=== PATIENT | male | born 1950 | race Caucasian/White ===

== ENCOUNTER → 2017-09-03 10:49 | Outpatient (CLI) | payer MEDICARE, SELFPAY ==
--- NOTE | 2017-09-03 10:59 | XR_ITS ---
XR chest 2V COMPARISON: PA chest and left RIBS 12/07/2016 HISTORY: Shortness of breath, former smoker TECHNIQUE: PA and lateral chest FINDINGS: The lung bryan are well expanded and appear clear of infiltrate. There is aortic tortuosity unchanged from the previous exam but no cardiomegaly. There Is no pleural fluid and the pulmonary vascularity is normal. IMPRESSION: Nonacute chest findings
== END ==
PROVIDERS: PCP Family Medicine; Visit Provider Family Medicine
DX: Z87.891 Personal history of nicotine dependence (principal); R06.02 Shortness of breath
CPT/HCPCS: 71046

== ENCOUNTER → 2018-03-12 11:24 | Outpatient (CLI) | payer MEDICARE, SELFPAY ==
--- NOTE | 2018-03-12 11:27 | NM_ITS ---
History and Indications: Hypertension, shortness of breath, abnormal EKG Procedure: Patient received a 0.4 mg of intravenous Lexiscan, resting heart rate was 60 bpm resting blood pressure 183/80, with Lexiscan maximum heart rate achieved was 110 bpm which is less than 85% maximum predicted heart rate and a blood pressure was 143/54. With Lexiscan patient complained of lightheadedness. Electrocardiogram: Resting electrocardiogram showed electronically paced rhythm with left bundle branch block, with Lexiscan there is less than 1.[address] segment depression noted. The EKG portion of the Lexiscan is nondiagnostic. Cardiac stress and resting SPECT images: Cardiac stress and rest SPECT images were obtained using technetium 99 Myoview 31.8 mCi at stress 11.0 mCi at rest. Gated SPECT further analysis of segmental wall motion and calculation of ejection fraction. Cardiac stress and the suspect images show a fixed defect distal anteroapical and apical wall with reduced contractility is likely secondary to myocardial scarring, without significant brianna-infarct ischemia seen, there are ejection fraction is 53% moderate hypokinesis involving the distal anteroapical and apical wall. Right ventricle is normal size and contractility. Conclusion: 1. The EKG portion of the Lexiscan Myoview is nondiagnostic. 2. Scintigraphic evidence of myocardial scarring involving the distal anteroapical and apical wall without significant brianna-infarct ischemia, computer derived ejection fraction is 53 percent segmental wall motion abnormality described above, right ventricle is normal size and contractility. 3. Abnormal Lexiscan Myoview study.
--- NOTE | 2018-03-12 11:27 | CA_ITS ---
PROCEDURE: 2-D M-mode and color Doppler study INDICATIONS FOR THE TEST: Chest pain COPD Heart Murmur Tobacco Smoking Palpitations Fatigue Syncope Edema Hypertension+Diabetes Mellitus Rheumatic Fever SOB CHESTER Obesity Hyperlipidemia Family History HD+ Additional History PACER ABN EKG PATIENT INFORMATION HEIGHT: 60 WEIGHT:130 GENDER: Male B/P:143/87 2-D/M-MODE INTERPRETATION: 2-D MEASUREMENTS OBSERVED VALUES IN CMS Right Ventricular Dimension (RVDd) 2.2 Interventricular Septum (Thickness)(IVsd) 1.3 Left Ventricular Internal Dimensions(LVIDd) 4.8 Left Ventricular Posterior Wall (Thickness)(LVPWd) 1.2 Aortic Root 3.7 Aortic Cusp Separation 2.2 Left Atrial Dimensions (LAD) 2.9 2D 1. Technically very difficult study because of the patient's factor and poor acoustic windows. 2. The left atrium is mildly enlarged, left ventricle is normal size, visually estimated ejection fraction is probably 40-45%, there is abnormal septal motion. 3. The right atrium and right ventricle are normal size and contractility., There is pacemaker lead seen in the right atrium and right ventricle 4. The aortic valve is minimally thickened and fibrosed. 5. The mitral and tricuspid valvular grossly normal. 6. The pulmonic valve is poorly present. 7. No significant pericardial effusion noted. DOPPLER INTERROGATION: Doppler interrogation of the aortic, mitral and tricuspid valve reveals presence of mild mitral and tricuspid regurgitation, tricuspid regurgitation jet velocity is insufficient for calculation of the right ventricular systolic pressure, grade 1 diastolic dysfunction seen with tissue Doppler evidence of raised left atrial pressure. CONCLUSION: 1. Technically difficult study because of the patient's factor and poor acoustic windows 2. The left atrium is mildly enlarged, left ventricle is normal size, visually estimated ejection fraction of 40-45%, there is abnormal septal motion. Grade 1 diastolic dysfunction seen with tissue Doppler evidence of raised left atrial pressure. 3. Mild mitral and tricuspid regurgitation 4. No significant pericardial effusion noted.
== END ==
PROVIDERS: Family Provider Nurse Practitioner Family; PCP Family Medicine; Visit Provider Internal Medicine Cardiovascular Disease
DX: R06.83 Snoring (principal); R40.0 Somnolence; R94.31 Abnormal electrocardiogram [ECG] [EKG]; I10 Essential (primary) hypertension; Z78.9 Other specified health status; Z82.49 Family history of ischemic heart disease and other diseases of the circulatory system
CPT/HCPCS: 78452; 93017; 93306; A9502; J2785

== ENCOUNTER 2018-04-01 09:15 | Outpatient (RCR) | payer MEDICARE, SELFPAY | END 2018-07-11 13:59 | disposition home or self-care (01) | LOC: PT 09:15 | PROVIDERS: Visit Provider Internal Medicine | DX: Z95.5 Presence of coronary angioplasty implant and graft (principal) | CPT/HCPCS: 93798 ==

== ENCOUNTER → 2018-04-08 08:57 | Outpatient (CLI) | payer MEDICARE, SELFPAY ==
[2018-04-08 11:10] LABS: Alanine Aminotransferase 30 U/L (12-78); Albumin Level 3.9 gm/dL (3.4-5.0); Alkaline Phosphatase 112 U/L (46-116); Aspartate Amino Transferase 18 U/L (15-37); Bilirubin,Direct 0.1 mg/dL (0.0-0.2); Bilirubin,Indirect 0.3 mg/dL (0.0-0.9); Bilirubin,Total 0.4 mg/dL (0.2-1.0); Chol/HDL Ratio 3.9 (1-3.5); Cholesterol 143 mg/dL (140-200); HDL Cholesterol 37 mg/dL (27-67); LDL Cholesterol 87 mg/dL (0-130); Total Protein,Serum 7.2 gm/dL (6.4-8.2); Triglycerides 94 mg/dL (30-200); VLDL Cholesterol 19 mg/dL (0-40)
== END ==
PROVIDERS: Visit Provider Internal Medicine Cardiovascular Disease
DX: R06.83 Snoring (principal); R40.0 Somnolence; R94.31 Abnormal electrocardiogram [ECG] [EKG]; Z78.9 Other specified health status; Z82.49 Family history of ischemic heart disease and other diseases of the circulatory system; I10 Essential (primary) hypertension
CPT/HCPCS: 36415; 80061; 80076

== ENCOUNTER → 2018-04-15 10:05 | Outpatient (CLI) | payer MEDICARE, SELFPAY ==
[2018-04-15 11:20] LABS: Anion Gap 11.4 mEq/L (5-15); Blood Urea Nitrogen 13 mg/dL (7-18); Calcium 9.3 mg/dL (8.5-10.1); Carbon Dioxide 34 mmol/L (21.0-32.0); Chloride 101 mmol/L (98-107); Creatinine,Serum 0.95 mg/dL (0.70-1.30); Estimated Glomerular Filt Rate 79 ml/min (>60); GFR (African American) 95 ML/MIN (>60); Glucose 89 mg/dL (74-106); Potassium 4.4 mmoL/L (3.5-5.1); Sodium 142 mmol/L (136-145)
== END ==
PROVIDERS: PCP Family Medicine; Visit Provider Internal Medicine Cardiovascular Disease
DX: E78.2 Mixed hyperlipidemia (principal); I10 Essential (primary) hypertension; I25.10 Atherosclerotic heart disease of native coronary artery without angina pectoris; I51.9 Heart disease, unspecified; R06.09 Other forms of dyspnea; Z95.0 Presence of cardiac pacemaker
CPT/HCPCS: 36415; 80048

== ENCOUNTER 2018-09-12 02:48 | Inpatient (IN) ==
[2018-09-12 03:09] LABS: Basophils # 0.1 K/mm3 (0-0.2); Basophils % 0.9 % (0.1-2.0); Eosinophils # 0.4 K/mm3 (0.0-0.4); Eosinophils % 4.4 % (0.1-12.0); Hematocrit 44.6 % (42.0-52.0); Hemoglobin 14.8 g/dL (14.1-18.0); Lymphocytes # 2.3 K/mm3 (0.7-4.5); Lymphocytes % 26.1 % (10-50); Mean Corpuscular HGB Conc 33.2 g/dL (31.8-35.4); Mean Corpuscular Hemoglobin 29.1 pg (27.0-31.2); Mean Corpuscular Volume 87.7 fl (80-94); Mean Platelet Volume 7.7 fl (7.4-10.4); Monocytes # 0.7 K/mm3 (0.1-1.0); Monocytes % 8.2 % (1.7-9.3); Neutrophils # 5.4 K/mm3 (1.8-7.8); Neutrophils % 60.4 % (37.0-80.0); Platelet Count 282 K/mm3 (142-424); Red Blood Count 5.09 M/mm3 (4.60-6.20); Red Cell Distribution Width 13.1 % (11.5-17.5)
--- NOTE | 2018-09-12 03:13 | Emergency Department Note ---
ED Disposition Clinical Impression: Non-STEMI (non-ST elevated myocardial infarction), Cardiac pacemaker in situ Disposition: Admitted As Inpatient Condition on Discharge: Good Referrals: Provider,Referral, [Primary Care Provider] - - Critical Care Critical Care Time: No Attestation: On 09/12/18, the high probability of a clinically significant, sudden or life threatening deterioration of the following system(s) required my full and direct attention, intervention and personal management. The time I documented below is in addition to time spent performing reported procedures but includes the f ollowing listed in this critical care notation. Medical Decision Making - Medical Records Medical records reviewed: Yes: I reviewed the patient's medical records. - Salty Inquiry Pt receiving controlled substance: No Vital Signs: 09/12/18 02:49 09/12/18 03:19 09/12/18 04:00 Temperature 98.0 F 97.8 F Temperature Source Oral Oral Pulse Rate [Right Brachial] 98 H 64 65 Respiratory Rate 15 20 18 Blood Pressure [Right Arm] 128/80 132/67 128/72 Blood Pressure Mean [Right Arm] 96 88 90 02 Sat by Pulse Oximetry 95 94 L 94 L Oxygen Delivery Method Room Air Room Air Room Air - Lab Data Lab results reviewed: Yes: I reviewed the patient's lab results. Lab Results 09/12/18 03:02: WBC 9.0, RBC 5.09, Hgb 14.8, Hct 44.6, MCV 87.7, MCH 29.1, MCHC 33.2, RDW 13.1, Plt Count 282, MPV 7.7, Neut % (Auto) 60.4, Lymph % (Auto) 26.1, [place] % (Auto) 8.2, Eos % (Auto) 4.4, Baso % (Auto) 0.9, Neut # (Auto) 5.4, Lymph # (Auto) 2.3, [place] # (Auto) 0.7, Eos # (Auto) 0.4, Baso # (Auto) 0.1 09/12/18 03:02: Sodium 144, Potassium 3.7, Chloride 104, Carbon Dioxide 31, Anion Gap 12.7, BUN 18, Creatinine 1.12, Estimated Creat Clear 54, Estimated GFR 65, Est GFR ( Amer) 79, Glucose 87, Calcium 8.7, Troponin I 1.07 H Result diagrams: 09/12/18 03:02 04/12/19 03:02 Orders (Tests/Meds): ED MEDICATIONS Generic Name Dose Route Start Last Admin Trade Name Freq PRN Reason Stop Dose Admin Sodium Chloride 10 ml 09/12/18 02:50 Saline Flush 10ml Syringe IV 10/12/18 02:49 NEEDED PRN Maintain IV Site Discontinued Medications Generic Name Dose Route Start Last Admin Trade Name Freq PRN Reason Stop Dose Admin Aspirin 324 mg 09/12/18 02:58 09/12/18 03:00 Aspirin 81mg Chewable Tablet PO 09/12/18 02:59 324 mg ONCE ONE Administration Nitroglycerin 1 gm 09/12/18 03:35 09/12/18 03:57 Nitroglycerin 1 Inch Oint Udp TD 09/12/18 03:36 1 gm ONCE ONE Administration - Radiology Data #1 Image(s): Chest Image Reviewed: Yes I reviewed the patient's radiology image Preliminary Findings: Abnormal (cm) - ECG Data Tracing #1 I reviewed this ECG and interpreted as documented below: Normal Sinus Rhythm: Yes Conduction abnormalities present: other (paced) - Physician Consults Physician Consulted: mundo Reason -: Admission Chest Pain HPI - General Chief Complaint: Chest Pain Stated Complaint: chest pain Time Seen by Provider: 09/12/18 02:55 Mode of Arrival: Ambulatory Source of Information: Patient, Medical Record Limitations: No Limitations Description of Symptoms (Recalled from ER Triage Doc. by RN): Pt complaining of chest pain that started approx 3 hours ago when he was pulling out a couch. Pt reports hx of stents, sees Dr Joshua. Supposed to see Alexa in [facility]'s office tomorrow. - History of Present Illness HPI narrative: pt with lt sided chest pain with known heart disease and had stents last yr - he reports pain this am and reports pain with any exertion over the last few weeks MD complaint: chest pain indicative of cardiac Onset (ago): hour(s) Duration: now resolved Activity at onset: light activity Pain location: left chest Severity: similar to previous episodes Quality: tightness Associated symptoms: nausea Treatments prior to or on arrival for Cardiac Chest Pain: none - SIMEON Score for Non-Stemi Age of Patient: 60-69 years old Heart Rate: 90-109 bpm Systolic Blood Pressure: 120-139 mmhg Serum Creatinine: 0.80-1.19 mg/dl CHF [place] Class: I-No CHF Other Risk Factors: Elevated Cardiac Enzymes or Biomarkers Non-Stemi Risk Score: 128 - Related Data Prior Cardiac Testing/Procedures: Stenting Home Medications Medication Instructions Recorded Confirmed Bisoprolol Fumarate [Bisoprolol 5 mg PO DAILY 09/12/18 09/12/18 5mg Tablet] Clopidogrel Bisulfate [Plavix 75mg 75 mg PO DAILY 09/12/18 09/12/18 Tab] Lisinopril/Hydrochlorothiazide 1 tab PO DAILY 09/12/18 09/12/18 [Lisinopril-Hctz 10-12.5 mg Tab] hydroCHLOROthiazide 12.5 mg PO DAILY 09/12/18 09/12/18 [Hydrochlorothiazide 12.5mg Tab] Previous Rx's Medication Instructions Recorded aspirin 81 mg tablet,delayed 81 mg PO DAILY #30 tab 06/25/18 release atorvastatin 40 mg tablet 40 mg PO DAILY #30 tab 06/26/18 Allergies Allergy/AdvReac Type Severity Reaction Status Date / Time No Known Allergies Allergy Verified 06/13/18 10:20 [facility] History - Hepatitis A Screen Drug use history?: No High risk sexual behaviors?: No History of sexually transmitted infection?: No Currently employed?: No Childcare worker?: No Do you have indoor plumbing?: Yes Do you have electricity?: Yes Attestation statement:: This patient has been screened for Hepatitis A risk factors. I have reviewed the patient's past medical history: Yes Medical History: Reports:: Gastroesophageal Reflux Disease(GERD), Hiatal Hernia, Internal Pacemaker Denies:: Cancer, Diabetes Mellitus Type 1, Diabetes Mellitus Type 2, MRSA, Seizures Other Medical History: Denies: Blood Transfusion Reaction Other Surgeries: Yes: Pacemaker Amputation: No Fractures: Yes (hip and ankles) - Social History Smoking Status: Former smoker Tobacco Type: cigarettes Alcohol Intake: never Alcohol Intake Frequency:: holidays/special occasions only Substance Use Type: denies use Occupational Status: retired Housing: house Household Members: spouse - Psychiatric History Expresses thoughts of harming self/others: None Suicide Plan Description: No Plan Family Hx:: Heart Attack, Diabetes, Cancer ROS Obtained: Yes All systems reviewed & no additional complaints - Constitutional Constitutional: Denies fever(s) - Eyes Eyes: Denies change in vision - ENT Ears, Nose, Mouth, and Throat: Denies sore throat - Cardiovascular Cardiovascular: Reports chest pain, Reports chest pain with activity, Reports dyspnea, Reports radiating jaw, neck or arm pain - Respiratory Respiratory: No cough - Gastrointestinal Gastrointestingal: Denies: abdominal pain - Genitourinary Male Genitourinary: Denies hematuria - Musculoskeletal Musculoskeletal: Denies joint pain - Integumentary/Breasts Skin/Breast: Denies rash - Neurologic Neurologic: Denies seizure-like activity Physical Exam - General General appearance: alert, in no apparent distress - Head Head exam: normocephalic - Eye Eye exam: Present: PERRL, EOMI - ENT ENT exam: Present: mucous membranes dry - Neck Neck exam: Present: trachea midline - Respiratory Respiratory exam: Present: normal lung sounds bilaterally. Absent: respiratory distress - Cardiovascular Cardiovascular exam: Present: regular rate, systolic murmur, +S4 - Abdominal Exam Abdominal exam: Present: soft - Extremities Exam Extremities exam: Present: full ROM - Neurological Exam Neurological exam: Present: alert, oriented X3, CN II-XII intact - Psychiatric Psychiatric exam: Present: normal affect - Skin Skin exam: Absent: rash
[2018-09-12 03:35] LABS: Anion Gap 12.7 mEq/L (5-15); Calcium 8.7 mg/dL (8.5-10.1); Potassium 3.7 mmoL/L (3.5-5.1)
[2018-09-12 07:19] LABS: Chol/HDL Ratio 3.9 (1-3.5)
--- NOTE | 2018-09-12 07:32 | History & Physical Report ---
*Admission Date: 09/12/18 *Chief complaint: Chest pain *History of present illness: 67-year-old male with known coronary artery disease who is status post multivessel stenting in March 2018 as well as cardiac pacemaker implantation in February 2018 presented to the emergency department after onset of chest pain. Patient is a new father and his is here in the hospital after undergoing on September 11. Patient states he was trying to adjust the reclining bed and pulled on it and felt onset of pain in his chest. Pain did not go away and began radiating into the left arm. It was at this point he decided to seek treatment done in the emergency department. In the ER workup revealed an elevated troponin. Decision was made to admit the patient for cardiology evaluation. Patient admits however that over the preceding 3 weeks he has noticed chest pain whenever he exerts himself. He describes trying to push mow his lawn and after walking 50 feet developed chest pain that required him to stop. If he walks quickly through the house he will develop chest pain that requires him to stop and sit down. [facility] History I have reviewed the patient's past medical history: Yes Medical History: Reports:: Gastroesophageal Reflux Disease(GERD), Hiatal Hernia, Internal Pacemaker Denies:: Cancer, Diabetes Mellitus Type 1, Diabetes Mellitus Type 2, MRSA, Seizures *Have you ever received a pneumonia vaccine?: No *Have you received a flu vaccine this season?: No Other Medical History: Denies: Blood Transfusion Reaction Other Surgeries: Yes: Pacemaker Amputation: No Fractures: Yes (hip and ankles) - *Social History Educational Level: Completed High School Smoking Status: Former smoker Tobacco Type: cigarettes Alcohol Intake: never Alcohol Intake Frequency:: holidays/special occasions only Substance Use Type: denies use *Occupational Status:: retired Housing: house Household Members: spouse *Travel in the last 8 weeks: None - Psychiatric History Expresses thoughts of harming self/others: None Suicide Plan Description: No Plan Family Hx:: Cancer, Diabetes, Heart Attack, Tuberculosis Review of Systems - Review of Systems Review of systems:: pertinent systems reviewed and negative unless documented below - *Neurologic Denies seizure-like activity Meds Home Medications Medication Instructions Recorded Confirmed Type aspirin 81 mg tablet,delayed 81 mg PO DAILY #30 tab 06/25/18 09/12/18 Rx release atorvastatin 40 mg tablet 40 mg PO DAILY #30 tab 06/26/18 09/12/18 Rx Bisoprolol Fumarate [Bisoprolol 5 mg PO DAILY 09/12/18 09/12/18 History 5mg Tablet] Clopidogrel Bisulfate [Plavix 75mg 75 mg PO DAILY 09/12/18 09/12/18 History Tab] Lisinopril/Hydrochlorothiazide 1 tab PO DAILY 09/12/18 09/12/18 History [Lisinopril-Hctz 10-12.5 mg Tab] hydroCHLOROthiazide 12.5 mg PO DAILY 09/12/18 09/12/18 History [Hydrochlorothiazide 12.5mg Tab] Allergies Allergy/AdvReac Type Severity Reaction Status Date / Time No Known Allergies Allergy Verified 09/12/18 05:53 Exam Vital signs and Labs for Last 24 Hours: Temp Pulse Resp BP Pulse Ox 97.5 F L 60 16 117/64 94 L 09/12/18 05:42 09/12/18 05:42 09/12/18 05:42 09/12/18 05:42 09/12/18 06:17 Laboratory Results - last 24 hr 09/12/18 03:02: WBC 9.0, RBC 5.09, Hgb 14.8, Hct 44.6, MCV 87.7, MCH 29.1, MCHC 33.2, RDW 13.1, Plt Count 282, MPV 7.7, Neut % (Auto) 60.4, Lymph % (Auto) 26.1, [place] % (Auto) 8.2, Eos % (Auto) 4.4, Baso % (Auto) 0.9, Neut # (Auto) 5.4, Lymph # (Auto) 2.3, [place] # (Auto) 0.7, Eos # (Auto) 0.4, Baso # (Auto) 0.1 09/12/18 03:02: Sodium 144, Potassium 3.7, Chloride 104, Carbon Dioxide 31, Anion Gap 12.7, BUN 18, Creatinine 1.12, Estimated Creat Clear 54, Estimated GFR 65, Est GFR ( Amer) 79, Glucose 87, Calcium 8.7, Troponin I 1.07 H 09/12/18 03:02: Triglycerides 94, Cholesterol 126 L, LDL Cholesterol 75, VLDL Cholesterol 19, HDL Cholesterol 32, Cholesterol/HDL Ratio 3.9 H I & O for Last 24 hours: Intake & Output 09/09/18 09/10/18 09/11/18 09/12/18 11:59 11:59 11:59 11:59 Weight 138 lb 9.6 oz - *Routine HEENT Exam Head: Present: normocephalic Eye: Present: EOMI, PERRL ENT: Present: mucous membranes moist - *Routine Respiratory Exam Present: CTA bilaterally - *Routine Cardiovascular Exam Present: RRR Assessment and Plan (1) Unstable angina Current visit: Yes Status: Acute Category: Medical Code(s): I20.0 - Unstable angina (2) Coronary artery disease Current visit: Yes Status: Acute Category: Medical Code(s): I25.10 - Atherosclerotic heart disease of [place] coronary artery without angina pectoris (3) Non-STEMI (non-ST elevated myocardial infarction) Current visit: Yes Status: Acute Category: Medical Code(s): I21.4 - Non-ST elevation (NSTEMI) myocardial infarction (4) Cardiac pacemaker in situ Current visit: Yes Status: Chronic Category: Medical Code(s): Z95.0 - Presence of cardiac pacemaker (5) Diastolic dysfunction Current visit: No Status: Chronic Category: Medical Code(s): I51.9 - Heart disease, unspecified (6) Hyperlipidemia Current visit: No Status: Chronic Qualifiers: Category: Medical Code(s): E78.5 - Hyperlipidemia, unspecified (7) Hypertension Current visit: No Status: Chronic Qualifiers: Category: Medical Code(s): I10 - Essential (primary) hypertension - Assessment and plan all Dx Assessment and Plan for all problems:: Patient has been admitted for cardiology consultation. Continue home meds at this time
--- NOTE | 2018-09-12 07:51 | Pharmacy Consult Notes ---
[facility] Pharmacy VTE Monitoring - Patient Demographics Admission date: 09/12/18 Report Date: 09/12/18 Time: 07:50 Allergies/Adverse Reactions: Patient Allergies No Known Allergies Allergy (Verified 09/12/18 05:53) Height: 1.52 m Weight: 62.868 kg Patient Problems: Current Active Problems Non-STEMI (non-ST elevated myocardial infarction) (Acute) Unstable angina (Acute) Coronary artery disease (Acute) Cardiac pacemaker in situ (Chronic) - VTE Risk Labs: VTE Related Lab Results Hgb 14.8 g/dL (14.1-18.0) 09/12/18 03:02 Hct 44.6 % (42.0-52.0) 09/12/18 03:02 Plt Count 282 K/mm3 (142-424) 09/12/18 03:02 BUN 18 mg/dL (7-18) 09/12/18 03:02 Creatinine 1.12 mg/dL (0.70-1.30) 09/12/18 03:02 Estimated Creat Clear 54 mL/min (50-200) 09/12/18 03:02 Was VTE Risk Assessment Performed: Yes VTE Score: 2 VTE Risk Level: Very Low Risk - Prophylaxis VTE Prophylaxis Ordered?: Yes Types of VTE Prophylaxis: TEDS Knee High Location of Applied Device: Bilateral Lower Extremeties - VTE Diagnosis Confirmed Treatment or plan recommended: Continue Current Treatment
--- NOTE | 2018-09-12 09:31 | Consult Report ---
Addendum entered and electronically signed by Ann-Marie Giron APRN 09/12/18 14:50: Pt returned from left heart catheterization. Pt is doing well. Pressure dressing remains intact of the right wrist cath site. Results of left heart catheterization revealed JULIO to Right Coronary Artery. Medication regimen consist of Beta vaibhav, Jamarcus inhibitor, Statin therapy and DAPT: Plavix and Aspirin. Discussed with pt the importance of no heavy lifting or strenuous activity until follow-up with cardiology clinic. Follow-up in cardiology clinic in 1 week or sooner if symptoms persist/develop. Discussed and encouraged cardiac rehab when patient follows up in cardiac clinic. Original Note: History of Present Illness Consult date: 09/12/18 Requesting physician: Marquise Hayden Consult reason: chest pain Chief complaint: Chest pain Additional Medical History:: 1. Non-STEMI (09/12/18) a. Troponin 1.07 (09/12/18) 2. Unstable angina (09/12/18) a. Chest pain for 3 weeks. 3. Coronary artery disease. a. Drug-eluting stent deployment to the proximal mid distal RCA (03/20) b. Drug-eluting stent deployment to proximal dominant circumflex artery (03/20) c. Drug-eluting stent deployment to proximal mid distal LAD (03/20) 4. Permanent pacemaker placement (02/18) a. Symptomatic bradycardia 5. Diastolic dysfunction a. Echocardiogram revealed 40-45% EF (03/20) 6. Essential Hypertension 7. Hyperlipidemia a. LDL (75) (09/12/17) b. Patient is on statin therapy. History of present illness: 65-year-old male presented to the emergency room early this a.m. complaining of chest pressure that had been consistent for the last few hours. Patient stated for the past 3 weeks he has been experiencing increased left- sided chest pressure especially with exertion. This chest pressure usually will resolve with rest. Shortness of breath is accompanied with chest pressure. Patient states he is unable to walk 10 feet without becoming short of breath. Patient states that shortness of breath has become worse in the past few weeks. He denies any swelling of his legs or ankles. Patient denies dizziness or palpitations. Patient also complained of left arm numbness with the chest pressure. Patient does have history of coronary artery disease. In 03/20 patient underwent left heart catheterization, received drug-eluting stents to the proximal LAD, Circumflex artery and RCA. Patient stated he had been doing well after his last stents were placed. He also had PPM placed (02/18) for symptomatic bradycardia. Last echocardiogram (03/20) revealed EF of 40-45%. Patient does have history of hypertension and hyperlipidemia. Patient was last evaluated by cardiology in June 2018, in which no changes were made to his medication regimen. Last interrogation of pacemaker was stable (06/21). 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 AT/AF burden<1% in battery life is good. Initial cardiac workup was performed in the ER. Troponin noted at 1.07 which was elevated. Creatinine 1.12 and BUN 18. Initial EKG was performed revealed paced rhythm with a heart rate of [address]pm. Discuss[address] case [address] Dr[address] Joshua. Recommend echocardiogram to assess LV function and valve status. Recommended patient to have left heart catheterization today due to elevated troponin and unstable angina. Discussed with patient the risk and benefits of undergoing left heart catheterization with access to right wrist or right groin area. Patient verbalized understanding. Patient is agreeable to plan of care. Further recommendations will be made following the results of the left heart catheterization. Thank you for letting cardiology participate in the care of your patient. [facility] History Medical History: Reports:: Gastroesophageal Reflux Disease(GERD), Hiatal Hernia, Internal Pacemaker Denies:: Cancer, Diabetes Mellitus Type 1, Diabetes Mellitus Type 2, MRSA, Seizures *Have you ever received a pneumonia vaccine?: No *Have you received a flu vaccine this season?: No Other Medical History: Denies: Blood Transfusion Reaction Other Surgeries: Yes: Pacemaker Amputation: No Fractures: Yes (hip and ankles) - *Social History Educational Level: Completed High School Smoking Status: Former smoker Tobacco Type: cigarettes Alcohol Intake: never Alcohol Intake Frequency:: holidays/special occasions only Substance Use Type: denies use *Occupational Status:: retired Housing: house Household Members: spouse *Travel in the last 8 weeks: None - Psychiatric History Expresses thoughts of harming self/others: None Suicide Plan Description: No Plan Family Hx:: Cancer, Diabetes, Heart Attack, Tuberculosis Meds Home Medications Medication Instructions Recorded Confirmed Type aspirin 81 mg tablet,delayed 81 mg PO DAILY #30 tab 06/25/18 09/12/18 Rx release atorvastatin 40 mg tablet 40 mg PO DAILY #30 tab 06/26/18 09/12/18 Rx Bisoprolol Fumarate [Bisoprolol 5 mg PO DAILY 09/12/18 09/12/18 History 5mg Tablet] Clopidogrel Bisulfate [Plavix 75mg 75 mg PO DAILY 09/12/18 09/12/18 History Tab] Lisinopril/Hydrochlorothiazide 1 tab PO DAILY 09/12/18 09/12/18 History [Lisinopril-Hctz 10-12.5 mg Tab] hydroCHLOROthiazide 12.5 mg PO DAILY 09/12/18 09/12/18 History [Hydrochlorothiazide 12.5mg Tab] Allergies Allergy/AdvReac Type Severity Reaction Status Date / Time No Known Allergies Allergy Verified 09/12/18 05:53 Review of Systems - Review of Systems Review of systems:: pertinent systems reviewed and negative unless documented below - *Cardiovascular Reports chest pain, Reports chest pain at rest, Reports shortness of breath, Reports shortness of breath with activity - *Respiratory Reports shortness of breath - *Neurologic Reports weakness, Denies seizure-like activity Exam Vital signs and Labs for Last 24 Hours: Temp Pulse Resp BP Pulse Ox 98.0 F 68 18 117/70 92 L 09/12/18 08:00 09/12/18 08:00 09/12/18 08:00 09/12/18 08:00 09/12/18 08:00 Laboratory Results - last 24 hr 09/12/18 03:02: WBC 9.0, RBC 5.09, Hgb 14.8, Hct 44.6, MCV 87.7, MCH 29.1, MCHC 33.2, RDW 13.1, Plt Count 282, MPV 7.7, Neut % (Auto) 60.4, Lymph % (Auto) 26.1, [place] % (Auto) 8.2, Eos % (Auto) 4.4, Baso % (Auto) 0.9, Neut # (Auto) 5.4, Lymph # (Auto) 2.3, [place] # (Auto) 0.7, Eos # (Auto) 0.4, Baso # (Auto) 0.1 09/12/18 03:02: Sodium 144, Potassium 3.7, Chloride 104, Carbon Dioxide 31, Anion Gap 12.7, BUN 18, Creatinine 1.12, Estimated Creat Clear 54, Estimated GFR 65, Est GFR ( Amer) 79, Glucose 87, Calcium 8.7, Troponin I 1.07 H 09/12/18 03:02: Triglycerides 94, Cholesterol 126 L, LDL Cholesterol 75, VLDL Cholesterol 19, HDL Cholesterol 32, Cholesterol/HDL Ratio 3.9 H I & O for Last 24 hours: Intake & Output 09/09/18 09/10/18 09/11/18 09/12/18 23:59 23:59 23:59 23:59 Intake Total 0 / 0 Balance 0 / 0 Weight 138 lb 9.6 oz - Constitutional mild distress, average body habitus, cooperative - *Routine HEENT Exam Head: Present: normocephalic ENT: Present: mucous membranes moist - *Routine Neck Exam Present: supple, full ROM, normal carotid upstroke. Absent: JVD, carotid bruit - Routine Chest/Breast/Axilla Exam Chest wall: Present: pacemaker - *Routine Respiratory Exam Present: accessory muscle use, CTA bilaterally. Absent: wheezes, crackles - *Routine Cardiovascular Exam Present: RRR, Normal S1, Normal S2. Absent: murmur, click, JVD - *Routine Abdominal Exam Present: soft, normoactive bowel sounds - *Routine Extremities Exam Present: full ROM, pulses intact, normal capillary refill. Absent: cyanosis, clubbing, edema - Routine Back/Spine/Pelvis Exam Back/Spine: Present: full ROM. Absent: CVA tenderness - *Routine Skin Exam Present: intact, dry, warm. Absent: cyanosis, erythema - *Routine Neurological Exam Present: alert, oriented X3, CN II-XII intact, normal reflexes, normal speech - Routine Psychiatric Exam Present: normal affect, cooperative Assessment and Plan (1) Unstable angina Current visit: Yes Status: Acute Category: Medical Code(s): I20.0 - Unstable angina (2) Coronary artery disease Current visit: Yes Status: Acute Category: Medical Code(s): I25.10 - Atherosclerotic heart disease of [place] coronary artery without angina pectoris (3) Non-STEMI (non-ST elevated myocardial infarction) Current visit: Yes Status: Acute Category: Medical Code(s): I21.4 - Non-ST elevation (NSTEMI) myocardial infarction (4) Cardiac pacemaker in situ Current visit: Yes Status: Chronic Category: Medical Code(s): Z95.0 - Presence of cardiac pacemaker (5) Diastolic dysfunction Current visit: No Status: Chronic Category: Medical Code(s): I51.9 - Heart disease, unspecified (6) Hyperlipidemia Current visit: No Status: Chronic Qualifiers: Category: Medical Code(s): E78.5 - Hyperlipidemia, unspecified (7) Hypertension Current visit: No Status: Chronic Qualifiers: Category: Medical Code(s): I10 - Essential (primary) hypertension - Assessment and plan all Dx Assessment and Plan for all problems:: Plan: 1. Schedule patient for left heart catheterization today due to elevated troponin and an unstable angina. 2. Obtain echocardiogram to assess LV function and valve status. 3. Further recommendations may be possible pending on left heart catheterization.
--- NOTE | 2018-09-12 15:40 | Cardiology Report ---
PROCEDURE: 2-D M-mode and color Doppler study INDICATIONS FOR THE TEST: Chest pain + COPD Heart Murmur Tobacco Smokingex Palpitations Fatigue Syncope Edema Hypertension+Diabetes Mellitus Rheumatic Fever SOB CHESTER Obesity Hyperlipidemia+ Family History HD Additional History pacer DEFINITY GIVEN TDS PATIENT INFORMATION HEIGHT: 60 WEIGHT:135 GENDER: Male B/P:128/72 2-D/M-MODE INTERPRETATION: 2-D MEASUREMENTS OBSERVED VALUES IN CMS Right Ventricular Dimension (RVDd) 2.0 Interventricular Septum (Thickness)(IVsd) 0.5 Left Ventricular Internal Dimensions(LVIDd) 6.1 Left Ventricular Posterior Wall (Thickness)(LVPWd) 0.5 Aortic Root 2.1 Aortic Cusp Separation 1.7 Left Atrial Dimensions (LAD) 3.0 2D 1. Technically difficult study because of the patient's factor and poor acoustic windows. Definity contrast was placed to delineate endocardial subsequent 2. The left atrium is mildly enlarged, left ventricle is mildly dilated, there is mild concentric left ventricular hypertrophy, visually estimated ejection fraction approximately 40-45%, there is marked hypokinesis involving the basal septum, inferobasal and posterobasal wall. 3. The right atrium and right ventricle are mildly enlarged with normal contractility, there is a pacemaker lead seen right atrium and right ventricle. 4. The aortic valve is minimally thickened and fibrosed. 5. The mitral and tricuspid valve leaflets are minimally thickened. 6. The pulmonic valve is poorly present. 7. No significant pericardial effusion noted. DOPPLER INTERROGATION: Doppler interrogation of the aortic, mitral and tricuspid valvular presence of mild mitral and tricuspid regurgitation, mild aortic insufficiency is also seen, tricuspid regurgitation jet velocity is inadequate for calculation of the right ventricular systolic pressure, grade 1 diastolic dysfunction seen with tissue Doppler evidence of raised left atrial pressure. CONCLUSION: 1. Technically difficult study because of the patient's factor and poor acoustic windows, Definity contrast was placed to delineate endocardial subsequent 2. Mildly enlarged left atrium, mildly dilated left ventricle, mild concentric left ventricular hypertrophy, visually estimated ejection fraction approximately 40-45% with segmental wall motion abnormality as described above. Grade 1 diastolic dysfunction seen with tissue Doppler evidence of raised left atrial pressure. 3. Mildly enlarged right ventricle with normal contractility., There is pacemaker lead seen right ventricle. 4. Mild aortic, mild mitral and tricuspid regurgitation 5. No significant pericardial effusion noted.
--- NOTE | 2018-09-12 16:28 | Discharge Summary ---
General - General Admission date:: 09/12/18 Discharge date: 09/12/18 HPI HPI: 67-year-old male with known coronary artery disease who is status post multivessel stenting in March 2018 as well as cardiac pacemaker implantation in February 2018 presented to the emergency department after onset of chest pain. Patient is a new father and his is here in the hospital after undergoing on September 11. Patient states he was trying to adjust the reclining bed and pulled on it and felt onset of pain in his chest. Pain did not go away and began radiating into the left arm. It was at this point he decided to seek treatment done in the emergency department. In the ER workup revealed an elevated troponin. Decision was made to admit the patient for cardiology evaluation. Patient admits however that over the preceding 3 weeks he has noticed chest pain whenever he exerts himself. He describes trying to push mow his lawn and after walking 50 feet developed chest pain that required him to stop. If he walks quickly through the house he will develop chest pain that requires him to stop and sit down. Hospital Course Hospital Course: Patient was admitted and cardiac catheterization was performed with the following note: Pt returned from left heart catheterization. Pt is doing well. Pressure dressing remains intact of the right wrist cath site. Results of left heart catheterization revealed JULIO to Right Coronary Artery. Medication regimen consist of Beta vaibhav, Jamarcus inhibitor, Statin therapy and DAPT: Plavix and Aspirin. Discussed with pt the importance of no heavy lifting or strenuous activity until follow-up with cardiology clinic. Follow-up in cardiology clinic in 1 week or sooner if symptoms persist/develop. Discussed and encouraged cardiac rehab when patient follows up in cardiac clinic. He will be discharged home today with addition of medications, follow up with PCP in one week. Objective Vital signs: Temp Pulse Resp BP Pulse Ox 98.0 F 60 19 98/58 L 93 L 09/12/18 08:00 09/12/18 14:15 09/12/18 14:15 09/12/18 14:15 09/12/18 14:15 no acute distress - *Routine HEENT Exam Head: Present: normocephalic ENT: Present: mucous membranes moist - *Routine Respiratory Exam Present: CTA bilaterally. Absent: accessory muscle use - *Routine Cardiovascular Exam Present: RRR, Normal S1, Normal S2 - *Routine Abdominal Exam Present: soft, normoactive bowel sounds - *Routine Extremities Exam Present: full ROM. Absent: cyanosis, edema - *Routine Skin Exam Present: intact. Absent: pallor - *Routine Neurological Exam Present: alert, oriented X3 - Routine Psychiatric Exam Present: normal affect Results Labs on day of discharge: Labs from last 24 hours 09/12/18 09/12/18 09/12/18 12:01 03:02 03:02 WBC RBC Hgb Hct MCV MCH MCHC RDW Plt Count MPV Neut % (Auto) Lymph % (Auto) [place] % (Auto) Eos % (Auto) Baso % (Auto) Neut # (Auto) Lymph # (Auto) [place] # (Auto) Eos # (Auto) Baso # (Auto) Activated Clotting Time 354 H* Sodium 144 Potassium 3.7 Chloride 104 Carbon Dioxide 31 Anion Gap 12.7 BUN 18 Creatinine 1.12 Estimated Creat Clear 54 Estimated GFR 65 Est GFR ( Amer) 79 Glucose 87 Calcium 8.7 Troponin I 1.07 H Triglycerides 94 Cholesterol 126 L LDL Cholesterol 75 VLDL Cholesterol 19 HDL Cholesterol 32 Cholesterol/HDL Ratio 3.9 H 09/12/18 03:02 WBC 9.0 RBC 5.09 Hgb 14.8 Hct 44.6 MCV 87.7 MCH 29.1 MCHC 33.2 RDW 13.1 Plt Count 282 MPV 7.7 Neut % (Auto) 60.4 Lymph % (Auto) 26.1 [place] % (Auto) 8.2 Eos % (Auto) 4.4 Baso % (Auto) 0.9 Neut # (Auto) 5.4 Lymph # (Auto) 2.3 [place] # (Auto) 0.7 Eos # (Auto) 0.4 Baso # (Auto) 0.1 Activated Clotting Time Sodium Potassium Chloride Carbon Dioxide Anion Gap BUN Creatinine Estimated Creat Clear Estimated GFR Est GFR ( Amer) Glucose Calcium Troponin I Triglycerides Cholesterol LDL Cholesterol VLDL Cholesterol HDL Cholesterol Cholesterol/HDL Ratio DS: Diagnosis - Discharge Diagnosis (1) Unstable angina Status: Acute (2) Coronary artery disease Status: Acute (3) Non-STEMI (non-ST elevated myocardial infarction) Status: Acute (4) Cardiac pacemaker in situ Status: Chronic (5) Diastolic dysfunction Status: Chronic (6) Hyperlipidemia Status: Chronic (7) Hypertension Status: Chronic Discharge Plan - Patient Discharge Instructions ACTIVITY: No heavy lifting DIET: cardiac Additional Instructions: FOLLOW UP APPOINTMENT WITH CARDIOLOGY ON 09/18/18 AT 1300 Patient Instructions: DI for Heart Attack - Follow up Plan Follow up with: Laurie Dowell APRN [Nurse Practitioner] - 09/19/18 11:30 am Disposition: Home, Self-[facility] Medications: Home Medications Medication Instructions Recorded Confirmed Type aspirin 81 mg tablet,delayed 81 mg PO DAILY #30 tab 06/25/18 09/12/18 Rx release atorvastatin 40 mg tablet 40 mg PO DAILY #30 tab 06/26/18 09/12/18 Rx Bisoprolol Fumarate [Bisoprolol 5 mg PO DAILY 09/12/18 09/12/18 History 5mg Tablet] Clopidogrel Bisulfate [Plavix 75mg 75 mg PO DAILY 09/12/18 09/12/18 History Tab] Lisinopril/Hydrochlorothiazide 1 tab PO DAILY 09/12/18 09/12/18 History [Lisinopril-Hctz 10-12.5 mg Tab] hydroCHLOROthiazide 12.5 mg PO DAILY 09/12/18 09/12/18 History [Hydrochlorothiazide 12.5mg Tab] Prescriptions/Medication Reconciliation: Continue aspirin 81 mg tablet,delayed release 81 mg PO DAILY #30 tab atorvastatin 40 mg tablet 40 mg PO DAILY #30 tab Lisinopril/Hydrochlorothiazide [Lisinopril-Hctz 10-12.5 mg Tab] 1 tab PO DAILY hydroCHLOROthiazide [Hydrochlorothiazide 12.5mg Tab] 12.5 mg PO DAILY Clopidogrel Bisulfate [Plavix 75mg Tab] 75 mg PO DAILY Bisoprolol Fumarate [Bisoprolol 5mg Tablet] 5 mg PO DAILY
[2018-09-12 18:52] VITALS: BP 99/66
== END 2018-09-12 19:45 | disposition home or self-care (01) | DRG 247 ==
LOC: ER 02:48 → 2ND 04:55 → ICU 05:03
PROVIDERS: ADMIT Family Medicine; ATTEND Family Medicine
CPT/HCPCS: 71020; 71046; 80048; 80061; 84484; 85025; 85347; 92928; 93005; 93306; 93458; 99152; 99153; 99284; C1725; C1760; C1769; C1874; C1876; C9600; J1644; Q9967

== ENCOUNTER → 2018-09-18 12:07 | Outpatient (CLI) | payer MEDICARE, SELFPAY ==
[2018-09-18 12:26] LABS: Hematocrit 40.6 % (42.0-52.0)
[2018-09-18 13:30] LABS: Blood Urea Nitrogen 19 mg/dL (7-18); Creatinine,Serum 1.15 mg/dL (0.70-1.30); Estimated Glomerular Filt Rate 63 ml/min (>60); GFR (African American) 76 ML/MIN (>60)
== END ==
PROVIDERS: Visit Provider Internal Medicine
DX: Z95.5 Presence of coronary angioplasty implant and graft (principal); Z79.899 Other long term (current) drug therapy
CPT/HCPCS: 36415; 82565; 84520; 85014; 85018

== ENCOUNTER → 2018-10-20 09:41 | Outpatient (CLI) | payer MEDICARE, SELFPAY ==
--- NOTE | 2018-10-20 09:51 | XR_ITS ---
XR shoulder RT min 2V COMPARISON: PA and lateral chest 09/12/2018 HISTORY: Chronic right shoulder pain TECHNIQUE: 3 views right shoulder FINDINGS: The clavicle is intact. The AC joint appears normal. There is a slightly lateral downsloping acromion process. Humeral head and glenoid appear normal and there are no soft tissue calcifications. IMPRESSION: Slight lateral downsloping acromion process which could possibly predispose to mild degree of impingement syndrome and suggest clinical correlation.
== END ==
PROVIDERS: PCP Family Medicine; Visit Provider Family Medicine
DX: M25.511 Pain in right shoulder (principal)
CPT/HCPCS: 73030

== ENCOUNTER → 2019-02-16 08:47 | Outpatient (CLI) | payer MEDICARE, SELFPAY ==
--- NOTE | 2019-02-16 08:51 | XR_ITS ---
PROCEDURE: XR SHOULDER RT MIN 2V CLINICAL INDICATION: Rt shoulder pain COMPARISON: No exams were available for comparison FINDINGS: Minor osteoarthritic changes are present at the glenohumeral joint. No fracture or dislocation. No significant subacromial stenosis. IMPRESSION: Mild osteoarthritis Dictated by: Vern Hollis MD 02/16/2019 09:32 Electronically signed by Vern Hollis MD in [place] 02/16/2019 09:32
== END ==
PROVIDERS: PCP Family Medicine; Visit Provider Orthopaedic Surgery
DX: M25.511 Pain in right shoulder (principal)
CPT/HCPCS: 73030

== ENCOUNTER → 2019-11-24 09:07 | Outpatient (CLI) | payer MEDICARE, SELFPAY ==
--- NOTE | 2019-11-24 09:08 | CA_ITS ---
APPROVED REPORT EXAM: Comprehensive 2D, Doppler, and color-flow Echocardiogram Dice Manager: Laurie Sánchez RVT Ht: 5 ft 0 in Wt: 142lbs BSA: 1.61 BP: 116/59 mmHg Indications: SOA,CAD,PACER,CM,HTN,CHESTER,HLD TDS 2D Dimensions LVOT 1.86 cm (M/F) 1.5-2.5 M-Mode Dimensions RVDd 2.82 cm (0.9-2.6) LVDd 4.42 cm (3.5-5.7) LVDs 3.12 cm (3.5-5.7) IVSd 0.88 cm (0.6-1.1) PWd 0.80 cm (0.6-1.1) EF (Teich) 56.50% FS 29.40% EDV (Teich) 88.60 mL ESV (Teich) 38.50 mL LV Diastology E/A Ratio 0.70 Mitral Valve MV A Velocity 85.00 (40-130 cm/s) Left Ventricle Left atrium is mildly enlarged, left ventricle is normal size, mild concentric left ventricular hypertrophy, visually estimated ejection fraction 55% with no regional wall motion abnormality, grade 1 diastolic dysfunction seen without tissue Doppler evidence of raise left atrial pressure. Right Ventricle Right atrium and right ventricle are mildly enlarged with normal contractility, there is a pacemaker lead seen right atrium and right ventricle. Aortic Valve Aortic valve is thickened and calcified, leaflet continue to display mobility, there is no aortic stenosis, there is mild aortic insufficiency. Mitral Valve Mitral valve has mitral annular calcification, leaflets are minimally thickened, there is no mitral stenosis, there is mild mitral regurgitation. Tricuspid Valve Tricuspid valve is grossly normal, there is mild tricuspid regurgitation, tricuspid regurgitation jet velocity is inadequate for calculation of the right ventricular systolic pressure. Pulmonic Valve Pulmonic valve is poorly visualized. Great Vessels Aortic root is normal size. Pericardium No significant pericardial effusion noted. Conclusion 1. Normal left ventricular size, mild concentric left ventricular hypertrophy, visually estimated ejection fraction 55% with no regional wall motion abnormality, grade 1 diastolic dysfunction seen without tissue Doppler evidence of raise left atrial pressure. 2. Thickened and calcified aortic valve without aortic stenosis, there is mild aortic insufficiency. 3. Mild mitral and tricuspid regurgitation. 4. No significant pericardial effusion noted. Electronically signed by : Teja Aguilar, 11/24/2019 22:23:27
== END ==
PROVIDERS: PCP Family Medicine; Visit Provider Nurse Practitioner Family
DX: R06.00 Dyspnea, unspecified (principal)
CPT/HCPCS: 93306

== ENCOUNTER → 2020-03-14 08:36 | Outpatient (CLI) | payer MEDICARE, SELFPAY ==
--- NOTE | 2020-03-14 08:36 | CT_ITS ---
PROCEDURE: CT LUNG SCREENING CLINICAL INDICATION: screening for lung cancer Former smoker Quit smoking 2 years ago 50 pack year smoking history COMPARISON: No exams were available for comparison TECHNIQUE: The exam was performed on a GE Light Speed [address] scanner using 2.90 mGy CTDI. A low dose helical CT CHEST was performed on a multi-detector scanner. All CT scans at the facility use one or more dose reduction, viz: automated exposure control, ma/kV adjustment per patient size (including targeted exams where dose is matched to indication, i.e. head), or iterative reconstruction technique. The LDCT was performed in a facility that meets the criteria for the screening program. Data regarding this exam was submitted to ACR which is an approved registry. The order for this exam indicates that it came as a result of a lung cancer screening counseling shard decision-making visit that included all the elements required of such a visit including smoking cessation. The radiologist interpreting this exam meets the [facility] criteria for the LDCT lung cancer screening program. The exam is reported using the Lung-RADS classification scale and reported to the ACR registry. NOTE: This study was performed for the specific purposes of lung cancer screening and is not an alternative to diagnostic chest CT. RADIATION DOSE: CTDI vol(CT dose Index-volume) = 2.90mG DLP (Dose Length Product) = 108.64 mGcm FINDINGS: Changes of COPD with mild diffuse bronchial thickening. There is a area of tree in bud opacities in the right upper lobe inferiorly nonspecific and may be due to inflammatory/infectious etiology. There is a calcified granuloma in the left upper lobe. There is increased AP dimension of the trachea and with narrowing of the trachea suggesting a saber sheath trachea which may be seen with COPD. No suspicious pulmonary nodules are evident. OTHER FINDINGS: There is a bipolar pacemaker present from left subclavian approach. Pacemaker however traverses the left side of the mediastinum. The superior vena cava on the right is extremely small. Is consistent with duplicated superior vena cava. There are coronary artery calcifications and coronary artery stent noted. 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 Dictated by: Vern Hollis MD 03/20/2020 11:39 Vern Hollis MD in [place] 03/20/2020 11:39
[2020-03-14 09:45] VITALS: PULSE 65; PULSE 67
== END ==
PROVIDERS: PCP Family Medicine; Visit Provider Internal Medicine Pulmonary Disease
DX: Z12.2 Encounter for screening for malignant neoplasm of respiratory organs (principal); Z87.891 Personal history of nicotine dependence; R06.02 Shortness of breath
CPT/HCPCS: 94060; 94640; 94727; 94729

== ENCOUNTER → 2020-04-06 13:32 | Outpatient (CLI) | payer MEDICARE, SELFPAY ==
[2020-04-06 14:13] LABS: Basophils # 0.1 K/mm3 (0-0.2); Basophils % 1.2 % (0.1-2.0); Eosinophils # 0.4 K/mm3 (0.0-0.4); Eosinophils % 4.5 % (0.1-12.0); Hematocrit 47.8 % (42.0-52.0); Hemoglobin 14.7 g/dL (14.1-18.0); Lymphocytes # 1.7 K/mm3 (0.7-4.5); Lymphocytes % 19.2 % (10-50); Mean Corpuscular HGB Conc 30.9 g/dL (31.8-35.4); Mean Corpuscular Hemoglobin 28.5 pg (27.0-31.2); Mean Corpuscular Volume 92.4 fl (80-94); Mean Platelet Volume 7.7 fl (7.4-10.4); Monocytes # 0.8 K/mm3 (0.1-1.0); Monocytes % 8.8 % (1.7-9.3); Neutrophils % 66.3 % (37.0-80.0); Platelet Count 247 K/mm3 (142-424); Red Blood Count 5.17 M/mm3 (4.60-6.20); Red Cell Distribution Width 13.2 % (11.5-17.5)
[2020-04-09 23:14] LABS: D001-IgE D pteronyssinus <0.10 kU/L (Class 0); D002-IgE D farinae <0.10 kU/L (Class 0); E001-IgE Cat Dander <0.10 kU/L (Class 0); E005-IgE Dog Dander <0.10 kU/L (Class 0); G002-IgE Bermuda Grass <0.10 kU/L (Class 0); G006-IgE Timothy Grass <0.10 kU/L (Class 0); I006-IgE Cockroach, German <0.10 kU/L (Class 0); Immunoglobulin E, Total 29 IU/mL (6-495); M001-IgE Penicillium chrysogen <0.10 kU/L (Class 0); M002-IgE Cladosporium herbarum <0.10 kU/L (Class 0); M003-IgE Aspergillus fumigatus <0.10 kU/L (Class 0); M006-IgE Alternaria alternata <0.10 kU/L (Class 0); T001-IgE Maple/Box Elder <0.10 kU/L (Class 0); T006-IgE Cedar, Mountain <0.10 kU/L (Class 0); T007-IgE Oak, White <0.10 kU/L (Class 0); T008-IgE Elm, American <0.10 kU/L (Class 0); T010-IgE Walnut <0.10 kU/L (Class 0); T011-IgE Maple Leaf Sycamore <0.10 kU/L (Class 0); T014-IgE Cottonwood <0.10 kU/L (Class 0); T015-IgE Ash, White <0.10 kU/L (Class 0); T022-IgE Pecan, Hickory <0.10 kU/L (Class 0); T070-IgE White Mulberry <0.10 kU/L (Class 0); W011-IgE Thistle, Russian <0.10 kU/L (Class 0); W014-IgE Pigweed, Common <0.10 kU/L (Class 0); W016-IgE Rough Marshelder 0.16 kU/L (Class 0/I)
[2020-04-10 09:52] LABS: E072-IgE Mouse Urine <0.10 kU/L (Class 0); Immunoglobulin E, Total 33 IU/mL (6-495)
== END ==
PROVIDERS: Visit Provider Internal Medicine Pulmonary Disease
DX: J98.4 Other disorders of lung (principal); J44.9 Chronic obstructive pulmonary disease, unspecified; R06.00 Dyspnea, unspecified; R06.02 Shortness of breath; R06.2 Wheezing
CPT/HCPCS: 36415; 82785; 85025; 86003

== ENCOUNTER → 2020-12-21 12:39 | Outpatient (POV) | payer MEDICARE, SELFPAY | DX: Z00.00 Encounter for general adult medical examination without abnormal findings (principal) ==

== ENCOUNTER → 2021-03-15 12:38 | Outpatient (CLI) | payer MEDICARE, SELFPAY ==
--- NOTE | 2021-03-15 12:38 | CT_ITS ---
PROCEDURE: CT LUNG SCREENING CLINICAL INDICATION: lung cancer screening COPD changes with evidence of old granulomatous disease. Mild bronchial thickening.. No change in the small faint opacities in the right upper lobe inferiorly. No suspicious pulmonary nodule identified. COMPARISON: CR CXR2V XR chest 2V from 09/03/[address] LUNG SCREENING from 03/14/2020 XA CL PACEMAKER DEFIBRILATOR from 03/30/2021 TECHNIQUE: The exam was performed on a [employer] Speed [address] scanner using 2.90 mGy CTDI. A low dose helical CT CHEST was performed on a multi-detector scanner. All CT scans at the facility use one or more dose reduction, viz: automated exposure control, ma/kV adjustment per patient size (including targeted exams where dose is matched to indication, i.e. head), or iterative reconstruction technique. The LDCT was performed in a facility that meets the criteria for the screening program. Data regarding this exam was submitted to ACR which is an approved registry. The order for this exam indicates that it came as a result of a lung cancer screening counseling shard decision-making visit that included all the elements required of such a visit including smoking cessation. The radiologist interpreting this exam meets the CMS criteria for the LDCT lung cancer screening program. The exam is reported using the Lung-RADS classification scale and reported to the ACR registry. NOTE: This study was performed for the specific purposes of lung cancer screening and is not an alternative to diagnostic chest CT. RADIATION DOSE: CTDI vol(CT dose Index-volume) = 2.90mG DLP (Dose Length Product) = 107.33 mGcm FINDINGS: COPD changes with evidence of old granulomatous disease. Mild bronchial thickening. No change in the small faint opacities in the right upper lobe inferiorly. No suspicious pulmonary nodule identified. OTHER FINDINGS: Bipolar pacemaker present from left subclavian approach traversing the left-sided mediastinum. Lead tips are present in the region of the right atrium and the right ventricle. Coronary artery stents and or calcification noted. Pacemaker lead similar to the previous exam. IMPRESSION: Lung-RADS Category 2 Benign Appearance or Behavior Follow-up: Continue annual screening with LDCT in 12 months Dictated by: Vern Hollis MD 04/03/2021 10:10 Vern Hollis MD in [place] 04/03/2021 10:10
== END ==
PROVIDERS: PCP Family Medicine; Visit Provider Internal Medicine Pulmonary Disease
DX: Z87.891 Personal history of nicotine dependence (principal); Z12.2 Encounter for screening for malignant neoplasm of respiratory organs
CPT/HCPCS: 71271

== ENCOUNTER → 2021-03-20 10:28 | Outpatient (CLI) | payer MEDICARE, SELFPAY ==
[2021-03-20 10:48] LABS: Basophils # 0.1 K/mm3 (0-0.2); Basophils % 1.2 % (0.1-2.0); Eosinophils # 0.3 K/mm3 (0.0-0.4); Eosinophils % 3.1 % (0.1-12.0); Hematocrit 50.6 % (42.0-52.0); Hemoglobin 16.2 g/dL (14.1-18.0); Lymphocytes # 1.5 K/mm3 (0.7-4.5); Lymphocytes % 17.2 % (10-50); Mean Corpuscular Hemoglobin 29.8 pg (27.0-31.2); Mean Corpuscular Volume 93.2 fl (80-94); Monocytes # 0.7 K/mm3 (0.1-1.0); Monocytes % 7.8 % (1.7-9.3); Neutrophils # 6.2 K/mm3 (1.8-7.8); Neutrophils % 70.7 % (37.0-80.0); Platelet Count 284 K/mm3 (142-424); Red Blood Count 5.43 M/mm3 (4.60-6.20); Red Cell Distribution Width 12.9 % (11.5-17.5); White Blood Count 8.8 K/mm3 (4.8-10.8)
[2021-03-20 11:06] LABS: D-Dimer 0.89 ug/mL (0.0-0.5)
== END ==
PROVIDERS: Visit Provider Internal Medicine Pulmonary Disease
DX: J45.909 Unspecified asthma, uncomplicated (principal); I26.99 Other pulmonary embolism without acute cor pulmonale
CPT/HCPCS: 36415; 85025; 85378

== ENCOUNTER → 2021-03-29 09:32 | Outpatient (CLI) | payer MEDICARE, SELFPAY ==
[2021-03-29 09:52] LABS: Basophils # 0.1 K/mm3 (0-0.2); Eosinophils # 0.3 K/mm3 (0.0-0.4); Eosinophils % 3.4 % (0.1-12.0); Hematocrit 47.7 % (42.0-52.0); Hemoglobin 15.3 g/dL (14.1-18.0); Lymphocytes # 1.5 K/mm3 (0.7-4.5); Mean Corpuscular HGB Conc 32.2 g/dL (31.8-35.4); Mean Corpuscular Hemoglobin 29.5 pg (27.0-31.2); Mean Corpuscular Volume 91.7 fl (80-94); Mean Platelet Volume 8.4 fl (7.4-10.4); Monocytes # 0.6 K/mm3 (0.1-1.0); Monocytes % 7.4 % (1.7-9.3); Neutrophils % 70.1 % (37.0-80.0); Platelet Count 275 K/mm3 (142-424); Red Blood Count 5.21 M/mm3 (4.60-6.20); Red Cell Distribution Width 13.3 % (11.5-17.5); White Blood Count 8.6 K/mm3 (4.8-10.8)
[2021-03-29 10:19] LABS: Chloride 101 mmol/L (98-107); Potassium 4.1 mmoL/L (3.5-5.1); Sodium 141 mmol/L (136-145)
[2021-03-29 10:22] LABS: Anion Gap 11.1 mEq/L (5-15); Blood Urea Nitrogen 13 mg/dl (9-20); Calcium 9.2 mg/dl (8.4-10.2); Carbon Dioxide 33 mmol/L (22.0-30.0); Estimated Glomerular Filt Rate 83 ml/min (>60); GFR (African American) 100 ML/MIN (>60); Glucose 110 mg/dl (74-100)
== END ==
PROVIDERS: Visit Provider Internal Medicine
DX: E78.5 Hyperlipidemia, unspecified (principal); I10 Essential (primary) hypertension; I25.10 Atherosclerotic heart disease of native coronary artery without angina pectoris; I35.1 Nonrheumatic aortic (valve) insufficiency; I42.9 Cardiomyopathy, unspecified; R06.00 Dyspnea, unspecified; Z95.0 Presence of cardiac pacemaker; Z01.812 Encounter for preprocedural laboratory examination; Z11.52 Encounter for screening for COVID-19
CPT/HCPCS: 36415; 80048; 85025; C9803; U0003; U0005

== ENCOUNTER 2021-03-30 08:20 | Day surgery (SDC) | payer MEDICARE, SELFPAY ==
--- NOTE | 2021-03-30 | IR_ITS ---
APPROVED REPORT Patient Location: Outpatient Housekeeping Supervisor: EZEIKEL Brown RT (R) PROCEDURES 1. Pocket Revision 2. Removal of old Pacemaker 3. Implant of Permanent Pacemaker INDICATION Recall of generator. Informed consent was obtained prior to the procedure. COMPLICATIONS None Estimated Blood Loss: less than 10ml TECHNIQUE 1% lidocaine with epinephrine used to anesthetize the left anterior aspect of the chest. Scalpel was used to make the initial cutaneous incision and then used to dissect down to the existing pacemaker generator. The generator was removed from the existing pocket. Digital manipulation was required along with intermittent usage of scalpel in order to revise the pocket. The leads were removed from the old generator. The new generator was screwed to the existing leads and secured into place. Electronic interrogation proved acceptable thresholds and voltage within the lead. Antibiotics were used to flush the pocket and the pacemaker was secured using 3-0 silk into the newly revised pocket. Monocryl was used to close the subcutaneous tissue and then [place] were placed on the cutaneous area in order to approximate the incision. Patient was transferred to the postop holding area in stable condition. INTERROGATION Generator Model number explanted : [employer] Pacemaker [id number] Implanted Generator Model number: [employer] MRI IS-1 L311 Implanted Generator Serial Number: [id number] Chronic Atrial lead model number: [id number] Atrial lead serial number: [id number] P-wave: 3.5 mV Impedence: 667 Ohms Threshold: 0.5V @ 0.4 ms Right Ventricular lead model number: [id number] Right Ventricular lead serial number: [id number] R-wave: Impedence: 620 Ohms Threshold: 0.6V @ 0.4mS Pacing Parameters: Mode:DDD Base/Max Track: 60/130 PPM No diaphragmatic stimulation at 10 volts. IMPRESSION 1. Successful pocket revision. 2. Successful removal of old Pacemaker 3. Successful implant of Permanent Pacemaker PLAN 1. Post Op Wound Care Electronically signed by : Gustavo Joshua MD 04/10/2021 13:15:53
[2021-03-30 08:24] VITALS: BMI 29.5
[2021-03-30 08:57] VITALS: PULSE 69
[2021-03-30 08:58] VITALS: BP 130/69; PULSE 70; RESP 19; O2SAT 98
[2021-03-30 10:15] VITALS: BP 104/61; PULSE 92; RESP 19; O2SAT 95
[2021-03-30 10:24] VITALS: PULSE 100
[2021-03-30 10:30] VITALS: BP 123/70; PULSE 74; RESP 19; O2SAT 95
[2021-03-30 10:45] VITALS: BP 145/70; PULSE 66; RESP 19; O2SAT 98
--- NOTE | 2021-03-30 12:10 | HMH.ANESCL ---
[facility] Anesthesia Checklist - Patient Identification Patient Identification: Arm Band - Structural Data Admitted From: Home Planned Operative Procedure/s: Pacemaker Generator Change Consent for Planned Operative Procedure(s) Verified: Yes Verified Documents: Surgical Consent, History and Physical - NPO Status Verified Time NPO: 00:00 - Additional verifications Anesthesia Reactions: No Hx Blood Transfusions: No Blood Transfusion Reaction: No - Airway Assessment C-Spine Mobility Assessed: Yes (mp2) TMJ Mobility Assessed: Yes Dentition: Good Dentition - Neurological Assessment Level of Consciousness: Awake, Alert - Anesthesia Plan Anesthesia Risk discussed: Yes Anesthesia Plan: Verified ASA Class: III Anesthesia Type: MAC [facility] History I have reviewed the patient's past medical history: Yes Medical History: Reports:: Cardiomyopathy, Coronary Artery Disease, Gastroesophageal Reflux Disease(GERD), Hiatal Hernia, Hyperlipidemia, Hypertension, Internal Pacemaker Denies:: Cancer, Diabetes Mellitus Type 1, Diabetes Mellitus Type 2, MRSA, Seizures *Have you ever received a pneumonia vaccine?: Yes *Have you received a flu vaccine this season?: Yes Other Medical History: Denies: Blood Transfusion Reaction Anesthesia experience/problems:: nac Other Surgeries: Yes: Cardiac Catheterization, Coronary Stent, Pacemaker, Other Amputation: No Fractures: Yes (hip and ankles) - *Social History Last grade of school completed: High school graduate Smoking Status: Former smoker Tobacco Type: cigarettes Alcohol Intake: never Alcohol Intake Frequency:: holidays/special occasions only Substance Use Type: denies use *Occupational Status:: retired Housing: house Household Members: spouse *Travel in the last 8 weeks: None Family Hx:: Cancer, Diabetes, Heart Attack, Tuberculosis
== END 2021-03-30 11:06 | disposition home or self-care (01) ==
LOC: CATHLAB 08:22
PROVIDERS: PCP Family Medicine; Visit Provider Internal Medicine
PROC: 0JPT0PZ Removal of Cardiac Rhythm Related Device from Trunk Subcutaneous Tissue and Fascia, Open Approach (ICD-10-PCS; principal; 2021-03-30 09:00)
DX: T82.111A Breakdown (mechanical) of cardiac pulse generator (battery), initial encounter (principal); Y83.1 Surgical operation with implant of artificial internal device as the cause of abnormal reaction of the patient, or of later complication, without mention of misadventure at the time of the procedure; I44.2 Atrioventricular block, complete; R00.1 Bradycardia, unspecified; I25.10 Atherosclerotic heart disease of native coronary artery without angina pectoris; I42.9 Cardiomyopathy, unspecified; K21.9 Gastro-esophageal reflux disease without esophagitis; E78.5 Hyperlipidemia, unspecified; I10 Essential (primary) hypertension; Z87.891 Personal history of nicotine dependence
CPT/HCPCS: 33228; C1785

== ENCOUNTER → 2021-12-18 07:37 | Outpatient (CLI) | payer MEDICARE, SELFPAY ==
--- NOTE | 2021-12-18 07:38 | CA_ITS ---
APPROVED REPORT EXAM: Comprehensive 2D, Doppler, and color-flow Echocardiogram Advertising Sales Consultant: Adamaris Rajput CRT Ht: 5 ft 0 in Wt: 152lbs BSA: 1.66 BP: 132/68 mmHg Indications: Shortness of Breath, Peripheral Edema, CAD, Hyperlipidemia, Hypertension/HDD, pacer, cm 2D Dimensions LVOT 1.67 cm (M/F) 1.5-2.5 M-Mode Dimensions RVDd 2.71 cm (0.9-2.6) LA Diam 3.95 cm (1.9-4.0) LVDd 5.18 cm (3.5-5.7) Ao Diam 3.78 cm (2.0-3.7) LVDs 3.86 cm (3.5-5.7) IVSd 0.96 cm (0.6-1.1) PWd 0.71 cm (0.6-1.1) EF (Teich) 49.90% FS 25.50% EDV (Teich) 128.40 mL TAPSE 1.90 (<1.7) ESV (Teich) 64.30 mL LV Diastology E Decel Time 213.00 (160-240 msec) E/A Ratio 0.88 MED E' 7.50 (< 7 cm/sec) MED A' 9.50 cm/s E'/MED E' Ratio 10.41 (>14) LAT E' 7.20 (<10 cm/sec) LAT A' 8.30 cm/s E/LAT E' Ratio 10.85 (>14) Aortic Valve AO Peak GR. 9.00 mmHg Mitral Valve MV A Velocity 89.00 (40-130 cm/s) E/A Ratio 0.88 MV Decel. Time 213.00 (160-240 ms) Pulmonary Valve PV Peak Velocity 130.00 (50-150 cm/s) Tricuspid Valve TR P. Velocity 236.00 cm/s RAP Estimate 10.00 mmHg RVSP 32.40 mmHg Left Ventricle Technically difficult study because of the patient factors and poor acoustic windows. Left atrium is mildly enlarged, left ventricle is normal size mild concentric left ventricular hypertrophy, there is abnormal septal motion, estimated ejection fraction 40 to 45%, there is no obvious regional wall motion abnormality. Grade 1 diastolic dysfunction seen without tissue Doppler evidence of raise left atrial pressure. Right Ventricle Right atrium and right ventricle are mildly enlarged with normal contractility, pacemaker leads in right atrium and right ventricle. Aortic Valve Aortic valve is thickened and calcified without aortic stenosis or aortic insufficiency. Mitral Valve Mitral valve leaflets are minimally thickened, there is mild mitral regurgitation. Tricuspid Valve Tricuspid valve is grossly normal, there is mild tricuspid regurgitation, tricuspid regurgitation jet velocity is inadequate for calculation of the right ventricular systolic pressure. Pulmonic Valve Pulmonic valve is poorly visualized. Great Vessels Aortic root is normal size. Inferior vena cava is poorly visualized. Pericardium No significant pericardial effusion noted. Conclusion 1. Biatrial enlargement, normal left ventricular size, mild concentric left ventricular hypertrophy, estimated ejection fraction 40 to 45% with no regional wall motion abnormality, there is abnormal septal motion, grade 1 diastolic dysfunction seen without tissue Doppler evidence of raise left atrial pressure. 2. Mildly enlarged right ventricle with normal contractility, there is pacemaker lead seen in right atrium and right ventricle. 3. Thickened and calcified aortic valve without aortic stenosis or aortic insufficiency. 4. Mild mitral and tricuspid regurgitation. 5. No significant pericardial effusion noted. 6. Inferior vena cava is poorly visualized. Electronically signed by : Teja Aguilar MD 12/18/2021 15:31:38
== END ==
PROVIDERS: PCP Family Medicine; Visit Provider Nurse Practitioner Family
DX: E78.5 Hyperlipidemia, unspecified (principal); I10 Essential (primary) hypertension; I25.10 Atherosclerotic heart disease of native coronary artery without angina pectoris; I35.1 Nonrheumatic aortic (valve) insufficiency; R06.00 Dyspnea, unspecified; Z95.0 Presence of cardiac pacemaker
CPT/HCPCS: 93306

== ENCOUNTER → 2021-12-21 06:26 | Outpatient (CLI) | payer MEDICARE, SELFPAY ==
--- NOTE | 2021-12-21 06:46 | NM_ITS ---
APPROVED REPORT Exam: Nuclear Stress Test Indication: short of breath..fatigue Patient Location: Outpatient Stress Tech: Anju Gifford [place] Tech:Elidia Mcdonald OSVALDOFercho RT(R)(N) Ht: 5 ft 0 in Wt: 150 lbs HR: 72 bpm BP: 121/69 mmHg BSA: 1.65 m2 TID: 1.10 History: short of breath..fatigue Procedure: Patient received a 0.4 mg of intravenous Lexiscan, resting heart rate 72 bpm, resting blood pressure 121/69 mmHg, with Lexiscan maximum heart rate achived was 95 bpm which is Less than 85 % of the maximum predicted heart rate and blood pressure was 124/69 mmHg. With Lexiscan, patient denied any complaint of chest pain. Electrocardiogram Resting electrocardiogram shows electronically paced ventricular rhythm, with Lexiscan there is less than 1.[address] segment depression noted from the baseline EKG. The EKG portion of the Lexiscan is nondiagnostic. Cardiac Stress and Resting SPECT Images: Cardiac Stress and Resting SPECT images were obtained using technetium 99m Myoview 31.5 mCi stress and 10.15 mCi at rest. Gated SPECT for analysis of segmental wall motion and calculation of the ejection fraction also done. Cardiac stress and resting SPECT images show a partial reversible defect involving the anterior apical and anteroseptal wall likely secondary to mixed ischemia and scar, computer derived ejection fraction is 58% with mild anteroseptal wall hypokinesis. Right ventricle is normal size and contractility. Conclusion: 1. The EKG portion of the Lexiscan is nondiagnostic. 2. Scintigraphic evidence of mixed ischemia and scar involving the anterior apical and anteroseptal wall, computer derived ejection fraction is 58% with segmental wall motion abnormality described above, right ventricle is normal size and contractility. 3. Abnormal Lexiscan Myoview study. Electronically signed by : Teja Aguilar MD 12/22/2021 13:05:43
--- NOTE | 2021-12-21 10:03 | CA_ITS ---
APPROVED REPORT Exam: Pharmacologic Technologist: Anju Smith, Ht: 5 ft 0 in Wt: 150 lbs BSA: 1.65 m2 HR: 68 bpm BP: 121/69 mmHg Medical History Medications: Atorvastatin,,,,, HCTZ,,,,, Montelukast,,,,, CloPIdogrel,,,,, BisOPROLOL,,,,, Nitroglycerin,,,,, Budesonide,,,,, Sacubitril-Valsartan,,,,, Duoned,,,,, Benralizumab,,,,, Stress Test Details Test: LEXISCAN Reason for pharmacologic stress test: physical limitation. Reversal agent Aminophyline 100.0 mg, given intravenously for nausea. HR Resting HR: 72 bpm Max Heart Rate (APMHR): 147.104788 bpm Max HR Achieved: 95 bpm Target HR (85% APMHR): 124.468308 bpm % of APMHR: 64.63 Recovery HR: 69 bpm BP Resting BP: 121/69 mmHg Max BP: 124/69 mmHg Recovery BP: 124.0/69.0 mmHg ECG Resting ECG: NSR, paced ventricular rhythm Clinical Exercise duration: 04:00 min Highest Stage Achieved: Stress ECG Conclusion 1 minute: SOA 2 minute: Nausea, hot, sweaty 3 minute: Light-headed Recovery 1 minute: Aminophylline 100mg slow IV given Recovery 3 minute: Feels better Recovery 7 minute: sxs gone Symptoms: SOA, nausea, hot, lightheaded. No CP. Arrhythmias/Ectopy: None ST-T Changes: No significant changes. Conclusions: Non-diagnostic Lexiscan stress. Myoview images reported separately. Test Summary RECOVERY 05:00 . . 69 . 104/ 65 . . Stage 1 . . . . . . . Myoview Injected Stage 1 01:00 . . 92 . . . . Stage 2 01:00 . . 84 . . . . Stage 3 01:00 . . 72 . 75/ 45 . . Stage 4 01:00 . . 65 . 84/ 46 . Stop exercise at 04:00 RECOVERY 01:00 . . 75 . . . . RECOVERY 02:00 . . 74 . 87/ 56 . . RECOVERY 03:00 . . 68 . 87/ 51 . . RECOVERY 04:00 . . 69 . 96/ 54 . . RECOVERY 05:00 . . 69 . 104/ 65 . . RECOVERY 06:00 . . 65 . 108/ 61 . . RECOVERY 07:00 . . 71 . 108/ 61 . . RECOVERY 08:00 . . 72 . 108/ 61 . . RECOVERY 08:34 . . 71 . 124/ 69 . . Electronically signed by : Teja Aguilar MD 12/22/2021 13:03:39
== END ==
PROVIDERS: PCP Family Medicine; Visit Provider Physician Assistant
DX: R06.00 Dyspnea, unspecified (principal)
CPT/HCPCS: 78452; 93017; A9502; J0280; J2785

== ENCOUNTER → 2021-12-28 13:28 | Outpatient (CLI) | payer MEDICARE, SELFPAY ==
[2021-12-28 14:29] LABS: Basophils # 0.1 K/mm3 (0-0.2); Basophils % 1.1 % (0.1-2.0); Eosinophils % 0.4 % (0.1-12.0); Hematocrit 52.7 % (42.0-52.0); Lymphocytes # 1.6 K/mm3 (0.7-4.5); Lymphocytes % 16.6 % (10-50); Mean Corpuscular HGB Conc 30.3 g/dL (31.8-35.4); Mean Corpuscular Volume 95.6 fl (80-94); Mean Platelet Volume 8.3 fl (7.4-10.4); Monocytes # 0.7 K/mm3 (0.1-1.0); Monocytes % 7.7 % (1.7-9.3); Neutrophils # 7.1 K/mm3 (1.8-7.8); Neutrophils % 74.4 % (37.0-80.0); Platelet Count 302 K/mm3 (142-424); Red Blood Count 5.52 M/mm3 (4.60-6.20); Red Cell Distribution Width 13.7 % (11.5-17.5); White Blood Count 9.5 K/mm3 (4.8-10.8)
[2021-12-28 15:02] LABS: Anion Gap 10.3 mEq/L (5-15); Blood Urea Nitrogen 13 mg/dl (9-20); Calcium 9.1 mg/dl (8.4-10.2); Carbon Dioxide 31 mmol/L (22.0-30.0); Chloride 105 mmol/L (98-107); Estimated Glomerular Filt Rate 54 ml/min (>60); GFR (African American) 65 ML/MIN (>60); Glucose 99 mg/dl (74-100); Potassium 4.3 mmoL/L (3.5-5.1); Sodium 142 mmol/L (136-145)
== END ==
PROVIDERS: PCP Family Medicine; Visit Provider Nurse Practitioner
DX: Z01.812 Encounter for preprocedural laboratory examination; Z20.822 Contact with and (suspected) exposure to COVID-19; R06.00 Dyspnea, unspecified; I20.8 Other forms of angina pectoris; I35.1 Nonrheumatic aortic (valve) insufficiency; I10 Essential (primary) hypertension; E78.5 Hyperlipidemia, unspecified; R94.30 Abnormal result of cardiovascular function study, unspecified; Z95.0 Presence of cardiac pacemaker
CPT/HCPCS: 36415; 80048; 85025; C9803; U0003; U0005

== ENCOUNTER 2021-12-29 09:51 | Day surgery (SDC) | payer MEDICARE, SELFPAY ==
[2021-12-29] VITALS (13 sets, daily range): BP systolic 83–136; BP diastolic 50–73; PULSE 59–67; RESP 18–19; O2SAT 92–97; BMI 29.9
--- NOTE | 2021-12-29 | IR_ITS ---
APPROVED REPORT Patient Location: Outpatient PROCEDURES Selective coronary angiogram Lithotripsy to the mid LAD Drug-eluting stent deployment to the mid LAD Lithotripsy to the mid dominant right coronary Drug-eluting stent deployment to the mid dominant right coronary INDICATION Coronary artery disease, Accelerated angina pectoris, In-stent restenosis Informed consent was obtained prior to the procedure. COMPLICATIONS NONE Estimated Blood Loss: LESS THAN 10 ML TECHNIQUE One percent lidocaine used to anesthetize the right anterior aspect of the wrist. The right radial artery was accessed via the Seldinger technique. A 6 Swedish sheath was placed in the right radial artery. 2.5 mg of verapamil, 800 mcg of nitroglycerin, 1mg Lidocaine and 5000 U Heparin were given through the arterial sheath. The papa catheter was also used to perform left heart catheterization, left ventriculogram and selective coronary angiogram. At the end the diagnostic angiogram therapeutic heparin was administered giving a therapeutic ACT and the guide catheter was placed in the left anterior descending artery followed by a Choice PT extra-support wire. A 3.5 x 12 mm shockwave balloon was deployed at 4 and then 6 alex delivering 3 therapeutic lithotripsy shocks. This significantly improved the vessel therefore a 3.5 x 18 mm resolute Darryl stent was deployed at 20 alex reducing this severe to critical in-stent restenotic lesion to 0%. ZOILA-3 flow was present before and after the procedure. After the LAD the procedure was basically repeated in the right coronary artery using the same wire and the same shockwave balloon this time delivering 3 therapeutic lithotripsy shocks. Following this a 3.5 x 38 mm resolute Prescott stent was then placed in the proximal to mid right coronary artery and deployed at 22 alex reducing the severe stenosis to 0%. ZOILA-3 flow was present before and after the procedure. At the end of procedure the apparatus was removed the sheath was removed and hemostasis was achieved using TR banding patient was transferred to the postop putting in stable condition ANGIOGRAPHIC RESULTS The left anterior descending artery Originates from the left coronary cusp and has a stent in the proximal and mid segment. The proximal portion is widely patent however the midportion has a concentric 70 to 80% in-stent restenotic lesion. The stent then extends into the distal LAD and is widely patent with excellent distal transitioning. Following the stent procedure the LAD was widely patent throughout its entire course The circumflex artery Is nondominant yet still large giving rise to a medium sized high first obtuse marginal artery/ramus intermedius which has diffuse 20% stenoses. The circumflex artery has diffuse 20% stenosis with a distal 30% stenosis The right coronary artery Is a codominant vessel and has a proximal 30% stenosis with mid vessel concentric 90% stenosis representing in-stent restenosis. Distally the vessel has 20% stenosis The MURPHY ventriculogram reveals Not performed The left ventricular end-diastolic pressure Not measured IMPRESSION Severe to critical two-vessel coronary disease as described above representing in-stent restenosis Successful lithotripsy of both the LAD and the right coronary artery followed by drug-eluting stenting reducing the critical disease to 0% PLAN 1. Dual antiplatelet therapy 2. Risk factor modification 3. Cardiac rehabilitation 4. Avoidance of tobacco products 5. LDL less than 55 to be achieved with high intensity statin Electronically signed by : Gustavo Joshua MD 12/29/2021 15:05:02
[2021-12-29 13:46] LABS: CATHL Activated Clotting Time 333 SEC (74-125)
--- NOTE | 2021-12-29 15:57 | HMH.PHACLD ---
Ralph Munoz has received discharge medication counseling on the following medications: PATIENT IS CURRENTLY TAKING ASPIRIN 81 MG DAILY, ATORVASTATIN 40 MG HS, BISOPROLOL 5 MG DAILY, CLOPIDOGREL 75 MG DAILY, AND ENTRESTO BID.
== END 2021-12-29 16:57 | disposition home or self-care (01) ==
LOC: CATHLAB 09:53
PROVIDERS: PCP Family Medicine; Visit Provider Internal Medicine
DX: I25.118 Atherosclerotic heart disease of native coronary artery with other forms of angina pectoris (principal); I42.9 Cardiomyopathy, unspecified; T82.855A Stenosis of coronary artery stent, initial encounter; I77.1 Stricture of artery; Z79.899 Other long term (current) drug therapy; I35.1 Nonrheumatic aortic (valve) insufficiency; Z95.0 Presence of cardiac pacemaker; I10 Essential (primary) hypertension; E78.5 Hyperlipidemia, unspecified; Z79.01 Long term (current) use of anticoagulants; Y83.1 Surgical operation with implant of artificial internal device as the cause of abnormal reaction of the patient, or of later complication, without mention of misadventure at the time of the procedure
CPT/HCPCS: 85347; 92928; 93458; 99152; 99153; C1725; C1761; C1769; C1876; C9600; J1644; Q9967

== ENCOUNTER → 2022-01-03 15:13 | Outpatient (CLI) | payer MEDICARE, SELFPAY ==
--- NOTE | 2022-01-03 15:14 | CA_ITS ---
FINAL REPORT CLINICAL HISTORY: heart cath with right wrist access done 12/29 with 2 stents placed. Right arm is discolored today. FINDINGS: Spectral and Doppler waveform evaluations of the right wrist was performed. Spectral analysis was performed. The right radial artery is patent. There is no evidence of pseudoaneurysm or hematoma. IMPRESSION: No evidence of pseudoaneurysm or hematoma. Reviewed, Interpreted and Dictated by Osmel Resendez III, MD Transcribed by Nita Pedro Authenticated and [facility]
== END ==
PROVIDERS: PCP Family Medicine; Visit Provider Nurse Practitioner Family
DX: R09.89 Other specified symptoms and signs involving the circulatory and respiratory systems (principal); M25.531 Pain in right wrist
CPT/HCPCS: 93931

== ENCOUNTER → 2022-01-08 10:09 | Outpatient (CLI) | payer MEDICARE, SELFPAY ==
[2022-01-08 10:41] LABS: Basophils # 0.2 K/mm3 (0-0.2); Eosinophils # 0.3 K/mm3 (0.0-0.4); Eosinophils % 3.8 % (0.1-12.0); Hematocrit 50.4 % (42.0-52.0); Hemoglobin 16.2 g/dL (14.1-18.0); Lymphocytes # 1.8 K/mm3 (0.7-4.5); Lymphocytes % 20.2 % (10-50); Mean Corpuscular HGB Conc 32.1 g/dL (31.8-35.4); Mean Corpuscular Hemoglobin 29.7 pg (27.0-31.2); Mean Corpuscular Volume 92.6 fl (80-94); Mean Platelet Volume 8.4 fl (7.4-10.4); Monocytes # 0.6 K/mm3 (0.1-1.0); Neutrophils % 67.1 % (37.0-80.0); Platelet Count 316 K/mm3 (142-424); Red Blood Count 5.45 M/mm3 (4.60-6.20); Red Cell Distribution Width 13.8 % (11.5-17.5)
[2022-01-08 11:40] LABS: Chloride 102 mmol/L (98-107); Sodium 140 mmol/L (136-145)
[2022-01-08 11:41] LABS: Potassium 4.2 mmoL/L (3.5-5.1)
[2022-01-08 11:44] LABS: Anion Gap 10.2 mEq/L (5-15); Calcium 9.3 mg/dl (8.4-10.2); Carbon Dioxide 32 mmol/L (22.0-30.0); Glucose 112 mg/dl (74-100)
[2022-01-08 12:08] LABS: Blood Urea Nitrogen 15 mg/dl (9-20); Estimated Glomerular Filt Rate 73 ml/min (>60); GFR (African American) 89 ML/MIN (>60)
== END ==
PROVIDERS: Nurse Practitioner; PCP Family Medicine; Visit Provider Internal Medicine
DX: E78.5 Hyperlipidemia, unspecified (principal); I10 Essential (primary) hypertension; I25.10 Atherosclerotic heart disease of native coronary artery without angina pectoris; I35.1 Nonrheumatic aortic (valve) insufficiency; I42.9 Cardiomyopathy, unspecified; R06.00 Dyspnea, unspecified; Z95.0 Presence of cardiac pacemaker
CPT/HCPCS: 36415; 80048; 85025

== ENCOUNTER → 2022-04-16 10:10 | Outpatient (CLI) | payer MEDICARE, SELFPAY | PROVIDERS: PCP Family Medicine; Visit Provider Nurse Practitioner Family | DX: I35.1 Nonrheumatic aortic (valve) insufficiency (principal) | CPT/HCPCS: 93308 ==

== ENCOUNTER → 2022-05-17 09:12 | Outpatient (CLI) | payer MEDICARE, SELFPAY ==
[2022-05-17 10:12] LABS: Basophils # 0.1 K/mm3 (0-0.2); Basophils % 1.1 % (0.1-2.0); Eosinophils # 0.3 K/mm3 (0.0-0.4); Eosinophils % 3.3 % (0.1-12.0); Hematocrit 48.6 % (42.0-52.0); Hemoglobin 15.8 g/dL (14.1-18.0); Lymphocytes # 1.8 K/mm3 (0.7-4.5); Lymphocytes % 18.3 % (10-50); Mean Corpuscular HGB Conc 32.4 g/dL (31.8-35.4); Mean Corpuscular Volume 89.5 fl (80-94); Mean Platelet Volume 8.3 fl (7.4-10.4); Monocytes # 0.6 K/mm3 (0.1-1.0); Monocytes % 6.2 % (1.7-9.3); Neutrophils % 71.1 % (37.0-80.0); Platelet Count 309 K/mm3 (142-424); Red Blood Count 5.43 M/mm3 (4.60-6.20); Red Cell Distribution Width 13.4 % (11.5-17.5); White Blood Count 9.9 K/mm3 (4.8-10.8)
[2022-05-17 10:42] LABS: Anion Gap 11.4 mEq/L (5-15); Blood Urea Nitrogen 21 mg/dl (9-20); Calcium 9.1 mg/dl (8.4-10.2); Carbon Dioxide 30 mmol/L (22.0-30.0); Chloride 102 mmol/L (98-107); Estimated Glomerular Filt Rate 66 ml/min (>60); GFR (African American) 79 ML/MIN (>60); Glucose 154 mg/dl (74-100); Potassium 3.4 mmoL/L (3.5-5.1); Sodium 140 mmol/L (136-145)
== END ==
PROVIDERS: PCP Family Medicine; Visit Provider Nurse Practitioner
DX: I10 Essential (primary) hypertension (principal); I35.1 Nonrheumatic aortic (valve) insufficiency
CPT/HCPCS: 36415; 80048; 85025

== ENCOUNTER → 2022-08-21 11:30 | Outpatient (CLI) | payer MEDICARE, SELFPAY ==
[2022-08-21 12:40] LABS: Chloride 103 mmol/L (98-107); Sodium 138 mmol/L (136-145)
[2022-08-21 12:41] LABS: Potassium 5.6 mmoL/L (3.5-5.1)
[2022-08-21 12:43] LABS: Blood Urea Nitrogen 18 mg/dl (9-20); Estimated Glomerular Filt Rate 46 ml/min (>60); GFR (African American) 56 ML/MIN (>60)
[2022-08-21 12:44] LABS: Anion Gap 11.6 mEq/L (5-15); Calcium 8.2 mg/dl (8.4-10.2); Carbon Dioxide 29 mmol/L (22.0-30.0); Glucose 102 mg/dl (74-100)
== END ==
PROVIDERS: PCP Family Medicine; Visit Provider Physician Assistant
DX: R06.00 Dyspnea, unspecified; I25.10 Atherosclerotic heart disease of native coronary artery without angina pectoris; I10 Essential (primary) hypertension; I42.9 Cardiomyopathy, unspecified; E78.2 Mixed hyperlipidemia; Z95.0 Presence of cardiac pacemaker
CPT/HCPCS: 36415; 80048

== ENCOUNTER → 2022-09-05 11:37 | Outpatient (CLI) | payer MEDICARE, SELFPAY ==
[2022-09-05 13:25] LABS: Chloride 102 mmol/L (98-107); Potassium 3.9 mmoL/L (3.5-5.1); Sodium 140 mmol/L (136-145)
[2022-09-05 13:28] LABS: Blood Urea Nitrogen 20 mg/dl (9-20); Estimated Glomerular Filt Rate 54 ml/min (>60); GFR (African American) 65 ML/MIN (>60)
[2022-09-05 13:29] LABS: Anion Gap 12.9 mEq/L (5-15); Calcium 8.7 mg/dl (8.4-10.2); Carbon Dioxide 29 mmol/L (22.0-30.0); Glucose 113 mg/dl (74-100)
== END ==
PROVIDERS: PCP Family Medicine; Visit Provider Nurse Practitioner
DX: E78.2 Mixed hyperlipidemia (principal); I10 Essential (primary) hypertension; I25.10 Atherosclerotic heart disease of native coronary artery without angina pectoris; I35.1 Nonrheumatic aortic (valve) insufficiency; I42.9 Cardiomyopathy, unspecified; R06.00 Dyspnea, unspecified; Z95.0 Presence of cardiac pacemaker
CPT/HCPCS: 36415; 80048

== ENCOUNTER 2022-10-15 06:46 | Observation (INO) | payer MEDICARE, SELFPAY ==
[2022-10-15] VITALS (13 sets, daily range): BP systolic 124–159; BP diastolic 67–85; PULSE 69–118; RESP 18–24; TEMP 36.5–37.1; O2SAT 2–94; BMI 30.2; BMI 28.3; BMI 25.3
--- NOTE | 2022-10-15 06:52 | ECG_ITS ---
APPROVED REPORT Exam: Resting ECG HR:111 bpm ECG Measurements Heart Rate 111 AXES ID 133 P 123 QRSd 148 QRS 202 QT 356 T 61 QTc 421 Conclusion ELECTRONIC VENTRICULAR PACEMAKER ABNORMAL RHYTHM ECG UNCONFIRMED REPORT Electronically signed by : Marquise Campbell MD 10/15/2022 21:15:18
--- NOTE | 2022-10-15 06:58 | XR_ITS ---
FINAL REPORT TECHNIQUE: Single view chest CLINICAL HISTORY: soa, hypoxia FINDINGS: A single view of the chest was obtained. There is a left subclavian pacemaker in place. The heart and mediastinum are within normal limits. Mild bronchial wall thickening is seen consistent with bronchitis. There is mild scarring. Lungs are otherwise clear. There is no pneumothorax. Osseous structures are unremarkable. IMPRESSION: Mild bronchial wall thickening consistent with bronchitis. Reviewed, Interpreted and Dictated by Osmel Resendez III, MD Transcribed by Batool Stephenson Authenticated and . [facility]
[2022-10-15 07:10] LABS: ABG Base Excess 0.1 mmol/L (-2.4-2.3); ABG HCO3 23.6 mmhg (22.0-26.0); ABG Oxygen Saturation 98 % (90-100); ABG PCO2 32.4 mmhg (35.0-45.0); ABG PH 7.48 mmol/L (7.35-7.45); ABG PO2 100.3 mmhg (80-100); ABG TCO2 24.6 mmhg (23-27); Allen's Test Acceptable; Oxygen 2L %; Source Left Radial
[2022-10-15 07:27] LABS: Basophils # 0.1 K/mm3 (0-0.2); Basophils % 0.3 % (0.1-2.0); Eosinophils # 0.1 K/mm3 (0.0-0.4); Eosinophils % 0.6 % (0.1-12.0); Hematocrit 43.3 % (42.0-52.0); Hemoglobin 14.1 g/dL (14.1-18.0); Lymphocytes # 1.1 K/mm3 (0.7-4.5); Lymphocytes % 6.7 % (10-50); Mean Corpuscular HGB Conc 32.6 g/dL (31.8-35.4); Mean Corpuscular Hemoglobin 29.7 pg (27.0-31.2); Mean Corpuscular Volume 91.1 fl (80-94); Mean Platelet Volume 8.3 fl (7.4-10.4); Monocytes # 1.4 K/mm3 (0.1-1.0); Monocytes % 8.6 % (1.7-9.3); Neutrophils % 83.8 % (37.0-80.0); Platelet Count 297 K/mm3 (142-424); Red Blood Count 4.75 M/mm3 (4.60-6.20); Red Cell Distribution Width 12.9 % (11.5-17.5); White Blood Count 16.6 K/mm3 (4.8-10.8)
[2022-10-15 07:28] LABS: MANUAL DIFFERENTIAL MANUAL DIFFERENTIAL (MANUAL DIFF)
--- NOTE | 2022-10-15 07:28 | HMH.EDSOB ---
Discharge Plan Disposition Patient Disposition: Admitted As Inpatient Chief Complaint: Shortness of Breath/Dyspnea Prescriptions Prescriptions: No Action chlorpheniramine maleate [Allergy Relief(chlorpheniramn)] 4 mg tablet 4 mg PO Q8H PRN (Reason: .) Rx Instructions: do not exceed 2 doses per 24 hrs albuterol sulfate 90 mcg/actuation HFA aerosol inhaler 1 inh IH QID PRN (Reason: shortness of breath or wheezing) Qty: 8.5 12RF Breo Ellipta 100-25 mcg/dose blister with device 1 inh IH DAILY valsartan 40 mg tablet 40 mg PO DAILY Qty: 90 3RF bisoprolol fumarate 10 mg tablet 10 mg PO DAILY Qty: 90 3RF nitroglycerin 0.4 mg tablet, sublingual 0.4 mg SL Q5-15M PRN (Reason: chest pain) Qty: 25 0RF Rx Instructions: until response; do not exceed 3 doses per episode clopidogrel 75 mg tablet See Rx Instructions .ROUTE .COMPLEX Qty: 90 1RF Dose Instruction: Take 1 tablet by mouth once daily Rx Instructions: Take 1 tablet by mouth once daily spironolactone 50 mg tablet 50 mg PO DAILY Qty: 90 3RF furosemide 40 mg tablet See Rx Instructions .ROUTE .COMPLEX Qty: 90 1RF Dose Instruction: Take 1 tablet by mouth once daily Rx Instructions: Take 1 tablet by mouth once daily aspirin 81 mg tablet,delayed release (DR/EC) 81 mg PO DAILY Qty: 100 3RF atorvastatin 40 mg tablet See Rx Instructions .ROUTE .COMPLEX Qty: 90 0RF Dose Instruction: TAKE 1 TABLET BY MOUTH ONCE DAILY FOR CHOLESTEROL Rx Instructions: TAKE 1 TABLET BY MOUTH ONCE DAILY FOR CHOLESTEROL ipratropium-albuterol 3 ML solution for nebulization 3 ml IH Q8H budesonide 0.25 MG/2 ML suspension for nebulization 0.25 mg IH BID montelukast 10 MG tablet 10 mg PO DAILY benralizumab 30 MG/ML auto-injector 30 mg SQ Q4W hydrochlorothiazide 12.5 MG tablet See Rx Instructions .Route .COMPLEX Rx Instructions: TAKE 1 TABLET BY MOUTH ONCE DAILY FOR FLUID Discharge ED Provider: Karla (ED)Jorge A Resp/SOB HPI General Chief Complaint: Shortness of Breath/Dyspnea Stated Complaint: SOA; trouble sleeping Time Seen by Provider: 10/15/22 07:10 Mode of Arrival: Wheelchair Source of Information: Patient, Spouse and Medical Record Limitations: No Limitations Description of Symptoms (Recalled from ER Triage Doc. by RN): pt states that he has had shortness of Air with cough for 5 days. pt states that he has buckets of stuff comin up. when he coughs. the pt has copd, does not wear o2 at home History of Present Illness hx of copd and has over the last 5 days increased sob and has prod cough - has low o2 sat at home - no o2 use at home - has hx of pacemaker - has seen pul in past MD Complaint: shortness of breath and cough Onset (ago): day(s) Severity: moderate Known history of: COPD Associated symptoms: denies other symptoms Treatment prior to arrival: none Related Data Home oxygen amount: none Home Medications Medication Instructions Recorded Confirmed chlorpheniramine maleate 4 mg 4 mg PO Q8H PRN . 01/06/20 08/21/22 tablet (Allergy Relief (chlorpheniramine)) fluticasone furoate 100 1 inh inhalation DAILY allergies 12/08/20 08/21/22 mcg-vilanterol 25 mcg/dose inhalation powder (Breo Ellipta) benralizumab 30 mg/mL subcutaneous 30 mg SQ Q4W . 03/30/21 08/21/22 auto-injector budesonide 0.25 mg/2 mL suspension 0.25 mg inhalation BID COPD 03/30/21 08/21/22 for nebulization ipratropium 0.5 mg-albuterol 3 mg 3 ml inhalation Q8H COPD 03/30/21 08/21/22 (2.5 mg base)/3 mL nebulization soln montelukast 10 mg tablet 10 mg PO DAILY allergies 03/30/21 08/21/22 hydrochlorothiazide 12.5 mg tablet See Rx Instructions .Route 12/29/21 08/21/22 .COMPLEX . Previous Rx's Medication Instructions Recorded albuterol sulfate 90 mcg/actuation 1 inh inhalation QID PRN shortness 08/18/20 aerosol inhaler of breath or wheezing #8.5 grams
[2022-10-15 07:31] LABS: Alanine Aminotransferase 39 U/L (12-78); Albumin/Globulin Ratio 1.3 (1.1-1.8); Alkaline Phosphatase 108 U/L (38-126); Anion Gap 18.8 mEq/L (5-15); Aspartate Amino Transferase 37 U/L (17-59); Bilirubin,Total 1.1 mg/dl (0.2-1.3); Blood Urea Nitrogen 17 mg/dl (9-20); Calcium 8.5 mg/dl (8.4-10.2); Carbon Dioxide 29 mmol/L (22.0-30.0); Chloride 93 mmol/L (98-107); Creatinine Clearance Estimated 63 mL/min (50-200); Estimated Glomerular Filt Rate 66 ml/min (>60); GFR (African American) 79 ML/MIN (>60); Globulin 3.2 g/dL (1.3-3.2); Glucose 135 mg/dl (74-100); Potassium 3.8 mmoL/L (3.5-5.1); Sodium 137 mmol/L (136-145); Total Protein,Serum 7.2 g/dl (6.3-8.2)
[2022-10-15 07:37] LABS: C-Reactive Protein 193.3 mg/L (0-4)
[2022-10-15 07:40] LABS: NT Pro Brain Natriuretic Pep. 448 pg/mL (0-125)
[2022-10-15 07:46] LABS: Coronavirus 19, PCR Not Detected (NotDetected); Influenza A, PCR Not Detected (NotDetected); Influenza B, PCR Not Detected (NotDetected)
[2022-10-15 07:46] LABS: Troponin I < 0.01 ng/ml (0.00-0.034)
[2022-10-15 07:49] LABS: Procalcitonin 0.177 ng/mL (0.0-2.0)
[2022-10-15 07:53] LABS: Lactic Acid 1.9 mmol/L (0.7-2.1)
--- NOTE | 2022-10-15 07:53 | PC.NURSE ---
DR COELLO SPEAKING WITH HOSPITALIST ABOUT POSSIBLE ADMISSION
[2022-10-15 07:56] LABS: Lymphocytes % 8 % (10-50); Monocytes % 9 % (2-9); Neutrophils % 83 % (42-76); Total Cells Counted 100
[2022-10-15 07:57] LABS: Platelet Estimate Normal; RBC Morphology Normal
[2022-10-15 07:58] LABS: Erythrocyte Sedimentation Rate 44 mm/hr (0-20)
--- NOTE | 2022-10-15 07:58 | PC.NURSE ---
notified care management of admission
--- NOTE | 2022-10-15 08:03 | PC.NURSE ---
PT REQUESTING A BREAKFAST TRAY , DIETARY CALLED
[2022-10-15 08:19] LABS: Adenovirus,PCR Not Detected (NotDetected); Bordetella Pertussis Not Detected (NotDetected); Chlamydophila Pneumoniae, PCR Not Detected (NotDetected); Coronavirus 19, PCR Not Detected (NotDetected); Coronavirus 229E Not Detected (NotDetected); Coronavirus NL63 Not Detected (NotDetected); Coronavirus OC43 Not Detected (NotDetected); Coronovirus HKU1,PCR Not Detected (NotDetected); Human Metapneumovirus Not Detected (NotDetected); Influenza A, PCR Not Detected (NotDetected); Influenza AH1, 2009 Not Detected (NotDetected); Influenza AH1, PCR Not Detected (NotDetected); Influenza AH3,PCR Not Detected (NotDetected); Influenza B, PCR Not Detected (NotDetected); Mycoplasma Pneumoniae, PCR Not Detected (NotDetected); Parainfluenza 1, PCR Not Detected (NotDetected); Parainfluenza 2, PCR Not Detected (NotDetected); Parainfluenza 3, PCR Not Detected (NotDetected); Parainfluenza 4, PCR Not Detected (NotDetected); Respiratory Syncytial Virus Not Detected (NotDetected); Rhinovirus/Enterovirus Not Detected (NotDetected)
--- NOTE | 2022-10-15 09:10 | PC.NURSE ---
report called shyanne stovall
--- NOTE | 2022-10-15 09:29 | PC.NURSE ---
arrived to floor by w/c from ED
--- NOTE | 2022-10-15 09:50 | EXP.HP ---
History of Present Illness *Admission Date: 10/15/22 *Reason for visit:: shortness of breath *History of present illness: 71-year-old gentleman who presented to the ER with increased shortness of breath for 5 days. States that he has been feeling more winded with exertion, having a cough that is intermittently productive for the past 1 to 2 days. Denies any fever, nausea, vomiting, chest pain. On arrival to the ER was found to be hypoxic with oxygen saturation of 84% on room air. Blood gas on 2 L nasal cannula with PaO2 of 100 and pH of 7.48. Electrolytes within a normal range. White cell count elevated to 16,000. Patient is tachycardic. Inflammatory markers also elevated with ESR and CRP at 44 and 193 respectively. Chest imaging obtained showing new infiltrate right perihilar region with bronchial wall thickening. Initiated on IV antibiotics and medicine consulted for admission. After arriving to the floor, patient is stating he is feeling somewhat better. Currently on 2 L nasal cannula oxygen [facility] Disclaimer: The information contained in this section may have been updated after the patient was seen, as this information can be updated by other users. Medical History Cardiac pacemaker in situ Diastolic dysfunction Dyspnea Hyperlipidemia Hypertension Surgical History H/O hernia repair Social History Smoking Status: Former smoker second hand exposure: No alcohol intake: never substance use type: denies use current occupational status: retired Travel in the last 8 weeks: Inside the [place] household members: spouse housing: house current occupational exposures/hazards: No caffeine: No Review of Systems Review of Systems Review of systems (narrative): 14 point review of systems performed, pertinent positives and negatives as per HPI Meds Home Medications and Allergies Home Medications Medication Instructions Recorded Confirmed Type albuterol sulfate 90 mcg/actuation 1 inh inhalation QID PRN shortness 08/18/20 10/15/22 Rx aerosol inhaler of breath or wheezing #8.5 grams fluticasone furoate 100 1 inh inhalation DAILY allergies 12/08/20 08/21/22 History mcg-vilanterol 25 mcg/dose inhalation powder (Breo Ellipta) nitroglycerin 0.4 mg sublingual 0.4 mg sublingual Q5-15M PRN chest 01/19/21 10/15/22 Rx tablet pain #25 tabs budesonide 0.25 mg/2 mL suspension 0.25 mg inhalation BID COPD 03/30/21 08/21/22 History for nebulization aspirin 81 mg tablet,delayed 81 mg PO DAILY Heart health 10/15/22 10/15/22 History release atorvastatin 40 mg tablet 40 mg PO DAILY Cholesterol 10/15/22 10/15/22 History bisoprolol fumarate 10 mg tablet 10 mg PO DAILY High blood pressure 10/15/22 10/15/22 History clopidogrel 75 mg tablet 75 mg PO DAILY platelet inhibitor 10/15/22 10/15/22 History furosemide 40 mg tablet 40 mg PO DAILY Edema 10/15/22 10/15/22 History valsartan 40 mg tablet 40 mg PO DAILY High blood pressure 10/15/22 10/15/22 History New Prescriptions to Start Prescriptions: Allergies Allergy/AdvReac Type Severity Reaction Status Date / Time No Known Allergies Allergy Verified 08/21/22 11:13 Exam Data for Last 24 hours Vital signs and Labs for Last 24 Hours: Temp Pulse Resp BP Pulse Ox 98.0 F 118 H 22 136/79 93 L 10/15/22 09:29 10/15/22 09:29 10/15/22 09:29 10/15/22 09:29 10/15/22 09:29 Laboratory Results - last 24 hr 10/15/22 06:58: Specimen Source Left radial, O2 % 2l, ABG pH 7.48 H, ABG pCO2 32.4 L, ABG pO2 100.3 H, ABG HCO3 23.6, ABG Total CO2 24.6, ABG O2 Saturation 98, ABG Base Excess 0.1, Vern Test Acceptable 10/15/22 07:10: ESR 44 H 10/15/22 07:10: Troponin I < 0.01, C-Reactive Protein 193.3 H, Procalcitonin 0.177 10/15/22 07:10: WBC 16.6 H, RBC 4.75, Hgb 14.1, Hct 43.3, MCV 91.1, MCH 29
[2022-10-15 10:32] LABS: Troponin I < 0.01 ng/ml (0.00-0.034)
[2022-10-15 14:05] LABS: Troponin I < 0.01 ng/ml (0.00-0.034)
--- NOTE | 2022-10-15 16:15 | PC.NURSE ---
pt new admit this shift. pt alert and oriented. pt admitted from ED. pt on nasal canula. LS diminished t/o. pt has been given an incentive spirometer with teaching provided on how to use. pt receptive to using. pt up with standby assistance. pt has been voiding per urinal. pt's abdomen soft, nontender, bs active. has been at bedside.
[2022-10-16] VITALS (8 sets, daily range): BP systolic 108–155; BP diastolic 66–77; PULSE 77–114; RESP 17–19; TEMP 36.4–36.6; O2SAT 91–97; BMI 25.2
[2022-10-16 06:54] LABS: Basophils % 0.1 % (0.1-2.0); Eosinophils # 0.1 K/mm3 (0.0-0.4); Eosinophils % 0.3 % (0.1-12.0); Hematocrit 40.3 % (42.0-52.0); Lymphocytes # 1.4 K/mm3 (0.7-4.5); Lymphocytes % 5.8 % (10-50); Mean Corpuscular HGB Conc 32.3 g/dL (31.8-35.4); Mean Corpuscular Hemoglobin 29.1 pg (27.0-31.2); Mean Corpuscular Volume 90.1 fl (80-94); Mean Platelet Volume 8.6 fl (7.4-10.4); Monocytes # 1.1 K/mm3 (0.1-1.0); Monocytes % 4.6 % (1.7-9.3); Neutrophils % 89.2 % (37.0-80.0); Platelet Count 333 K/mm3 (142-424); Red Blood Count 4.48 M/mm3 (4.60-6.20); Red Cell Distribution Width 12.9 % (11.5-17.5); White Blood Count 23.6 K/mm3 (4.8-10.8)
[2022-10-16 06:56] LABS: MANUAL DIFFERENTIAL MANUAL DIFFERENTIAL (MANUAL DIFF)
[2022-10-16 07:06] LABS: Alanine Aminotransferase 37 U/L (12-78); Albumin Level 3.7 g/dl (3.5-5.0); Albumin/Globulin Ratio 1.2 (1.1-1.8); Alkaline Phosphatase 99 U/L (38-126); Anion Gap 17.3 mEq/L (5-15); Aspartate Amino Transferase 36 U/L (17-59); Bilirubin,Total 0.3 mg/dl (0.2-1.3); Blood Urea Nitrogen 23 mg/dl (9-20); Calcium 8.7 mg/dl (8.4-10.2); Carbon Dioxide 28 mmol/L (22.0-30.0); Chloride 96 mmol/L (98-107); Creatinine Clearance Estimated 62 mL/min (50-200); Estimated Glomerular Filt Rate 73 ml/min (>60); GFR (African American) 89 ML/MIN (>60); Glucose 149 mg/dl (74-100); Magnesium 2.3 mg/dl (1.6-2.3); Potassium 3.3 mmoL/L (3.5-5.1); Sodium 138 mmol/L (136-145); Total Protein,Serum 6.7 g/dl (6.3-8.2)
[2022-10-16 07:38] LABS: Lymphocytes % 6 % (10-50); Monocytes % 2 % (2-9); Neutrophils % 92 % (42-76); Total Cells Counted 100
[2022-10-16 07:39] LABS: Platelet Estimate Normal; RBC Morphology Normal
--- NOTE | 2022-10-16 10:01 | HMH.PHAINT1 ---
Pharmacy Intervention Comments: HOME MEDS VERIFIED BY LIST FROM OUTSIDE PHARMACY AND SPEAKING WITH THE PATIENT -PT CLAIMS HE USES BUDESONIDE IN THE NEBULIZER TWICE DAILY. -PT STATES HE DOES TAKE THE BREO, BUT NOT OFTEN HE SHOULD DUE TO HIGH COST.
--- NOTE | 2022-10-16 10:58 | EXP.DC.SUM ---
General Admission date:: 10/15/22 Discharge date: 10/16/22 HPI HPI HPI: 71-year-old gentleman who presented to the ER with increased shortness of breath for 5 days. States that he has been feeling more winded with exertion, having a cough that is intermittently productive for the past 1 to 2 days. Denies any fever, nausea, vomiting, chest pain. On arrival to the ER was found to be hypoxic with oxygen saturation of 84% on room air. Blood gas on 2 L nasal cannula with PaO2 of 100 and pH of 7.48. Electrolytes within a normal range. White cell count elevated to 16,000. Patient is tachycardic. Inflammatory markers also elevated with ESR and CRP at 44 and 193 respectively. Chest imaging obtained showing new infiltrate right perihilar region with bronchial wall thickening. Initiated on IV antibiotics and medicine consulted for admission. After arriving to the floor, patient is stating he is feeling somewhat better. Currently on 2 L nasal cannula oxygen Hospital Course Hospital Course Hospital Course: 71-year-old gentleman with history of COPD and CAD who presents with new oxygen requirement entheses hypoxia), and finding of pneumonia on chest imaging.? White cell count elevated to 16,000, tachycardic on exam.? Given presence of source of infection, meeting sepsis criteria.? Problems addressed as follows: Sepsis, resolved Community-acquired pneumonia Bronchitis Hypoxemic respiratory failure -Initiated on ceftriaxone 1 g daily and azithromycin 500mg daily. Initially requiring supplemental oxygen for goal saturation greater 90%. Weaned off by morning of discharge. Stable O2 sats on room air at 94%. Tolerating DuoNebs every 6 hours well with improvement in aeration and dyspnea. Sputum sample obtained, still pending at discharge. Given findings on chest imaging concerning for pneumonia and bronchitis, will complete antibiotics orally for total of 5 days. Patient has nebulizer at home. Continue breathing treatments 3-4 times daily for the next week. Continue Breo. Would recommend follow-up with his inspector chief in the next 2 to 4 weeks for routine evaluation. CAD Hypertension Hyperlipidemia -Continue home dual antiplatelet therapy -Continue bisoprolol and Lasix -Held valsartan during admission, okay to resume after discharge. Stable for discharge home to complete antibiotic therapy for pneumonia. No oxygen requirement at this time. Spent 40 minutes in discharge counseling and direct care with patient. Exam Data for Last 24 hours Vital signs and Labs for Last 24 Hours: Temp Pulse Resp BP Pulse Ox 97.7 F 77 18 155/77 H 94 L 10/16/22 07:37 10/16/22 09:10 10/16/22 09:10 10/16/22 07:37 10/16/22 10:36 Laboratory Results - last 24 hr 10/15/22 13:14: Troponin I < 0.01 10/16/22 06:20: WBC 23.6 H* D, RBC 4.48 L, Hgb 13.0 L, Hct 40.3 L, MCV 90.1, MCH 29.1, MCHC 32.3, RDW 12.9, Plt Count 333, MPV 8.6, Neut % (Auto) 89.2 H, Lymph % (Auto) 5.8 L, [place] % (Auto) 4.6, Eos % (Auto) 0.3, Baso % (Auto) 0.1, Neut # (Auto) 21.0 H, Lymph # (Auto) 1.4, [place] # (Auto) 1.1 H, Eos # (Auto) 0.1, Baso # (Auto) 0.0, Total Counted 100, Neutrophils % (Manual) 92 H, Lymphocytes % (Manual) 6 L, Monocytes % (Manual) 2, Platelet Estimate Normal, RBC Morphology Normal 10/16/22 06:20: Sodium 138, Potassium 3.3 L, Chloride 96 L, Carbon Dioxide 28, Anion Gap 17.3 H, BUN 23 H D, Creatinine 1.00, Estimated Creat Clear 62, Estimated GFR 73, Est GFR ( Amer) 89, Glucose 149 H, Calcium 8.7, Magnesium 2.3 D, Total Bilirubin 0.3, AST 36, ALT 37, Alkaline Phosphatase 99, Total Protein 6.7, Albumin 3.7, Globulin 3.0, Albumin/Globulin Ratio 1.2 I & O for Last 24 hours: Intake & Output 10/13/22 10/14/22 10/15/22 10/16/22 23:59 23:59 23:59 23:59 Intake Total 410 / 410 420 / 420 Output Total 0 / 0 0 / 0 Balance 410 / 410 420 / 420 Weight 67.387 kg 67.041 kg Constitutional Constitutional: no acute distress and average body habitus *Routine H
--- NOTE | 2022-10-16 12:01 | HMH.PHAINT1 ---
Pharmacy Intervention Comments: DISCHARGE MEDICATIONS COUNSELING COMPLETED. PATIENT IS STARTING THESE NEW MEDICATIONS: -AZITHROMYCIN (1 DOSE OF 500MG) AND CEFDINIR (BID X 3 DAYS, TOLD PATIENT OF POSSIBLE SIDE EFFECTS LIKE NAUSEA OR DIARRHEA AND TO TAKE MEDICATION WITH FOOD IF THIS OCCURRED) -DUONEB: 1 VIAL QID. WARNED OF DIZZINESS, HEADACHE, OR INCREASED HEART RATE WHICH MAY OCCUR AFTER USE AND TO LET HIS DOCTOR KNOW IF THESE SYMPTOMS PERSIST. PATIENT TAKES BUDESONIDE AND IS VERY FAMILIAR WITH USING THE NEBULIZER. -MONTELUKAST: ONCE DAILY. SAID SIDE EFFECTS WERE RARE BUT TO INFORM HIS PHYSICIAN IF EXPERIENCING FREQUENT HEADACHES OR COUGH. CLOPIDOGREL WAS LISTED UNDER THE NEW MEDICATIONS ON THE LIST, BUT THE PATIENT HAS ALREADY BEEN TAKING IT. PATIENT DID NOT HAVE ANY QUESTIONS ABOUT NEW OR CONTINUED MEDICATIONS.
== END 2022-10-16 12:04 | disposition home or self-care (01) ==
LOC: ER 06:55 → 2ND 08:10
PROVIDERS: Admitting Provider Internal Medicine Adolescent Medicine; Emergency Provider Emergency Medicine; PCP Family Medicine; Visit Provider Internal Medicine Adolescent Medicine
DX: J18.9 Pneumonia, unspecified organism (principal); I25.10 Atherosclerotic heart disease of native coronary artery without angina pectoris; I10 Essential (primary) hypertension; E78.2 Mixed hyperlipidemia; Z79.02 Long term (current) use of antithrombotics/antiplatelets; Z95.5 Presence of coronary angioplasty implant and graft; J44.9 Chronic obstructive pulmonary disease, unspecified; J96.01 Acute respiratory failure with hypoxia; R06.9 Unspecified abnormalities of breathing; Z20.822 Contact with and (suspected) exposure to COVID-19
CPT/HCPCS: G0378; 36415; 71045; 80053; 82803; 83605; 83735; 83880; 84145; 84484; 85007; 85025; 85651; 86140; 87040; 87070; 87205; 87581; 87632; 87635; 87636; 87798; 93005; 94640; 94760; 94761; 99285; C9803; J0456; J0696; U0003; U0005

== ENCOUNTER → 2023-03-13 06:35 | Outpatient (CLI) | payer MEDICARE, SELFPAY ==
--- NOTE | 2023-03-13 06:40 | NM_ITS ---
APPROVED REPORT Exam: Nuclear Stress Test Indication: CAD,10 STENTS, H/O [place], FM HX, C.P., SOB, PALPITATIONS, FATIGUE Stress Tech: Samia Cordova ANIA Tech:Elidia Mcdonald OSVALDOFercho RT(R)(N) Ht: 5 ft 1 in Wt: 150 lbs HR: 60 bpm BP: 129/60 mmHg BSA: 1.67 m2 Rhythm: NSR TID: 0.96 BMI: 28.3 History: CAD,10 STENTS, H/O [place], FM HX, C.P., SOB, PALPITATIONS, FATIGUE Procedure: Patient received 0.4 mg of intravenous Lexiscan, resting heart rate 60 bpm, resting blood pressure 129/60 mmHg, with Lexiscan maximum heart rate achieved was 90 bpm which is % of the maximum predicted heart rate and blood pressure was 139/66 mmHg. With Lexiscan, patient denied any complaint of chest pain. Cardiac Stress and Resting SPECT Images: Cardiac Stress and Resting SPECT images were obtained using technetium 99m Myoview 31.2 mCi stress and 10.09 mCi at rest. This was a technically difficult study due to globally reduced radiotracer uptake. Raw images demonstrate significant soft tissue overlap with the LV wall borders. This may affect the diagnostic interpretation of the study findings. Resting and stress imaging in supine and prone positions demonstrate a large sized, moderate, fixed perfusion defect in the inferior, septal, and inferoseptal LV archuleta from the base and extending distally towards the apical region. Gated imaging demonstrates normal global and regional LV systolic function. LVEF is calculated at 60%. Conclusion: Technically difficult study due to reduced radiotracer uptake and soft tissue attenuation. Large sized, moderate, fixed perfusion defect in the inferior, septal, and inferoseptal LV archuleta from the base and extending distally towards the apical region. No evidence of reversible ischemia. Gated imaging demonstrates normal and global regional LV systolic function. LVEF is calculated at 60%. Electronically signed by : Gisella Yoon MD 03/17/2023 00:46:55
--- NOTE | 2023-03-13 07:53 | CA_ITS ---
APPROVED REPORT EXAM: Comprehensive 2D, Doppler, and color-flow Echocardiogram [employer]: Adamaris Rajput CRT Ht: 5 ft 0 in Wt: 153lbs BSA: 1.67 BP: 128/72 mmHg Indications: Hyperlipidemia, Hypertension/HDD, 10 stents, pacer, cp, sob TDE due to pectus excavatum. 2D Dimensions LVOT 2.04 cm (M/F) 1.5-2.5 M-Mode Dimensions RVDd 2.34 cm (0.9-2.6) LA Diam 3.42 cm (1.9-4.0) LVDd 4.64 cm (3.5-5.7) Ao Diam 3.35 cm (2.0-3.7) LVDs 3.54 cm (3.5-5.7) IVSd 1.43 cm (0.6-1.1) PWd 0.97 cm (0.6-1.1) EF (Teich) 47.30% FS 23.70% EDV (Teich) 99.30 mL TAPSE 1.95 (<1.7) ESV (Teich) 52.30 mL LV Diastology E Decel Time 173.00 (160-240 msec) E/A Ratio 0.69 MED E' 4.70 (< 7 cm/sec) MED A' 7.80 cm/s E'/MED E' Ratio 9.17 (>14) LAT E' 5.50 (<10 cm/sec) LAT A' 7.30 cm/s E/LAT E' Ratio 7.84 (>14) Aortic Valve AO Peak GR. 7.50 mmHg Mitral Valve MV A Velocity 63.00 (40-130 cm/s) E/A Ratio 0.69 MV Decel. Time 173.00 (160-240 ms) Pulmonary Valve PV Peak Velocity 82.00 (50-150 cm/s) Tricuspid Valve TR P. Velocity 196.00 cm/s RAP Estimate 10.00 mmHg RVSP 25.40 mmHg Left Ventricle The left ventricle is normal size. The left ventricular systolic function is normal. The left ventricular ejection fraction is within the normal range. There is normal left ventricular wall thickness. Regional LV wall motion is difficult to estimate due to technically difficult study. Grossly, there are no obvious regional wall motion abnormalities. The left ventricular diastolic function is normal. LVEF is 55%. Right Ventricle The right ventricle is normal size. The right ventricular systolic function is normal. Atria The left atrium size is normal. The right atrium size is normal. There is no Doppler evidence of interatrial shunt. Aortic Valve The aortic valve is mildly thickened. There is no aortic valvular stenosis. No aortic regurgitation is present. Mitral Valve The mitral valve is mildly thickened. No evidence of mitral valve stenosis. Mild mitral regurgitation. Tricuspid Valve The tricuspid valve leaflets are thin and pliable. Trace tricuspid regurgitation. There is insufficient TR jet to estimate RVSP. Pulmonic Valve The pulmonic valve leaflets are not well visualized. Grossly, Other Information Study Quality: Technically Difficult Conclusion This is a technically difficult study due to pectus excavatum. Normal biventricular systolic function. No significant valvular stenosis or regurgitation. Electronically signed by : Gisella Yoon MD 03/15/2023 19:59:45
--- NOTE | 2023-03-13 11:01 | CA_ITS ---
APPROVED REPORT Exam: Pharmacologic Technologist: Samia Cordova, Ht: 5 ft 0 in Wt: 153 lbs BSA: 1.67 m2 HR: 60 bpm BP: 129/60 mmHg Rhythm: NSR Indications: Angina, Shortness of Air Medical History Medications: Aspirin,,,,, Atorvastatin,,,,, Duoneb,,,,, Albuterol,,,,, Montelukast,,,,, CloPIdogrel,,,,, Valsartan,,,,, BisOPROLOL,,,,, Nitroglycerin,,,,, BREo Eliipta,,,,, Budesonide,,,,, Furosemide,,,,, Stress Test Details Test: LEXISCAN Reason for pharmacologic stress test: physical limitation. HR Resting HR: 60 bpm Max Heart Rate (APMHR): 146 bpm Max HR Achieved: 90 bpm Target HR (85% APMHR): 124 bpm % of APMHR: 62 Recovery HR: 68 bpm BP Resting BP: 129.0/60.0 mmHg Max BP: 139.0/66.0 mmHg Recovery BP: 133.0/65.0 mmHg ECG Resting ECG: ventricular paced rhythm Stress ECG: No significant ST changes Arrhythmia: None Clinical Exercise duration: 04:00 min Highest Stage Achieved: Stress ECG Conclusion Symptoms: SOA, mild head & stomach discomfort. No CP. Arrhythmias/Ectopy: None ST-T Changes: None Conclusion: Non-diagnostic Lexiscan stress due to V paced rhythm. Myoview images reported separately. Test Summary REST . . . . . . . Resting REST 06:51 . . 60 . 129/ 60 . . Stage 1 . . . . . . . Myoview Injected Stage 1 01:00 . . 76 . . . . Stage 2 01:00 . . 88 . 139/ 66 . . Stage 3 01:00 . . 84 . 120/ 63 . . Stage 4 01:00 . . 74 . 117/ 63 . Stop exercise at 04:00 RECOVERY 01:00 . . 73 . 119/ 57 . . RECOVERY 02:00 . . 70 . 119/ 57 . . RECOVERY 03:00 . . 69 . 128/ 67 . . RECOVERY 03:39 . . 71 . 133/ 65 . . Electronically signed by : Gisella Yoon MD 03/17/2023 00:41:53
== END ==
PROVIDERS: PCP Internal Medicine; Visit Provider Nurse Practitioner Family
DX: E78.5 Hyperlipidemia, unspecified (principal); I10 Essential (primary) hypertension; I51.9 Heart disease, unspecified; Z95.0 Presence of cardiac pacemaker; E78.2 Mixed hyperlipidemia; I35.1 Nonrheumatic aortic (valve) insufficiency; R06.00 Dyspnea, unspecified; I20.89 Other forms of angina pectoris; I42.8 Other cardiomyopathies
CPT/HCPCS: 78452; 93017; 93306; A9502; J2785

== ENCOUNTER → 2023-03-29 10:39 | Outpatient (CLI) | payer MEDICARE, SELFPAY ==
--- NOTE | 2023-03-29 10:42 | XR_ITS ---
FINAL REPORT CLINICAL HISTORY: dyspnea COMPARISON: 10/15/2022 FINDINGS: Two views of the chest were obtained. The heart size and pulmonary vascularity are within normal limits. A left subclavian pacer remains present, and the wires have an unusual configuration, which is stable. There is mild hyperinflation compatible with chronic obstructive pulmonary disease. The mediastinum is normal. No acute pulmonary abnormality is identified. There is no pneumothorax. The bony thorax is intact. IMPRESSION: No active cardiopulmonary disease. Reviewed, Interpreted and Dictated by Osmel Resendez III, MD Transcribed by Sofia Bhatia Authenticated and [facility]
== END ==
PROVIDERS: PCP Family Medicine; Visit Provider Physician Assistant
DX: E78.5 Hyperlipidemia, unspecified (principal); I10 Essential (primary) hypertension; I20.89 Other forms of angina pectoris; K21.9 Gastro-esophageal reflux disease without esophagitis; R06.00 Dyspnea, unspecified; Z95.0 Presence of cardiac pacemaker; I42.8 Other cardiomyopathies
CPT/HCPCS: 71046

== ENCOUNTER 2023-08-29 08:24 | Inpatient (IN) | payer MEDICARE, SELFPAY ==
[2023-08-29] VITALS (14 sets, daily range): BP systolic 101–151; BP diastolic 41–85; PULSE 80–107; RESP 18–24; TEMP 36.4–36.7; O2SAT 85–95; BMI 29.2; BMI 28.8
--- NOTE | 2023-08-29 08:32 | ECG_ITS ---
APPROVED REPORT Exam: Resting ECG HR:86 bpm ECG Measurements Heart Rate 86 AXES NV 158 P -19 QRSd 150 QRS 197 QT 378 T 53 QTc 422 Conclusion ELECTRONIC VENTRICULAR PACEMAKER No STEMI Electronically signed by : KERRIE BARRIOS, 08/29/2023 15:13:43
--- NOTE | 2023-08-29 08:36 | PC.NURSE ---
in room talking with patient at this time.
--- NOTE | 2023-08-29 08:39 | XR_ITS ---
FINAL REPORT CLINICAL HISTORY: cough, SOA, R breath sounds diminished, wheezing COMPARISON: 03/29/2024 FINDINGS: SINGLE-VIEW CHEST The heart size is normal. The mediastinum is normal pacer is identified. There is mild airspace opacity at the right base which was not seen on the prior, may be related to a small focus of pneumonia. There is no pneumothorax. There is mild thoracic scoliosis convex to the right. IMPRESSION: Airspace opacity at right base, may be due to a small focus of pneumonia. Reviewed, Interpreted and Dictated by Krish Sheridan MD Transcribed by Nita Pedro Authenticated and [facility]
--- NOTE | 2023-08-29 08:41 | ED_ITS ---
Discharge Plan Disposition Patient Disposition: Admitted Clinical Impressions Clinical Impression: Shortness of breath, Acute exacerbation of chronic obstructive pulmonary disease, Acute hypoxemic respiratory failure, Sepsis due to pneumonia Discharge ED Provider: Jennifer Lund HPI General Chief Complaint: Shortness of Breath/Dyspnea Stated Complaint: soa, weakness, back pain Time Seen by Provider: 08/29/23 08:28 Mode of Arrival: Wheelchair Source of Information: Patient Limitations: No Limitations Description of Symptoms (Recalled from ER Triage Doc. by RN): Patient reports being short of breath for approx 2 weeks and that it is just continuing to get worse. Complaint of his heart racing as well. History of Present Illness HPI narrative: This patient is a 72-year-old male with a history of asthma, COPD, CAD, cardiomyopathy, hypertension, hyperlipidemia, aortic insufficiency, diastolic dysfunction, and pacemaker presenting to the emergency department for evaluation with concern for shortness of breath. Patient reports that for the last 2 weeks, he feels like he cannot get any air in. He states that it has been getting progressively worse over this time, and he noted his oxygen saturation was in the low 80s at 82 to 84% at home last night. He notes that he has had cough with a lot of thick sputum. He denies any fevers, chills, chest pain, nausea, vomiting, change in bowel movements, swelling, or other concerns. He does not usually wear oxygen at home. He denies any thoughts that he was going to be put on oxygen last summer, at which point I was like on medical record review that he was admitted for COPD exacerbation. Related Data Home Medications Medication Instructions Recorded Confirmed fluticasone furoate 100 1 inh inhalation DAILY COPD 12/08/20 05/20/23 mcg-vilanterol 25 mcg/dose inhalation powder (Breo Ellipta) budesonide 0.25 mg/2 mL suspension 0.25 mg inhalation BID COPD 03/30/21 05/20/23 for nebulization aspirin 81 mg tablet,delayed 81 mg PO DAILY Heart [facility] 10/15/22 05/20/23 release montelukast 10 mg tablet 10 mg PO DAILY 03/27/23 05/20/23 Previous Rx's Medication Instructions Recorded albuterol sulfate 90 mcg/actuation 1 inh inhalation QID PRN shortness 08/18/20 aerosol inhaler of breath or wheezing #8.5 grams ipratropium 0.5 mg-albuterol 3 mg 3 ml inhalation Q6RT 30 days #120 10/16/22 (2.5 mg base)/3 mL nebulization ea soln clopidogrel 75 mg tablet 75 mg PO DAILY platelet inhibitor 11/26/22 #90 tabs furosemide 40 mg tablet 40 mg PO DAILY Edema 90 days #90 02/08/23 tabs valsartan 40 mg tablet See Rx Instructions .Route 04/29/23 .COMPLEX #90 tabs pantoprazole 40 mg tablet,delayed 40 mg PO DAILY #30 tabs 05/20/23 release (Protonix) bisoprolol fumarate 10 mg tablet See Rx Instructions .Route 05/22/23 .COMPLEX #90 tabs atorvastatin 40 mg tablet See Rx Instructions .Route 07/01/23 .COMPLEX #90 tabs nitroglycerin 0.4 mg sublingual 0.4 mg sublingual Q5-15M PRN chest 08/19/23 tablet pain #25 tabs Allergies Allergy/AdvReac Type Severity Reaction Status Date / Time No Known Allergies Allergy Verified 08/19/23 10:43 [facility] Disclaimer: The information contained in this section may have been updated after the patient was seen, as this information can be updated by other users. Medical History Aortic insufficiency Dyspnea Cardiac pacemaker in situ Hyperlipidemia Hypertension Diastolic dysfunction Surgical History H/O hernia repair Social History Smoking Status: Unknown if ever smoked second hand exposure: No alcohol intake: never substance use type: denies use current occupational status: retired Travel in the last 8 weeks: [place] household members: spouse housing: house current occupational exposures/hazards: No caffeine: No ROS Obtained: Yes All systems reviewed & no additional complaints except as documented Physical Exam General General appearance: alert and in no apparent distress Comment: Ill-appearing Head Head exam: atraumatic and normocephalic Eye Eye exam: Present normal appearance, PERRL and EOMI ENT ENT exam: Present normal exam, normal oropharynx, mucous membranes moist and normal external ear exam Neck Neck exam: Present normal inspection, full ROM and trachea midline; Absent tenderness Chest Chest inspection: Present normal inspection and symmetric chest wall rise; Absent tenderness Respiratory Respiratory exam: Present wheezes, accessory muscle use, prolonged expiratory phase and other (Hypoxic on room air requiring 2 L nasal cannula for support); Absent respiratory distress or stridor Expanded Respiratory Exam Location: Left: wheezes and rhonchi, Right: wheezes, rhonchi and decreased breath sounds, Upper: wheezes and rhonchi and Lower: wheezes, rhonchi and decreased breath sounds Cardiovascular Cardiovascular exam: Present regular rate and normal rhythm Abdominal Exam Abdominal exam: Present soft; Absent distention, tenderness or guarding Extremities Exam Extremities exam: Present normal inspection, full ROM and normal capillary refill; Absent tenderness or edema Back Exam Back exam: Present normal inspection and full ROM; Absent tenderness Neurological Exam Neurological exam: Present alert, oriented X3, CN II-XII intact and normal gait; Absent motor sensory deficit Psychiatric Psychiatric exam: Present normal affect and normal mood Skin Skin exam: Present warm and dry HEART Score HEART Score HEART Score assessment performed?: Yes History (anamnesis): Slightly suspicious ECG: Non-specific disturbance Age: >65 years Risk factors: Atherosclerosis history Troponin: </= normal limit HEART Score: 5 Critical Care Critical Care Time Critical Care Time: No Medical Decision Making Medical Records Medical records reviewed: Yes I reviewed the patient's medical records. Salty Inquiry Pt receiving controlled substance: No Vital Signs Vital Signs: 08/29/23 08:24 08/29/23 08:30 08/29/23 09:00 Temperature 97.8 F Temperature Source Oral Pulse Rate 87 89 Pulse Rate [Radial] 93 H Respiratory Rate 22 Blood Pressure 120/65 Blood Pressure [Right Arm] 120/70 Blood Pressure Mean Blood Pressure Mean [Right Arm] 86 Blood Pressure Source [Right Arm] Automatic Cuff Blood Pressure Position [Right Arm] Sitting 02 Sat by Pulse Oximetry 85 L 90 L 93 L Oxygen Delivery Method Room Air Oxygen Flow Rate (LPM) 08/29/23 09:15 08/29/23 09:16 08/29/23 09:16 Temperature Temperature Source Pulse Rate 85 87 Pulse Rate [Radial] Respiratory Rate Blood Pressure 151/85 H Blood Pressure [Right Arm] Blood Pressure Mean Blood Pressure Mean [Right Arm] Blood Pressure Source [Right Arm] Blood Pressure Position [Right Arm] 02 Sat by Pulse Oximetry 95 95 Oxygen Delivery Method Nasal Cannula Oxygen Flow Rate (LPM) 2 08/29/23 09:16 08/29/23 09:30 08/29/23 10:00 Temperature Temperature Source Pulse Rate 86 95 H 107 H Pulse Rate [Radial] Respiratory Rate 24 Blood Pressure 144/82 H 123/66 Blood Pressure [Right Arm] Blood Pressure Mean 85 Blood Pressure Mean [Right Arm] Blood Pressure Source [Right Arm] Blood Pressure Position [Right Arm] 02 Sat by Pulse Oximetry 95 94 L Oxygen Delivery Method Nasal Cannula Oxygen Flow Rate (LPM) 3 Lab Data Labs: Lab Results 08/29/23 08:39: VBG pH 7.41, VBG pCO2 44.6, VBG pO2 35.7, VBG HCO3 27.3, VBG Total CO2 28.7 H, VBG O2 Saturation 68.0, VBG Base Excess 2.6 H, VBG Lactic Acid 2.1 H 08/29/23 08:40: WBC 20.6 H*, RBC 5.40, Hgb 15.7, Hct 50.1, MCV 92.7, MCH 29.1, M CHC 31.4 L, RDW 13.7, Plt Count 239, MPV 8.8, Neut % (Auto) 86.4 H, Lymph % (Auto) 6.1 L, [place] % (Auto) 5.9, Eos % (Auto) 0.9, Baso % (Auto) 0.7, Neut # (Auto) 17.8 H, Lymph # (Auto) 1.3, [place] # (Auto) 1.2 H, Eos # (Auto) 0.2, Baso # (Auto) 0.2, Total Counted 100, Neutrophils % (Manual) 84 H, Lymphocytes % (Manual) 6 L, Monocytes % (Manual) 9, Eosinophils % (Manual) 1, Platelet Estimate Normal, RBC Morphology Normal, Sodium 136, Potassium 4.5, Chloride 96 L , Carbon Dioxide 31 H, Anion Gap 13.5, BUN 23 H, Creatinine 1.50 H, Estimated Creat Clear 42, Estimated GFR 46 L, Est GFR ( Amer) 55 L, Glucose 131 H, Calcium 9.3, Total Bilirubin 1.4 H, AST 29, ALT 30, Alkaline Phosphatase 93, Troponin I < 0.01, NT-Pro-B Natriuret Pep 206 H, Total Protein 7.6, Albumin 4.3, Globulin 3.3 H, Albumin/Globulin Ratio 1.3 08/29/23 08:40 08/29/23 08:40 Response Orders (Tests/Meds): ED MEDICATIONS Generic Name Dose Route Start Last Admin Trade Name Constance PRN Reason Stop Dose Admin Albuterol/Ipratropium 3 ml 08/29/23 12:00 Ipratropium/Albuterol 3 Ml [facility] 09/28/23 11:59 Q6RT GENTRY Lactated Ringer's 1,000 mls @ 999 mls/hr 08/29/23 09:21 08/29/23 09:50 Lactated Ringer's 1000 Ml Bag IV 08/29/23 10:21 999 mls/hr .Q1H1M ONE Administration Azithromycin 500 mg/ Sodium 250 mls @ 250 mls/hr 08/30/23 09:00 Chloride IV 09/09/23 08:59 Q24H GENTRY Ceftriaxone Sodium 2 gm/ 100 mls @ 200 mls/hr 08/30/23 08:30 Sodium Chloride IV 09/09/23 08:29 Q24H GENTRY Sodium Chloride 3 ml 08/29/23 09:42 Sodium Chloride 3% 15ml [facility] 09/28/23 09:41 ONCE PRN INDUCE SPUTUM COLLECTION Sodium Chloride 10 ml 08/29/23 10:15 Sodium Chloride 0.9% 10ml Flush Syringe IV 09/28/23 10:14 NEEDED PRN Maintain IV Site Discontinued Medications Generic Name Dose Route Start Last Admin Trade Name Constance PRN Reason Stop Dose Admin Albuterol/Ipratropium 9 ml 08/29/23 08:40 08/29/23 09:11 Ipratropium/Albuterol 3 Ml [facility] 08/29/23 08:41 9 ml ONCE ONE Administration Ceftriaxone Sodium 2 gm/ 100 mls @ 200 mls/hr 08/29/23 09:43 08/29/23 09:53 Sodium Chloride IV 08/29/23 10:12 200 mls/hr ONCE ONE Administration Azithromycin 500 mg/ Sodium 250 mls @ 250 mls/hr 08/29/23 09:43 Chloride IV 08/29/23 09:44 ONCE ONE Methylprednisolone Sodium Succinate 125 mg 08/29/23 08:40 08/29/23 09:04 Methylprednisolone Sod Succ 125mg Vial IV 08/29/23 08:41 125 mg ONCE ONE Administration ORDERS Category Date Time Status CT chest wo con Stat Cat Scan 08/29/23 10:11 Ordered XR chest portable Stat Exams 08/29/23 08:39 Taken Complete Blood Count Auto Diff AMLAB Lab 08/30/23 06:00 Ordered Complete Blood Count Auto Diff Stat Lab 08/29/23 08:40 Completed Comprehensive Metabolic Panel AMLAB Lab 08/30/23 06:00 Ordered Comprehensive Metabolic Panel Stat Lab 08/29/23 08:40 Completed Magnesium AMLAB Lab 08/30/23 06:00 Ordered NT Pro Brain Natriuretic Pep. Stat Lab 08/29/23 08:40 Completed Troponin I Q3H Lab 08/29/23 11:45 Ordered Troponin I Q3H Lab 08/29/23 14:45 Ordered Troponin I Stat Lab 08/29/23 08:40 Completed Blood Culture Stat Micro 08/29/23 09:02 Received Sputum Culture & Gram Stain Stat Micro 08/29/23 09:55 Received Venous Blood Gas Stat RT 08/29/23 08:39 Completed ECG Data Tracing #1: Attestation: I reviewed this ECG and interpreted as documented below: ECG Narrative: Paced rhythm with a ventricular rate of 86 bpm. No acute STEMI. ECG initial impression date: 08/29/23 ECG initial impression time: 08:39 MDM Narrative Medical Decision Narrative: In summary, this patient is a 72-year-old male presenting to the Emergency Department for evaluation of cough, shortness of breath, and low oxygen readings at home. Differential diagnoses considered include but are not limited to COPD exacerbation, pneumonia, asthma exacerbation, respiratory failure, CHF exacerbation. Ruling out the most morbid conditions drove assessment. On exam, the patient is mildly ill-appearing with slight increased work of breathing, wheezing, and rhonchi. He is hypoxic on room air. Otherwise, vitals are reassuring on cardiac telemetry with no significant tachycardia. Workup included CBC, CMP, VBG, lactic acid, troponin, BNP, chest x-ray, and EKG. Patient was given DuoNebs x 3 as well as IV methylprednisolone. I independently interpreted x-ray prior to the radiologist read and noted possible bibasilar consolidation concerning for pneumonia. Please see their read for final interpretation. Labs concerning for leukocytosis of 20. Patient also has a mildly elevated lactic acid. He has persistent productive cough in the room as well as tachypnea with findings concerning for pneumonia on clinical exam. Given this, high concern for sepsis. Blood cultures as well as sputum culture were sent. I reviewed prior sputum culture and noted the patient had normal respiratory emir with his last admission for pneumonia last October. Patient started on IV Rocephin and azithromycin for presumed community-acquired pneumonia. He was given 1 L bolus of IV fluids, he was not given full sepsis bolus given history of cardiac dysfunction and concerns volume overload will be detrimental to his respiratory status. On reassessment, patient had some improvement after administration of nebulizer treatments. He has improved aeration, however he still sounds very rhonchorous and has persistent productive cough. Oxygen saturation is 92 to 93% on 2 L nasal cannula. At this time, given concerns for sepsis, I feel the patient would benefit from admission for IV antibiotics pending blood culture results. I called and had an direct discussion with Dr. Roth, the hospitalist, who advised he would admit the patient. Patient was admitted in stable condition.
[2023-08-29 08:52] LABS: VBG Base Excess 2.6 mmol/L (-2.4-2.3); VBG HCO3 27.3 mmol/L (23-30); VBG PCO2 44.6 mmol/L (35-51); VBG PH 7.41 mmol/L (7.31-7.41); VBG PO2 35.7 mmol/L (28-40); VBG Total CO2 28.7 mmol/L (23-27)
[2023-08-29 08:55] LABS: Lactate Venous 2.1 mmol/L (0.4-2.0)
[2023-08-29 08:58] LABS: Basophils # 0.2 K/mm3 (0-0.2); Basophils % 0.7 % (0.1-2.0); Eosinophils # 0.2 K/mm3 (0.0-0.4); Eosinophils % 0.9 % (0.1-12.0); Hematocrit 50.1 % (42.0-52.0); Hemoglobin 15.7 g/dL (14.1-18.0); Lymphocytes # 1.3 K/mm3 (0.7-4.5); Lymphocytes % 6.1 % (10-50); MANUAL DIFFERENTIAL MANUAL DIFFERENTIAL (MANUAL DIFF); Mean Corpuscular HGB Conc 31.4 g/dL (31.8-35.4); Mean Corpuscular Hemoglobin 29.1 pg (27.0-31.2); Mean Corpuscular Volume 92.7 fl (80-94); Mean Platelet Volume 8.8 fl (7.4-10.4); Monocytes # 1.2 K/mm3 (0.1-1.0); Monocytes % 5.9 % (1.7-9.3); Neutrophils # 17.8 K/mm3 (1.8-7.8); Neutrophils % 86.4 % (37.0-80.0); Platelet Count 239 K/mm3 (142-424); Red Cell Distribution Width 13.7 % (11.5-17.5); White Blood Count 20.6 K/mm3 (4.8-10.8)
--- NOTE | 2023-08-29 09:03 | PC.NURSE ---
RESPIRATORY AWARE OF DUONEB ORDER, SPOKE WITH JOANNA
[2023-08-29 09:04] LABS: Alanine Aminotransferase 30 U/L (12-78); Albumin Level 4.3 g/dl (3.5-5.0); Albumin/Globulin Ratio 1.3 (1.1-1.8); Alkaline Phosphatase 93 U/L (38-126); Anion Gap 13.5 mEq/L (5-15); Aspartate Amino Transferase 29 U/L (17-59); Bilirubin,Total 1.4 mg/dl (0.2-1.3); Blood Urea Nitrogen 23 mg/dl (9-20); Calcium 9.3 mg/dl (8.4-10.2); Carbon Dioxide 31 mmol/L (22.0-30.0); Chloride 96 mmol/L (98-107); Creatinine Clearance Estimated 42 mL/min (50-200); Estimated Glomerular Filt Rate 46 ml/min (>60); GFR (African American) 55 ML/MIN (>60); Globulin 3.3 g/dL (1.3-3.2); Glucose 131 mg/dl (74-100); Potassium 4.5 mmoL/L (3.5-5.1); Sodium 136 mmol/L (136-145); Total Protein,Serum 7.6 g/dl (6.3-8.2)
[2023-08-29] MEDS: METHYLPREDNISOLONE SOD SUCC 125MG VIAL 125 MG IV (09:04)
[2023-08-29] MEDS: IPRATROPIUM/ALBUTEROL 3 ML NEB 9 ML IH (09:11)
[2023-08-29 09:20] LABS: Eosinophils % 1 % (0-3); Lymphocytes % 6 % (10-50); Monocytes % 9 % (2-9); Neutrophils % 84 % (42-76); Platelet Estimate Normal; RBC Morphology Normal; Total Cells Counted 100
[2023-08-29 09:40] LABS: Troponin I < 0.01 ng/ml (0.00-0.034)
--- NOTE | 2023-08-29 09:47 | PC.NURSE ---
will call back.
[2023-08-29] MEDS: LACTATED RINGERS 1000ML 1,000 ML 999 ML IV (09:50)
[2023-08-29] MEDS: CEFTRIAXONE SODIUM 2 GM in 0.9 % SODIUM CHLORIDE 100 ML IV (09:53)
[2023-08-29 10:03] LABS: NT Pro Brain Natriuretic Pep. 206 pg/mL (0-125)
--- NOTE | 2023-08-29 10:07 | PC.NURSE ---
Dr Lund speaking with Dr Roth
--- NOTE | 2023-08-29 10:10 | PC.NURSE ---
HOUSE AWARE OF ADMISSION FOR SEPSIS, PNA AND RESPIRATORY FAILURE
--- NOTE | 2023-08-29 10:11 | CT_ITS ---
FINAL REPORT TECHNIQUE: Axial images were obtained from the lung apex to the mid abdomen by computed tomography. Coronal reformatted images were obtained. This study was performed with techniques to keep radiation doses as low as reasonably achievable, (ALARA). Individualized dose reduction techniques using automated exposure control or adjustment of mA and/or kV according to the patient's size were employed. CLINICAL HISTORY: pneumonia? COMPARISON: 03/15/2021 FINDINGS: There is streak artifact from left upper anterior chest wall pacemaker. The heart size is normal. There are dense coronary artery calcifications. There is no pericardial or pleural effusion. There is abnormal peribronchial thickening in the upper and lower lobes consistent with acute bronchitis. There is atelectasis at the right lung base. Limited images of the upper abdomen demonstrates benign-appearing cyst adjacent to the gallbladder fossa measuring 3.8 cm in diameter. IMPRESSION: Extensive chronic bronchitis. Reviewed, Interpreted and Dictated by Krish Sheridan MD Transcribed by Kimmy Pradhan Authenticated and [facility]
--- NOTE | 2023-08-29 10:14 | P.HP_ITS ---
History of Present Illness *Admission Date: 08/29/23 *Reason for visit:: Cough, tachypnea *History of present illness: Mr. Junior is a 72-year-old male with history of asthma, COPD, CAD, cardiomyopathy and hypertension. Presented for complaint of 2 weeks of cough, shortness of breath, not getting better. Feels like his heart is racing. Noticed his oxygen last night was in the low 80s, unable to sleep. Coughing with increase in sputum production. No marily fever but has had chills. Denies chest pain, nausea, vomiting. Patient does not wear oxygen at home. On initial presentation to the ER, found to be hypoxic necessitating 2 L. Workup concerning for leukocytosis and pneumonia in right lower lobe. Medicine consulted for admission and further management On evaluation, family at bedside with him to help supplement history. Patient does not have coverage for medications and so does not take his inhalers consistently but is currently using a nebulizer 2-3 times a week and Breo inhaler most days. No longer taking Singulair, stopped taking as he had no more refills and stopped seeing pulmonology as the medications were too expensive that were prescribed. Is a former smoker but has not smoked in many years. Has a bad time with allergies and his cough and sputum production gets worse when seasonal allergies are worse. [facility] Disclaimer: The information contained in this section may have been updated after the patient was seen, as this information can be updated by other users. Medical History Aortic insufficiency Dyspnea Cardiac pacemaker in situ Hyperlipidemia Hypertension Diastolic dysfunction Surgical History H/O hernia repair Social History Smoking Status: Unknown if ever smoked second hand exposure: No alcohol intake: never substance use type: denies use current occupational status: retired Travel in the last 8 weeks: Inside the [place] household members: spouse housing: house current occupational exposures/hazards: No caffeine: No Review of Systems Review of Systems Review of systems (narrative): 14 point review of systems performed, pertinent positives and negatives as per HPI Meds Home Medications and Allergies Home Medications Medication Instructions Recorded Confirmed Type albuterol sulfate 90 mcg/actuation 1 inh inhalation QID PRN shortness 08/18/20 08/29/23 Rx aerosol inhaler of breath or wheezing #8.5 grams fluticasone furoate 100 1 inh inhalation DAILY COPD 12/08/20 08/29/23 History mcg-vilanterol 25 mcg/dose inhalation powder (Breo Ellipta) budesonide 0.25 mg/2 mL suspension 0.25 mg inhalation BID COPD 03/30/21 08/29/23 History for nebulization aspirin 81 mg tablet,delayed 81 mg PO DAILY Heart health 10/15/22 08/29/23 History release ipratropium 0.5 mg-albuterol 3 mg 3 ml inhalation Q6RT 30 days #120 10/16/22 08/29/23 Rx (2.5 mg base)/3 mL nebulization ea soln clopidogrel 75 mg tablet 75 mg PO DAILY platelet inhibitor 11/26/22 08/29/23 Rx #90 tabs furosemide 40 mg tablet 40 mg PO DAILY Edema 90 days #90 02/08/23 08/29/23 Rx tabs montelukast 10 mg tablet 10 mg PO DAILY 03/27/23 08/29/23 History pantoprazole 40 mg tablet,delayed 40 mg PO DAILY #30 tabs 05/20/23 08/29/23 Rx release (Protonix) nitroglycerin 0.4 mg sublingual 0.4 mg sublingual Q5-15M PRN chest 08/19/23 08/29/23 Rx tablet pain #25 tabs atorvastatin 40 mg tablet 40 mg PO DAILY 08/29/23 08/29/23 History bisoprolol fumarate 10 mg tablet 10 mg PO DAILY 08/29/23 08/29/23 History valsartan 40 mg tablet 40 mg PO DAILY 08/29/23 08/29/23 History New Prescriptions to Start Prescriptions: Allergies Allergy/AdvReac Type Severity Reaction Status Date / Time No Known Allergies Allergy Verified 08/19/23 10:43 Exam Data for Last 24 hours Vital signs and Labs for Last 24 Hours: Temp Pulse Resp BP Pulse Ox O2 Del Method O2 Flow Rate 97.8 F 107 H 24 123/66 94 L Nasal Cannula 3 08/29/23 08:24 08/29/23 10:00 08/29/23 10:00 08/29/23 10:00 08/29/23 10:00 08/29/23 10:00 08/29/23 10:00 Laboratory Results - last 24 hr 08/29/23 08:39: VBG pH 7.41, VBG pCO2 44.6, VBG pO2 35.7, VBG HCO3 27.3, VBG Total CO2 28.7 H, VBG O2 Saturation 68.0, VBG Base Excess 2.6 H, VBG Lactic Acid 2.1 H 08/29/23 08:40: WBC 20.6 H*, RBC 5.40, Hgb 15.7, Hct 50.1, MCV 92.7, MCH 29.1, MCHC 31.4 L, RDW 13.7, Plt Count 239, MPV 8.8, Neut % (Auto) 86.4 H, Lymph % (A uto) 6.1 L, [place] % (Auto) 5.9, Eos % (Auto) 0.9, Baso % (Auto) 0.7, Neut # (Auto) 17.8 H, Lymph # (Auto) 1.3, [place] # (Auto) 1.2 H, Eos # (Auto) 0.2, Baso # (Auto) 0.2, Total Counted 100, Neutrophils % (Manual) 84 H, Lymphocytes % (Manual) 6 L, Monocytes % (Manual) 9, Eosinophils % (Manual) 1, Platelet Estimate Normal, RBC Morphology Normal, Sodium 136, Potassium 4.5, Chloride 96 L , Carbon Dioxide 31 H, Anion Gap 13.5, BUN 23 H, Creatinine 1.50 H, Estimated Creat Clear 42, Estimated GFR 46 L, Est GFR ( Amer) 55 L, Glucose 131 H, Calcium 9.3, Total Bilirubin 1.4 H, AST 29, ALT 30, Alkaline Phosphatase 93, Troponin I < 0.01, Total Protein 7.6, Albumin 4.3, Globulin 3.3 H, Album in/Globulin Ratio 1.3 I & O for Last 24 hours: Intake & Output 08/26/23 08/27/23 08/28/23 08/29/23 23:59 23:59 23:59 23:59 Weight 68.039 kg Constitutional Constitutional: no acute distress and average body habitus *Routine HEENT Exam Head: Present normocephalic and atraumatic Eye: Present EOMI and PERRL ENT: Present mucous membranes moist *Routine Neck Exam Neck: Present supple; Absent JVD Routine Chest/Breast/Axilla Exam Chest wall: Absent tenderness *Routine Respiratory Exam Respiratory: Present prolonged expiratory phase and crackles (Right lower lobe); Absent accessory muscle use, respiratory distress, rhonchi or wheezes *Routine Cardiovascular Exam Cardiovascular: Present RRR, Normal S1 and Normal S2; Absent murmur *Routine Abdominal Exam Abdominal: Present soft and normoactive bowel sounds; Absent tenderness or distended *Routine Rectal Exam Rectal:: deferred *Routine Genitalia Exam Genitalia:: deferred *Routine Extremities Exam Extremities: Absent cyanosis, clubbing or edema *Routine Skin Exam Skin: Present intact; Absent cyanosis or erythema *Routine Neurological Exam Neurological: Present alert, oriented X3, CN II-XII intact and moving all extremities; Absent sensory deficit or altered mental status Comments: Hard of hearing Routine Psychiatric Exam Psychiatric: Present normal affect and normal thought process; Absent suicidal ideation or homicidal ideation Assessment and Plan *Assessment and plan (1) Pneumonia: Status: Acute Category: Medical Code(s): J18.9 - Pneumonia, unspecified organism (2) Acute exacerbation of chronic obstructive pulmonary disease: Status: Acute Category: Medical Code(s): J44.1 - Chronic obstructive pulmonary disease with (acute) exacerbation (3) Acute hypoxemic respiratory failure: Status: Acute Category: Medical Code(s): J96.01 - Acute respiratory failure with hypoxia (4) Chronic GERD: Status: Acute Category: Medical Code(s): K21.9 - Gastro-esophageal reflux disease without esophagitis (5) Coronary artery disease: Status: Chronic Qualifiers: Associated angina: without angina Coronary Disease-Associated Artery/Lesion type: [place] artery [place] vs. transplanted heart: [place] heart Qualified Code(s): I25.10 - Atherosclerotic heart disease of [place] coronary artery without angina pectoris Category: Medical Code(s): I25.10 - Atherosclerotic heart disease of [place] coronary artery without angina pectoris (6) Cardiac pacemaker in situ: Status: Chronic Category: Medical Code(s): Z95.0 - Presence of cardiac pacemaker (7) Hypertension: Status: Chronic Qualifiers: Hypertension type: essential hypertension Qualified Code(s): I10 - Essential (primary) hypertension Category: Medical Code(s): I10 - Essential (primary) hypertension (8) Hyperlipidemia: Status: Chronic Qualifiers: Hyperlipidemia type: mixed hyperlipidemia Qualified Code(s): E78.2 - Mixed hyperlipidemia Category: Medical Code(s): E78.5 - Hyperlipidemia, unspecified Plan 72-year-old male with chronic bronchitis, bronchiectasis, GERD, the, COPD. Resented to the ER with concern for pneumonia and elevated white count.Meeting sepsis criteria with tachycardia, leukocytosis, image findings concerning for pneumonia. Discussed case with the ER physician, request admission for further management with IV antibiotics in the setting of new oxygen requirement and sepsis criteria. Medicine agreed to admit. Continue ceftriaxone and azithromycin. Currently on 2 L. Will consult pulmonology to assist with care and for close follow-up. Problems addressed as follows: Pneumonia Hypoxia -PSI/port score 74. Class III risk. -Pulmonology consulted, discussed case, recommends DuoNebs every 6 hours along with Pulmicort every 12 hours scheduled. Continue ceftriaxone and azithromycin daily IV pending sputum culture. -Holding on steroids at this time. Continue supplemental oxygen for goal saturation greater 90%. Currently on 2 L. -CT obtained of chest, personally reviewed showing patchy diffuse peripheral airspace disease in left upper lobe and few small foci in right lower lobe. Has a lung nodule in left upper lobe as well. -Comprehensive respiratory panel pending. Chronic conditions: Continue Lipitor 40 mg daily for hyperlipidemia Continue bisoprolol 10 mg daily for hypertension along with valsartan 40 mg daily and Lasix 40 mg daily Continue aspirin 81 mg daily and Plavix 75 mg daily for CAD Continue pantoprazole 40 mg daily for GERD Full code Heparin subcu twice daily Cardiac diet
--- NOTE | 2023-08-29 10:26 | PC.NURSE ---
Report given to LUZ Chambers on med surg.
--- NOTE | 2023-08-29 10:46 | PC.NURSE ---
pt to med surg
--- NOTE | 2023-08-29 10:52 | HMH.PHAINT1 ---
Pharmacy Intervention Comments: HOME MEDICATION LIST VERIFIED VIA OUTSIDE PHARMACY AND OFFICE VISIT
[2023-08-29] MEDS: AZITHROMYCIN 500 MG in 0.9 % SODIUM CHLORIDE 250 ML 250 MG IV (11:40)
[2023-08-29 12:26] LABS: Troponin I < 0.01 ng/ml (0.00-0.034)
[2023-08-29] MEDS: IPRATROPIUM/ALBUTEROL 3 ML NEB IH ×3 (12:36→23:00)
[2023-08-29 12:55] LABS: Reflex Lactic Add Lactic Reflex
[2023-08-29 13:38] LABS: Lactic Acid Follow Up (RFLX 1) 1.9 mmol/L (0.7-2.1)
[2023-08-29 14:01] LABS: Adenovirus,PCR Not Detected (NotDetected); Coronavirus 19, PCR Not Detected (NotDetected); Coronavirus 229E Not Detected (NotDetected); Coronavirus NL63 Not Detected (NotDetected); Coronavirus OC43 Not Detected (NotDetected); Coronovirus HKU1,PCR Not Detected (NotDetected); Human Metapneumovirus Not Detected (NotDetected); Influenza A, PCR Not Detected (NotDetected); Influenza AH1, 2009 Not Detected (NotDetected); Influenza AH1, PCR Not Detected (NotDetected); Influenza AH3,PCR Not Detected (NotDetected); Influenza B, PCR Not Detected (NotDetected); Parainfluenza 1, PCR Not Detected (NotDetected); Parainfluenza 2, PCR Not Detected (NotDetected); Parainfluenza 3, PCR Not Detected (NotDetected); Parainfluenza 4, PCR Not Detected (NotDetected); Respiratory Syncytial Virus Not Detected (NotDetected); Rhinovirus/Enterovirus Not Detected (NotDetected)
[2023-08-29 15:57] LABS: Troponin I < 0.01 ng/ml (0.00-0.034)
--- NOTE | 2023-08-29 16:35 | P.CONS_ITS ---
History of Present Illness History of present illness: Mr. Munoz 72-year-old male greater than [id number] smoking history carries a diagnosis of asthma COPD overlap syndrome presented to the ER with worsening respiratory distress and increasing oxygen consult pulmonary was called for further evaluation and management. He was supposed to be sent Trelegy 200 along with Fasenra infusions. However as patient did not have any drug coverage she is getting only Breo inhaler from the black market and had been using that. He is also stopped using his Singulair. [facility] Disclaimer: The information contained in this section may have been updated after the patient was seen, as this information can be updated by other users. Medical History Aortic insufficiency Dyspnea Cardiac pacemaker in situ Hyperlipidemia Hypertension Diastolic dysfunction Surgical History H/O hernia repair Social History Smoking Status: Unknown if ever smoked second hand exposure: No alcohol intake: never substance use type: denies use current occupational status: retired Travel in the last 8 weeks: Inside the [place] household members: spouse housing: house current occupational exposures/hazards: No caffeine: No Review of Systems Constitutional Constitutional: Reports anorexia, Reports body ache(s) and Reports fatigue Eyes Eyes: Denies eye discharge, Denies dry eyes, Denies irritation and Denies itchy eyes ENT Ears, Nose, Mouth, and Throat: Denies epistaxis, Denies facial pain, Denies lip swelling, Reports nasal discharge and Denies throat swelling *Cardiovascular Cardiovascular: Reports dyspnea and Reports dyspnea on exertion *Respiratory Respiratory: Reports change in phlegm color, Reports chest congestion, Reports cough, Reports dyspnea, Reports dyspnea on exertion, Reports excessive phlegm production, Denies hemoptysis, Denies pain on inspiration, Denies pain with cough and Reports wheezing *Gastrointestinal Gastrointestinal: Denies abdominal pain, Denies belching and Denies cramping *Musculoskeletal Musculoskeletal: Reports back pain, Reports myalgias and Reports other (No small joint swelling or Pain) Psychiatric Psychiatric: Denies homicidal ideation and Denies suicidal ideation Endocrine Endocrine: Reports fatigue and Denies heat intolerance Hematologic/Lymphatic Hematologic/Lymphatic: Denies easy bleeding and Denies lymphadenopathy Allergic/Immunologic Allergic/Immunologic: Denies itchy eyes, Denies lip swelling, Denies throat swelling and Reports wheezing Pulmonology Exam Inpatient Vital signs and Labs for Last 24 Hours: Temp Pulse Resp BP Pulse Ox O2 Del Method O2 Flow Rate 97.6 F 90 18 114/60 88 L Room Air 2 08/29/23 15:42 08/29/23 15:42 08/29/23 15:42 08/29/23 15:42 08/29/23 15:42 08/29/23 15:42 08/29/23 14:45 Laboratory Results - last 24 hr 08/29/23 08:39: VBG pH 7.41, VBG pCO2 44.6, VBG pO2 35.7, VBG HCO3 27.3, VBG Total CO2 28.7 H, VBG O2 Saturation 68.0, VBG Base Excess 2.6 H, VBG Lactic Acid 2.1 H 08/29/23 08:40: WBC 20.6 H*, RBC 5.40, Hgb 15.7, Hct 50.1, MCV 92.7, MCH 29.1, M CHC 31.4 L, RDW 13.7, Plt Count 239, MPV 8.8, Neut % (Auto) 86.4 H, Lymph % (Auto) 6.1 L, [place] % (Auto) 5.9, Eos % (Auto) 0.9, Baso % (Auto) 0.7, Neut # (Auto) 17.8 H, Lymph # (Auto) 1.3, [place] # (Auto) 1.2 H, Eos # (Auto) 0.2, Baso # (Auto) 0.2, Total Counted 100, Neutrophils % (Manual) 84 H, Lymphocytes % (Manual) 6 L, Monocytes % (Manual) 9, Eosinophils % (Manual) 1, Platelet Estimate Normal, RBC Morphology Normal, Sodium 136, Potassium 4.5, Chloride 96 L , Carbon Dioxide 31 H, Anion Gap 13.5, BUN 23 H, Creatinine 1.50 H, Estimated Creat Clear 42, Estimated GFR 46 L, Est GFR ( Amer) 55 L, Glucose 131 H, Calcium 9.3, Total Bilirubin 1.4 H, AST 29, ALT 30, Alkaline Phosphatase 93, Troponin I < 0.01, NT-Pro-B Natriuret Pep 206 H, Total Protein 7.6, Albumin 4.3, Globulin 3.3 H, Albumin/Globulin Ratio 1.3 08/29/23 11:50: Troponin I < 0.01 08/29/23 13:13: Lactate 1.9 08/29/23 15:03: Troponin I < 0.01 I & O for Labs for Last 24 Hours: Intake & Output 08/26/23 08/27/23 08/28/23 08/29/23 23:59 23:59 23:59 23:59 Intake Total 135 / 135 Balance 135 / 135 Weight 147 lb 6 oz Constitutional: Present moderate distress Head: Present normocephalic and atraumatic ENT: Present normal exam, normal oropharynx and mucous membranes moist Neck: Present normal inspection and full ROM Respiratory: Present respiratory distress, rhonchi, diminished air movement and able to speak in complete sentences; Absent prolonged expiratory phase or wheezes Cardiac: Present S1/S2, Tachycardia and radial pulses present GI: Present soft and distention; Absent tenderness or guarding Skin: Present intact; Absent cyanosis or jaundice Neuro: Present alert, awake and oriented x 3 Extremities: Present normal inspection; Absent clubbing or cyanosis Psychiatric: Present normal affect and cooperative Meds Home Medications and Allergies Home Medications Medication Instructions Recorded Confirmed Type albuterol sulfate 90 mcg/actuation 1 inh inhalation QID PRN shortness 08/18/20 08/29/23 Rx aerosol inhaler of breath or wheezing #8.5 grams fluticasone furoate 100 1 inh inhalation DAILY COPD 12/08/20 08/29/23 History mcg-vilanterol 25 mcg/dose inhalation powder (Breo Ellipta) budesonide 0.25 mg/2 mL suspension 0.25 mg inhalation BID COPD 03/30/21 08/29/23 History for nebulization aspirin 81 mg tablet,delayed 81 mg PO DAILY Heart health 10/15/22 08/29/23 History release ipratropium 0.5 mg-albuterol 3 mg 3 ml inhalation Q6RT 30 days #120 10/16/22 08/29/23 Rx (2.5 mg base)/3 mL nebulization ea soln clopidogrel 75 mg tablet 75 mg PO DAILY platelet inhibitor 11/26/22 08/29/23 Rx #90 tabs furosemide 40 mg tablet 40 mg PO DAILY Edema 90 days #90 09/08/23 03/28/24 Rx tabs montelukast 10 mg tablet 10 mg PO DAILY 03/27/23 08/29/23 History pantoprazole 40 mg tablet,delayed 40 mg PO DAILY #30 tabs 05/20/23 08/29/23 Rx release (Protonix) nitroglycerin 0.4 mg sublingual 0.4 mg sublingual Q5-15M PRN chest 08/19/23 08/29/23 Rx tablet pain #25 tabs atorvastatin 40 mg tablet 40 mg PO DAILY 08/29/23 08/29/23 History bisoprolol fumarate 10 mg tablet 10 mg PO DAILY 08/29/23 08/29/23 History valsartan 40 mg tablet 40 mg PO DAILY 08/29/23 08/29/23 History New Prescriptions to Start Prescriptions: Allergies Allergy/AdvReac Type Severity Reaction Status Date / Time No Known Allergies Allergy Verified 08/19/23 10:43 Results Laboratory Findings 08/29/23 08:40 08/29/23 08:40 Abnormal lab findings: Abnormal Labs 08/29/23 08/29/23 08:39 08:40 WBC 20.6 H* MCHC 31.4 L Neut % (Auto) 86.4 H Lymph % (Auto) 6.1 L Neut # (Auto) 17.8 H [place] # (Auto) 1.2 H Neutrophils % (Manual) 84 H Lymphocytes % (Manual) 6 L VBG Total CO2 28.7 H VBG Base Excess 2.6 H VBG Lactic Acid 2.1 H Chloride 96 L Carbon Dioxide 31 H BUN 23 H Creatinine 1.50 H Estimated GFR 46 L Est GFR ( Amer) 55 L Glucose 131 H Total Bilirubin 1.4 H NT-Pro-B Natriuret Pep 206 H Globulin 3.3 H Assessment and Plan *Assessment and plan (1) Sepsis due to pneumonia: Status: Acute Category: Medical Code(s): J18.9 - Pneumonia, unspecified organism; A41.9 - Sepsis, unspecified organism (2) Acute hypoxemic respiratory failure: Status: Acute Category: Medical Code(s): J96.01 - Acute respiratory failure with hypoxia (3) Shortness of breath: Status: Acute Category: Medical Code(s): R06.02 - Shortness of breath Plan Mr. Munoz 72-year-old male greater than [id number] smoking history carries a diagnosis of asthma COPD overlap syndrome presented to the ER with worsening respiratory distress and increasing oxygen consult pulmonary was called for further evaluation and management. He was supposed to be sent Trelegy 200 along with Fasenra infusions. However as patient did not have any drug coverage she is getting only Breo inhaler from the black market and had been using that. He is also stopped using his Singulair. He does have a history of CAD status post JULIO in 2018 and December 2021. On aspirin and Plavix. Following with cardiology. Upon admission patient admits worsening baseline respiratory symptoms since he was last seen in pulmonary edema. Patient admits worsening cough and productive for the last 3 to 4 days with increasing oxygen requirements, so presented to the hospital further evaluation and management. Upon admission afebrile. Hemodynamically stable. Neutrophilic predominant leukocytosis. CT chest though did not show any dense consolidation, showed bilateral patchy groundglass airspace disease and tree-in-bud pattern. Comprehensive respiratory viral PCR panel negative. On examination patient appeared to be in moderate respiratory distress. New oxygen requirements. No significant wheezing noted on auscultation. Plan: Continue DuoNebs every 6 hours along with Pulmicort every 12 scheduled Continue ceftriaxone azithromycin pending sputum culture results Will hold off on initiating steroids at this point of time Continue oxygen supplementation to maintain O2 saturation goal of 90 to 95%. # Thank you for involving pulmonary in this patient care. Will continue to follow.
--- NOTE | 2023-08-29 17:18 | PC.NURSE ---
A&OX4. TOLERATING 2LNC WELL. HAS INTERMITTENT PRODUCTIVE COUGH. FAMILY AT BEDSIDE. PT INDEPENDENT IN ROOM. FULL RESP PANEL COLLECTED. NO NEEDS OR C/O NOTED. VSS.
[2023-08-29] MEDS: MONTELUKAST SODIUM 10MG TAB 10 MG PO (17:37)
[2023-08-29] MEDS: BUDESONIDE 0.5MG/2ML NEB 0.5 MG IH (18:14)
--- NOTE | 2023-08-29 18:17 | PC.NURSE ---
ROOM AIR SAT PT DROPPED TO 88% ON ROOM AIR. PLACED PT BACK ON 1L NC WITH A SAT OF 92%
[2023-08-29] MEDS: HEPARIN SODIUM 5,000 UNIT/ML VIAL 5000 UNIT SQ (20:40)
[2023-08-30] VITALS (7 sets, daily range): BP systolic 102–122; BP diastolic 53–92; PULSE 75–91; RESP 16–20; TEMP 36.5–36.7; O2SAT 92–95; BMI 29.5
--- NOTE | 2023-08-30 04:03 | PC.NURSE ---
Addendum entered by Omaira Jackson RN 08/30/23 06:34: O2 sats >90% on 1L NC Original Note: A&Ox4, ambulates in room independently, O2 sats >90% on 2L NC, inspiratory and expiratory wheezes auscultated, intermittent nonproductive cough noted, no c/o pain this shift, call button is in reach
[2023-08-30 06:23] LABS: Basophils % 0.1 % (0.1-2.0); Eosinophils # 0.1 K/mm3 (0.0-0.4); Eosinophils % 0.4 % (0.1-12.0); Hematocrit 45.1 % (42.0-52.0); Hemoglobin 14.2 g/dL (14.1-18.0); Lymphocytes % 3.9 % (10-50); Mean Corpuscular HGB Conc 31.5 g/dL (31.8-35.4); Mean Corpuscular Hemoglobin 29.1 pg (27.0-31.2); Mean Corpuscular Volume 92.6 fl (80-94); Monocytes % 3.9 % (1.7-9.3); Neutrophils # 23.6 K/mm3 (1.8-7.8); Neutrophils % 91.7 % (37.0-80.0); Platelet Count 250 K/mm3 (142-424); Red Blood Count 4.87 M/mm3 (4.60-6.20); Red Cell Distribution Width 13.5 % (11.5-17.5); White Blood Count 25.8 K/mm3 (4.8-10.8)
[2023-08-30 06:29] LABS: MANUAL DIFFERENTIAL MANUAL DIFFERENTIAL (MANUAL DIFF)
[2023-08-30 06:41] LABS: Alanine Aminotransferase 30 U/L (12-78); Albumin Level 3.8 g/dl (3.5-5.0); Albumin/Globulin Ratio 1.3 (1.1-1.8); Alkaline Phosphatase 79 U/L (38-126); Anion Gap 13.1 mEq/L (5-15); Aspartate Amino Transferase 26 U/L (17-59); Bilirubin,Total 0.4 mg/dl (0.2-1.3); Blood Urea Nitrogen 33 mg/dl (9-20); Calcium 9.1 mg/dl (8.4-10.2); Carbon Dioxide 30 mmol/L (22.0-30.0); Chloride 98 mmol/L (98-107); Creatinine Clearance Estimated 48 mL/min (50-200); Estimated Glomerular Filt Rate 54 ml/min (>60); GFR (African American) 65 ML/MIN (>60); Glucose 223 mg/dl (74-100); Magnesium 2.3 mg/dl (1.6-2.3); Potassium 4.1 mmoL/L (3.5-5.1); Sodium 137 mmol/L (136-145); Total Protein,Serum 6.8 g/dl (6.3-8.2)
[2023-08-30] MEDS: BUDESONIDE 0.5MG/2ML NEB 0.5 MG IH (06:45)
[2023-08-30] MEDS: IPRATROPIUM/ALBUTEROL 3 ML NEB IH (06:45)
--- NOTE | 2023-08-30 07:43 | PC.NURSE ---
RA sat 89%. currently 92% on 1l nc
[2023-08-30 08:07] LABS: Lymphocytes % 4 % (10-50); Monocytes % 2 % (2-9); Neutrophils % 80 % (42-76); Total Cells Counted 100
[2023-08-30 08:09] LABS: Hemoglobin A1C 5.7 % (4.0-6.0)
[2023-08-30 08:10] LABS: Platelet Estimate Normal; RBC Morphology Normal
[2023-08-30] MEDS: IRBESARTAN 75MG TABLET 37.5 MG PO (08:28)
[2023-08-30] MEDS: CEFTRIAXONE SODIUM 2 GM in 0.9 % SODIUM CHLORIDE 100 ML IV (08:28)
[2023-08-30] MEDS: HEPARIN SODIUM 5,000 UNIT/ML VIAL 5000 UNIT SQ ×2 (08:29→20:10)
[2023-08-30] MEDS: AZITHROMYCIN 500 MG in 0.9 % SODIUM CHLORIDE 250 ML 250 MG IV (08:29)
[2023-08-30] MEDS: ASPIRIN EC 81MG TABLET 81 MG PO (08:29)
[2023-08-30] MEDS: CLOPIDOGREL 75MG TAB 75 MG PO (08:29)
[2023-08-30] MEDS: BISOPROLOL 5MG TABLET 10 MG PO (08:29)
[2023-08-30] MEDS: FUROSEMIDE 40 MG TABLET PO (08:29)
[2023-08-30] MEDS: ATORVASTATIN 40MG TABLET 40 MG PO (08:29)
[2023-08-30] MEDS: PANTOPRAZOLE 40MG TABLET 40 MG PO (08:29)
--- NOTE | 2023-08-30 09:27 | P.PN_ITS ---
Subjective *Date: 08/30/23 *Time: 12:01 Interval history: No acute respiratory events overnight. Patient admits improvement in his respiratory distress. Pulmonology Exam Inpatient Vital signs and Labs for Last 24 Hours: Temp Pulse Resp BP Pulse Ox O2 Del Method O2 Flow Rate 97.7 F 91 H 16 115/65 93 L Nasal Cannula 1 08/30/23 09:23 08/30/23 07:44 08/30/23 07:44 08/30/23 07:44 08/30/23 07:44 08/30/23 07:44 08/30/23 07:44 Laboratory Results - last 24 hr 08/29/23 08:40: Troponin I < 0.01, NT-Pro-B Natriuret Pep 206 H 08/29/23 11:50: Troponin I < 0.01 08/29/23 13:13: Lactate 1.9 08/29/23 13:28: Chlamy pneumoniae PCR TNP, Adenovirus (PCR) Not detected, B. pertussis DNA (PCR) TNP, Coronavirus OC43 (PCR) Not detected, Coronavirus HKU1 (PCR) Not detected, Coronavirus 229E (PCR) Not detected, SARS-CoV-2 (PCR) Not detected, Coronavirus NL63 (PCR) Not detected, Human Metapneumovir PCR Not detected, Influenza A (H1) PCR Not detected, Influ A (H1N1/09) PCR Not detected, Influenza A (H3) PCR Not detected, Influenza Type A (PCR) Not detected, Influenza Type B (PCR) Not detected, M. pneumoniae (PCR) TNP, Parainfluenza 1 (PCR) Not detected, Parainfluenza 2 (PCR) Not detected, Parainfluenza 3 (PCR) Not detected, Parainfluenza 4 (PCR) Not detected, RSV (PCR) Not detected, Entero/Rhino (PCR) Not detected 08/29/23 15:03: Troponin I < 0.01 08/30/23 06:04: WBC 25.8 H* D, RBC 4.87, Hgb 14.2, Hct 45.1, MCV 92.6, MCH 29.1, MCHC 31.5 L, RDW 13.5, Plt Count 250, MPV 9.0, Neut % (Auto) 91.7 H, Lymph % (Auto) 3.9 L, [place] % (Auto) 3.9, Eos % (Auto) 0.4, Baso % (Auto) 0.1, Neut # (Auto) 23.6 H, Lymph # (Auto) 1.0, [place] # (Auto) 1.0, Eos # (Auto) 0.1, Baso # (Auto) 0.0, Total Counted 100, Neutrophils % (Manual) 80 H, Band Neutrophils % 14.0 H, Lymphocytes % (Manual) 4 L, Monocytes % (Manual) 2, Platelet Estimate No rmal, RBC Morphology Normal, Sodium 137, Potassium 4.1, Chloride 98, Carbon Dioxide 30, Anion Gap 13.1, BUN 33 H D, Creatinine 1.30 H, Estimated Creat Clear 48, Estimated GFR 54 L, Est GFR ( Amer) 65, Glucose 223 H D, Hemoglobin A1c 5.7, Calcium 9.1, Magnesium 2.3, Total Bilirubin 0.4, AST 26, ALT 30, Alkaline Phosphatase 79, Total Protein 6.8, Albumin 3.8 D, Globulin 3.0, Albumin/Globulin Ratio 1.3 Temp Pulse Resp BP Pulse Ox O2 Del Method O2 Flow Rate 97.6 F 90 18 114/60 88 L Room Air 2 08/29/23 15:42 08/29/23 15:42 08/29/23 15:42 08/29/23 15:42 08/29/23 15:42 08/29/23 15:42 08/29/23 14:45 Laboratory Results - last 24 hr 08/29/23 08:39: VBG pH 7.41, VBG pCO2 44.6, VBG pO2 35.7, VBG HCO3 27.3, VBG Total CO2 28.7 H, VBG O2 Saturation 68.0, VBG Base Excess 2.6 H, VBG Lactic Acid 2.1 H 08/29/23 08:40: WBC 20.6 H*, RBC 5.40, Hgb 15.7, Hct 50.1, MCV 92.7, MCH 29.1, MCHC 31.4 L, RDW 13.7, Plt Count 239, MPV 8.8, Neut % (Auto) 86.4 H, Lymph % (Auto) 6.1 L, [place] % (Auto) 5.9, Eos % (Auto) 0.9, Baso % (Auto) 0.7, Neut # (Auto) 17.8 H, Lymph # (Auto) 1.3, [place] # (Auto) 1.2 H, Eos # (Auto) 0.2, Baso # (Auto) 0.2, Total Counted 100, Neutrophils % (Manual) 84 H, Lymphocytes % (Manual) 6 L, Monocytes % (Manual) 9, Eosinophils % (Manual) 1, Platelet Estimate Normal, RBC Morphology Normal, Sodium 136, Potassium 4.5, Chloride 96 L , Carbon Dioxide 31 H, Anion Gap 13.5, BUN 23 H, Creatinine 1.50 H, Estimated C reat Clear 42, Estimated GFR 46 L, Est GFR ( Amer) 55 L, Glucose 131 H, Calcium 9.3, Total Bilirubin 1.4 H, AST 29, ALT 30, Alkaline Phosphatase 93, Troponin I < 0.01, NT-Pro-B Natriuret Pep 206 H, Total Protein 7.6, Albumin 4.3, Globulin 3.3 H, Albumin/Globulin Ratio 1.3 08/29/23 11:50: Troponin I < 0.01 08/29/23 13:13: Lactate 1.9 08/29/23 15:03: Troponin I < 0.01 I & O for Labs for Last 24 Hours: Intake & Output 08/27/23 08/28/23 08/29/23 08/30/23 23:59 23:59 23:59 23:59 Intake Total 405 / 645 840 / 840 Output Total 0 / 0 0 / 0 Balance 405 / 645 840 / 840 Weight 147 lb 6 oz 150 lb 9.6 oz Intake & Output 08/26/23 08/27/23 08/28/23 08/29/23 23:59 23:59 23:59 23:59 Intake Total 135 / 135 Balance 135 / 135 Weight 147 lb 6 oz Constitutional: Present moderate distress Head: Present normocephalic and atraumatic ENT: Present normal exam, normal oropharynx and mucous membranes moist Neck: Present normal inspection and full ROM Respiratory: Present respiratory distress, rhonchi, wheezes, diminished air movement and able to speak in complete sentences; Absent prolonged expiratory phase Cardiac: Present S1/S2, Tachycardia and radial pulses present GI: Present soft and distention; Absent tenderness or guarding Skin: Present intact; Absent cyanosis or jaundice Neuro: Present alert, awake and oriented x 3 Extremities: Present normal inspection; Absent clubbing or cyanosis Psychiatric: Present normal affect and cooperative Assessment and Plan *Assessment and plan (1) Sepsis due to pneumonia: Status: Acute Category: Medical Code(s): J18.9 - Pneumonia, unspecified organism; A41.9 - Sepsis, unspecified organism (2) Acute hypoxemic respiratory failure: Status: Acute Category: Medical Code(s): J96.01 - Acute respiratory failure with hypoxia (3) Shortness of breath: Status: Acute Category: Medical Code(s): R06.02 - Shortness of breath Plan Mr. Munoz 72-year-old male greater than [id number] smoking history carries a diagnosis of asthma COPD overlap syndrome presented to the ER with worsening respiratory distress and increasing oxygen consult pulmonary was called for further evaluation and management. He was supposed to be sent Trelegy 200 along with Fasenra infusions. However as patient did not have any drug coverage she is getting only Breo inhaler from the black market and had been using that. He is also stopped using his Singulair. He does have a history of CAD status post JULIO in 2018 and December 2021. On aspirin and Plavix. Following with cardiology. Upon admission patient admits worsening baseline respiratory symptoms since he was last seen in pulmonary edema. Patient admits worsening cough and productive for the last 3 to 4 days with increasing oxygen requirements, so presented to the hospital further evaluation and management. Upon admission afebrile. Hemodynamically stable. Neutrophilic predominant leukocytosis. CT chest though did not show any dense consolidation, showed bilateral patchy groundglass airspace disease and tree-in-bud pattern. Right lower lobe bronchiectasis also noted. Comprehensive respiratory viral PCR panel negative. On initial examination patient appeared to be in moderate respiratory distress. New oxygen requirements. No significant wheezing noted on auscultation. Interval update: No acute respiratory vents overnight. Improving ox requirements. Continued to be worsening leukocytosis neutrophilic predominant. Auscultation slight worsening wheezing. Plan: Trelegy 200 inhaler along with DuoNebs every 6 hours on as-needed basis Continue ceftriaxone azithromycin pending sputum culture results Will hold off on initiating steroids at this point of time Continue oxygen supplementation to maintain O2 saturation goal of 90 to 95%. # Thank you for involving pulmonary in this patient care. Will continue to follow.
--- NOTE | 2023-08-30 11:46 | P.PN_ITS ---
Subjective *Date: 08/30/23 *Time: 11:46 Medical Exam Vital signs and Labs for Last 24 Hours: Vital Signs Temp Pulse Pulse Resp BP Pulse Ox O2 Del Method 08/30/23 09:23 97.7 F 08/30/23 09:00 Room Air 08/30/23 08:00 Room Air 08/30/23 07:44 91 H 16 115/65 93 L Nasal Cannula 08/30/23 06:52 Nasal Cannula 08/30/23 05:00 Nasal Cannula 08/30/23 04:00 97.7 F 77 20 108/66 L 93 L Nasal Cannula 08/30/23 03:00 Nasal Cannula 08/30/23 01:00 Nasal Cannula 08/30/23 00:00 97.9 F 88 18 104/68 L 95 Nasal Cannula 08/29/23 23:16 85 08/29/23 23:16 85 08/29/23 23:00 Nasal Cannula 08/29/23 21:00 Nasal Cannula 08/29/23 20:00 Nasal Cannula 08/29/23 20:00 98.1 F 91 H 18 101/41 L 92 L Nasal Cannula 08/29/23 18:45 Nasal Cannula 08/29/23 18:17 82 08/29/23 18:17 80 08/29/23 18:17 93 L Nasal Cannula 08/29/23 17:00 Nasal Cannula 08/29/23 15:42 97.6 F 90 18 114/60 88 L Room Air 08/29/23 14:45 Nasal Cannula 08/29/23 13:00 Nasal Cannula 08/29/23 12:40 94 H 08/29/23 12:40 95 H 08/29/23 12:40 91 L Nasal Cannula 08/29/23 12:17 Nasal Cannula O2 Flow Rate 08/30/23 09:23 08/30/23 09:00 08/30/23 08:00 08/30/23 07:44 1 08/30/23 06:52 1 08/30/23 05:00 1 08/30/23 04:00 2 08/30/23 03:00 1 08/30/23 01:00 1 08/30/23 00:00 2 08/29/23 23:16 08/29/23 23:16 08/29/23 23:00 1 08/29/23 21:00 1 08/29/23 20:00 1 08/29/23 20:00 2 08/29/23 18:45 2 08/29/23 18:17 08/29/23 18:17 08/29/23 18:17 1 08/29/23 17:00 2 08/29/23 15:42 08/29/23 14:45 2 08/29/23 13:00 2 08/29/23 12:40 08/29/23 12:40 08/29/23 12:40 1 08/29/23 12:17 2 Intake and Output 08/29/23 08/30/23 08/30/23 23:59 07:59 15:59 Intake Total 270 / 645 240 / 840 600 / 840 Output Total 0 / 0 0 / 0 0 / 0 Balance 270 / 645 240 / 840 600 / 840 Intake: Intake, Oral Amount 270 / 645 240 / 840 600 / 840 Output: Output, Urine Amount 0 / 0 0 / 0 0 / 0 Other: Number of Unmeasured Voids 1 1 1 Weight 68.311 kg Patient Weight 08/30/23 23:59 Weight 68.311 kg Laboratory Results - last 24 hr 08/29/23 11:50: Troponin I < 0.01 08/29/23 13:13: Lactate 1.9 08/29/23 13:28: Chlamy pneumoniae PCR TNP, Adenovirus (PCR) Not detected, B. pertussis DNA (PCR) TNP, Coronavirus OC43 (PCR) Not detected, Coronavirus HKU1 (PCR) Not detected, Coronavirus 229E (PCR) Not detected, SARS-CoV-2 (PCR) Not detected, Coronavirus NL63 (PCR) Not detected, Human Metapneumovir PCR Not detected, Influenza A (H1) PCR Not detected, Influ A (H1N1/09) PCR Not detected, Influenza A (H3) PCR Not detected, Influenza Type A (PCR) Not detected, Influenza Type B (PCR) Not detected, M. pneumoniae (PCR) TNP, Parainfluenza 1 (PCR) Not detected, Parainfluenza 2 (PCR) Not detected, Parainfluenza 3 (PCR) Not detected, Parainfluenza 4 (PCR) Not detected, RSV (PCR) Not detected, Enter o/Rhino (PCR) Not detected 08/29/23 15:03: Troponin I < 0.01 08/30/23 06:04: WBC 25.8 H* D, RBC 4.87, Hgb 14.2, Hct 45.1, MCV 92.6, MCH 29.1, MCHC 31.5 L, RDW 13.5, Plt Count 250, MPV 9.0, Neut % (Auto) 91.7 H, Lymph % (Auto) 3.9 L, [place] % (Auto) 3.9, Eos % (Auto) 0.4, Baso % (Auto) 0.1, Neut # (Auto) 23.6 H, Lymph # (Auto) 1.0, [place] # (Auto) 1.0, Eos # (Auto) 0.1, Baso # (Auto) 0.0, Total Counted 100, Neutrophils % (Manual) 80 H, Band Neutrophils % 14.0 H, Lymphocytes % (Manual) 4 L, Monocytes % (Manual) 2, Platelet Estimate Normal, RBC Morphology Normal, Sodium 137, Potassium 4.1, Chloride 98, Carbon Dioxide 30, Anion Gap 13.1, BUN 33 H D, Creatinine 1.30 H, Estimated Creat Clear 48, Estimated GFR 54 L, Est GFR ( Amer) 65, Glucose 223 H D, Hemoglobin A1c 5.7, Calcium 9.1, Magnesium 2.3, Total Bilirubin 0.4, AST 26, ALT 30, Alkaline Phosphatase 79, Total Protein 6.8, Albumin 3.8 D, Globulin 3.0, Albumin/Globulin Ratio 1.3 I & O for Labs for Last 24 Hours: Intake & Output 08/27/23 08/28/23 08/29/23 08/30/23 23:59 23:59 23:59 23:59 Intake Total 405 / 645 840 / 840 Output Total 0 / 0 0 / 0 Balance 405 / 645 840 / 840 Weight 66.848 kg 68.311 kg Assessment and Plan *Assessment and plan (1) Pneumonia: Status: Acute Category: Medical Code(s): J18.9 - Pneumonia, unspecified organism (2) Acute exacerbation of chronic obstructive pulmonary disease: Status: Acute Category: Medical Code(s): J44.1 - Chronic obstructive pulmonary disease with (acute) exacerbation (3) Acute hypoxemic respiratory failure: Status: Acute Category: Medical Code(s): J96.01 - Acute respiratory failure with hypoxia (4) Chronic GERD: Status: Acute Category: Medical Code(s): K21.9 - Gastro-esophageal reflux disease without esophagitis (5) Coronary artery disease: Status: Chronic Qualifiers: Coronary Disease-Associated Artery/Lesion type: [place] artery [place] vs. transplanted heart: [place] heart Associated angina: without angina Qualified Code(s): I25.10 - Atherosclerotic heart disease of [place] coronary artery without angina pectoris Category: Medical Code(s): I25.10 - Atherosclerotic heart disease of [place] coronary artery without angina pectoris (6) Cardiac pacemaker in situ: Status: Chronic Category: Medical Code(s): Z95.0 - Presence of cardiac pacemaker (7) Hypertension: Status: Chronic Qualifiers: Hypertension type: essential hypertension Qualified Code(s): I10 - Essential (primary) hypertension Category: Medical Code(s): I10 - Essential (primary) hypertension (8) Hyperlipidemia: Status: Chronic Qualifiers: Hyperlipidemia type: mixed hyperlipidemia Qualified Code(s): E78.2 - Mixed hyperlipidemia Category: Medical Code(s): E78.5 - Hyperlipidemia, unspecified (9) Sepsis due to pneumonia: Status: Acute Category: Medical Code(s): J18.9 - Pneumonia, unspecified organism; A41.9 - Sepsis, unspecified organism (10) Shortness of breath: Status: Acute Category: Medical Code(s): R06.02 - Shortness of breath Plan 72-year-old male with chronic bronchitis, bronchiectasis, GERD, the, COPD. Resented to the ER with concern for pneumonia and elevated white count.Meeting sepsis criteria with tachycardia, leukocytosis, image findings concerning for pneumonia. Discussed case with the ER physician, request admission for further management with IV antibiotics in the setting of new oxygen requirement and sepsis criteria. Medicine agreed to admit. Continue ceftriaxone and azithromycin. Currently on 1 L. Pulmonology consulted, comfortable with patient discharging tomorrow if remains the same or better. Continue to require inpatient management at this time. Problems addressed as follows: Pneumonia Hypoxia -PSI/port score 74. Class III risk. Given the need for oxygen, IV antibiotics, and image findings on x-ray, necessitates inpatient management. -Pulmonology consulted, discussed case, recommends DuoNebs every 6 hours along with Pulmicort every 12 hours scheduled. Continue ceftriaxone and azithromycin daily IV pending sputum culture. Anticipate transitioning to oral cefdinir and azithromycin at discharge to complete treatment. -Holding on steroids at this time. Continue supplemental oxygen for goal saturation greater 90%. Currently on 1 L. -Comprehensive respiratory panel negative. -White cell count increased to 25 today. Kidney function electrolytes stable. -Continue Singulair 10 mg daily Hyperglycemia: A1c 5.7. No diabetes. No indication for sliding scale at this time unless elevates above 250. Chronic conditions: Continue Lipitor 40 mg daily for hyperlipidemia Continue bisoprolol 10 mg daily for hypertension along with valsartan 40 mg daily and Lasix 40 mg daily Continue aspirin 81 mg daily and Plavix 75 mg daily for CAD Continue pantoprazole 40 mg daily for GERD Full code Heparin subcu twice daily Cardiac diet
[2023-08-30] MEDS: MONTELUKAST SODIUM 10MG TAB 10 MG PO (17:50)
--- NOTE | 2023-08-30 18:14 | PC.NURSE ---
room air saturation 92%
--- NOTE | 2023-08-30 20:04 | PC.NURSE ---
Patients IV to right AC became wet when patient showered. Checked for patency and noted leaking around insertion site. IV was removed. Patient refusing another IV as he is planning to be discharged in the morning, notified
[2023-08-31] VITALS (8 sets, daily range): BP systolic 112–133; BP diastolic 58–72; PULSE 68–79; RESP 16–18; TEMP 36.3–37; O2SAT 90–94; BMI 30.1
--- NOTE | 2023-08-31 04:15 | PC.NURSE ---
Patient has rested well this shift with no acute changes noted. Remains on room air stating 90% or greater. Patient has had no complaints. Call tyler in reach. Plan of care continues.
[2023-08-31] MEDS: FLUTICASONE/UMECLIDIN/VILANTER 200/62.5/25MCG INHALER 1 PUFF IH (06:41)
[2023-08-31 07:50] LABS: Basophils # 0.1 K/mm3 (0-0.2); Basophils % 0.2 % (0.1-2.0); Hematocrit 43.1 % (42.0-52.0); Hemoglobin 13.8 g/dL (14.1-18.0); Lymphocytes # 1.8 K/mm3 (0.7-4.5); Lymphocytes % 6.4 % (10-50); Mean Corpuscular Volume 90.8 fl (80-94); Mean Platelet Volume 9.3 fl (7.4-10.4); Monocytes # 1.3 K/mm3 (0.1-1.0); Monocytes % 4.6 % (1.7-9.3); Neutrophils # 24.5 K/mm3 (1.8-7.8); Neutrophils % 88.7 % (37.0-80.0); Platelet Count 278 K/mm3 (142-424); Red Blood Count 4.75 M/mm3 (4.60-6.20); Red Cell Distribution Width 13.4 % (11.5-17.5); White Blood Count 27.6 K/mm3 (4.8-10.8)
[2023-08-31 07:59] LABS: MANUAL DIFFERENTIAL MANUAL DIFFERENTIAL (MANUAL DIFF)
[2023-08-31 08:02] LABS: Alanine Aminotransferase 34 U/L (12-78); Albumin Level 3.5 g/dl (3.5-5.0); Albumin/Globulin Ratio 1.3 (1.1-1.8); Alkaline Phosphatase 83 U/L (38-126); Anion Gap 11.3 mEq/L (5-15); Aspartate Amino Transferase 30 U/L (17-59); Bilirubin,Total 0.2 mg/dl (0.2-1.3); Blood Urea Nitrogen 41 mg/dl (9-20); Calcium 8.6 mg/dl (8.4-10.2); Carbon Dioxide 28 mmol/L (22.0-30.0); Chloride 103 mmol/L (98-107); Creatinine Clearance Estimated 49 mL/min (50-200); Estimated Glomerular Filt Rate 54 ml/min (>60); GFR (African American) 65 ML/MIN (>60); Globulin 2.8 g/dL (1.3-3.2); Glucose 100 mg/dl (74-100); Potassium 4.3 mmoL/L (3.5-5.1); Sodium 138 mmol/L (136-145); Total Protein,Serum 6.3 g/dl (6.3-8.2)
[2023-08-31] MEDS: CLOPIDOGREL 75MG TAB 75 MG PO (08:09)
[2023-08-31] MEDS: BISOPROLOL 5MG TABLET 10 MG PO (08:10)
[2023-08-31] MEDS: HEPARIN SODIUM 5,000 UNIT/ML VIAL 5000 UNIT SQ ×2 (08:10→21:30)
[2023-08-31] MEDS: ASPIRIN EC 81MG TABLET 81 MG PO (08:10)
[2023-08-31] MEDS: FUROSEMIDE 40 MG TABLET PO (08:10)
[2023-08-31] MEDS: ATORVASTATIN 40MG TABLET 40 MG PO (08:10)
[2023-08-31] MEDS: IRBESARTAN 75MG TABLET 37.5 MG PO (08:10)
[2023-08-31] MEDS: PANTOPRAZOLE 40MG TABLET 40 MG PO (08:10)
--- NOTE | 2023-08-31 08:25 | XR_ITS ---
PROCEDURE INFORMATION: Exam: XR Chest Exam date and time: 08/31/2023 9:00 AM Age: 72 years old Clinical indication: Other: Pneumonia; Prior surgery; Surgery date: 6+ months; Surgery type: Pacemaker; Additional info: Pneumonia. Former smoker TECHNIQUE: Imaging protocol: Radiologic exam of the chest. Views: 1 view. COMPARISON: CT CHEST WO CON 08/29/2023 10:28 AM FINDINGS: Tubes, catheters and devices: Transvenous pacemaker leads in the heart Lungs: Hyperexpanded lung bryan consistent with COPD. No focal consolidation. Pleural spaces: Unremarkable. No pleural effusion. No pneumothorax. Heart/Mediastinum: Unremarkable. No cardiomegaly. Bones/joints: Unremarkable. IMPRESSION: 1. Hyperexpanded lung bryan consistent with COPD. 2. No focal consolidation.
[2023-08-31 09:10] LABS: Lymphocytes % 7 % (10-50); Monocytes % 5 % (2-9); Neutrophils % 83 % (42-76); Total Cells Counted 100
[2023-08-31 09:12] LABS: Platelet Estimate Normal; RBC Morphology Normal
[2023-08-31] MEDS: AZITHROMYCIN 250MG TABLET 250 MG PO (14:20)
[2023-08-31] MEDS: CEFDINIR 300MG CAPSULE 300 MG PO ×2 (14:20→21:30)
--- NOTE | 2023-08-31 15:43 | CT_ITS ---
PROCEDURE INFORMATION: Exam: CT Abdomen And Pelvis Without Contrast Exam date and time: 08/31/2023 3:57 PM Age: 72 years old Clinical indication: Abdominal pain; Additional info: Abdominal / pelvic abscess? TECHNIQUE: Imaging protocol: Computed tomography of the abdomen and pelvis without contrast. Radiation optimization: All CT scans at this facility use at least one of these dose optimization techniques: automated exposure control; mA and/or kV adjustment per patient size (includes targeted exams where dose is matched to clinical indication); or iterative reconstruction. COMPARISON: CT CHEST WO CON 08/29/2023 10:28 AM FINDINGS: Lungs: Mild right basilar reticular opacities in thickening of the [place] of the airways compatible with a infectious or inflammatory bronchitis/bronchiolitis similar to recent CT chest of 08/29/2023. Atelectasis in the lateral right middle lobe and posterior right lower lobe redemonstrated. Liver: 3.3 cm cyst in the medial segment left lobe of the liver redemonstrated. Liver otherwise unremarkable. Gallbladder and bile ducts: Normal. No calcified stones. No ductal dilation. Pancreas: Normal. No ductal dilation. Spleen: Normal. No splenomegaly. Adrenal glands: Normal. No mass. Kidneys and ureters: Normal. No hydronephrosis. Stomach and bowel: Multiple diverticula of the sigmoid and descending colon. Colon otherwise unremarkable with no evidence of diverticulitis. GI tract structures otherwise unremarkable with no evident wall thickening allowing for incomplete distention. Appendix: Appendix is normal. No evidence of appendicitis. Intraperitoneal space: Unremarkable. No free air. No significant fluid collection. Vasculature: Atherosclerotic changes of the aorta and iliacs noted. No evidence of aneurysm. Lymph nodes: Unremarkable. No enlarged lymph nodes. Urinary bladder: Unremarkable as visualized. Reproductive: Unremarkable as visualized. Bones/joints: Unremarkable. No acute fracture. Soft tissues: Small fat containing umbilical hernia. Small to moderate right small left fat containing inguinal hernias. Hernia repair mesh in the anterior pelvis. IMPRESSION: 1. Mild right basilar reticular opacities and thickening of the airways compatible with a infectious or inflammatory bronchiolitis of uncertain acuity and similar to recent CT chest of 08/29/2023. 2. No other acute findings. Additional nonemergent findings as above.
--- NOTE | 2023-08-31 15:43 | EXP.PN ---
Subjective *Date: 08/31/23 *Time: 15:43 Interval history: patient was seen and evaluated at the bedside. No reported acute events overnight, denies chest pain, shortness of breath, nausea, vomiting, abdominal pain. Exam Data for Last 24 hours Vital signs and Labs for Last 24 Hours: Temp Pulse Resp BP Pulse Ox O2 Del Method O2 Flow Rate 98.6 F 73 18 121/64 94 L Room Air 1 08/31/23 15:08/31/23 15:08/31/23 15:08/31/23 15:08/31/23 15:08/31/23 15:33 08/30/23 16:50 Laboratory Results - last 24 hr 08/31/23 06:32: WBC 27.6 H*, RBC 4.75, Hgb 13.8 L, Hct 43.1, MCV 90.8, MCH 29.0, MCHC 32.0, RDW 13.4, Plt Count 278, MPV 9.3, Neut % (Auto) 88.7 H, Lymph % (Auto) 6.4 L, [place] % (Auto) 4.6, Eos % (Auto) 0.0 L, Baso % (Auto) 0.2, Neut # (Auto) 24.5 H, Lymph # (Auto) 1.8, [place] # (Auto) 1.3 H, Eos # (Auto) 0.0, Baso # (Auto) 0.1, Total Counted 100, Neutrophils % (Manual) 83 H, Band Neutrophils % 5.0, Lymphocytes % (Manual) 7 L, Monocytes % (Manual) 5, Platelet Estimate Normal, RBC Morphology Normal, Sodium 138, Potassium 4.3, Chloride 103, Carbon Dioxide 28, Anion Gap 11.3, BUN 41 H, Creatinine 1.30 H, Estimated Creat Clear 49, Estimated GFR 54 L, Est GFR ( Amer) 65, Glucose 100, Calcium 8.6, Total Bilirubin 0.2, AST 30, ALT 34, Alkaline Phosphatase 83, Total Protein 6.3, Albumin 3.5, Globulin 2.8, Albumin/Globulin Ratio 1.3 I & O for Last 24 hours: Intake & Output 08/28/23 08/29/23 08/30/23 08/31/23 23:59 23:59 23:59 23:59 Intake Total 405 / 645 1320 / 1560 1180 / 1180 Output Total 0 / 0 0 / 0 0 / 0 Balance 405 / 645 1320 / 1560 1180 / 1180 Weight 66.848 kg 68.311 kg 69.581 kg Microbiology Reports for the Last 24 Hours: Microbiology 08/29/23 09:55 Sputum - Expectorated Sputum Gram Stain - Final Constitutional Constitutional: no acute distress *Routine HEENT Exam Head: Present normocephalic Eye: Present EOMI and PERRL ENT: Present mucous membranes moist *Routine Neck Exam Neck: Present supple; Absent lymphadenopathy *Routine Respiratory Exam Respiratory: Present diminished air movement *Routine Cardiovascular Exam Cardiovascular: Present RRR *Routine Abdominal Exam Abdominal: Present soft and normoactive bowel sounds; Absent tenderness *Routine Extremities Exam Extremities: Absent cyanosis, clubbing or edema *Routine Skin Exam Skin: Present warm; Absent rash *Routine Neurological Exam Neurological: Present alert and oriented X3 Assessment and Plan *Assessment and plan (1) Pneumonia: Status: Acute Category: Medical Code(s): J18.9 - Pneumonia, unspecified organism (2) Acute exacerbation of chronic obstructive pulmonary disease: Status: Acute Category: Medical Code(s): J44.1 - Chronic obstructive pulmonary disease with (acute) exacerbation (3) Acute hypoxemic respiratory failure: Status: Acute Category: Medical Code(s): J96.01 - Acute respiratory failure with hypoxia (4) Chronic GERD: Status: Acute Category: Medical Code(s): K21.9 - Gastro-esophageal reflux disease without esophagitis (5) Coronary artery disease: Status: Chronic Qualifiers: Coronary Disease-Associated Artery/Lesion type: [place] artery [place] vs. transplanted heart: [place] heart Associated angina: without angina Qualified Code(s): I25.10 - Atherosclerotic heart disease of [place] coronary artery without angina pectoris Category: Medical Code(s): I25.10 - Atherosclerotic heart disease of [place] coronary artery without angina pectoris (6) Cardiac pacemaker in situ: Status: Chronic Category: Medical Code(s): Z95.0 - Presence of cardiac pacemaker (7) Hypertension: Status: Chronic Qualifiers: Hypertension type: essential hypertension Qualified Code(s): I10 - Essential (primary) hypertension Category: Medical Code(s): I10 - Essential (primary) hypertension (8) Hyperlipidemia: Status: Chronic Qualifiers: Hyperlipidemia type: mixed hyperlipidemia Qualified Code(s): E78.2 - Mixed hyperlipidemia Category: Medical Code(s): E78.5 - Hyperlipidemia, unspecified (9) Sepsis due to pneumonia: Status: Acute Category: Medical Code(s): J18.9 - Pneumonia, unspecified organism; A41.9 - Sepsis, unspecified organism (10) Shortness of breath: Status: Acute Category: Medical Code(s): R06.02 - Shortness of breath Plan 72-year-old male with chronic bronchitis, bronchiectasis, GERD, the, COPD. Resented to the ER with concern for pneumonia and elevated white count.Meeting sepsis criteria with tachycardia, leukocytosis, image findings concerning for pneumonia. Discussed case with the ER physician, request admission for further management with IV antibiotics in the setting of new oxygen requirement and sepsis criteria. Medicine agreed to admit. Continue ceftriaxone and azithromycin. Currently on 1 L. Pulmonology consulted, comfortable with patient discharging tomorrow if remains the same or better. Continue to require inpatient management at this time. Problems addressed as follows: Pneumonia Hypoxia -PSI/port score 74. Class III risk. Given the need for oxygen, IV antibiotics, and image findings on x-ray, necessitates inpatient management. -Pulmonology consulted, discussed case, recommends DuoNebs every 6 hours along with Pulmicort every 12 hours scheduled. Anticipate transitioning to oral cefdinir and azithromycin at discharge to complete treatment. -Holding on steroids at this time. Continue supplemental oxygen for goal saturation greater 90%. Currently on 1 L. -Comprehensive respiratory panel negative. -White cell count increased to 25 today. Kidney function electrolytes stable. -Continue Singulair 10 mg daily Hyperglycemia: A1c 5.7. No diabetes. No indication for sliding scale at this time unless elevates above 250. Chronic conditions: Continue Lipitor 40 mg daily for hyperlipidemia Continue bisoprolol 10 mg daily for hypertension along with valsartan 40 mg daily and Lasix 40 mg daily Continue aspirin 81 mg daily and Plavix 75 mg daily for CAD Continue pantoprazole 40 mg daily for GERD Full code Heparin subcu twice daily Cardiac diet switch to PO abx today, order CT abd pelvis given worsening WBC count on Abx, he is nnot on steroids, whole body skin exam completed no signs of cellulitis DC 1 -2 days
[2023-08-31] MEDS: MONTELUKAST SODIUM 10MG TAB 10 MG PO (17:12)
[2023-08-31 19:54] LABS: Microscopic, Urine URINE MICROSCOPIC (MICROSCOPIC)
[2023-08-31 19:55] LABS: Appearance,Urine CLEAR (Clear); Bilirubin,Urine Negative (Negative); Blood, Urine Negative (Negative); Color,Urine YELLOW (Yellow); Glucose,Urine (UA) Negative (Negative); Ketones,Urine Negative (Negative); Leukocyte Esterase,Urine Negative (Negative); Nitrate,Urine Negative (Negative); Protein,Urine Negative (Negative); Urobilinogen,Urine 0.2 EU/dl (0.2)
[2023-08-31] MEDS: IPRATROPIUM/ALBUTEROL 3 ML NEB IH (22:23)
[2023-09-01] VITALS: BP 94/42; PULSE 78; RESP 17; TEMP 36.5; O2SAT 91
[2023-09-01 04:00] VITALS: BP 93/44; PULSE 67; RESP 16; TEMP 36.5; O2SAT 93; BMI 30.6
[2023-09-01] MEDS: FLUTICASONE/UMECLIDIN/VILANTER 200/62.5/25MCG INHALER 1 PUFF IH (06:26)
[2023-09-01 07:35] LABS: Alanine Aminotransferase 34 U/L (12-78); Albumin Level 3.2 g/dl (3.5-5.0); Albumin/Globulin Ratio 1.1 (1.1-1.8); Alkaline Phosphatase 80 U/L (38-126); Anion Gap 5.3 mEq/L (5-15); Aspartate Amino Transferase 27 U/L (17-59); Bilirubin,Total 0.3 mg/dl (0.2-1.3); Blood Urea Nitrogen 35 mg/dl (9-20); Calcium 8.4 mg/dl (8.4-10.2); Carbon Dioxide 30 mmol/L (22.0-30.0); Chloride 107 mmol/L (98-107); Creatinine Clearance Estimated 54 mL/min (50-200); Estimated Glomerular Filt Rate 59 ml/min (>60); GFR (African American) 72 ML/MIN (>60); Globulin 2.8 g/dL (1.3-3.2); Glucose 93 mg/dl (74-100); Potassium 4.3 mmoL/L (3.5-5.1); Sodium 138 mmol/L (136-145)
[2023-09-01 07:53] LABS: Peripheral Smear Review Scanned Result
[2023-09-01 08:00] VITALS: BP 117/58; PULSE 72; RESP 21; TEMP 36.4; O2SAT 92
[2023-09-01] MEDS: CLOPIDOGREL 75MG TAB 75 MG PO (08:02)
[2023-09-01] MEDS: FUROSEMIDE 40 MG TABLET PO (08:02)
[2023-09-01] MEDS: BISOPROLOL 5MG TABLET 10 MG PO (08:02)
[2023-09-01] MEDS: ATORVASTATIN 40MG TABLET 40 MG PO (08:02)
[2023-09-01] MEDS: IRBESARTAN 75MG TABLET 37.5 MG PO (08:03)
[2023-09-01] MEDS: CEFDINIR 300MG CAPSULE 300 MG PO (08:03)
[2023-09-01] MEDS: AZITHROMYCIN 250MG TABLET 250 MG PO (08:04)
[2023-09-01] MEDS: HEPARIN SODIUM 5,000 UNIT/ML VIAL 5000 UNIT SQ (08:04)
[2023-09-01] MEDS: PANTOPRAZOLE 40MG TABLET 40 MG PO (08:33)
[2023-09-01] MEDS: ASPIRIN EC 81MG TABLET 81 MG PO (08:33)
[2023-09-01 09:01] LABS: Basophils # 0.1 K/mm3 (0-0.2); Basophils % 0.9 % (0.1-2.0); Eosinophils # 0.2 K/mm3 (0.0-0.4); Eosinophils % 1.5 % (0.1-12.0); Hematocrit 45.1 % (42.0-52.0); Hemoglobin 13.9 g/dL (14.1-18.0); Lymphocytes # 2.3 K/mm3 (0.7-4.5); Mean Corpuscular HGB Conc 30.8 g/dL (31.8-35.4); Mean Corpuscular Hemoglobin 28.7 pg (27.0-31.2); Mean Corpuscular Volume 93.3 fl (80-94); Mean Platelet Volume 9.2 fl (7.4-10.4); Monocytes # 1.1 K/mm3 (0.1-1.0); Monocytes % 7.3 % (1.7-9.3); Neutrophils # 11.5 K/mm3 (1.8-7.8); Neutrophils % 75.4 % (37.0-80.0); Platelet Count 294 K/mm3 (142-424); Red Blood Count 4.84 M/mm3 (4.60-6.20); Red Cell Distribution Width 13.6 % (11.5-17.5); White Blood Count 15.2 K/mm3 (4.8-10.8)
[2023-09-01 09:15] LABS: MANUAL DIFFERENTIAL MANUAL DIFFERENTIAL (MANUAL DIFF)
[2023-09-01 10:35] LABS: Lymphocytes % 18 % (10-50); Monocytes % 8 % (2-9); Neutrophils % 67 % (42-76); Total Cells Counted 100
[2023-09-01 10:36] LABS: Platelet Estimate Normal; RBC Morphology Normal
--- NOTE | 2023-09-01 11:04 | P.DS_ITS ---
General Admission date:: 08/29/23 Discharge date: 09/01/23 HPI HPI HPI: Mr. Junior is a 72-year-old male with history of asthma, COPD, CAD, cardiomyopathy and hypertension. Presented for complaint of 2 weeks of cough, shortness of breath, not getting better. Feels like his heart is racing. Noticed his oxygen last night was in the low 80s, unable to sleep. Coughing with increase in sputum production. No marily fever but has had chills. Denies chest pain, nausea, vomiting. Patient does not wear oxygen at home. On initial presentation to the ER, found to be hypoxic necessitating 2 L. Workup concernin g for leukocytosis and pneumonia in right lower lobe. Medicine consulted for admission and further management On evaluation, family at bedside with him to help supplement history. Patient does not have coverage for medications and so does not take his inhalers consistently but is currently using a nebulizer 2-3 times a week and Breo inhaler most days. No longer taking Singulair, stopped taking as he had no more refills and stopped seeing pulmonology as the medications were too expensive that were prescribed. Is a former smoker but has not smoked in many years. Has a bad time with allergies and his cough and sputum production gets worse when seasonal allergies are worse. Hospital Course Hospital Course Hospital Course: 72-year-old male with chronic bronchitis, bronchiectasis, GERD, the, COPD. Resented to the ER with concern for pneumonia and elevated white count.Meeting sepsis criteria with tachycardia, leukocytosis, image findings concerning for pneumonia. Discussed case with the ER physician, request admission for further management with IV antibiotics in the setting of new oxygen requirement and sepsis criteria. Medicine agreed to admit. Continue ceftriaxone and azithromycin. Currently on 1 L. Pulmonology consulted, comfortable with patient discharging tomorrow if remains the same or better. Continue to require inpatient management at this time. Problems addressed as follows: Pneumonia - improved Hypoxia - on Room air at discharge DC on oral azithromycina dn cefdiner x 7 day Chronic conditions: Continue Lipitor 40 mg daily for hyperlipidemia Continue bisoprolol 10 mg daily for hypertension along with valsartan 40 mg daily and Lasix 40 mg daily Continue aspirin 81 mg daily and Plavix 75 mg daily for CAD Continue pantoprazole 40 mg daily for GERD Exam Data for Last 24 hours Vital signs and Labs for Last 24 Hours: Temp Pulse Resp BP Pulse Ox O2 Del Method O2 Flow Rate 97.6 F 72 21 117/58 L 92 L Room Air 1 09/01/23 08:00 09/01/23 08:00 09/01/23 08:00 09/01/23 08:00 09/01/23 08:00 09/01/23 09:00 08/30/23 16:50 Laboratory Results - last 24 hr 08/31/23 19:45: Urine Color Yellow, Urine Appearance Clear, Urine pH 6.0, Ur Specific [place] 1.020, Urine Protein Negative, Urine Glucose (UA) Negative, Urine Ketones Negative, Urine Blood Negative, Urine Nitrate Negative, Urine Bilirubin Negative, Urine Urobilinogen 0.2, Ur Leukocyte Esterase Negative, Urine RBC None, Urine WBC None, Ur Squamous Epith Cells None, Urine Bacteria None 09/01/23 06:36: WBC 15.2 H D, RBC 4.84, Hgb 13.9 L, Hct 45.1, MCV 93.3, MCH 28.7, MCHC 30.8 L, RDW 13.6, Plt Count 294, MPV 9.2, Neut % (Auto) 75.4, Lymph % (Auto) 15.0, [place] % (Auto) 7.3, Eos % (Auto) 1.5, Baso % (Auto) 0.9, Neut # (Auto) 11.5 H, Lymph # (Auto) 2.3, [place] # (Auto) 1.1 H, Eos # (Auto) 0.2, Baso # (Auto) 0.1, Total Counted 100, Neutrophils % (Manual) 67, Band Neutrophils % 6.0, Lymphocytes % (Manual) 18, Atypical Lymphs % 1.0, Monocytes % (Manual) 8, Platelet Estimate Normal, RBC Morphology Normal, Sodium 138, Potassium 4.3, Chloride 107, Carbon Dioxide 30, Anion Gap 5.3, BUN 35 H, Creatinine 1.20, Estimated Creat Clear 54, Estimated GFR 59, Est GFR ( Amer) 72, Glucose 93, Calcium 8.4, Total Bilirubin 0.3, AST 27, ALT 34, Alkaline Phosphatase 80, Total Protein 6.0 L, Albumin 3.2 L, Globulin 2.8, Albumin/Globulin Ratio 1.1 I & O for Last 24 hours: Intake & Output 03/08/30/23 08/31/23 09/01/23 23:59 23:59 23:59 23:59 Intake Total 405 / 645 1320 / 1560 1650 / 1890 840 / 840 Output Total 0 / 0 0 / 0 0 / 0 0 / 0 Balance 405 / 645 1320 / 1560 1650 / 1890 840 / 840 Weight 66.848 kg 68.311 kg 69.581 kg 70.76 kg Microbiology Reports for the Last 24 Hours: Microbiology 08/29/23 09:55 Sputum - Expectorated Sputum Gram Stain - Final Constitutional Constitutional: no acute distress *Routine HEENT Exam Head: Present normocephalic Eye: Present EOMI and PERRL ENT: Present mucous membranes moist *Routine Neck Exam Neck: Present supple; Absent lymphadenopathy *Routine Respiratory Exam Respiratory: Present CTA bilaterally *Routine Cardiovascular Exam Cardiovascular: Present RRR *Routine Abdominal Exam Abdominal: Present soft and normoactive bowel sounds; Absent tenderness *Routine Extremities Exam Extremities: Absent cyanosis, clubbing or edema *Routine Skin Exam Skin: Present warm; Absent rash *Routine Neurological Exam Neurological: Present alert and oriented X3 Results Data Completed and Pending Labs on day of discharge: Labs from last 24 hours 09/01/23 08/31/23 06:36 19:45 WBC 15.2 H D RBC 4.84 Hgb 13.9 L Hct 45.1 MCV 93.3 MCH 28.7 MCHC 30.8 L RDW 13.6 Plt Count 294 MPV 9.2 Neut % (Auto) 75.4 Lymph % (Auto) 15.0 [place] % (Auto) 7.3 Eos % (Auto) 1.5 Baso % (Auto) 0.9 Neut # (Auto) 11.5 H Lymph # (Auto) 2.3 [place] # (Auto) 1.1 H Eos # (Auto) 0.2 Baso # (Auto) 0.1 Total Counted 100 Neutrophils % (Manual) 67 Band Neutrophils % 6.0 Lymphocytes % (Manual) 18 Atypical Lymphs % 1.0 Monocytes % (Manual) 8 Platelet Estimate Normal RBC Morphology Normal Sodium 138 Potassium 4.3 Chloride 107 Carbon Dioxide 30 Anion Gap 5.3 BUN 35 H Creatinine 1.20 Estimated Creat Clear 54 Estimated GFR 59 Est GFR ( Amer) 72 Glucose 93 Calcium 8.4 Total Bilirubin 0.3 AST 27 ALT 34 Alkaline Phosphatase 80 Total Protein 6.0 L Albumin 3.2 L Globulin 2.8 Albumin/Globulin Ratio 1.1 Urine Color Yellow Urine Appearance Clear Urine pH 6.0 Ur Specific [place] 1.020 Urine Protein Negative Urine Glucose (UA) Negative Urine Ketones Negative Urine Blood Negative Urine Nitrate Negative Urine Bilirubin Negative Urine Urobilinogen 0.2 Ur Leukocyte Esterase Negative Urine RBC None Urine WBC None Ur Squamous Epith Cells None Urine Bacteria None DS: Diagnosis Discharge Diagnosis (1) Pneumonia: Status: Acute Code(s): J18.9 - Pneumonia, unspecified organism (2) Acute exacerbation of chronic obstructive pulmonary disease: Status: Acute Code(s): J44.1 - Chronic obstructive pulmonary disease with (acute) exacerbation (3) Acute hypoxemic respiratory failure: Status: Acute Code(s): J96.01 - Acute respiratory failure with hypoxia (4) Chronic GERD: Status: Acute Code(s): K21.9 - Gastro-esophageal reflux disease without esophagitis (5) Coronary artery disease: Status: Chronic Code(s): I25.10 - Atherosclerotic heart disease of [place] coronary artery without angina pectoris Qualifiers: Coronary Disease-Associated Artery/Lesion type: [place] artery [place] vs. transplanted heart: [place] heart Associated angina: without angina Qual ified Code(s): I25.10 - Atherosclerotic heart disease of [place] coronary artery without angina pectoris (6) Cardiac pacemaker in situ: Status: Chronic Code(s): Z95.0 - Presence of cardiac pacemaker (7) Hypertension: Status: Chronic Code(s): I10 - Essential (primary) hypertension Qualifiers: Hypertension type: essential hypertension Qualified Code(s): I10 - Essential (primary) hypertension (8) Hyperlipidemia: Status: Chronic Code(s): E78.5 - Hyperlipidemia, unspecified Qualifiers: Hyperlipidemia type: mixed hyperlipidemia Qualified Code(s): E78.2 - Mixed hyperlipidemia (9) Sepsis due to pneumonia: Status: Acute Code(s): J18.9 - Pneumonia, unspecified organism; A41.9 - Sepsis, unspecified organism (10) Shortness of breath: Status: Acute Code(s): R06.02 - Shortness of breath Meds Home Medications and Allergies Home Medications Medication Instructions Recorded Confirmed Type albuterol sulfate 90 mcg/actuation 1 inh inhalation QID PRN shortness 08/18/20 08/29/23 Rx aerosol inhaler of breath or wheezing #8.5 grams budesonide 0.25 mg/2 mL suspension 0.25 mg inhalation BID COPD 03/30/21 08/29/23 History for nebulization aspirin 81 mg tablet,delayed 81 mg PO DAILY Heart health 10/15/22 08/29/23 History release ipratropium 0.5 mg-albuterol 3 mg 3 ml inhalation Q6RT 30 days #120 10/16/22 08/29/23 Rx (2.5 mg base)/3 mL nebulization ea soln clopidogrel 75 mg tablet 75 mg PO DAILY platelet inhibitor 11/26/22 08/29/23 Rx #90 tabs furosemide 40 mg tablet 40 mg PO DAILY Edema 90 days #90 02/08/23 08/29/23 Rx tabs montelukast 10 mg tablet 10 mg PO DAILY 03/27/23 08/29/23 History pantoprazole 40 mg tablet,delayed 40 mg PO DAILY #30 tabs 05/20/23 08/29/23 Rx release (Protonix) nitroglycerin 0.4 mg sublingual 0.4 mg sublingual Q5-15M PRN chest 08/19/23 08/29/23 Rx tablet pain #25 tabs atorvastatin 40 mg tablet 40 mg PO DAILY 08/29/23 08/29/23 History bisoprolol fumarate 10 mg tablet 10 mg PO DAILY 08/29/23 08/29/23 History valsartan 40 mg tablet 40 mg PO DAILY 08/29/23 08/29/23 History fluticasone fur. 200 mcg-umeclid 1 inh inhalation DAILY 30 days #1 08/30/23 Rx 62.5 mcg-vilant 25 mcg ea inhalat.powder (Trelegy Ellipta) azithromycin 250 mg tablet 250 mg PO DAILY 7 days #7 tabs 09/01/23 Rx cefdinir 300 mg capsule 300 mg PO BID 7 days #14 caps 09/01/23 Rx New Prescriptions to Start Prescriptions: azithromycin Alexandre,Davidan cefdinir Alexandre,Irfan [id number] [Trelegy Ellipta] Aaron Roth Allergies Allergy/AdvReac Type Severity Reaction Status Date / Time No Known Allergies Allergy Verified 08/19/23 10:43 Discharge Plan Disposition Patient Disposition: Home, Self-Care Condition: Fair Discharge Order Discharge Orders: Discharge Order (Routine); Ordered 09/01/23 Ordered By: Ab Schroeder Follow up Plan Follow up with: Lance Garza MD [Primary Care Provider] - 1 week (Call for follow appointment ) Gaurang Downing MD [Physician] - 1 week (Call for 1 week follow up appointment on Saturday.) Prescriptions/Medication Reconciliation: New Trelegy Ellipta 200-62.5-25 mcg Blister With Device 1 inh inhalation DAILY 30 Days Qty: 1 0RF azithromycin 250 mg Tablet 250 mg PO DAILY 7 Days Qty: 7 0RF cefdinir 300 mg Capsule 300 mg PO BID 7 Days Qty: 14 0RF Continued albuterol sulfate 90 mcg/actuation HFA aerosol inhaler 1 inh IH QID PRN (Reason: shortness of breath or wheezing) Qty: 8.5 12RF montelukast 10 mg tablet 10 mg PO DAILY nitroglycerin 0.4 mg tablet, sublingual 0.4 mg SL Q5-15M PRN (Reason: chest pain) Qty: 25 0RF Rx Instructions: until response; do not exceed 3 doses per episode pantoprazole [Protonix] 40 mg tablet,delayed release (DR/EC) 40 mg PO DAILY Qty: 30 5RF clopidogrel 75 mg tablet 75 mg PO DAILY Qty: 90 3RF furosemide 40 mg tablet 40 mg PO DAILY 90 Days Qty: 90 3RF budesonide 0.25 MG/2 ML suspension for nebulization 0.25 mg IH BID aspirin 81 mg tablet,delayed release (DR/EC) 81 mg PO DAILY ipratropium-albuterol 0.5 mg-3 mg(2.5 mg base)/3 mL Solution For Nebulization 3 ml inhalation Q6RT 30 Days Qty: 120 0RF atorvastatin 40 mg tablet 40 mg PO DAILY bisoprolol fumarate 10 mg tablet 10 mg PO DAILY valsartan 40 mg tablet 40 mg PO DAILY Discontinued Breo Ellipta 100-25 mcg/dose blister with device 1 inh IH DAILY Problem Reconciliation Problems Reviewed?: Yes Patient Discharge Instructions ACTIVITY: Continue current activity DIET: continue same diet Patient Instructions: DI for Pneumonia -- Adult, DI for Sepsis -- Adult, DI for Respiratory Failure Providers Primary Care Provider: Lance Garza Admit Provider: Aaron Roth Attending Provider: Aaron Roth
--- NOTE | 2023-09-02 15:04 | SW/DCPLANNER ---
Follow up phone w/ this patient: patient is doing well at home per his . Patient was able to call and schedule his outpatient follow up appointments this AM. Patient did not have any further needs/questions at this time.
== END 2023-09-01 11:18 | disposition home or self-care (01) | DRG 193 ==
LOC: ER 08:45 → 2ND 10:20
PROVIDERS: Internal Medicine; Internal Medicine Pulmonary Disease; Admitting Provider Internal Medicine Adolescent Medicine; Emergency Provider Emergency Medicine; PCP Family Medicine; Visit Provider Internal Medicine Adolescent Medicine
DX: J18.9 Pneumonia, unspecified organism (principal); J96.01 Acute respiratory failure with hypoxia; J44.1 Chronic obstructive pulmonary disease with (acute) exacerbation; J44.0 Chronic obstructive pulmonary disease with (acute) lower respiratory infection; K21.9 Gastro-esophageal reflux disease without esophagitis; I25.10 Atherosclerotic heart disease of native coronary artery without angina pectoris; Z95.0 Presence of cardiac pacemaker; I10 Essential (primary) hypertension; E78.2 Mixed hyperlipidemia; R73.9 Hyperglycemia, unspecified
CPT/HCPCS: 36415; 71045; 71250; 74176; 80053; 81001; 82803; 83036; 83605; 83735; 83880; 84484; 85007; 85025; 87040; 87070; 87205; 87632; 87635; 93005; 94640; 94761; 99285; J0456; J0696

== ENCOUNTER 2023-09-12 17:43 | Outpatient (CLI) | payer MEDICARE, SELFPAY | END 2023-09-12 23:59 | disposition home or self-care (01) | LOC: RT 17:45 | PROVIDERS: PCP Family Medicine; Visit Provider Internal Medicine Pulmonary Disease | DX: J44.9 Chronic obstructive pulmonary disease, unspecified (principal) | CPT/HCPCS: 94762 ==

== ENCOUNTER 2023-09-25 19:53 | Observation (INO) | payer MEDICARE, SELFPAY ==
[2023-09-25 19:55] VITALS: BP 136/73; PULSE 84; RESP 20; TEMP 37; O2SAT 87; BMI 29.2
--- NOTE | 2023-09-25 20:00 | ED_ITS ---
Discharge Plan Disposition Patient Disposition: Admitted Condition: Fair Clinical Impressions Clinical Impression: Acute on chronic hypoxic respiratory failure, Acute exacerbation of chronic obstructive pulmonary disease Discharge ED Provider: Pete Jolly General Adult HPI <DEANDRE Haskins - Last Filed: 09/25/23 23:07> General Chief complaint: Upper Respiratory Infection Stated complaint: sore throat, vomiting, cough Time Seen by Provider: 09/25/23 20:00 History of Present Illness HPI narrative: Patient presents for increasing wheezing shortness of breath sore throat. Patient has a relative in the house recently diagnosed with a viral upper respiratory tract infection. Patient has a past medical history of COPD on 1 L chronically of O2, cardiovascular disease on statin and Plavix. Patient denies chest pain fever chills hemoptysis hematochezia melena nausea vomiting diarrhea Related Data Home Medications Medication Instructions Recorded Confirmed budesonide 0.25 mg/2 mL suspension 0.25 mg inhalation BID COPD 03/30/21 09/06/23 for nebulization aspirin 81 mg tablet,delayed 81 mg PO DAILY Heart health 10/15/22 09/06/23 release atorvastatin 40 mg tablet 40 mg PO DAILY 08/29/23 09/06/23 bisoprolol fumarate 10 mg tablet 10 mg PO DAILY 08/29/23 09/06/23 valsartan 40 mg tablet 40 mg PO DAILY 08/29/23 09/06/23 Previous Rx's Medication Instructions Recorded clopidogrel 75 mg tablet 75 mg PO DAILY platelet inhibitor 11/26/22 #90 tabs furosemide 40 mg tablet 40 mg PO DAILY Edema 90 days #90 02/08/23 tabs pantoprazole 40 mg tablet,delayed 40 mg PO DAILY #30 tabs 05/20/23 release (Protonix) nitroglycerin 0.4 mg sublingual 0.4 mg sublingual Q5-15M PRN chest 08/19/23 tablet pain #25 tabs fluticasone fur. 200 mcg-umeclid 1 inh inhalation DAILY 30 days #1 08/30/23 62.5 mcg-vilant 25 mcg ea inhalat.powder (Trelegy Ellipta) spironolactone 25 mg tablet 25 mg PO DAILY #90 tabs 09/02/23 (Aldactone) albuterol sulfate 90 mcg/actuation 2 inh inhalation QID PRN shortness 09/05/23 aerosol inhaler of breath or wheezing #8.5 grams ipratropium 0.5 mg-albuterol 3 mg 3 ml inhalation Q6RT 90 days #120 09/05/23 (2.5 mg base)/3 mL nebulization ea jonn montelukast 10 mg tablet 10 mg PO QPM 90 days #90 tabs 09/05/23 Allergies Allergy/AdvReac Type Severity Reaction Status Date / Time No Known Allergies Allergy Verified 09/06/23 11:26 [facility] <DEANDRE Haskins - Last Filed: 09/25/23 23:07> [facility] Disclaimer: The information contained in this section may have been updated after the patient was seen, as this information can be updated by other users. Medical History Encounter for screening for malignant neoplasm of lung Asthma COPD (chronic obstructive pulmonary disease) Aortic insufficiency Dyspnea Cardiac pacemaker in situ Hyperlipidemia Hypertension Diastolic dysfunction Surgical History H/O hernia repair Social History Smoking Status: Former smoker tobacco type: cigars per week: 60 second hand exposure: No alcohol intake: never substance use type: denies use current occupational status: retired Travel in the last 8 weeks: Inside the [place] household members: spouse housing: house current occupational exposures/hazards: No caffeine: No <DEANDRE Haskins - Last Filed: 09/25/23 23:07> ROS Obtained: Yes Systems reviewed as appropriate & no additional complaints except as documented Physical Exam <DEANDRE Haskins Last Filed: 09/25/23 23:07> General General appearance: alert and in no apparent distress Head Head exam: atraumatic and normal inspection Eye Eye exam: Present normal appearance, PERRL and EOMI ENT ENT exam: Present normal exam, normal oropharynx and mucous membranes moist Neck Neck exam: Present normal inspection, full ROM and trachea midline; Absent lymphadenopathy Chest Chest inspection: Present normal inspection and symmetric chest wall rise Respiratory Respiratory exam: Present wheezes (Diffuse inspiratory and expiratory wheezes); Absent accessory muscle use Cardiovascular Cardiovascular exam: Present regular rate, normal rhythm, normal heart sounds, +S1 and +S2 Abdominal Exam Abdominal exam: Present soft and normal bowel sounds; Absent tenderness Extremities Exam Extremities exam: Present normal inspection and full ROM Back Exam Back exam: Present normal inspection and full ROM Neurological Exam Neurological exam: Present alert, oriented X3 and CN II-XII intact Psychiatric Psychiatric exam: Present normal affect and normal mood Skin Skin exam: Present warm, dry and normal color Medical Decision Making <DEANDRE Haskins - Last Filed: 09/25/23 23:07> Medical Records Medical records reviewed: Yes I reviewed the patient's medical records. Salty Inquiry Pt receiving controlled substance: No Vital Signs: 09/25/23 19:55 09/25/23 20:08 09/25/23 21:42 Temperature 98.6 F 98.8 F Temperature Source Oral Oral Pulse Rate 64 Pulse Rate [Right Radial] 84 Respiratory Rate 20 18 Blood Pressure 122/68 Blood Pressure [Right Arm] 136/73 Blood Pressure Mean [Right Arm] 94 Blood Pressure Source Automatic Cuff Blood Pressure Source [Right Arm] Automatic Cuff Blood Pressure Position Sitting Blood Pressure Position [Right Arm] Sitting 02 Sat by Pulse Oximetry 87 L 92 L Oxygen Delivery Method Room Air Nasal Cannula Nasal Cannula Oxygen Flow Rate (LPM) 2 2 Lab Data Lab results reviewed: Yes I reviewed the patient's lab results. Lab Results 09/25/23 20:08: VBG pH 7.34, VBG pCO2 45.0, VBG pO2 59.6 H, VBG HCO3 23.6, VBG Total CO2 25.0, VBG O2 Saturation 89.9 H, VBG Base Excess -2.2, VBG Lactic Acid 1.7 09/25/23 20:09: Chlamy pneumoniae PCR TNP, Adenovirus (PCR) Not detected, B. pertussis DNA (PCR) TNP, Coronavirus OC43 (PCR) Not detected, Coronavirus HKU1 (PCR) Not detected, Coronavirus 229E (PCR) Not detected, SARS-CoV-2 (PCR) Not detected, Coronavirus NL63 (PCR) Not detected, Human Metapneumovir PCR Detected A, Influenza A (H1) PCR Not detected, Influ A (H1N1/09) PCR Not detected, Influenza A (H3) PCR Not detected, Influenza Type A (PCR) Not detected, Influenza Type B (PCR) Not detected, M. pneumoniae (PCR) TNP, Parainfluenza 1 (PCR) Not detected, Parainfluenza 2 (PCR) Not detected, Parainfluenza 3 (PCR) Not detected, Parainfluenza 4 (PCR) Not detected, RSV (PCR) Not detected, Entero/Rhino (PCR) Not detected 09/25/23 20:15: WBC 10.1, RBC 4.99, Hgb 14.6, Hct 45.1, MCV 90.3, MCH 29.3, MCHC 32.5, RDW 14.2, Plt Count 190, MPV 8.6, Neut % (Auto) 74.6, Lymph % (Auto) 10.3, [place] % (Auto) 12.3 H, Eos % (Auto) 0.8, Baso % (Auto) 2.0, Neut # (Auto) 7.6, Lymph # (Auto) 1.0, [place] # (Auto) 1.3 H, Eos # (Auto) 0.1, Baso # (Auto) 0.2, S odium 134 L, Potassium 4.5, Chloride 102, Carbon Dioxide 25, Anion Gap 11.5, BUN 21 H, Creatinine 1.30 H, Estimated Creat Clear 48, Estimated GFR 54 L, Est GFR ( Amer) 65, Glucose 132 H, Calcium 8.4, Total Bilirubin 0.9, AST 40, ALT 34, Alkaline Phosphatase 76, Troponin I < 0.01, NT-Pro-B Natriuret Pep 273 H, Total Protein 6.6, Albumin 3.8, Globulin 2.8, Albumin/Globulin Ratio 1.4 09/25/23 20:15 09/25/23 20:15 Orders (Tests/Meds): ED MEDICATIONS Generic Name Dose Route Start Last Admin Trade Name Freq PRN Reason Stop Dose Admin Acetaminophen 650 mg 09/25/23 21:24 Acetaminophen 325mg Tab PO 10/25/23 21:23 Q4HP PRN Fever or Mild Pain (1-3) Albuterol/Ipratropium 3 ml 09/26/23 00:00 Ipratropium/Albuterol 3 Ml Neb IH 10/26/23 00:00 Q6RT GENTRY Dexamethasone Sodium Phosphate 6 mg 09/26/23 09:00 Dexamethasone 4mg/Ml 1ml Vial IV 10/26/23 08:59 DAILY GENTRY Enoxaparin Sodium 40 mg 09/26/23 09:00 Enoxaparin 40mg/0.4ml Syringe SQ 10/26/23 08:59 DAILY GENTRY Guaifenesin 1,200 mg 09/25/23 22:55 Guaifenesin 600 Mg Tab.Er.12h PO 10/25/23 22:54 BID GENTRY Guaifenesin 5 ml 09/25/23 22:50 Guaifenesin/Dextromethorphan 200mg/20mg 10ml Udc PO 10/25/23 22:49 Q8HP PRN Cough Sodium Chloride 1,000 mls @ 50 mls/hr 09/25/23 22:50 Sod Chlor 0.9% 1000ml Bag IV 09/26/23 18:49 .Q20H ONE Morphine Sulfate 2 mg 09/25/23 21:24 Morphine 2mg/Ml Syringe IV 10/25/23 21:23 Q2HP PRN Severe Pain (7-10) Nicotine 21 mg 09/25/23 21:24 Nicotine 21mg/24hr Patch TD 10/25/23 21:23 DAILYP PRN Nicotine Cravings Ondansetron HCl 4 mg 09/25/23 21:24 Ondansetron 4mg/2ml Vial IV 10/25/23 21:23 Q8HP PRN Nausea Pantoprazole Sodium 40 mg 09/26/23 09:00 Pantoprazole 40mg Tablet PO 10/26/23 08:59 DAILY GENTRY Sodium Chloride 10 ml 09/25/23 22:50 Sodium Chloride 0.9% 10ml Flush Syringe IV 10/25/23 22:49 NEEDED PRN Maintain IV Site Discontinued Medications Generic Name Dose Route Start Last Admin Trade Name Freq PRN Reason Stop Dose Admin Acetaminophen 1,000 mg 09/25/23 20:06 09/25/23 20:19 Acetaminophen 1,000mg/100ml Vial IV 09/25/23 20:07 1,000 mg ONCE ONE Administration Albuterol/Ipratropium 3 ml 09/25/23 20:06 09/25/23 20:20 Ipratropium/Albuterol 3 Ml Neb IH 09/25/23 20:07 3 ml ONCE ONE Administration Dexamethasone Sodium Phosphate 10 mg 09/25/23 20:06 09/25/23 20:22 Dexamethasone 4mg/Ml 1ml Vial IM 09/25/23 20:07 Not Given ONCE ONE Dexamethasone Sodium Phosphate 10 mg 09/25/23 20:21 09/25/23 20:23 Dexamethasone 4mg/Ml 1ml Vial IV 09/25/23 20:22 10 mg ONCE ONE Administration Ketorolac Tromethamine 15 mg 09/25/23 20:06 09/25/23 20:20 Ketorolac 30mg/Ml Vial IV 09/25/23 20:07 15 mg ONCE ONE Administration ORDERS Category Date Time Status Chest XR -- portable [XR chest portable] Stat Exams 09/25/23 20:06 Completed BNP [NT Pro Brain Natriuretic Pep.] Stat Lab 09/25/23 20:15 Completed CBC w/Auto Diff [Complete Blood Count Auto Diff] Stat Lab 09/25/23 20:15 Completed CMP [Comprehensive Metabolic Panel] Stat Lab 09/25/23 20:15 Completed Complete Blood Count Auto Diff AMLAB Lab 09/26/23 06:00 Ordered Comprehensive Metabolic Panel AMLAB Lab 09/26/23 06:00 Ordered Full Resp Panel w/COVID ([facility]) Routine Lab 09/25/23 20:09 Completed Magnesium AMLAB Lab 09/26/23 06:00 Ordered Phosphorous AMLAB Lab 09/26/23 06:00 Ordered Trop I [Troponin I] Stat Lab 09/25/23 20:15 Completed Troponin I Q3H Lab 09/25/23 23:15 Ordered Troponin I Q3H Lab 09/26/23 02:15 Ordered VBG [Venous Blood Gas] Stat RT 09/25/23 20:08 Completed Medical Decision Narrative: In summary patient is a 72-year-old male who presents to the emergency department for evaluation of cough shortness of breath. Patient is normotensive with a heart rate of 8487% on room air upon arrival, and afebrile. Discal exam is remarkable for inspiratory next-door wheezes in all 4 bryan with slightly increased work of breathing and an increased oxygen requirement from 1 to 2 L to maintain sat above 94%.. Differential diagnosis includes COPD exacerbation versus PE versus ACS versus pneumonia (viral or bacterial) etc. Initial workup will be conducted with hematologic labs respiratory swabs plain film chest x-ray twelve-lead EKG. Initial interventions include supplemental oxygen continuous pulse oximetry and continuous cardiac monitoring, Toradol Tylenol Decadron DuoNeb. Initial workup reviewed by me normal white count however is respiratory panel was positive for human metapneumovirus and my informal interpretation of his plain film chest x-ray shows no acute infiltrates. Upon repeat evaluation patient has had some improvement subjectively and his wheezing is better however he is unable to be weaned down off of his new oxygen requirement and desaturates with exertion.. Given this I discussed patient management with hospital medicine and they agreed to admit for ongoing treatment and care. We have shared decision-making with the patient they agreed and understood. <Pete Jolly MD - Last Filed: 09/25/23 23:09> Vital Signs: 09/25/23 19:55 09/25/23 20:08 09/25/23 21:42 Temperature 98.6 F 98.8 F Temperature Source Oral Oral Pulse Rate 64 Pulse Rate [Right Radial] 84 Respiratory Rate 20 18 Blood Pressure 122/68 Blood Pressure [Right Arm] 136/73 Blood Pressure Mean [Right Arm] 94 Blood Pressure Source Automatic Cuff Blood Pressure Source [Right Arm] Automatic Cuff Blood Pressure Position Sitting Blood Pressure Position [Right Arm] Sitting 02 Sat by Pulse Oximetry 87 L 92 L Oxygen Delivery Method Room Air Nasal Cannula Nasal Cannula Oxygen Flow Rate (LPM) 2 2 Lab Data Lab Results 09/25/23 20:08: VBG pH 7.34, VBG pCO2 45.0, VBG pO2 59.6 H, VBG HCO3 23.6, VBG Total CO2 25.0, VBG O2 Saturation 89.9 H, VBG Base Excess -2.2, VBG Lactic Acid 1.7 09/25/23 20:09: Chlamy pneumoniae PCR TNP, Adenovirus (PCR) Not detected, B. pertussis DNA (PCR) TNP, Coronavirus OC43 (PCR) Not detected, Coronavirus HKU1 (PCR) Not detected, Coronavirus 229E (PCR) Not detected, SARS-CoV-2 (PCR) Not detected, Coronavirus NL63 (PCR) Not detected, Human Metapneumovir PCR Detected A, Influenza A (H1) PCR Not detected, Influ A (H1N1/09) PCR Not detected, Influenza A (H3) PCR Not detected, Influenza Type A (PCR) Not detected, Influenza Type B (PCR) Not detected, M. pneumoniae (PCR) TNP, Parainfluenza 1 (PCR) Not detected, Parainfluenza 2 (PCR) Not detected, Parainfluenza 3 (PCR) Not detected, Parainfluenza 4 (PCR) Not detected, RSV (PCR) Not detected, Entero/Rhino (PCR) Not detected 09/25/23 20:15: WBC 10.1, RBC 4.99, Hgb 14.6, Hct 45.1, MCV 90.3, MCH 29.3, MCHC 32.5, RDW 14.2, Plt Count 190, MPV 8.6, Neut % (Auto) 74.6, Lymph % (Auto) 10.3, [place] % (Auto) 12.3 H, Eos % (Auto) 0.8, Baso % (Auto) 2.0, Neut # (Auto) 7.6, Lymph # (Auto) 1.0, [place] # (Auto) 1.3 H, Eos # (Auto) 0.1, Baso # (Auto) 0.2, S odium 134 L, Potassium 4.5, Chloride 102, Carbon Dioxide 25, Anion Gap 11.5, BUN 21 H, Creatinine 1.30 H, Estimated Creat Clear 48, Estimated GFR 54 L, Est GFR ( Amer) 65, Glucose 132 H, Calcium 8.4, Total Bilirubin 0.9, AST 40, ALT 34, Alkaline Phosphatase 76, Troponin I < 0.01, NT-Pro-B Natriuret Pep 273 H, Total Protein 6.6, Albumin 3.8, Globulin 2.8, Albumin/Globulin Ratio 1.4 Orders (Tests/Meds): ED MEDICATIONS Generic Name Dose Route Start Last Admin Trade Name Freq PRN Reason Stop Dose Admin Acetaminophen 650 mg 09/25/23 21:24 Acetaminophen 325mg Tab PO 10/25/23 21:23 Q4HP PRN Fever or Mild Pain (1-3) Albuterol/Ipratropium 3 ml 09/26/23 00:00 Ipratropium/Albuterol 3 Ml Neb IH 10/26/23 00:00 Q6RT GENTRY Dexamethasone Sodium Phosphate 6 mg 09/26/23 09:00 Dexamethasone 4mg/Ml 1ml Vial IV 10/26/23 08:59 DAILY GENTRY Enoxaparin Sodium 40 mg 09/26/23 09:00 Enoxaparin 40mg/0.4ml Syringe SQ 10/26/23 08:59 DAILY GENTRY Guaifenesin 1,200 mg 09/25/23 22:55 Guaifenesin 600 Mg Tab.Er.12h PO 10/25/23 22:54 BID GENTRY Guaifenesin 5 ml 09/25/23 22:50 Guaifenesin/Dextromethorphan 200mg/20mg 10ml Udc PO 10/25/23 22:49 Q8HP PRN Cough Sodium Chloride 1,000 mls @ 50 mls/hr 09/25/23 22:50 Sod Chlor 0.9% 1000ml Bag IV 09/26/23 18:49 .Q20H ONE Morphine Sulfate 2 mg 09/25/23 21:24 Morphine 2mg/Ml Syringe IV 10/25/23 21:23 Q2HP PRN Severe Pain (7-10) Nicotine 21 mg 09/25/23 21:24 Nicotine 21mg/24hr Patch TD 10/25/23 21:23 DAILYP PRN Nicotine Cravings Ondansetron HCl 4 mg 09/25/23 21:24 Ondansetron 4mg/2ml Vial IV 10/25/23 21:23 Q8HP PRN Nausea Pantoprazole Sodium 40 mg 09/26/23 09:00 Pantoprazole 40mg Tablet PO 10/26/23 08:59 DAILY GENTRY Sodium Chloride 10 ml 09/25/23 22:50 Sodium Chloride 0.9% 10ml Flush Syringe IV 10/25/23 22:49 NEEDED PRN Maintain IV Site Discontinued Medications Generic Name Dose Route Start Last Admin Trade Name Freq PRN Reason Stop Dose Admin Acetaminophen 1,000 mg 09/25/23 20:06 09/25/23 20:19 Acetaminophen 1,000mg/100ml Vial IV 09/25/23 20:07 1,000 mg ONCE ONE Administration Albuterol/Ipratropium 3 ml 09/25/23 20:06 09/25/23 20:20 Ipratropium/Albuterol 3 Ml Neb IH 09/25/23 20:07 3 ml ONCE ONE Administration Dexamethasone Sodium Phosphate 10 mg 09/25/23 20:06 09/25/23 20:22 Dexamethasone 4mg/Ml 1ml Vial IM 09/25/23 20:07 Not Given ONCE ONE Dexamethasone Sodium Phosphate 10 mg 09/25/23 20:21 09/25/23 20:23 Dexamethasone 4mg/Ml 1ml Vial IV 09/25/23 20:22 10 mg ONCE ONE Administration Ketorolac Tromethamine 15 mg 09/25/23 20:06 09/25/23 20:20 Ketorolac 30mg/Ml Vial IV 09/25/23 20:07 15 mg ONCE ONE Administration ORDERS Category Date Time Status Chest XR -- portable [XR chest portable] Stat Exams 09/25/23 20:06 Completed BNP [NT Pro Brain Natriuretic Pep.] Stat Lab 09/25/23 20:15 Completed CBC w/Auto Diff [Complete Blood Count Auto Diff] Stat Lab 09/25/23 20:15 Completed CMP [Comprehensive Metabolic Panel] Stat Lab 09/25/23 20:15 Completed Complete Blood Count Auto Diff AMLAB Lab 09/26/23 06:00 Ordered Comprehensive Metabolic Panel AMLAB Lab 09/26/23 06:00 Ordered Full Resp Panel w/COVID ([facility]) Routine Lab 09/25/23 20:09 Completed Magnesium AMLAB Lab 09/26/23 06:00 Ordered Phosphorous AMLAB Lab 09/26/23 06:00 Ordered Trop I [Troponin I] Stat Lab 09/25/23 20:15 Completed Troponin I Q3H Lab 09/25/23 23:15 Ordered Troponin I Q3H Lab 09/26/23 02:15 Ordered VBG [Venous Blood Gas] Stat RT 09/25/23 20:08 Completed Medical Decision Narrative: In summary patient is a 72-year-old male who presents to the emergency department for evaluation of cough shortness of breath. Patient is normotensive with a heart rate of 8487% on room air upon arrival, and afebrile. Discal exam is remarkable for inspiratory next-door wheezes in all 4 bryan with slightly increased work of breathing and an increased oxygen requirement from 1 to 2 L to maintain sat above 94%.. Differential diagnosis includes COPD exacerbation versus PE versus ACS versus pneumonia (viral or bacterial) etc. Initial workup will be conducted with hematologic labs respiratory swabs plain film chest x-ray twelve-lead EKG. Initial interventions include supplemental oxygen continuous pulse oximetry and continuous cardiac monitoring, Toradol Tylenol Decadron DuoNeb. Initial workup reviewed by me normal white count however is respiratory panel was positive for human metapneumovirus and my informal interpretation of his plain film chest x-ray shows no acute infiltrates. Upon repeat evaluation patient has had some improvement subjectively and his wheezing is better however he is unable to be weaned down off of his new oxygen requirement and desaturates with exertion.. Given this I discussed patient management with hospital medicine and they agreed to admit for ongoing treatment and care. We have shared decision-making with the patient they agreed and understood. I was consulted by the GARO, and we discussed the complexity of the problems being addressed. I approved the treatment and management plan for this patient?s care in the Emergency Department, thus performing a substantive portion of the medical decision making. Pete Jolly MD Critical Care <DEANDRE Haskins - Last Filed: 09/25/23 23:07> Critical Care Time Critical Care Time: No
--- NOTE | 2023-09-25 20:06 | XR_ITS ---
PROCEDURE INFORMATION: Exam: XR Chest Exam date and time: 09/25/2023 8:29 PM Age: 72 years old Clinical indication: Cough and shortness of breath; Additional info: Cough shortness of breath TECHNIQUE: Imaging protocol: Radiologic exam of the chest. Views: 1 view. COMPARISON: CR XR CHEST PORTABLE 08/31/2023 9:00 AM FINDINGS: Tubes, catheters and devices: There is a left chest implanted cardiac device. Lungs: No evidence of acute pulmonary disease or infiltrates Pleural spaces: No large effusion or pneumothorax. Heart/Mediastinum: Stable cardiac and mediastinal contours. Bones/joints: No evidence of acute osseous abnormalities within the visualized portions of the thoracic spine and ribs. Osseous structures appear appropriate for patient age. IMPRESSION: No dense parenchymal consolidation, pleural effusion, or pneumothorax.
[2023-09-25 20:08] VITALS: O2SAT 92
[2023-09-25 20:13] LABS: Adenovirus,PCR Not Detected (NotDetected); Coronavirus 19, PCR Not Detected (NotDetected); Coronavirus 229E Not Detected (NotDetected); Coronavirus NL63 Not Detected (NotDetected); Coronavirus OC43 Not Detected (NotDetected); Coronovirus HKU1,PCR Not Detected (NotDetected); Influenza A, PCR Not Detected (NotDetected); Influenza AH1, 2009 Not Detected (NotDetected); Influenza AH1, PCR Not Detected (NotDetected); Influenza AH3,PCR Not Detected (NotDetected); Influenza B, PCR Not Detected (NotDetected); Parainfluenza 1, PCR Not Detected (NotDetected); Parainfluenza 2, PCR Not Detected (NotDetected); Parainfluenza 3, PCR Not Detected (NotDetected); Parainfluenza 4, PCR Not Detected (NotDetected); Respiratory Syncytial Virus Not Detected (NotDetected); Rhinovirus/Enterovirus Not Detected (NotDetected)
[2023-09-25] MEDS: ACETAMINOPHEN 1,000MG/100ML VIAL 1000 MG IV (20:19)
--- NOTE | 2023-09-25 20:19 | ECG_ITS ---
APPROVED REPORT Exam: Resting ECG HR:79 bpm ECG Measurements Heart Rate 79 AXES IN 169 P -10 QRSd 144 QRS 181 QT 367 T 55 QTc 402 Conclusion [employer] Electronically signed by : TERESO HOWELL, 09/26/2023 16:09:26
[2023-09-25] MEDS: IPRATROPIUM/ALBUTEROL 3 ML NEB IH ×2 (20:20→23:51)
[2023-09-25] MEDS: KETOROLAC 30MG/ML VIAL 15 MG IV (20:20)
[2023-09-25] MEDS: DEXAMETHASONE 4MG/ML 1ML VIAL 10 MG IV (20:23)
[2023-09-25 20:29] LABS: Basophils # 0.2 K/mm3 (0-0.2); Chloride 102 mmol/L (98-107); Eosinophils # 0.1 K/mm3 (0.0-0.4); Eosinophils % 0.8 % (0.1-12.0); Hematocrit 45.1 % (42.0-52.0); Hemoglobin 14.6 g/dL (14.1-18.0); Lymphocytes % 10.3 % (10-50); Mean Corpuscular HGB Conc 32.5 g/dL (31.8-35.4); Mean Corpuscular Hemoglobin 29.3 pg (27.0-31.2); Mean Corpuscular Volume 90.3 fl (80-94); Mean Platelet Volume 8.6 fl (7.4-10.4); Monocytes # 1.3 K/mm3 (0.1-1.0); Monocytes % 12.3 % (1.7-9.3); Neutrophils # 7.6 K/mm3 (1.8-7.8); Neutrophils % 74.6 % (37.0-80.0); Platelet Count 190 K/mm3 (142-424); Potassium 4.5 mmoL/L (3.5-5.1); Red Blood Count 4.99 M/mm3 (4.60-6.20); Red Cell Distribution Width 14.2 % (11.5-17.5); Sodium 134 mmol/L (136-145); White Blood Count 10.1 K/mm3 (4.8-10.8)
[2023-09-25 20:31] LABS: Blood Urea Nitrogen 21 mg/dl (9-20); Creatinine Clearance Estimated 48 mL/min (50-200); Estimated Glomerular Filt Rate 54 ml/min (>60); GFR (African American) 65 ML/MIN (>60)
[2023-09-25 20:32] LABS: Alanine Aminotransferase 34 U/L (12-78); Albumin Level 3.8 g/dl (3.5-5.0); Albumin/Globulin Ratio 1.4 (1.1-1.8); Alkaline Phosphatase 76 U/L (38-126); Anion Gap 11.5 mEq/L (5-15); Aspartate Amino Transferase 40 U/L (17-59); Bilirubin,Total 0.9 mg/dl (0.2-1.3); Calcium 8.4 mg/dl (8.4-10.2); Carbon Dioxide 25 mmol/L (22.0-30.0); Globulin 2.8 g/dL (1.3-3.2); Glucose 132 mg/dl (74-100); Total Protein,Serum 6.6 g/dl (6.3-8.2)
[2023-09-25 20:41] LABS: NT Pro Brain Natriuretic Pep. 273 pg/mL (0-125)
[2023-09-25 20:46] LABS: Troponin I < 0.01 ng/ml (0.00-0.034)
[2023-09-25 20:46] LABS: Lactate Venous 1.7 mmol/L (0.4-2.0); VBG Base Excess -2.2 mmol/L (-2.4-2.3); VBG HCO3 23.6 mmol/L (23-30); VBG Oxygen Saturation 89.9 % (50-70); VBG PH 7.34 mmol/L (7.31-7.41); VBG PO2 59.6 mmol/L (28-40)
--- NOTE | 2023-09-25 21:23 | PC.NURSE ---
PA on phone with hospitalist
--- NOTE | 2023-09-25 21:26 | P.HP_ITS ---
History of Present Illness *Admission Date: 09/25/23 *Reason for visit:: cough SOB *History of present illness: This is a 72-year-old male with history of asthma, COPD, CAD, cardiomyopathy and hypertension. Presented for complaint of cough, shortness of breath, not getting better. Patient is normotensive with a heart rate of 84-87% on room air upon arrival, and afebrile. patient was recently hospitalized for pneumonia. was discharged home, then follow up with pulmonology as outpatient. was prescribed home oxygen that he just recently got it. PAtient stated being in contact with a grandson that was sick with flu like symptoms. Patient denies chest pain fever chills hemoptysis hematochezia melena nausea vomiting diarrhea. Admitted for further treatment. [facility] Disclaimer: The information contained in this section may have been updated after the patient was seen, as this information can be updated by other users. Medical History Encounter for screening for malignant neoplasm of lung Asthma COPD (chronic obstructive pulmonary disease) Aortic insufficiency Dyspnea Cardiac pacemaker in situ Hyperlipidemia Hypertension Diastolic dysfunction Surgical History H/O hernia repair Social History (Updated 09/26/23 @ 03:33 by Judy Downs RN) Smoking Status: Former smoker tobacco type: cigars per week: 60 second hand exposure: No alcohol intake: never substance use type: denies use current occupational status: retired Travel in the last 8 weeks: Inside the [place] household members: spouse and children housing: house marital status: current occupational exposures/hazards: No caffeine: No Review of Systems Review of Systems Review of systems:: pertinent systems reviewed and negative unless documented below Meds Home Medications and Allergies Home Medications Medication Instructions Recorded Confirmed Type budesonide 0.25 mg/2 mL suspension 0.25 mg inhalation BID COPD 03/30/21 09/26/23 History for nebulization aspirin 81 mg tablet,delayed 81 mg PO DAILY Heart health 10/15/22 09/25/23 History release clopidogrel 75 mg tablet 75 mg PO DAILY platelet inhibitor 11/26/22 09/25/23 Rx #90 tabs furosemide 40 mg tablet 40 mg PO DAILY Edema 90 days #90 02/08/23 09/25/23 Rx tabs nitroglycerin 0.4 mg sublingual 0.4 mg sublingual Q5-15M PRN chest 08/19/23 09/25/23 Rx tablet pain #25 tabs atorvastatin 40 mg tablet 40 mg PO HS 08/29/23 09/25/23 History valsartan 40 mg tablet 40 mg PO DAILY 08/29/23 09/25/23 History spironolactone 25 mg tablet 25 mg PO DAILY #90 tabs 09/02/23 09/25/23 Rx (Aldactone) albuterol sulfate 90 mcg/actuation 2 inh inhalation QID PRN shortness 09/05/23 09/25/23 Rx aerosol inhaler of breath or wheezing #8.5 grams ipratropium 0.5 mg-albuterol 3 mg 3 ml inhalation Q6RT 90 days #120 09/05/23 09/25/23 Rx (2.5 mg base)/3 mL nebulization ea soln montelukast 10 mg tablet 10 mg PO HS 09/25/23 09/25/23 History pantoprazole 40 mg tablet,delayed 40 mg PO HS 09/25/23 09/25/23 History release (Protonix) bisoprolol fumarate 10 mg tablet 5 mg (1/2 x 10 mg) PO DAILY 30 09/26/23 09/25/23 Rx days #15 tabs fluticasone fur. 200 mcg-umeclid 1 inh inhalation DAILY 30 days #1 09/26/23 Rx 62.5 mcg-vilant 25 mcg ea inhalat.powder (Trelegy Ellipta) prednisone 20 mg tablet 40 mg (2 x 20 mg) PO DAILY 4 days 09/26/23 Rx #8 tabs New Prescriptions to Start Prescriptions: prednisone Aaron Roth Allergies Allergy/AdvReac Type Severity Reaction Status Date / Time No Known Allergies Allergy Verified 09/06/23 11:26 Exam Data for Last 24 hours Vital signs and Labs for Last 24 Hours: Temp Pulse Resp BP Pulse Ox O2 Del Method O2 Flow Rate 98.6 F 84 20 136/73 92 L Nasal Cannula 2 09/25/23 19:55 09/25/23 19:55 09/25/23 19:55 09/25/23 19:55 09/25/23 20:08 09/25/23 20:08 09/25/23 20:08 Laboratory Results - last 24 hr 09/25/23 20:08: VBG pH 7.34, VBG pCO2 45.0, VBG pO2 59.6 H, VBG HCO3 23.6, VBG Total CO2 25.0, VBG O2 Saturation 89.9 H, VBG Base Excess -2.2, VBG Lactic Acid 1.7 09/25/23 20:15: WBC 10.1, RBC 4.99, Hgb 14.6, Hct 45.1, MCV 90.3, MCH 29.3, MCHC 32.5, RDW 14.2, Plt Count 190, MPV 8.6, Neut % (Auto) 74.6, Lymph % (Auto) 10.3, [place] % (Auto) 12.3 H, Eos % (Auto) 0.8, Baso % (Auto) 2.0, Neut # (Auto) 7.6, Lymph # (Auto) 1.0, [place] # (Auto) 1.3 H, Eos # (Auto) 0.1, Baso # (Auto) 0.2, Sodium 134 L, Potassium 4.5, Chloride 102, Carbon Dioxide 25, Anion Gap 11.5, BUN 21 H, Creatinine 1.30 H, Estimated Creat Clear 48, Estimated GFR 54 L, Est GFR ( Amer) 65, Glucose 132 H, Calcium 8.4, Total Bilirubin 0.9, AST 40, ALT 34, Alkaline Phosphatase 76, Troponin I < 0.01, NT-Pro-B Natriuret Pep 273 H , Total Protein 6.6, Albumin 3.8, Globulin 2.8, Albumin/Globulin Ratio 1.4 Temp Pulse Resp BP Pulse Ox O2 Del Method O2 Flow Rate 97.8 F 107 H 24 123/66 94 L Nasal Cannula 3 08/29/23 08:24 08/29/23 10:00 08/29/23 10:00 08/29/23 10:00 08/29/23 10:00 08/29/23 10:00 08/29/23 10:00 Laboratory Results - last 24 hr 08/29/23 08:39: VBG pH 7.41, VBG pCO2 44.6, VBG pO2 35.7, VBG HCO3 27.3, VBG Total CO2 28.7 H, VBG O2 Saturation 68.0, VBG Base Excess 2.6 H, VBG Lactic Acid 2.1 H 08/29/23 08:40: WBC 20.6 H*, RBC 5.40, Hgb 15.7, Hct 50.1, MCV 92.7, MCH 29.1, MCHC 31.4 L, RDW 13.7, Plt Count 239, MPV 8.8, Neut % (Auto) 86.4 H, Lymph % (Auto) 6.1 L, [place] % (Auto) 5.9, Eos % (Auto) 0.9, Baso % (Auto) 0.7, Neut # (Auto) 17.8 H, Lymph # (Auto) 1.3, [place] # (Auto) 1.2 H, Eos # (Auto) 0.2, Baso # (Auto) 0.2, Total Counted 100, Neutrophils % (Manual) 84 H, Lymphocytes % (Manual) 6 L, Monocytes % (Manual) 9, Eosinophils % (Manual) 1, Platelet Estimate Normal, RBC Morphology Normal, Sodium 136, Potassium 4.5, Chloride 96 L , Carbon Dioxide 31 H, Anion Gap 13.5, BUN 23 H, Creatinine 1.50 H, Estimated Creat Clear 42, Estimated GFR 46 L, Est GFR ( Amer) 55 L, Glucose 131 H, Calcium 9.3, Total Bilirubin 1.4 H, AST 29, ALT 30, Alkaline Phosphatase 93, Troponin I < 0.01, Total Protein 7.6, Albumin 4.3, Globulin 3.3 H, Albumin/Globulin Ratio 1.3 I & O for Last 24 hours: Intake & Output 09/22/23 09/23/23 09/24/23 09/25/23 23:59 23:59 23:59 23:59 Weight 68.039 kg Intake & Output 08/26/23 08/27/23 08/28/23 08/29/23 23:59 23:59 23:59 23:59 Weight 68.039 kg Constitutional Constitutional: no acute distress and average body habitus *Routine HEENT Exam Head: Present normocephalic and atraumatic Eye: Present EOMI and PERRL ENT: Present mucous membranes moist *Routine Neck Exam Neck: Present supple; Absent JVD Routine Chest/Breast/Axilla Exam Chest wall: Absent tenderness *Routine Respiratory Exam Respiratory: Present prolonged expiratory phase and crackles (Right lower lobe); Absent accessory muscle use, respiratory distress, rhonchi or wheezes *Routine Cardiovascular Exam Cardiovascular: Present RRR, Normal S1 and Normal S2; Absent murmur *Routine Abdominal Exam Abdominal: Present soft and normoactive bowel sounds; Absent tenderness or distended *Routine Rectal Exam Rectal:: deferred *Routine Genitalia Exam Genitalia:: deferred *Routine Extremities Exam Extremities: Absent cyanosis, clubbing or edema *Routine Skin Exam Skin: Present intact; Absent cyanosis or erythema *Routine Neurological Exam Neurological: Present alert, oriented X3, CN II-XII intact and moving all extremities; Absent sensory deficit or altered mental status Comments: Hard of hearing Routine Psychiatric Exam Psychiatric: Present normal affect and normal thought process; Absent suicidal ideation or homicidal ideation H&P: Result Imaging and Cardiology EKG: Status: image reviewed by me, Preliminary report and final report Chest x-ray: Status: image reviewed by me, Preliminary report and final report Assessment and Plan *Assessment and plan (1) Acute bronchitis due to human metapneumovirus: Status: Acute Category: Medical Code(s): J20.8 - Acute bronchitis due to other specified organisms; B97.81 - Human metapneumovirus as the cause of diseases classified elsewhere (2) Acute exacerbation of chronic obstructive pulmonary disease: Status: Acute Category: Medical Code(s): J44.1 - Chronic obstructive pulmonary disease with (acute) exacerbation (3) Acute hypoxemic respiratory failure: Status: Acute Category: Medical Code(s): J96.01 - Acute respiratory failure with hypoxia (4) Coronary artery disease: Status: Chronic Qualifiers: Associated angina: without angina Coronary Disease-Associated Artery/Lesion type: [place] artery [place] vs. transplanted heart: [place] heart Qualified Code(s): I25.10 - Atherosclerotic heart disease of [place] coronary artery without angina pectoris Category: Medical Code(s): I25.10 - Atherosclerotic heart disease of [place] coronary artery without angina pectoris (5) Cardiac pacemaker in situ: Status: Chronic Category: Medical Code(s): Z95.0 - Presence of cardiac pacemaker (6) Hypertension: Status: Chronic Qualifiers: Hypertension type: essential hypertension Qualified Code(s): I10 - Essential (primary) hypertension Category: Medical Code(s): I10 - Essential (primary) hypertension (7) Hyperlipidemia: Status: Chronic Qualifiers: Hyperlipidemia type: mixed hyperlipidemia Qualified Code(s): E78.2 - Mixed hyperlipidemia Category: Medical Code(s): E78.5 - Hyperlipidemia, unspecified (8) Chronic GERD: Status: Acute Category: Medical Code(s): K21.9 - Gastro-esophageal reflux disease without esophagitis Plan 72-year-old male with history of asthma, COPD, CAD, cardiomyopathy and hypertension. Presented for complaint of cough, shortness of breath, not getting better. Initial workup reviewed by me normal white count however is respiratory panel was positive for human metapneumovirus and my informal interpretation of his plain film chest x-ray shows no acute infiltrates. Upon repeat evaluation patient has had some improvement subjectively and his wheezing is better however he is unable to be weaned down off of his new oxygen requirement and desaturates with exertion..Discussed with ED. agreed for admission. Plan as follow: Acute bronchitis secondary to human metapneumovirus acute exacerbation of COPD Chronic respiratory failure with hypoxia: - Given the need for oxygen, necessitates inpatient management. - image findings on x-ray negative -Pulmonology consulted. recommends DuoNebs every 6 hours along with Pulmicort every 12 hours scheduled. - Continue supplemental oxygen for goal saturation greater 90%. Currently on 2 L. -Comprehensive respiratory panel positive to metapneumovirus -White cell count normal. Kidney function electrolytes stable. -Continue Singulair 10 mg daily -gauifenesin ER 1200mg BID for cough Chronic conditions: Continue Lipitor 40 mg daily for hyperlipidemia Continue bisoprolol 10 mg daily for hypertension along with valsartan 40 mg daily and Lasix 40 mg daily Continue aspirin 81 mg daily and Plavix 75 mg daily for CAD Continue pantoprazole 40 mg daily for GERD Full code Heparin subcu twice daily Cardiac diet Rounded on patient after nurse practitioner. Personally examined and interviewed patient. Agree with exam findings and care plan as documented.
--- NOTE | 2023-09-25 21:26 | PC.NURSE ---
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
--- NOTE | 2023-09-25 21:29 | PC.NURSE ---
Patient admitted to [facility] with dx of COPD to service of the hospitalist.
--- NOTE | 2023-09-25 21:39 | PC.NURSE ---
Report given to LUZ Kim on second floor.
[2023-09-25 21:42] VITALS: BP 122/68; PULSE 64; RESP 18; TEMP 37.1; O2SAT 96
[2023-09-25 22:17] VITALS: BP 122/68; PULSE 76; RESP 18; TEMP 37; O2SAT 94; BMI 29.0
[2023-09-25 22:20] LABS: Human Metapneumovirus Detected (NotDetected)
[2023-09-25] MEDS: 0.9 % SODIUM CHLORIDE 1000ML 1,000 ML 50 ML IV (23:09)
[2023-09-25 23:45] LABS: Troponin I < 0.01 ng/ml (0.00-0.034)
[2023-09-25 23:55] VITALS: PULSE 59; PULSE 70; O2SAT 95
[2023-09-26] VITALS (13 sets, daily range): BP systolic 67–122; BP diastolic 32–62; PULSE 67–85; RESP 18–22; TEMP 36.4–36.8; O2SAT 87–99; BMI 29.9
[2023-09-26] MEDS: guaiFENesin 600 MG TAB.ER.12H 1200 MG PO ×2 (00:32→09:11)
[2023-09-26 02:53] LABS: Troponin I < 0.01 ng/ml (0.00-0.034)
[2023-09-26] MEDS: 0.9 % SODIUM CHLORIDE 1000ML 1,000 ML 500 ML IV (05:42)
[2023-09-26] MEDS: IPRATROPIUM/ALBUTEROL 3 ML NEB IH ×2 (06:11→11:15)
[2023-09-26] MEDS: 0.9 % SODIUM CHLORIDE 500 ML 999 ML IV (06:49)
[2023-09-26 07:22] LABS: Basophils % 0.3 % (0.1-2.0); Eosinophils % 0.1 % (0.1-12.0); Hematocrit 41.3 % (42.0-52.0); Hemoglobin 13.3 g/dL (14.1-18.0); Lymphocytes # 0.7 K/mm3 (0.7-4.5); Lymphocytes % 7.6 % (10-50); Mean Corpuscular HGB Conc 32.1 g/dL (31.8-35.4); Mean Corpuscular Hemoglobin 29.6 pg (27.0-31.2); Mean Corpuscular Volume 92.3 fl (80-94); Mean Platelet Volume 8.5 fl (7.4-10.4); Monocytes # 0.4 K/mm3 (0.1-1.0); Monocytes % 4.6 % (1.7-9.3); Neutrophils # 8.4 K/mm3 (1.8-7.8); Neutrophils % 87.4 % (37.0-80.0); Platelet Count 158 K/mm3 (142-424); Red Blood Count 4.47 M/mm3 (4.60-6.20); Red Cell Distribution Width 14.5 % (11.5-17.5); White Blood Count 9.7 K/mm3 (4.8-10.8)
[2023-09-26 07:23] LABS: MANUAL DIFFERENTIAL MANUAL DIFFERENTIAL (MANUAL DIFF)
--- NOTE | 2023-09-26 07:37 | HMH.PHAINT1 ---
Pharmacy Intervention Comments: HOME MEDICATION LIST VERIFIED VIA OUTSIDE PHARMACY AND PULM NOTE
[2023-09-26] MEDS: BUDESONIDE 0.25MG/2ML NEB 0.25 MG IH (08:10)
[2023-09-26 08:32] LABS: Alanine Aminotransferase 32 U/L (12-78); Albumin Level 3.4 g/dl (3.5-5.0); Albumin/Globulin Ratio 1.3 (1.1-1.8); Alkaline Phosphatase 70 U/L (38-126); Anion Gap 11.3 mEq/L (5-15); Aspartate Amino Transferase 42 U/L (17-59); Bilirubin,Total 0.7 mg/dl (0.2-1.3); Blood Urea Nitrogen 27 mg/dl (9-20); Calcium 8.1 mg/dl (8.4-10.2); Carbon Dioxide 21 mmol/L (22.0-30.0); Chloride 106 mmol/L (98-107); Creatinine Clearance Estimated 29 mL/min (50-200); Estimated Glomerular Filt Rate 29 ml/min (>60); GFR (African American) 36 ML/MIN (>60); Globulin 2.6 g/dL (1.3-3.2); Glucose 172 mg/dl (74-100); Magnesium 2.1 mg/dl (1.6-2.3); Phosphorous 4.3 mg/dl (2.5-4.5); Potassium 4.3 mmoL/L (3.5-5.1); Sodium 134 mmol/L (136-145)
[2023-09-26 08:52] LABS: Lymphocytes % 9 % (10-50); Monocytes % 4 % (2-9); Neutrophils % 87 % (42-76); Platelet Estimate Normal; RBC Morphology Normal; Total Cells Counted 100
[2023-09-26] MEDS: PANTOPRAZOLE 40MG TABLET 40 MG PO (09:11)
[2023-09-26] MEDS: ENOXAPARIN 40MG/0.4ML SYRINGE 40 MG SQ (09:11)
[2023-09-26] MEDS: DEXAMETHASONE 4MG/ML 1ML VIAL 6 MG IV (09:11)
[2023-09-26] MEDS: CLOPIDOGREL 75MG TAB 75 MG PO (09:11)
--- NOTE | 2023-09-26 09:41 | P.CONS_ITS ---
History of Present Illness History of present illness: Mr. Munoz is a 72-year-old male greater than [id number] smoking history, asthma COPD overlap syndrome recently initiated on oxygen supplementation at night at 2 L, recently seen in the hospital late August for exacerbation discharged home on triple inhaler therapy along with singular DuoNebs on as- needed basis, followed in the clinic with improving respiratory symptoms presented again complaining worsening respiratory symptoms including on oxygen commands, admission pulmonary was called for further evaluation and management. [facility] Disclaimer: The information contained in this section may have been updated after the patient was seen, as this information can be updated by other users. Medical History Encounter for screening for malignant neoplasm of lung Asthma COPD (chronic obstructive pulmonary disease) Aortic insufficiency Dyspnea Cardiac pacemaker in situ Hyperlipidemia Hypertension Diastolic dysfunction Surgical History H/O hernia repair Social History (Updated 09/26/23 @ 03:33 by Judy Downs RN) Smoking Status: Former smoker tobacco type: cigars per week: 60 second hand exposure: No alcohol intake: never substance use type: denies use current occupational status: retired Travel in the last 8 weeks: [place] the [place] household members: spouse and children housing: house marital status: current occupational exposures/hazards: No caffeine: No Review of Systems Constitutional Constitutional: Reports anorexia, Reports body ache(s), Reports fatigue, Reports poor appetite and Reports lethargy Eyes Eyes: Denies eye discharge, Denies dry eyes, Denies irritation and Denies itchy eyes ENT Ears, Nose, Mouth, and Throat: Denies epistaxis, Denies facial pain, Denies lip swelling and Denies throat swelling *Cardiovascular Cardiovascular: Reports dyspnea and Reports dyspnea on exertion *Respiratory Respiratory: Denies change in phlegm color, Reports chest congestion, Reports cough, Reports dyspnea, Reports dyspnea on exertion, Denies excessive phlegm production and Reports wheezing *Gastrointestinal Gastrointestinal: Denies abdominal pain, Denies belching and Denies cramping *Musculoskeletal Musculoskeletal: Reports back pain, Reports myalgias and Reports other (No small joint swelling or Pain) Psychiatric Psychiatric: Denies homicidal ideation and Denies suicidal ideation Endocrine Endocrine: Reports fatigue and Denies heat intolerance Hematologic/Lymphatic Hematologic/Lymphatic: Denies easy bleeding and Denies lymphadenopathy Allergic/Immunologic Allergic/Immunologic: Denies itchy eyes, Denies lip swelling, Denies throat swelling and Reports wheezing Pulmonology Exam Inpatient Vital signs and Labs for Last 24 Hours: Temp Pulse Resp BP Pulse Ox O2 Del Method O2 Flow Rate 97.6 F 82 22 122/62 87 L Nasal Cannula 1 09/26/23 08:00 09/26/23 08:10 09/26/23 08:00 09/26/23 08:00 09/26/23 08:56 09/26/23 09:00 09/26/23 09:00 Laboratory Results - last 24 hr 09/25/23 20:08: VBG pH 7.34, VBG pCO2 45.0, VBG pO2 59.6 H, VBG HCO3 23.6, VBG Total CO2 25.0, VBG O2 Saturation 89.9 H, VBG Base Excess -2.2, VBG Lactic Acid 1.7 09/25/23 20:09: Chlamy pneumoniae PCR TNP, Adenovirus (PCR) Not detected, B. pertussis DNA (PCR) TNP, Coronavirus OC43 (PCR) Not detected, Coronavirus HKU1 (PCR) Not detected, Coronavirus 229E (PCR) Not detected, SARS-CoV-2 (PCR) Not detected, Coronavirus NL63 (PCR) Not detected, Human Metapneumovir PCR Detected A, Influenza A (H1) PCR Not detected, Influ A (H1N1/09) PCR Not detected, Influenza A (H3) PCR Not detected, Influenza Type A (PCR) Not detected, Influenza Type B (PCR) Not detected, M. pneumoniae (PCR) TNP, Parainfluenza 1 (PCR) Not detected, Parainfluenza 2 (PCR) Not detected, Parainfluenza 3 (PCR) Not detected, Parainfluenza 4 (PCR) Not detected, RSV (PCR) Not detected, Entero/Rhino (PCR) Not detected 09/25/23 20:15: WBC 10.1, RBC 4.99, Hgb 14.6, Hct 45.1, MCV 90.3, MCH 29.3, MCHC 32.5, RDW 14.2, Plt Count 190, MPV 8.6, Neut % (Auto) 74.6, Lymph % (Auto) 10.3, [place] % (Auto) 12.3 H, Eos % (Auto) 0.8, Baso % (Auto) 2.0, Neut # (Auto) 7.6, Lymph # (Auto) 1.0, [place] # (Auto) 1.3 H, Eos # (Auto) 0.1, Baso # (Auto) 0.2, S odium 134 L, Potassium 4.5, Chloride 102, Carbon Dioxide 25, Anion Gap 11.5, BUN 21 H, Creatinine 1.30 H, Estimated Creat Clear 48, Estimated GFR 54 L, Est GFR ( Amer) 65, Glucose 132 H, Calcium 8.4, Total Bilirubin 0.9, AST 40, ALT 34, Alkaline Phosphatase 76, Troponin I < 0.01, NT-Pro-B Natriuret Pep 273 H, Total Protein 6.6, Albumin 3.8, Globulin 2.8, Albumin/Globulin Ratio 1.4 09/25/23 23:11: Troponin I < 0.01 09/26/23 02:20: Troponin I < 0.01 09/26/23 05:20: WBC 9.7, RBC 4.47 L, Hgb 13.3 L, Hct 41.3 L, MCV 92.3, MCH 29.6, MCHC 32.1, RDW 14.5, Plt Count 158, MPV 8.5, Neut % (Auto) 87.4 H, Lymph % (Auto) 7.6 L, [place] % (Auto) 4.6, Eos % (Auto) 0.1, Baso % (Auto) 0.3, Neut # (Auto) 8.4 H, Lymph # (Auto) 0.7, [place] # (Auto) 0.4, Eos # (Auto) 0.0, Baso # (Auto) 0.0, Total Counted 100, Neutrophils % (Manual) 87 H, Lymphocytes % (Manual) 9 L, Monocytes % (Manual) 4, Platelet Estimate Normal, RBC Morphology Normal, Sodium 134 L, Potassium 4.3, Chloride 106, Carbon Dioxide 21 L, Anion Gap 11.3, BUN 27 H D, Creatinine 2.20 H D, Estimated Creat Clear 29, Estimated GFR 29 L, Est GFR ( Amer) 36 L D, Glucose 172 H D, Calcium 8.1 L, Phosphorus 4.3, Magnesium 2.1, Total Bilirubin 0.7, AST 42, ALT 32, Alkaline Phosphatase 70, Total Protein 6.0 L, Albumin 3.4 L D, Globulin 2.6, Albumin/Globulin Ratio 1.3 I & O for Labs for Last 24 Hours: Intake & Output 09/23/23 09/24/23 09/25/23 09/26/23 23:59 23:59 23:59 23:59 Intake Total 2151 / 2151 Output Total 175 / 175 Balance 1976 / 1976 Weight 147 lb 12.8 oz 152 lb 6.4 oz Constitutional: Present moderate distress Head: Present normocephalic and atraumatic ENT: Present normal exam, normal oropharynx and mucous membranes moist Neck: Present normal inspection and full ROM Respiratory: Present respiratory distress and able to speak in complete sentences; Absent wheezes or crackles Cardiac: Present S1/S2, Tachycardia and radial pulses present GI: Present soft and distention; Absent tenderness or guarding Skin: Present intact; Absent cyanosis or jaundice Neuro: Present alert, awake and oriented x 3 Extremities: Present normal inspection; Absent clubbing or cyanosis Psychiatric: Present normal affect and cooperative Meds Home Medications and Allergies Home Medications Medication Instructions Recorded Confirmed Type budesonide 0.25 mg/2 mL suspension 0.25 mg inhalation BID COPD 03/30/21 09/26/23 History for nebulization aspirin 81 mg tablet,delayed 81 mg PO DAILY Heart health 10/15/22 09/25/23 History release clopidogrel 75 mg tablet 75 mg PO DAILY platelet inhibitor 11/26/22 09/25/23 Rx #90 tabs furosemide 40 mg tablet 40 mg PO DAILY Edema 90 days #90 02/08/23 09/25/23 Rx tabs nitroglycerin 0.4 mg sublingual 0.4 mg sublingual Q5-15M PRN chest 08/19/23 09/25/23 Rx tablet pain #25 tabs atorvastatin 40 mg tablet 40 mg PO HS 08/29/23 09/25/23 History bisoprolol fumarate 10 mg tablet 10 mg PO DAILY 08/29/23 09/25/23 History valsartan 40 mg tablet 40 mg PO DAILY 08/29/23 09/25/23 History fluticasone fur. 200 mcg-umeclid 1 inh inhalation DAILY 30 days #1 08/30/23 09/26/23 Rx 62.5 mcg-vilant 25 mcg ea inhalat.powder (Trelegy Ellipta) spironolactone 25 mg tablet 25 mg PO DAILY #90 tabs 09/02/23 09/25/23 Rx (Aldactone) albuterol sulfate 90 mcg/actuation 2 inh inhalation QID PRN shortness 09/05/23 09/25/23 Rx aerosol inhaler of breath or wheezing #8.5 grams ipratropium 0.5 mg-albuterol 3 mg 3 ml inhalation Q6RT 90 days #120 09/05/23 09/25/23 Rx (2.5 mg base)/3 mL nebulization ea soln montelukast 10 mg tablet 10 mg PO HS 09/25/23 09/25/23 History pantoprazole 40 mg tablet,delayed 40 mg PO HS 09/25/23 09/25/23 History release (Protonix) New Prescriptions to Start Prescriptions: Allergies Allergy/AdvReac Type Severity Reaction Status Date / Time No Known Allergies Allergy Verified 09/06/23 11:26 Results Laboratory Findings 09/26/23 05:20 09/26/23 05:20 Abnormal lab findings: Abnormal Labs 09/25/23 09/25/23 09/25/23 20:08 20:09 20:15 RBC Hgb Hct Neut % (Auto) Lymph % (Auto) [place] % (Auto) 12.3 H Neut # (Auto) [place] # (Auto) 1.3 H Neutrophils % (Manual) Lymphocytes % (Manual) VBG pO2 59.6 H VBG O2 Saturation 89.9 H Sodium 134 L Carbon Dioxide BUN 21 H Creatinine 1.30 H Estimated GFR 54 L Est GFR ( Amer) Glucose 132 H Calcium NT-Pro-B Natriuret Pep 273 H Total Protein Albumin Human Metapneumovir PCR Detected A 09/26/23 05:20 RBC 4.47 L Hgb 13.3 L Hct 41.3 L Neut % (Auto) 87.4 H Lymph % (Auto) 7.6 L [place] % (Auto) Neut # (Auto) 8.4 H [place] # (Auto) Neutrophils % (Manual) 87 H Lymphocytes % (Manual) 9 L VBG pO2 VBG O2 Saturation Sodium 134 L Carbon Dioxide 21 L BUN 27 H D Creatinine 2.20 H D Estimated GFR 29 L Est GFR ( Amer) 36 L D Glucose 172 H D Calcium 8.1 L NT-Pro-B Natriuret Pep Total Protein 6.0 L Albumin 3.4 L D Human Metapneumovir PCR Assessment and Plan *Assessment and plan (1) Acute exacerbation of chronic obstructive pulmonary disease: Status: Acute Category: Medical Code(s): J44.1 - Chronic obstructive pulmonary disease with (acute) exacerbation (2) Acute on chronic hypoxic respiratory failure: Status: Acute Category: Medical Code(s): J96.21 - Acute and chronic respiratory failure with hypoxia Plan Mr. Munoz is a 72-year-old male greater than [id number] smoking history, asthma COPD overlap syndrome recently initiated on oxygen supplementation at night at 2 L, recently seen in the hospital late August for exacerbation discharged home on triple inhaler therapy along with singular DuoNebs on as- needed basis, followed in the clinic with improving respiratory symptoms presented again complaining worsening respiratory symptoms including on oxygen commands, admission pulmonary was called for further evaluation and management. Afebrile. Hemodynamically stable. No evidence of significant leukocytosis. Chest x-ray upon admission no consolidation/airspace disease. Recently noted airspace disease significantly improved. Respiratory viral PCR panel positive for metapneumovirus On initial examination patient appeared to be acute distress. On 1 L saturating 98%, saturations maintained at 90% and above. Plan: Trelegy 100 inhaler along with DuoNebs every 6 hours on as-needed basis Prednisone 40 mg daily x 5 days No need for antibiotics at this point given improving chest x-ray. Continue home oxygen supplementation at 2 L with exertion and at night. Thank you for involving pulmonary in this patient we will follow the patient in 5 to 7 days post discharge.
[2023-09-26] MEDS: FLUTICASONE/UMECLIDIN/VILANTER 100/62.5/25MCG INHALER 1 PUFF IH (11:14)
[2023-09-26 14:21] LABS: Chloride 108 mmol/L (98-107); Potassium 4.6 mmoL/L (3.5-5.1); Sodium 137 mmol/L (136-145)
[2023-09-26 14:24] LABS: Blood Urea Nitrogen 26 mg/dl (9-20); Creatinine Clearance Estimated 37 mL/min (50-200); Estimated Glomerular Filt Rate 40 ml/min (>60); GFR (African American) 48 ML/MIN (>60)
[2023-09-26 14:25] LABS: Anion Gap 11.6 mEq/L (5-15); Calcium 8.1 mg/dl (8.4-10.2); Carbon Dioxide 22 mmol/L (22.0-30.0); Glucose 181 mg/dl (74-100)
--- NOTE | 2023-09-26 14:36 | P.DS_ITS ---
General Admission date:: 09/25/23 Discharge date: 09/26/23 HPI HPI HPI: This is a 72-year-old male with history of asthma, COPD, CAD, cardiomyopathy and hypertension. Presented for complaint of cough, shortness of breath, not getting better. Patient is normotensive with a heart rate of 84-87% on room air upon arrival, and afebrile. patient was recently hospitalized for pneumonia. was discharged home, then follow up with pulmonology as outpatient. was prescribed home oxygen that he just recently got it. PAtient stated being in contact with a grandson that was sick with flu like symptoms. Patient denies chest pain fever chills hemoptysis hematochezia melena nausea vomiting diarrhea. Admitted for further treatment. Hospital Course Hospital Course Hospital Course: 72-year-old male with history of asthma, COPD, CAD, cardiomyopathy and hypertension. Presented for complaint of cough, shortness of breath, not getting better. Initial workup reviewed by me normal white count however is respiratory panel was positive for human metapneumovirus and my informal interpretation of his plain film chest x-ray shows no acute infiltrates. Upon repeat evaluation patient has had some improvement subjectively and his wheezing is better however he is unable to be weaned down off of his new oxygen requirement and desaturates with exertion. Admitted to medicine for further management. Pulmonology evaluated and assisting with care. Stable to discharge home to complete steroids for COPD exacerbation due to viral pathogen. Problems addressed as follows: Acute bronchitis secondary to human metapneumovirus acute exacerbation of COPD Chronic respiratory failure with hypoxia: -Patient with new oxygen requirement. Weaned to 2 L. Has oxygen at home. Discussed case with pulmonology, recommend discharging home to continue breathing treatments and 5 days of steroids. Comprehensive respiratory panel positive for human metapneumovirus. Findings consistent with viral COPD exacerbation. White cell count normal this morning at 9.7. Continue Trelegy 100 inhaler. Follow-up with pulmonology as an outpatient. JESSICA: BUN 27, creatinine peaked at 2.2. Repeat labs showed creatinine down to 1.7. Baseline 1.1-1.3. Stable to discharge home to continue oral hydration. Discontinued valsartan for the next 3 days and Lasix given JESSICA. Okay to resume in 3 to 4 days. Decrease bisoprolol by half for now given soft blood pressure. Continue Lipitor 40 mg daily, pantoprazole 40 mg daily, aspirin and Plavix for CAD. Total time spent on discharge 32 minutes in counseling, documentation, chart review, and direct care with patient. Exam Data for Last 24 hours Vital signs and Labs for Last 24 Hours: Temp Pulse Resp BP Pulse Ox O2 Del Method O2 Flow Rate 98.2 F 76 18 89/51 L 95 Nasal Cannula 1 09/26/23 12:00 09/26/23 12:00 09/26/23 12:00 09/26/23 12:00 09/26/23 12:00 09/26/23 13:00 09/26/23 13:00 Laboratory Results - last 24 hr 09/25/23 20:08: VBG pH 7.34, VBG pCO2 45.0, VBG pO2 59.6 H, VBG HCO3 23.6, VBG Total CO2 25.0, VBG O2 Saturation 89.9 H, VBG Base Excess -2.2, VBG Lactic Acid 1.7 09/25/23 20:09: Chlamy pneumoniae PCR TNP, Adenovirus (PCR) Not detected, B. pertussis DNA (PCR) TNP, Coronavirus OC43 (PCR) Not detected, Coronavirus HKU1 (PCR) Not detected, Coronavirus 229E (PCR) Not detected, SARS-CoV-2 (PCR) Not detected, Coronavirus NL63 (PCR) Not detected, Human Metapneumovir PCR Detected A, Influenza A (H1) PCR Not detected, Influ A (H1N1/09) PCR Not detected, Influenza A (H3) PCR Not detected, Influenza Type A (PCR) Not detected, Influenza Type B (PCR) Not detected, M. pneumoniae (PCR) TNP, Parainfluenza 1 (PCR) Not detected, Parainfluenza 2 (PCR) Not detected, Parainfluenza 3 (PCR) Not detected, Parainfluenza 4 (PCR) Not detected, RSV (PCR) Not detected, Entero/Rhino (PCR) Not detected 09/25/23 20:15: WBC 10.1, RBC 4.99, Hgb 14.6, Hct 45.1, MCV 90.3, MCH 29.3, MCHC 32.5, RDW 14.2, Plt Count 190, MPV 8.6, Neut % (Auto) 74.6, Lymph % (Auto) 10.3, [place] % (Auto) 12.3 H, Eos % (Auto) 0.8, Baso % (Auto) 2.0, Neut # (Auto) 7.6, Lymph # (Auto) 1.0, [place] # (Auto) 1.3 H, Eos # (Auto) 0.1, Baso # (Auto) 0.2, Sodium 134 L, Potassium 4.5, Chloride 102, Carbon Dioxide 25, Anion Gap 11.5, BUN 21 H, Creatinine 1.30 H, Estimated Creat Clear 48, Estimated GFR 54 L, Est GFR ( Amer) 65, Glucose 132 H, Calcium 8.4, Total Bilirubin 0.9, AST 40, ALT 34, Alkaline Phosphatase 76, Troponin I < 0.01, NT-Pro-B Natriuret Pep 273 H , Total Protein 6.6, Albumin 3.8, Globulin 2.8, Albumin/Globulin Ratio 1.4 09/25/23 23:11: Troponin I < 0.01 09/26/23 02:20: Troponin I < 0.01 09/26/23 05:20: WBC 9.7, RBC 4.47 L, Hgb 13.3 L, Hct 41.3 L, MCV 92.3, MCH 29.6, MCHC 32.1, RDW 14.5, Plt Count 158, MPV 8.5, Neut % (Auto) 87.4 H, Lymph % (Auto) 7.6 L, [place] % (Auto) 4.6, Eos % (Auto) 0.1, Baso % (Auto) 0.3, Neut # (Auto) 8.4 H, Lymph # (Auto) 0.7, [place] # (Auto) 0.4, Eos # (Auto) 0.0, Baso # (Auto) 0.0, Total Counted 100, Neutrophils % (Manual) 87 H, Lymphocytes % (Manual) 9 L, Monocytes % (Manual) 4, Platelet Estimate Normal, RBC Morphology Normal, Sodium 134 L, Potassium 4.3, Chloride 106, Carbon Dioxide 21 L, Anion Gap 11.3, BUN 27 H D, Creatinine 2.20 H D, Estimated Creat Clear 29, Estimated GFR 29 L, Est GFR ( Amer) 36 L D, Glucose 172 H D, Calcium 8.1 L, Phosphorus 4.3, Magnesium 2.1, Total Bilirubin 0.7, AST 42, ALT 32, Alkaline Phosphatase 70, Total Protein 6.0 L, Albumin 3.4 L D, Globulin 2.6, Albumin/Globulin Ratio 1.3 09/26/23 14:06: Sodium 137, Potassium 4.6, Chloride 108 H, Carbon Dioxide 22, Anion Gap 11.6, BUN 26 H, Creatinine 1.70 H D, Estimated Creat Clear 37, Es timated GFR 40 L, Est GFR ( Amer) 48 L D, Glucose 181 H, Calcium 8.1 L I & O for Last 24 hours: Intake & Output 09/23/23 09/24/23 09/25/23 09/26/23 23:59 23:59 23:59 23:59 Intake Total 2422 / 2422 Output Total 175 / 175 Balance 2247 / 2247 Weight 67.041 kg 69.127 kg Constitutional Constitutional: no acute distress and average body habitus *Routine HEENT Exam Head: Present normocephalic Eye: Present EOMI and PERRL ENT: Present mucous membranes moist *Routine Neck Exam Neck: Present supple; Absent lymphadenopathy *Routine Respiratory Exam Respiratory: Present rhonchi, wheezes and normal respiratory effort; Absent crackles Comments: Adventitious sounds left lower lobe, right lung with improved aeration from yesterday. Rhonchi change with cough *Routine Cardiovascular Exam Cardiovascular: Present RRR *Routine Abdominal Exam Abdominal: Present soft and normoactive bowel sounds; Absent tenderness *Routine Rectal Exam Patient deferred: visual exam *Routine Exam Patient deferred: penile exam *Routine Extremities Exam Extremities: Absent cyanosis, clubbing or edema *Routine Skin Exam Skin: Present warm; Absent rash *Routine Neurological Exam Neurological: Present alert, oriented X3 and moving all extremities; Absent altered mental status Results Data Completed and Pending Labs on day of discharge: Labs from last 24 hours 09/26/23 09/26/23 09/26/23 14:06 05:20 02:20 WBC 9.7 RBC 4.47 L Hgb 13.3 L Hct 41.3 L MCV 92.3 MCH 29.6 MCHC 32.1 RDW 14.5 Plt Count 158 MPV 8.5 Neut % (Auto) 87.4 H Lymph % (Auto) 7.6 L [place] % (Auto) 4.6 Eos % (Auto) 0.1 Baso % (Auto) 0.3 Neut # (Auto) 8.4 H Lymph # (Auto) 0.7 [place] # (Auto) 0.4 Eos # (Auto) 0.0 Baso # (Auto) 0.0 Total Counted 100 Neutrophils % (Manual) 87 H Lymphocytes % (Manual) 9 L Monocytes % (Manual) 4 Platelet Estimate Normal RBC Morphology Normal VBG pH VBG pCO2 VBG pO2 VBG HCO3 VBG Total CO2 VBG O2 Saturation VBG Base Excess VBG Lactic Acid Sodium 137 134 L Potassium 4.6 4.3 Chloride 108 H 106 Carbon Dioxide 22 21 L Anion Gap 11.6 11.3 BUN 26 H 27 H D Creatinine 1.70 H D 2.20 H D Estimated Creat Clear 37 29 Estimated GFR 40 L 29 L Est GFR ( Amer) 48 L D 36 L D Glucose 181 H 172 H D Calcium 8.1 L 8.1 L Phosphorus 4.3 Magnesium 2.1 Total Bilirubin 0.7 AST 42 ALT 32 Alkaline Phosphatase 70 Troponin I < 0.01 NT-Pro-B Natriuret Pep Total Protein 6.0 L Albumin 3.4 L D Globulin 2.6 Albumin/Globulin Ratio 1.3 Chlamy pneumoniae PCR Adenovirus (PCR) B. pertussis DNA (PCR) Coronavirus OC43 (PCR) Coronavirus HKU1 (PCR) Coronavirus 229E (PCR) SARS-CoV-2 (PCR) Coronavirus NL63 (PCR) Human Metapneumovir PCR Influenza A (H1) PCR Influ A (H1N1/09) PCR Influenza A (H3) PCR Influenza Type A (PCR) Influenza Type B (PCR) M. pneumoniae (PCR) Parainfluenza 1 (PCR) Parainfluenza 2 (PCR) Parainfluenza 3 (PCR) Parainfluenza 4 (PCR) RSV (PCR) Entero/Rhino (PCR) 09/25/23 09/25/23 09/25/23 23:11 20:15 20:09 WBC 10.1 RBC 4.99 Hgb 14.6 Hct 45.1 MCV 90.3 MCH 29.3 MCHC 32.5 RDW 14.2 Plt Count 190 MPV 8.6 Neut % (Auto) 74.6 Lymph % (Auto) 10.3 [place] % (Auto) 12.3 H Eos % (Auto) 0.8 Baso % (Auto) 2.0 Neut # (Auto) 7.6 Lymph # (Auto) 1.0 [place] # (Auto) 1.3 H Eos # (Auto) 0.1 Baso # (Auto) 0.2 Total Counted Neutrophils % (Manual) Lymphocytes % (Manual) Monocytes % (Manual) Platelet Estimate RBC Morphology VBG pH VBG pCO2 VBG pO2 VBG HCO3 VBG Total CO2 VBG O2 Saturation VBG Base Excess VBG Lactic Acid Sodium 134 L Potassium 4.5 Chloride 102 Carbon Dioxide 25 Anion Gap 11.5 BUN 21 H Creatinine 1.30 H Estimated Creat Clear 48 Estimated GFR 54 L Est GFR ( Amer) 65 Glucose 132 H Calcium 8.4 Phosphorus Magnesium Total Bilirubin 0.9 AST 40 ALT 34 Alkaline Phosphatase 76 Troponin I < 0.01 < 0.01 NT-Pro-B Natriuret Pep 273 H Total Protein 6.6 Albumin 3.8 Globulin 2.8 Albumin/Globulin Ratio 1.4 Chlamy pneumoniae PCR TNP Adenovirus (PCR) Not detected B. pertussis DNA (PCR) TNP Coronavirus OC43 (PCR) Not detected Coronavirus HKU1 (PCR) Not detected Coronavirus 229E (PCR) Not detected SARS-CoV-2 (PCR) Not detected Coronavirus NL63 (PCR) Not detected Human Metapneumovir PCR Detected A Influenza A (H1) PCR Not detected Influ A (H1N1/09) PCR Not detected Influenza A (H3) PCR Not detected Influenza Type A (PCR) Not detected Influenza Type B (PCR) Not detected M. pneumoniae (PCR) TNP Parainfluenza 1 (PCR) Not detected Parainfluenza 2 (PCR) Not detected Parainfluenza 3 (PCR) Not detected Parainfluenza 4 (PCR) Not detected RSV (PCR) Not detected Entero/Rhino (PCR) Not detected 09/25/23 20:08 WBC RBC Hgb Hct MCV MCH MCHC RDW Plt Count MPV Neut % (Auto) Lymph % (Auto) [place] % (Auto) Eos % (Auto) Baso % (Auto) Neut # (Auto) Lymph # (Auto) [place] # (Auto) Eos # (Auto) Baso # (Auto) Total Counted Neutrophils % (Manual) Lymphocytes % (Manual) Monocytes % (Manual) Platelet Estimate RBC Morphology VBG pH 7.34 VBG pCO2 45.0 VBG pO2 59.6 H VBG HCO3 23.6 VBG Total CO2 25.0 VBG O2 Saturation 89.9 H VBG Base Excess -2.2 VBG Lactic Acid 1.7 Sodium Potassium Chloride Carbon Dioxide Anion Gap BUN Creatinine Estimated Creat Clear Estimated GFR Est GFR ( Amer) Glucose Calcium Phosphorus Magnesium Total Bilirubin AST ALT Alkaline Phosphatase Troponin I NT-Pro-B Natriuret Pep Total Protein Albumin Globulin Albumin/Globulin Ratio Chlamy pneumoniae PCR Adenovirus (PCR) B. pertussis DNA (PCR) Coronavirus OC43 (PCR) Coronavirus HKU1 (PCR) Coronavirus 229E (PCR) SARS-CoV-2 (PCR) Coronavirus NL63 (PCR) Human Metapneumovir PCR Influenza A (H1) PCR Influ A (H1N1/) PCR Influenza A (H3) PCR Influenza Type A (PCR) Influenza Type B (PCR) M. pneumoniae (PCR) Parainfluenza 1 (PCR) Parainfluenza 2 (PCR) Parainfluenza 3 (PCR) Parainfluenza 4 (PCR) RSV (PCR) Entero/Rhino (PCR) DS: Diagnosis Discharge Diagnosis (1) Acute exacerbation of chronic obstructive pulmonary disease: Status: Acute Code(s): J44.1 - Chronic obstructive pulmonary disease with (acute) exacerbation (2) Acute on chronic hypoxic respiratory failure: Status: Acute Code(s): J96.21 - Acute and chronic respiratory failure with hypoxia Meds Home Medications and Allergies Home Medications Medication Instructions Recorded Confirmed Type budesonide 0.25 mg/2 mL suspension 0.25 mg inhalation BID COPD 03/30/21 09/26/23 History for nebulization aspirin 81 mg tablet,delayed 81 mg PO DAILY Heart health 10/15/22 09/25/23 Hi story release clopidogrel 75 mg tablet 75 mg PO DAILY platelet inhibitor 11/26/22 09/25/23 Rx #90 tabs furosemide 40 mg tablet 40 mg PO DAILY Edema 90 days #90 02/08/23 09/25/23 Rx tabs nitroglycerin 0.4 mg sublingual 0.4 mg sublingual Q5-15M PRN chest 08/19/23 09/25/23 Rx tablet pain #25 tabs atorvastatin 40 mg tablet 40 mg PO HS 08/29/23 09/25/23 History valsartan 40 mg tablet 40 mg PO DAILY 08/29/23 09/25/23 History spironolactone 25 mg tablet 25 mg PO DAILY #90 tabs 09/02/23 09/25/23 Rx (Aldactone) albuterol sulfate 90 mcg/actuation 2 inh inhalation QID PRN shortness 09/05/23 09/25/23 Rx aerosol inhaler of breath or wheezing #8.5 grams ipratropium 0.5 mg-albuterol 3 mg 3 ml inhalation Q6RT 90 days #120 09/05/23 09/25/23 Rx (2.5 mg base)/3 mL nebulization ea soln montelukast 10 mg tablet 10 mg PO HS 09/25/23 09/25/23 History pantoprazole 40 mg tablet,delayed 40 mg PO HS 09/25/23 09/25/23 History release (Protonix) bisoprolol fumarate 10 mg tablet 5 mg (1/2 x 10 mg) PO DAILY 30 09/26/23 09/25/23 Rx days #15 tabs fluticasone fur. 200 mcg-umeclid 1 inh inhalation DAILY 30 days #1 09/26/23 Rx 62.5 mcg-vilant 25 mcg ea inhalat.powder (Trelegy Ellipta) prednisone 20 mg tablet 40 mg (2 x 20 mg) PO DAILY 4 days 09/26/23 Rx #8 tabs New Prescriptions to Start Prescriptions: prednisone Aaron Roth Allergies Allergy/AdvReac Type Severity Reaction Status Date / Time No Known Allergies Allergy Verified 09/06/23 11:26 Discharge Plan Disposition Patient Disposition: Home, Self-Care Condition: Fair Follow up Plan Follow up with: Gaurang Downing MD [Physician] - 10/02/23 1:15 pm Musa Martínez MD [Primary Care Provider] - 10/03/23 9:00 am Prescriptions/Medication Reconciliation: New prednisone 20 mg tablet 40 mg PO DAILY 4 Days Qty: 8 0RF Continued nitroglycerin 0.4 mg tablet, sublingual 0.4 mg SL Q5-15M PRN (Reason: chest pain) Qty: 25 0RF Rx Instructions: until response; do not exceed 3 doses per episode ipratropium-albuterol 0.5 mg-3 mg(2.5 mg base)/3 mL solution for nebulization 3 ml inhalation Q6RT 90 Days Qty: 120 0RF albuterol sulfate 90 mcg/actuation HFA aerosol inhaler 2 inh IH QID PRN (Reason: shortness of breath or wheezing) Qty: 8.5 12RF clopidogrel 75 mg tablet 75 mg PO DAILY Qty: 90 3RF spironolactone [Aldactone] 25 mg tablet 25 mg PO DAILY Qty: 90 3RF Trelegy Ellipta 200-62.5-25 mcg blister with device 1 inh inhalation DAILY 30 Days Qty: 1 0RF budesonide 0.25 MG/2 ML suspension for nebulization 0.25 mg IH BID pantoprazole [Protonix] 40 mg tablet,delayed release (DR/EC) 40 mg PO HS montelukast 10 mg tablet 10 mg PO HS aspirin 81 mg tablet,delayed release (DR/EC) 81 mg PO DAILY atorvastatin 40 mg tablet 40 mg PO HS Changed bisoprolol fumarate 10 mg tablet 5 mg PO DAILY 30 Days Qty: 15 0RF Held furosemide 40 mg tablet 40 mg PO DAILY 90 Days Qty: 90 3RF Hold Instructions: Resume in 3 days valsartan 40 mg tablet 40 mg PO DAILY Hold Instructions: Resume in 3 days Other Ambulatory Orders: Basic Metabolic Panel (Routine) Timeframe: 2 Days Facility: [facility] - Location: Laboratory Ordered By: Aaron Roth Problem Reconciliation Problems Reviewed?: Yes Patient Discharge Instructions ACTIVITY: Continue current activity DIET: continue same diet Patient Instructions: DI for Shortness of Breath Providers Primary Care Provider: Musa Martínez Admit Provider: Aaron Roth Attending Provider: Aaron Roth
--- NOTE | 2023-09-26 15:07 | HMH.PHAINT1 ---
Pharmacy Intervention Comments: DISCHARGE MEDICATION COUNSELING PROVIDED. DISCUSSED STARTING PREDNISONE (DAILY ,TAKE WITH FOOD, UPSET STOMACH POSSIBLE, INSOMNIA POSSIBLE, INCREASED BLOOD SUGAR, TAKE IN THE MORNING.) HOLD LASIX AND VALSARTAN FOR 3 DAYS, STOP BISOPROLOL 10 MG DAILY AND START BISOPROLOL 5 MG DAILY. PATIENT VERBALIZED NO QUESTIONS AT THIS TIME.
--- NOTE | 2023-09-27 15:18 | CARE MANAGER ---
Contacted patient's related to hospital discharge. She states that he is doing better this morning than he was last night and thinks the steroid is helping. They are aware of follow up appointments and deny questions or concerns. LUZ Conde
== END 2023-09-26 15:41 | disposition home or self-care (01) ==
LOC: ER 21:25 → 2ND 21:46
PROVIDERS: Nurse Practitioner Family; Physician Assistant; Admitting Provider Internal Medicine Adolescent Medicine; Emergency Provider Emergency Medicine; PCP Family Medicine; Visit Provider Internal Medicine Adolescent Medicine
DX: J44.1 Chronic obstructive pulmonary disease with (acute) exacerbation (principal); N17.9 Acute kidney failure, unspecified; J20.8 Acute bronchitis due to other specified organisms; B97.81 Human metapneumovirus as the cause of diseases classified elsewhere; I25.10 Atherosclerotic heart disease of native coronary artery without angina pectoris; Z95.0 Presence of cardiac pacemaker; I10 Essential (primary) hypertension; E78.2 Mixed hyperlipidemia; K21.9 Gastro-esophageal reflux disease without esophagitis; Z87.891 Personal history of nicotine dependence; Z79.899 Other long term (current) drug therapy; Z79.01 Long term (current) use of anticoagulants; R06.02 Shortness of breath; I42.9 Cardiomyopathy, unspecified; Z99.81 Dependence on supplemental oxygen; J96.21 Acute and chronic respiratory failure with hypoxia; J44.9 Chronic obstructive pulmonary disease, unspecified
CPT/HCPCS: 36415; 71045; 80048; 80053; 82803; 83735; 83880; 84100; 84484; 85007; 85025; 87070; 87205; 87632; 87635; 93005; 94640; 94761; 99285; G0378; J0131

== ENCOUNTER 2023-09-30 18:00 | Outpatient (CLI) | payer MEDICARE, SELFPAY ==
[2023-09-30 18:56] LABS: Basophils # 0.1 K/mm3 (0-0.2); Basophils % 0.4 % (0.1-2.0); Eosinophils % 0.1 % (0.1-12.0); Hematocrit 46.4 % (42.0-52.0); Hemoglobin 14.3 g/dL (14.1-18.0); Mean Corpuscular HGB Conc 30.8 g/dL (31.8-35.4); Mean Corpuscular Hemoglobin 28.9 pg (27.0-31.2); Mean Corpuscular Volume 93.9 fl (80-94); Mean Platelet Volume 9.2 fl (7.4-10.4); Monocytes # 0.8 K/mm3 (0.1-1.0); Monocytes % 5.8 % (1.7-9.3); Neutrophils # 12.1 K/mm3 (1.8-7.8); Neutrophils % 86.7 % (37.0-80.0); Platelet Count 265 K/mm3 (142-424); Red Blood Count 4.94 M/mm3 (4.60-6.20); Red Cell Distribution Width 14.2 % (11.5-17.5); White Blood Count 13.9 K/mm3 (4.8-10.8)
[2023-09-30 18:58] LABS: MANUAL DIFFERENTIAL MANUAL DIFFERENTIAL (MANUAL DIFF)
[2023-09-30 19:08] LABS: Alanine Aminotransferase 44 U/L (12-78); Albumin Level 3.4 g/dl (3.5-5.0); Albumin/Globulin Ratio 1.2 (1.1-1.8); Alkaline Phosphatase 89 U/L (38-126); Anion Gap 10.4 mEq/L (5-15); Aspartate Amino Transferase 38 U/L (17-59); Bilirubin,Total 0.6 mg/dl (0.2-1.3); Blood Urea Nitrogen 19 mg/dl (9-20); Calcium 9.2 mg/dl (8.4-10.2); Carbon Dioxide 32 mmol/L (22.0-30.0); Chloride 104 mmol/L (98-107); Estimated Glomerular Filt Rate 82 ml/min (>60); GFR (African American) 100 ML/MIN (>60); Globulin 2.8 g/dL (1.3-3.2); Glucose 124 mg/dl (74-100); Potassium 4.4 mmoL/L (3.5-5.1); Sodium 142 mmol/L (136-145); Total Protein,Serum 6.2 g/dl (6.3-8.2)
[2023-09-30 21:09] LABS: Lymphocytes % 15 % (10-50); Monocytes % 1 % (2-9); Neutrophils % 84 % (42-76); Total Cells Counted 100
[2023-09-30 21:10] LABS: Platelet Estimate Normal; RBC Morphology Normal
== END 2023-09-30 23:59 | disposition home or self-care (01) ==
LOC: LAB.DROPOF 10-01 07:56
PROVIDERS: PCP Nurse Practitioner; Visit Provider Nurse Practitioner
DX: J44.1 Chronic obstructive pulmonary disease with (acute) exacerbation (principal); N17.9 Acute kidney failure, unspecified
CPT/HCPCS: 80053; 85007; 85025

== ENCOUNTER 2024-01-30 09:45 | Outpatient (CLI) | payer MEDICARE, SELFPAY ==
[2024-01-30 10:19] LABS: Basophils # 0.1 K/mm3 (0-0.2); Basophils % 0.5 % (0.1-2.0); Eosinophils # 0.4 K/mm3 (0.0-0.4); Eosinophils % 3.7 % (0.1-12.0); Lymphocytes # 1.4 K/mm3 (0.7-4.5); Lymphocytes % 11.5 % (10-50); Mean Corpuscular HGB Conc 31.3 g/dL (31.8-35.4); Mean Corpuscular Hemoglobin 30.3 pg (27.0-31.2); Mean Corpuscular Volume 96.9 fl (80-94); Mean Platelet Volume 7.8 fl (7.4-10.4); Monocytes % 8.5 % (1.7-9.3); Neutrophils % 75.8 % (37.0-80.0); Platelet Count 200 K/mm3 (142-424); Red Blood Count 4.95 M/mm3 (4.60-6.20); Red Cell Distribution Width 14.5 % (11.5-17.5); White Blood Count 11.9 K/mm3 (4.8-10.8)
[2024-01-30 11:11] LABS: 25-OH Vitamin D, Total 18.2 ng/mL (30-100)
[2024-02-06 09:21] LABS: Immunoglobulin E, Total 11 IU/mL (6-495)
== END 2024-01-30 23:59 | disposition home or self-care (01) ==
LOC: LAB 09:47
PROVIDERS: Nurse Practitioner; PCP Family Medicine; Visit Provider Allergy & Immunology
DX: J45.40 Moderate persistent asthma, uncomplicated (principal); E55.9 Vitamin D deficiency, unspecified
CPT/HCPCS: 36415; 82306; 82785; 85025

== ENCOUNTER 2024-02-11 12:34 | Outpatient (CLI) | payer MEDICARE, SELFPAY ==
[2024-02-11 13:40] VITALS: PULSE 72; PULSE 75
[2024-02-11] MEDS: ALBUTEROL 0.083% 2.5 MG/3 ML NEB IH (13:40)
== END 2024-02-11 23:59 | disposition home or self-care (01) ==
LOC: RT 12:35
PROVIDERS: PCP Family Medicine; Visit Provider Internal Medicine Pulmonary Disease
DX: R06.09 Other forms of dyspnea (principal)
CPT/HCPCS: 94060; 94618; 94640; 94726; 94729; J7613

== ENCOUNTER 2024-02-19 10:11 | Outpatient (CLI) | payer MEDICARE, SELFPAY ==
[2024-02-19 10:44] LABS: Basophils # 0.1 K/mm3 (0-0.2); Basophils % 0.9 % (0.1-2.0); Eosinophils # 0.2 K/mm3 (0.0-0.4); Eosinophils % 2.6 % (0.1-12.0); Hematocrit 46.3 % (42.0-52.0); Hemoglobin 14.4 g/dL (14.1-18.0); Lymphocytes # 1.8 K/mm3 (0.7-4.5); Lymphocytes % 19.3 % (10-50); Mean Corpuscular HGB Conc 31.2 g/dL (31.8-35.4); Mean Corpuscular Volume 96.4 fl (80-94); Mean Platelet Volume 7.1 fl (7.4-10.4); Monocytes # 0.6 K/mm3 (0.1-1.0); Monocytes % 6.9 % (1.7-9.3); Neutrophils # 6.4 K/mm3 (1.8-7.8); Neutrophils % 70.3 % (37.0-80.0); Platelet Count 308 K/mm3 (142-424); Red Blood Count 4.81 M/mm3 (4.60-6.20); Red Cell Distribution Width 13.9 % (11.5-17.5); White Blood Count 9.1 K/mm3 (4.8-10.8)
[2024-02-19 11:15] LABS: Alanine Aminotransferase 28 U/L (12-78); Albumin Level 3.8 g/dl (3.5-5.0); Alkaline Phosphatase 64 U/L (38-126); Anion Gap 7.5 mEq/L (5-15); Aspartate Amino Transferase 30 U/L (17-59); Bilirubin,Direct 0.3 mg/dl (0.0-0.4); Bilirubin,Indirect 0.3 mg/dL (0.0-0.9); Bilirubin,Total 0.6 mg/dl (0.2-1.3); Bilirubin,Unconjugated 0.3 mg/dL (0.0-1.1); Blood Urea Nitrogen 17 mg/dl (9-20); Calcium 9.4 mg/dl (8.4-10.2); Carbon Dioxide 31 mmol/L (22.0-30.0); Chloride 106 mmol/L (98-107); Chol/HDL Ratio 4.2 (1-3.5); Cholesterol 167 mg/dl (140-200); Estimated Glomerular Filt Rate 73 ml/min (>60); GFR (African American) 88 ML/MIN (>60); Glucose 93 mg/dl (74-100); HDL Cholesterol 40 mg/dl (40-60); Potassium 4.5 mmoL/L (3.5-5.1); Sodium 140 mmol/L (136-145); Total Protein,Serum 6.4 g/dl (6.3-8.2); Triglycerides 122 mg/dl (30-150); VLDL Cholesterol 24 mg/dL (0-40)
[2024-02-19 11:26] LABS: Direct LDL Cholesterol 94.21 mg/dL (100-129)
== END 2024-02-19 23:59 | disposition home or self-care (01) ==
LOC: LAB 10:12
PROVIDERS: PCP Family Medicine; Visit Provider Nurse Practitioner
DX: E78.5 Hyperlipidemia, unspecified (principal); I25.10 Atherosclerotic heart disease of native coronary artery without angina pectoris; I10 Essential (primary) hypertension
CPT/HCPCS: 36415; 80048; 80061; 80076; 85025

== ENCOUNTER 2024-03-28 20:41 | Inpatient (IN) | payer MEDICARE, SELFPAY ==
[2024-03-28 20:43] VITALS: BP 117/71; PULSE 86; RESP 18; TEMP 36.7; O2SAT 85; BMI 29.2
--- NOTE | 2024-03-28 20:58 | ED_ITS ---
Discharge Plan Disposition Patient Disposition: Admitted Discharge ED Provider: Em Mcgregor HPI <Harjinder Kline ([facility]), BEHAVIORAL HEALTH CARE COORDINATOR - Last Filed: 03/28/24 22:24> General Chief Complaint: Shortness of Breath/Dyspnea Stated Complaint: SOA,Confused,congestion,cough Time Seen by Provider: 03/28/24 20:45 Mode of Arrival: Wheelchair Source of Information: Patient and Significant Other Limitations: No Limitations Description of Symptoms (Recalled from ER Triage Doc. by RN): Patient has been sick wince yesterday morning. Worse today. He is short of breath and has right lung pain History of Present Illness HPI narrative: 73-year-old male presents for right-sided chest tightness, cough, shortness of breath, coughing up sputum and confusion. states earlier patient had an episode where he could not speak correctly or gain his thoughts. states that this lasted for a few minutes. Patient/ states confusion has much improved. Patient is able to answer questions appropriately. patient states history of COPD uses O2 as needed and has been wearing it continuously today. Patient states he has a history of cardiac disease has 10 stents. Related Data Home Medications ?Medication ?Instructions ?Recorded ?Confirmed budesonide 0.25 mg/2 mL suspension 0.25 mg inhalation BID COPD 03/30/21 02/19/24 for nebulization atorvastatin 40 mg tablet 40 mg PO HS 08/29/23 02/19/24 montelukast 10 mg tablet 10 mg PO HS 09/25/23 02/19/24 Previous Rx's ?Medication ?Instructions ?Recorded nitroglycerin 0.4 mg sublingual 0.4 mg sublingual Q5-15M PRN chest 08/19/23 tablet pain #25 tabs spironolactone 25 mg tablet 25 mg PO DAILY #90 tabs 09/02/23 (Aldactone) albuterol sulfate 90 mcg/actuation 2 inh inhalation QID PRN shortness 09/05/23 aerosol inhaler of breath or wheezing #8.5 grams ipratropium 0.5 mg-albuterol 3 mg 3 ml inhalation Q6RT 90 days #120 09/05/23 (2.5 mg base)/3 mL nebulization ea soln dextromethorphan-guaifenesin ER 60 1 tab PO Q12H #60 tabs 09/30/23 mg-1,200 mg tab,extend release,12hr aspirin 81 mg tablet,delayed 81 mg PO DAILY Heart health 90 11/04/23 release days #90 tabs fluticasone fur. 200 mcg-umeclid 1 inh inhalation DAILY 90 days #3 11/05/23 62.5 mcg-vilant 25 mcg ea inhalat.powder (Trelegy Ellipta) valsartan 40 mg tablet 40 mg PO DAILY #30 tabs 11/08/23 clopidogrel 75 mg tablet 75 mg PO DAILY platelet inhibitor 12/02/23 #90 tabs levofloxacin 750 mg tablet 750 mg PO DAILY 10 days #10 tabs 01/03/24 prednisone 20 mg tablet 20 mg PO .COMPLEX #15 tabs 01/15/24 bisoprolol fumarate 10 mg tablet 5 mg (1/2 x 10 mg) PO DAILY 30 03/23/24 days #15 tabs pantoprazole 40 mg tablet,delayed 40 mg PO HS #30 tabs 03/23/24 release (Protonix) furosemide 40 mg tablet 40 mg PO DAILY Edema 90 days #90 03/25/24 tabs Allergies Allergy/AdvReac Type Severity Reaction Status Date / Time No Known Allergies Allergy Verified 02/19/24 09:47 [facility] <Harjinder Kline ([facility]), BEHAVIORAL HEALTH CARE COORDINATOR - Last Filed: 03/28/24 22:24> [facility] Disclaimer: The information contained in this section may have been updated after the patient was seen, as this information can be updated by other users. Medical History , BEHAVIORAL HEALTH CARE COORDINATOR) Asthma exacerbation History of pacemaker SOBOE (shortness of breath on exertion) Supplemental oxygen dependent History of smoking 30 or more pack years Encounter for screening for malignant neoplasm of lung Asthma COPD (chronic obstructive pulmonary disease) Aortic insufficiency Dyspnea Cardiac pacemaker in situ Hyperlipidemia Hypertension Diastolic dysfunction Surgical History , BEHAVIORAL HEALTH CARE COORDINATOR) History of hip surgery History of heart artery stent H/O hernia repair Family History , BEHAVIORAL HEALTH CARE COORDINATOR) Heart attack Cancer Social History , BEHAVIORAL HEALTH CARE COORDINATOR) Smoking Status: Never smoker how long ago did patient quit smokin second hand exposure: No alcohol intake: never substance use type: denies use current occupational status: retired Travel in the last 8 weeks: None household members: spouse and children housing: house marital status: current occupational exposures/hazards: No caffeine: No Other Medical History Have you received the Flu Vaccine for this season: No Have you received the Pneumonia Vaccine: Yes <Harjinder Kline ([facility]), BEHAVIORAL HEALTH CARE COORDINATOR - Last Filed: 03/28/24 22:24> ROS Obtained: Yes Systems reviewed as appropriate & no additional complaints except as documented Physical Exam <Harjinder Kline ([facility]), BEHAVIORAL HEALTH CARE COORDINATOR - Last Filed: 03/28/24 22:24> General General appearance: alert and in no apparent distress Head Head exam: atraumatic Eye Eye exam: Present normal appearance and PERRL ENT ENT exam: Present normal exam and mucous membranes moist Respiratory Respiratory exam: Present wheezes Cardiovascular Cardiovascular exam: Present regular rate, normal rhythm and Pacemaker/defibrillator Abdominal Exam Abdominal exam: Present soft and hyperactive bowel sounds Neurological Exam Neurological exam: Present alert, oriented X3 and CN II-XII intact Skin Skin exam: Present warm and intact HEART Score <Harjinder Kline ([facility]), BEHAVIORAL HEALTH CARE COORDINATOR - Last Filed: 03/28/24 22:24> HEART Score HEART Score assessment performed?: No History (anamnesis): Slightly suspicious ECG: Non-specific disturbance Age: >65 years Risk factors: 3 or more risk factors Critical Care <Harjinder Kline ([facility]), BEHAVIORAL HEALTH CARE COORDINATOR - Last Filed: 03/28/24 22:24> Critical Care Time Critical Care Time: No Medical Decision Making <Harjinder Kline ([facility]), BEHAVIORAL HEALTH CARE COORDINATOR - Last Filed: 03/28/24 22:24> Medical Records Medical records reviewed: Yes I reviewed the patient's medical records. Salty Inquiry Pt receiving controlled substance: No Salty was queried for this patient: No Vital Signs Vital Signs: 03/28/24 20:43 03/28/24 21:26 03/28/24 21:42 Temperature 98.1 F 98.1 F Temperature Source Oral Oral Pulse Rate 86 86 Pulse Rate [Brachial] 86 Pulse Rate [Right Radial] 86 Respiratory Rate 18 18 Blood Pressure 98/50 L Blood Pressure [Right Arm] 117/71 Blood Pressure Mean [Right Arm] 86 Blood Pressure Source Automatic Cuff Blood Pressure Source [Right Arm] Automatic Cuff Blood Pressure Position Supine Blood Pressure Position [Right Arm] Supine 02 Sat by Pulse Oximetry 85 L 97 Oxygen Delivery Method Room Air Nasal Cannula Oxygen Flow Rate (LPM) 2 03/28/24 22:09 Temperature 98.1 F Temperature Source Oral Pulse Rate 86 Pulse Rate [Brachial] Pulse Rate [Right Radial] Respiratory Rate 18 Blood Pressure 93/51 L Blood Pressure [Right Arm] Blood Pressure Mean [Right Arm] Blood Pressure Source Automatic Cuff Blood Pressure Source [Right Arm] Blood Pressure Position Supine Blood Pressure Position [Right Arm] 02 Sat by Pulse Oximetry 98 Oxygen Delivery Method Nasal Cannula Oxygen Flow Rate (LPM) 2 Lab Data Lab results reviewed: Yes I reviewed the patient's lab results. Labs: Lab Results 03/28/24 21:07: WBC 29.6 H*, RBC 4.74, Hgb 13.9 L, Hct 42.7, MCV 90.0, MCH 29.4, MCHC 32.6, RDW 13.8, Plt Count 192, MPV 8.1, Neut % (Auto) 87.3 H, Lymph % (Auto) 6.1 L, Scurry % (Auto) 5.4, Eos % (Auto) 0.6, Baso % (Auto) 0.5, Neut # (Auto) 25.9 H, Lymph # (Auto) 1.8, Scurry # (Auto) 1.6 H, Eos # (Auto) 0.2, Baso # (Auto) 0.2, Total Counted 100, Neutrophils % (Manual) 88 H, Lymphocytes % (Manual) 10, Monocytes % (Manual) 2, Platelet Estimate Normal, Hypochromasia 1+, Sodium 133 L, Potassium 4.4, Chloride 101, Carbon Dioxide 26, Anion Gap 10.4, B UN 27 H, Creatinine 1.40 H, Estimated Creat Clear 44, Estimated GFR 49 L, Est GFR ( Amer) 60, Glucose 124 H, Calcium 8.4, Total Bilirubin 2.0 H, AST 34, ALT 23, Alkaline Phosphatase 57, Total Protein 6.6, Albumin 3.8, Globulin 2.8, Albumin/Globulin Ratio 1.4 03/28/24 21:07 03/28/24 21:07 Response Orders (Tests/Meds): ED MEDICATIONS Discontinued Medications Generic Name Dose Route Start Last Admin Trade Name Constance PRN Reason Stop Dose Admin Albuterol Sulfate 2.5 mg 03/28/24 21:00 03/28/24 21:25 Albuterol 0.083% 2.5 Mg/3 Ml Neb IH 03/28/24 21:01 2.5 mg ONCE ONE Administration Azithromycin 500 mg/ Sodium 250 mls @ 250 mls/hr 03/28/24 21:15 03/28/24 21:25 Chloride IV 03/28/24 21:16 250 mls/hr Q24H ONE Administration Ceftriaxone Sodium 1 gm/ 50 mls @ 100 mls/hr 03/28/24 21:15 03/28/24 21:24 Sodium Chloride IV 03/28/24 21:44 100 mls/hr Q24H ONE Administration Methylprednisolone Sodium Succinate 125 mg 03/28/24 21:00 03/28/24 21:08 Methylprednisolone Sod Succ 125mg Vial IM 03/28/24 21:01 125 mg ONCE ONE Administration ORDERS Category Date Time Status CT head/brain wo con Stat Cat Scan 03/28/24 21:00 Taken Chest XR AP view [XR chest AP] Stat Exams 03/28/24 21:00 Taken BNP [NT Pro Brain Natriuretic Pep.] Stat Lab 03/28/24 21:00 Received CBC Man Diff [Complete Blood Count Man Dif] Stat Lab 03/28/24 21:07 Completed CMP [Comprehensive Metabolic Panel] Stat Lab 03/28/24 21:07 Completed HIV (1&2) Antibody Rapid Stat Lab 03/28/24 21:00 Received Hep C Ab with Reflex to RNA Stat Lab 03/28/24 21:00 Received Lactic Acid Stat Lab 03/28/24 22:16 Ordered Procalcitonin Stat Lab 03/28/24 21:00 Received Rapid PCR Covid and Flu A/B Stat Lab 03/28/24 22:19 Received UA [Urinalysis and Microscopic] Stat Lab 03/28/24 21:00 Ordered Blood Culture Stat Micro 03/28/24 21:20 Received 12-lead EKG Request [ECG Request] Stat Y 03/28/24 21:00 Ordered Physician Consults Physician Consulted: Margie LU/hospitalist Time: 22:19 Reason -: Admission and Pt condition MDM Narrative Medical Decision Narrative: In summary patient is a 73-year-old male who presents to the emergency department for evaluation of cough, shortness of breath, confusion. states he was in the hospital about 6 months ago for pneumonia. Last seen his PCP was a month ago and was placed on antibiotics. Patient is hemodynamically stable upon arrival, afebrile. On exam wheezing noted, alert and oriented x 3. Differential diagnosis includes stroke, UTI, pneumonia, COPD ex. Initial workup will be conducted with labs, urinalysis, chest x-ray, CT of the head. Initial inventions include Solu-Medrol 125 mg, DuoNeb, O2 at 2 L. Initial workup reviewed by ks white blood cells 29.6 chest x-ray shows a left upper lobe pneumonia. Upon repeat evaluation patient resting comfortably in bed, O2 at 2 L, at bedside. Given this hospitalist was called for admission for left upper lobe pneumonia. Places where you can increase complexity: I informally interpreted patient's chest x-ray/left upper lobe pneumonia and CT negative Documented with night monitor shows normal sinus rhythm with pacemaker spikes heart rate 84 rate <Em Mcgregor MD - Last Filed: 03/28/24 22:25> Vital Signs Vital Signs: 03/28/24 20:43 03/28/24 21:26 03/28/24 21:42 Temperature 98.1 F 98.1 F Temperature Source Oral Oral Pulse Rate 86 86 Pulse Rate [Brachial] 86 Pulse Rate [Right Radial] 86 Respiratory Rate 18 18 Blood Pressure 98/50 L Blood Pressure [Right Arm] 117/71 Blood Pressure Mean [Right Arm] 86 Blood Pressure Source Automatic Cuff Blood Pressure Source [Right Arm] Automatic Cuff Blood Pressure Position Supine Blood Pressure Position [Right Arm] Supine 02 Sat by Pulse Oximetry 85 L 97 Oxygen Delivery Method Room Air Nasal Cannula Oxygen Flow Rate (LPM) 2 03/28/24 22:09 Temperature 98.1 F Temperature Source Oral Pulse Rate 86 Pulse Rate [Brachial] Pulse Rate [Right Radial] Respiratory Rate 18 Blood Pressure 93/51 L Blood Pressure [Right Arm] Blood Pressure Mean [Right Arm] Blood Pressure Source Automatic Cuff Blood Pressure Source [Right Arm] Blood Pressure Position Supine Blood Pressure Position [Right Arm] 02 Sat by Pulse Oximetry 98 Oxygen Delivery Method Nasal Cannula Oxygen Flow Rate (LPM) 2 Lab Data Labs: Lab Results 03/28/24 21:07: WBC 29.6 H*, RBC 4.74, Hgb 13.9 L, Hct 42.7, MCV 90.0, MCH 29.4, MCHC 32.6, RDW 13.8, Plt Count 192, MPV 8.1, Neut % (Auto) 87.3 H, Lymph % (Auto) 6.1 L, Scurry % (Auto) 5.4, Eos % (Auto) 0.6, Baso % (Auto) 0.5, Neut # (Auto) 25.9 H, Lymph # (Auto) 1.8, Scurry # (Auto) 1.6 H, Eos # (Auto) 0.2, Baso # (Auto) 0.2, Total Counted 100, Neutrophils % (Manual) 88 H, Lymphocytes % (Manual) 10, Monocytes % (Manual) 2, Platelet Estimate Normal, Hypochromasia 1+, Sodium 133 L, Potassium 4.4, Chloride 101, Carbon Dioxide 26, Anion Gap 10.4, B UN 27 H, Creatinine 1.40 H, Estimated Creat Clear 44, Estimated GFR 49 L, Est GFR ( Amer) 60, Glucose 124 H, Calcium 8.4, Total Bilirubin 2.0 H, AST 34, ALT 23, Alkaline Phosphatase 57, Total Protein 6.6, Albumin 3.8, Globulin 2.8, Albumin/Globulin Ratio 1.4 Response Orders (Tests/Meds): ED MEDICATIONS Discontinued Medications Generic Name Dose Route Start Last Admin Trade Name Freq PRN Reason Stop Dose Admin Albuterol Sulfate 2.5 mg 03/28/24 21:00 03/28/24 21:25 Albuterol 0.083% 2.5 Mg/3 Ml Neb IH 03/28/24 21:01 2.5 mg ONCE ONE Administration Azithromycin 500 mg/ Sodium 250 mls @ 250 mls/hr 03/28/24 21:15 03/28/24 21:25 Chloride IV 03/28/24 21:16 250 mls/hr Q24H ONE Administration Ceftriaxone Sodium 1 gm/ 50 mls @ 100 mls/hr 03/28/24 21:15 03/28/24 21:24 Sodium Chloride IV 03/28/24 21:44 100 mls/hr Q24H ONE Administration Methylprednisolone Sodium Succinate 125 mg 03/28/24 21:00 03/28/24 21:08 Methylprednisolone Sod Succ 125mg Vial IM 03/28/24 21:01 125 mg ONCE ONE Administration ORDERS Category Date Time Status CT head/brain wo con Stat Cat Scan 03/28/24 21:00 Taken Chest XR AP view [XR chest AP] Stat Exams 03/28/24 21:00 Taken BNP [NT Pro Brain Natriuretic Pep.] Stat Lab 03/28/24 21:00 Received CBC Man Diff [Complete Blood Count Man Dif] Stat Lab 03/28/24 21:07 Completed CMP [Comprehensive Metabolic Panel] Stat Lab 03/28/24 21:07 Completed HIV (1&2) Antibody Rapid Stat Lab 03/28/24 21:00 Received Hep C Ab with Reflex to RNA Stat Lab 03/28/24 21:00 Received Lactic Acid Stat Lab 03/28/24 22:16 Ordered Procalcitonin Stat Lab 03/28/24 21:00 Received Rapid PCR Covid and Flu A/B Stat Lab 03/28/24 22:19 Received UA [Urinalysis and Microscopic] Stat Lab 03/28/24 21:00 Ordered Blood Culture Stat Micro 03/28/24 21:20 Received 12-lead EKG Request [ECG Request] Stat Y 03/28/24 21:00 Ordered MDM Narrative Medical Decision Narrative: In summary patient is a 73-year-old male who presents to the emergency department for evaluation of cough, shortness of breath, confusion. states he was in the hospital about 6 months ago for pneumonia. Last seen his PCP was a month ago and was placed on antibiotics. Patient is hemodynamically stable upon arrival, afebrile. On exam wheezing noted, alert and oriented x 3. Differential diagnosis includes stroke, UTI, pneumonia, COPD ex. Initial workup will be conducted with labs, urinalysis, chest x-ray, CT of the head. Initial inventions include Solu-Medrol 125 mg, DuoNeb, O2 at 2 L. Initial workup reviewed by me white blood cells 29.6 chest x-ray shows a left upper lobe pneumonia. Upon repeat evaluation patient resting comfortably in bed, O2 at 2 L, at bedside. Given this hospitalist was called for admission for left upper lobe pneumonia. Places where you can increase complexity: I informally interpreted patient's chest x-ray/left upper lobe pneumonia and CT negative Documented with night monitor shows normal sinus rhythm with pacemaker spikes heart rate 84 rate I was consulted by the GARO, and we discussed the complexity of the problems being addressed. I approved the treatment and management plan for this patient's care in the Emergency Department, thus performing a substantive portion of the medical decision making. Em Mcgregor MD
--- NOTE | 2024-03-28 21:00 | CT_ITS ---
PROCEDURE INFORMATION: Exam: CT Head Without Contrast Exam date and time: 03/28/2024 9:32 PM Age: 73 years old Clinical indication: Altered mental status/memory loss; Confusion or disorientation TECHNIQUE: Imaging protocol: Computed tomography of the head without contrast. Radiation optimization: All CT scans at this facility use at least one of these dose optimization techniques: automated exposure control; mA and/or kV adjustment per patient size (includes targeted exams where dose is matched to clinical indication); or iterative reconstruction. COMPARISON: No relevant prior studies available. FINDINGS: Brain: The brain parenchyma appears unremarkable, with no signs of acute intracranial hemorrhage or significant mass effect. There is hypodensity in the subcortical and periventricular white matter which is technically nonspecific but most often related to chronic microvascular disease. Cerebral ventricles: Mild ventricular enlargement consistent with age-related cerebral atrophy is noted. Paranasal sinuses: Paranasal sinuses show age-appropriate mucosal thickening. Mastoid air cells: Visualized mastoid air cells are well aerated. Teeth: There is dental amalgam which causes streak artifact and mildly limits evaluation of the oral cavity. Bones: There are no skull fractures or bony lesions. Soft tissues: Unremarkable. IMPRESSION: Presumably age-related and chronic changes without acute intracranial abnormality.
--- NOTE | 2024-03-28 21:00 | XR_ITS ---
PROCEDURE INFORMATION: Exam: XR Chest Exam date and time: 03/28/2024 9:20 PM Age: 73 years old Clinical indication: Cough and dyspnea; Additional info: Cough, SOA TECHNIQUE: Imaging protocol: Radiologic exam of the chest. Views: 4 or more views. COMPARISON: CR XR CHEST PORTABLE 09/25/2023 8:29 PM FINDINGS: Tubes, catheters and devices: There is a left chest implanted cardiac device. Lungs: There is a dense right upper lobe consolidation concerning for pneumonia. Pleural spaces: No large effusion or pneumothorax. Heart/Mediastinum: Stable cardiac and mediastinal contours. Bones/joints: No evidence of acute osseous abnormalities within the visualized portions of the thoracic spine and ribs. Osseous structures appear appropriate for patient age. IMPRESSION: There is a dense right upper lobe consolidation concerning for pneumonia.
--- NOTE | 2024-03-28 21:00 | ECG_ITS ---
APPROVED REPORT Exam: Resting ECG HR:83 bpm ECG Measurements Heart Rate 83 AXES AZ 179 P -11 QRSd 142 QRS 236 QT 362 T 50 QTc 401 Conclusion ELECTRONIC VENTRICULAR PACEMAKER Electronically signed by : MELISSA LR, 03/28/2024 21:00:46
--- NOTE | 2024-03-28 21:06 | PC.NURSE ---
Respiratory notified of breathing treatment.
[2024-03-28] MEDS: METHYLPREDNISOLONE SOD SUCC 125MG VIAL 125 MG IM (21:08)
[2024-03-28 21:09] LABS: MANUAL DIFFERENTIAL MANUAL DIFFERENTIAL (MANUAL DIFF)
[2024-03-28 21:11] LABS: Basophils # 0.2 K/mm3 (0-0.2); Basophils % 0.5 % (0.1-2.0); Eosinophils # 0.2 K/mm3 (0.0-0.4); Eosinophils % 0.6 % (0.1-12.0); Hematocrit 42.7 % (42.0-52.0); Hemoglobin 13.9 g/dL (14.1-18.0); Lymphocytes # 1.8 K/mm3 (0.7-4.5); Lymphocytes % 6.1 % (10-50); Mean Corpuscular HGB Conc 32.6 g/dL (31.8-35.4); Mean Corpuscular Hemoglobin 29.4 pg (27.0-31.2); Mean Platelet Volume 8.1 fl (7.4-10.4); Monocytes # 1.6 K/mm3 (0.1-1.0); Monocytes % 5.4 % (1.7-9.3); Neutrophils # 25.9 K/mm3 (1.8-7.8); Neutrophils % 87.3 % (37.0-80.0); Platelet Count 192 K/mm3 (142-424); Red Blood Count 4.74 M/mm3 (4.60-6.20); Red Cell Distribution Width 13.8 % (11.5-17.5); White Blood Count 29.6 K/mm3 (4.8-10.8)
[2024-03-28 21:15] LABS: Albumin Level 3.8 g/dl (3.5-5.0); Chloride 101 mmol/L (98-107); Potassium 4.4 mmoL/L (3.5-5.1); Sodium 133 mmol/L (136-145)
[2024-03-28 21:17] LABS: Anion Gap 10.4 mEq/L (5-15); Blood Urea Nitrogen 27 mg/dl (9-20); Carbon Dioxide 26 mmol/L (22.0-30.0); Creatinine Clearance Estimated 44 mL/min (50-200); Estimated Glomerular Filt Rate 49 ml/min (>60); GFR (African American) 60 ML/MIN (>60)
[2024-03-28 21:18] LABS: Alanine Aminotransferase 23 U/L (12-78); Albumin/Globulin Ratio 1.4 (1.1-1.8); Alkaline Phosphatase 57 U/L (38-126); Aspartate Amino Transferase 34 U/L (17-59); Calcium 8.4 mg/dl (8.4-10.2); Globulin 2.8 g/dL (1.3-3.2); Glucose 124 mg/dl (74-100); Total Protein,Serum 6.6 g/dl (6.3-8.2)
[2024-03-28] MEDS: CEFTRIAXONE 1 GM 1 GM in 0.9 % SODIUM CHLORIDE 50 ML IV (21:24)
--- NOTE | 2024-03-28 21:24 | PC.NURSE ---
patient to radiology
[2024-03-28] MEDS: ALBUTEROL 0.083% 2.5 MG/3 ML NEB IH (21:25)
[2024-03-28] MEDS: AZITHROMYCIN 500 MG in 0.9 % SODIUM CHLORIDE 250 ML 250 MG IV (21:25)
[2024-03-28 21:26] VITALS: PULSE 86
--- NOTE | 2024-03-28 21:34 | PC.NURSE ---
patient back from radiology
[2024-03-28 21:35] LABS: Lymphocytes % 10 % (10-50); Monocytes % 2 % (2-9); Neutrophils % 88 % (42-76); Total Cells Counted 100
[2024-03-28 21:40] LABS: Hypochromasia 1+
[2024-03-28 21:42] VITALS: BP 98/50; PULSE 86; RESP 18; TEMP 36.7; O2SAT 97
[2024-03-28 21:44] LABS: Platelet Estimate Normal
[2024-03-28 22:09] VITALS: BP 93/51; PULSE 86; RESP 18; TEMP 36.7; O2SAT 98
--- NOTE | 2024-03-28 22:17 | PC.NURSE ---
House notified for bed request.
[2024-03-28 22:22] LABS: Coronavirus 19, PCR Not Detected (NotDetected); Influenza A, PCR Not Detected (NotDetected); Influenza B, PCR Not Detected (NotDetected)
[2024-03-28 22:25] VITALS: BP 93/51; PULSE 85; RESP 18; TEMP 36.7; O2SAT 97
--- NOTE | 2024-03-28 22:28 | EXP.HP ---
History of Present Illness *Admission Date: 03/28/24 *Reason for visit:: Shortness of breath *History of present illness: This is a 73-year-old male with past medical history of COPD, chronic heart failure, CAD, hypertension, hyperlipidemia who presents emergency ferment today with complaints of shortness of breath and sputum production.? States that he is been feeling poorly for the last several days.? states that he had an episode today of inability to collect his thoughts or speak clearly but was transient.? That is since resolved.? Denies any chest pain.? States that he has been wearing his as needed oxygen more frequently today. Emergency department workup notable for white blood cell count of 29, creatinine of 1.4.? Chest x-ray notable for left upper lobe pneumonia.? He was admitted to the hospital service. [facility] Disclaimer: The information contained in this section may have been updated after the patient was seen, as this information can be updated by other users. Medical History Asthma exacerbation History of pacemaker SOBOE (shortness of breath on exertion) Supplemental oxygen dependent History of smoking 30 or more pack years Encounter for screening for malignant neoplasm of lung Asthma COPD (chronic obstructive pulmonary disease) Aortic insufficiency Dyspnea Cardiac pacemaker in situ Hyperlipidemia Hypertension Diastolic dysfunction Surgical History (Reviewed 03/28/24 @ 21:10 by Harjinder Kline ([facility] [employer]ESS MARKER) History of hip surgery History of heart artery stent H/O hernia repair Family History (Reviewed 03/28/24 @ 21:10 by Harjinder Kline ([facility]), DRESS MARKER) Heart attack Cancer Social History (Reviewed 03/28/24 @ 21:10 by Harjinder Kline ([facility]), DRESS MARKER) Smoking Status: Never smoker how long ago did patient quit smokin second hand exposure: No alcohol intake: never substance use type: denies use current occupational status: retired Travel in the last 8 weeks: None household members: spouse and children housing: house marital status: current occupational exposures/hazards: No caffeine: No Other Medical History Have you received the Flu Vaccine for this season: No Have you received the Pneumonia Vaccine: Yes Review of Systems Review of Systems Review of systems:: other Review of systems (narrative): Review of systems negative except for HPI Meds Home Medications and Allergies Home Medications ?Medication ?Instructions ?Recorded ?Confirmed ?Type budesonide 0.25 mg/2 mL suspension 0.25 mg inhalation BID COPD 03/30/21 03/29/24 History for nebulization nitroglycerin 0.4 mg sublingual 0.4 mg sublingual Q5-15M PRN chest 08/19/23 03/29/24 Rx tablet pain #25 tabs atorvastatin 40 mg tablet 40 mg PO DAILY 08/29/23 03/29/24 History spironolactone 25 mg tablet 25 mg PO DAILY #90 tabs 09/02/23 03/29/24 Rx (Aldactone) ipratropium 0.5 mg-albuterol 3 mg 3 ml inhalation Q6RT 90 days #120 09/05/23 03/29/24 Rx (2.5 mg base)/3 mL nebulization ea soln montelukast 10 mg tablet 10 mg PO HS 09/25/23 03/29/24 History dextromethorphan-guaifenesin ER 60 1 tab PO Q12H #60 tabs 09/30/23 03/29/24 Rx mg-1,200 mg tab,extend release,12hr aspirin 81 mg tablet,delayed 81 mg PO DAILY Heart health 90 11/04/23 03/29/24 Rx release days #90 tabs fluticasone fur. 200 mcg-umeclid 1 inh inhalation DAILY 90 days #3 11/05/23 03/29/24 Rx 62.5 mcg-vilant 25 mcg ea inhalat.powder (Trelegy Ellipta) clopidogrel 75 mg tablet 75 mg PO DAILY platelet inhibitor 12/02/23 03/29/24 Rx #90 tabs pantoprazole 40 mg tablet,delayed 40 mg PO HS #30 tabs 03/23/24 03/29/24 Rx release (Protonix) furosemide 40 mg tablet 40 mg PO DAILY Edema 90 days #90 03/25/24 03/29/24 Rx tabs albuterol sulfate 90 mcg/actuation 2 inh inhalation QIDP PRN 03/29/24 03/29/24 History aerosol inhaler shortness of breath or wheezing bisoprolol fumarate 10 mg tablet 5 mg PO HS 03/29/24 03/29/24 History valsartan 40 mg tablet 40 mg PO HS 10/27/24 10/27/24 History New Prescriptions to Start Prescriptions: Allergies Allergy/AdvReac Type Severity Reaction Status Date / Time hazelnut Allergy Hives Verified 03/28/24 22:52 Exam Data for Last 24 hours Vital signs and Labs for Last 24 Hours: Temp Pulse Resp BP Pulse Ox O2 Del Method O2 Flow Rate 98.1 F 85 18 93/51 L 98 Nasal Cannula 2 03/28/24 22:25 03/28/24 22:25 03/28/24 22:25 03/28/24 22:25 03/28/24 22:09 03/28/24 22:25 03/28/24 22:25 Laboratory Results - last 24 hr 03/28/24 21:07: WBC 29.6 H*, RBC 4.74, Hgb 13.9 L, Hct 42.7, MCV 90.0, MCH 29.4, MCHC 32.6, RDW 13.8, Plt Count 192, MPV 8.1, Neut % (Auto) 87.3 H, Lymph % (Auto) 6.1 L, [place] % (Auto) 5.4, Eos % (Auto) 0.6, Baso % (Auto) 0.5, Neut # (Auto) 25.9 H, Lymph # (Auto) 1.8, [place] # (Auto) 1.6 H, Eos # (Auto) 0.2, Baso # (Auto) 0.2, Total Counted 100, Neutrophils % (Manual) 88 H, Lymphocytes % (Manual) 10, Monocytes % (Manual) 2, Platelet Estimate Normal, Hypochromasia 1+, Sodium 133 L, Potassium 4.4, Chloride 101, Carbon Dioxide 26, Anion Gap 10.4, BUN 27 H, Creatinine 1.40 H, Estimated Creat Clear 44, Estimated GFR 49 L, Est GFR ( Amer) 60, Glucose 124 H, Calcium 8.4, Total Bilirubin 2.0 H, AST 34, ALT 23, Alkaline Phosphatase 57, Total Protein 6.6, Albumin 3.8, Globulin 2.8, Albumin/Globulin Ratio 1.4 I & O for Last 24 hours: Intake & Output 03/25/24 03/26/24 03/27/24 03/28/24 23:59 23:59 23:59 23:59 Weight 68.039 kg Constitutional Constitutional: no acute distress *Routine HEENT Exam Head: Present normocephalic Eye: Present EOMI and PERRL ENT: Present mucous membranes moist *Routine Neck Exam Neck: Present supple; Absent lymphadenopathy *Routine Respiratory Exam Respiratory: Present wheezes, crackles, able to speak in complete sentences and symmetric chest movement Comments: Coarse lung sounds bilaterally *Routine Cardiovascular Exam Cardiovascular: Present RRR, Normal S1 and Normal S2 Comments: Bilateral lower extremity edema +2 pitting *Routine Abdominal Exam Abdominal: Present soft and normoactive bowel sounds; Absent tenderness *Routine Rectal Exam Rectal:: deferred *Routine Genitalia Exam Genitalia:: deferred *Routine Extremities Exam Extremities: Absent cyanosis, clubbing or edema *Routine Skin Exam Skin: Present warm; Absent rash *Routine Neurological Exam Neurological: Present alert and oriented X3 Assessment and Plan *Assessment and plan (1) Sepsis: Status: Acute Qualifiers: Sepsis acute organ dysfunction status: without acute organ dysfunction Sepsis type: sepsis due to unspecified organism Qualified Code(s): A41.9 - Sepsis, unspecified organism Category: Medical Code(s): A41.9 - Sepsis, unspecified organism (2) Pneumonia: Status: Acute Qualifiers: Laterality: left Lung location: upper lobe of lung Pneumonia type: due to unspecified organism Qualified Code(s): J18.9 - Pneumonia, unspecified organism Category: Medical Code(s): J18.9 - Pneumonia, unspecified organism (3) JESSICA (acute kidney injury): Status: Acute Category: Medical Code(s): N17.9 - Acute kidney failure, unspecified (4) Acute exacerbation of chronic obstructive pulmonary disease: Status: Acute Category: Medical Code(s): J44.1 - Chronic obstructive pulmonary disease with (acute) exacerbation (5) Acute on chronic hypoxic respiratory failure: Status: Acute Category: Medical Code(s): J96.21 - Acute and chronic respiratory failure with hypoxia Plan Case discussed with ER physician, request admission for treatment of sepsis and pneumonia with new oxygen requirement. Medicine agreed to admit for further management. Problems addressed as follows: #Sepsis Meets Criteria for tachycardia, respiratory rate and leukocytosis Likely secondary to pneumonia 30 mL/kg fluid administration deferred due to heart failure Lactic acid pending Continue broad spectrum abx with azithromycin Rocephin Monitor inflammatory markers Blood cultures pending #Acute respiratory failure with hypoxia #Pneumonia #COPD exacerbation Continue bronchodilators Currently requiring 2 L nasal cannula to maintain oxygen saturation greater than 90%.? Was in respiratory distress on arrival but now improved Continue to treat pneumonia as above COVID and flu negative Continue mucolytic's #JESSICA Creatinine of 1.4 with a baseline of 0.9 Patient reports poor p.o. intake after feeling poorly for the last several days Will give small fluid challenge, judiciously in the setting of #Chronic diastolic heart failure Appears mildly dry on exam with JESSICA Monitor fluid volume status with sepsis protocol Monitor respiratory status with fluid administration #Hypertension #HLD Continue home medications once reconciled #CAD Reports history of 10 stents, sees local cardiology Denies chest pain Continue DAPT Continue statin Rounded on patient after nurse practitioner. Personally examined and interviewed patient. Agree with exam findings and care plan as documented.
[2024-03-28 22:38] VITALS: BP 96/43; PULSE 70; RESP 20; TEMP 37.3; O2SAT 94; BMI 31.5
--- NOTE | 2024-03-28 22:40 | PC.NURSE ---
Patient arrived to floor viqa wheelchair from ED at 22:38.
[2024-03-28 22:44] LABS: NT Pro Brain Natriuretic Pep. 1040 pg/mL (0-450)
[2024-03-28] MEDS: RINGERS SOLUTION,LACTATED 500 ML 999 ML IV (22:48)
[2024-03-28] MEDS: LACTATED RINGERS 1000ML 1,000 ML 50 ML IV (22:48)
[2024-03-28 22:51] LABS: Procalcitonin 1.78 ng/mL (0.0-2.0)
[2024-03-28] MEDS: HEPARIN SODIUM 5,000 UNIT/ML VIAL 5000 UNIT SUBCUT (23:00)
[2024-03-28 23:39] LABS: Lactic Acid 1.2 mmol/L (0.7-2.1)
[2024-03-29] VITALS (11 sets, daily range): BP systolic 86–102; BP diastolic 49–66; PULSE 62–109; RESP 18–28; TEMP 36.4–37.2; O2SAT 88–95; BMI 31.5
--- NOTE | 2024-03-29 00:05 | EXP.SEPSISRE ---
[facility] Tissue Perfusion Eval Sepsis Re-Evaluation Performed: Yes Date Performed: 03/29/24 Time Performed: 00:05
[2024-03-29] MEDS: IPRATROPIUM/ALBUTEROL 3 ML NEB IH ×5 (00:11→23:45)
[2024-03-29] MEDS: CEFTRIAXONE SODIUM 1 GM in 0.9 % SODIUM CHLORIDE 50 ML IV (00:29)
[2024-03-29] MEDS: guaiFENesin 600 MG TAB.ER.12H PO ×3 (00:29→20:40)
[2024-03-29 02:22] LABS: HIV (1&2) Antibody Rapid NONREACTIVE (NONREACTIVE)
--- NOTE | 2024-03-29 05:03 | PC.NURSE ---
Since arriving to the floor the patient has slept and has had no complaints. Remains on 2L NC and IS at the bedside. Family in room
[2024-03-29] MEDS: HEPARIN SODIUM 5,000 UNIT/ML VIAL 5000 UNIT SUBCUT ×3 (05:59→23:31)
[2024-03-29 06:37] LABS: Microscopic, Urine URINE MICROSCOPIC (MICROSCOPIC)
[2024-03-29 06:41] LABS: Appearance,Urine CLEAR (Clear); Bilirubin,Urine Negative (Negative); Blood, Urine Negative (Negative); Color,Urine YELLOW (Yellow); Glucose,Urine (UA) Negative (Negative); Ketones,Urine Negative (Negative); Leukocyte Esterase,Urine Negative (Negative); Nitrate,Urine Negative (Negative); PH,Urine 5.5 (5.0-8.5); Protein,Urine Negative (Negative); Specific Gravity, Urine 1.025 (1.005-1.030); Urobilinogen,Urine 0.2 EU/dl (0.2)
[2024-03-29 07:00] LABS: Squamous Epithelial Cell,Urine Occasional #/hpf (0-5); WBC,Urine Occasional #/hpf (0-3)
[2024-03-29 07:16] LABS: Chloride 104 mmol/L (98-107); Potassium 3.7 mmoL/L (3.5-5.1); Sodium 136 mmol/L (136-145)
[2024-03-29 07:19] LABS: Blood Urea Nitrogen 26 mg/dl (9-20); Creatinine Clearance Estimated 55 mL/min (50-200); Estimated Glomerular Filt Rate 59 ml/min (>60); GFR (African American) 71 ML/MIN (>60)
[2024-03-29 07:20] LABS: Anion Gap 7.7 mEq/L (5-15); Calcium 8.6 mg/dl (8.4-10.2); Carbon Dioxide 28 mmol/L (22.0-30.0); Glucose 231 mg/dl (74-100)
[2024-03-29 10:00] LABS: Basophils # 0.1 K/mm3 (0-0.2); Basophils % 0.2 % (0.1-2.0); Eosinophils % 0.1 % (0.1-12.0); Lymphocytes # 0.6 K/mm3 (0.7-4.5); Lymphocytes % 2.8 % (10-50); Mean Corpuscular HGB Conc 33.3 g/dL (31.8-35.4); Mean Corpuscular Hemoglobin 29.5 pg (27.0-31.2); Mean Corpuscular Volume 88.7 fl (80-94); Monocytes # 0.5 K/mm3 (0.1-1.0); Monocytes % 2.1 % (1.7-9.3); Neutrophils # 20.8 K/mm3 (1.8-7.8); Neutrophils % 94.9 % (37.0-80.0); Platelet Count 197 K/mm3 (142-424)
[2024-03-29 10:09] LABS: MANUAL DIFFERENTIAL MANUAL DIFFERENTIAL (MANUAL DIFF)
[2024-03-29 11:00] LABS: Lymphocytes % 1 % (10-50); Monocytes % 1 % (2-9); Neutrophils % 98 % (42-76); Platelet Estimate Normal; RBC Morphology Normal; Total Cells Counted 100
--- OUTSIDE RECORDS SUMMARY | 2024-03-29 12:46 | XMS_ITS ---
Author Name Abner Funez Address [address] [place] [address] Organization Unknown Address [address] [place] [id number] ALLERGIES AND ADVERSE REACTIONS No information ASSESSMENT No information CHIEF COMPLAINT No information MEDICATIONS No information OBJECTIVE DATA No information PHYSICAL EXAMINATION No information TREATMENT PLAN Planned Care Start Date Provider Encounter for Check-up [id number] AC Garza PROBLEMS No information RESULTS No information REVIEW OF SYSTEMS No information SUBJECTIVE DATA No information VITAL SIGNS No information
--- OUTSIDE RECORDS SUMMARY | 2024-03-29 12:46 | XMS_ITS ---
Author Organization [facility] ALLERGIES AND ADVERSE REACTIONS No information ASSESSMENT No information CHIEF COMPLAINT No information Medications Date Medication Dosage Dosageunit Startdate Active Dispense Refills Ndccode Isprescription Srcstatus 03/05 00:00 :00 Aspir-81 81 MG Tablet Delayed Release null 1 [id number] Taking 03/05 00:00 :00 Bisoprolol Fumarate 5 MG Tablet null 1 [id number] 101 Taking 03/05 00:00 :00 hydroCHLORO thiazide 12.5 MG Capsule null 1 [id number] 001 Taking 03/05 00:00 :00 Lipitor 40 MG Tablet null 1 [id number] 723 Taking 03/05 00:00 :00 Lisinopril- hydroCHLORO thiazide 10-12.5 MG Tablet null 1 [id number] 802 Taking 03/05 00:00 :00 Plavix 75 MG Tablet null 1 [id number] 101 Taking 03/05 00:00 :00 predniSONE 20 MG Tablet 03/09/2019 00:00:00 1 10 0 [id number] 820 P Taking 03/05 00:00 :00 ProAir HFA 108 (90 Base) MCG/ACT Aerosol Solution 03/09/2019 00:00:00 1 1 0 [id number] 501 P Taking 03/05 00:00 :00 Shingrix 50 MCG/0.5 ML Suspension Reconstitut ed 09/19/2018 00:00:00 1 1 0 [id number] 912 P Not Taking 03/05 00:00 :00 Zithromax Z-Michael 250 MG Tablet 03/09/2019 00:00:00 1 1 0 [id number] 075 P Taking OBJECTIVE DATA No information PHYSICAL EXAMINATION No information TREATMENT PLAN No information PROBLEMS No information RESULTS No information REVIEW OF SYSTEMS No information SUBJECTIVE DATA No information VITAL SIGNS No information
--- NOTE | 2024-03-29 13:29 | P.PN_ITS ---
Subjective *Date: 03/29/24 *Time: 13:33 Interval history: Patient still short of breath this morning. Afebrile. Blood pressure soft but patient alert and oriented and asymptomatic. On 2 L. No nausea or vomiting. Denies chest pain. Medical Exam Vital signs and Labs for Last 24 Hours: Vital Signs Temp Pulse Pulse Pulse Resp BP BP 03/29/24 12:00 97.9 F 70 28 H 93/49 L 03/29/24 11:36 74 03/29/24 11:36 69 03/29/24 11:36 03/29/24 11:00 03/29/24 09:00 03/29/24 08:00 03/29/24 08:00 98.1 F 62 22 96/54 L 03/29/24 06:49 03/29/24 06:43 70 03/29/24 06:43 73 03/29/24 06:43 03/29/24 05:00 03/29/24 04:00 97.5 F L 76 18 86/54 L 03/29/24 03:00 03/29/24 01:00 03/29/24 00:12 80 03/29/24 00:00 99.0 F 89 20 98/54 L 03/28/24 23:00 03/28/24 23:00 03/28/24 22:38 99.1 F 70 20 96/43 L 03/28/24 22:25 98.1 F 85 18 93/51 L 03/28/24 22:09 98.1 F 86 18 93/51 L 03/28/24 21:42 98.1 F 86 18 98/50 L 03/28/24 21:26 86 03/28/24 20:43 98.1 F 86 86 18 117/71 Pulse Ox O2 Del Method O2 Flow Rate 03/29/24 12:00 94 L Nasal Cannula 3 03/29/24 11:36 03/29/24 11:36 03/29/24 11:36 95 Nasal Cannula 2 03/29/24 11:00 Nasal Cannula 2 03/29/24 09:00 Nasal Cannula 2 03/29/24 08:00 Nasal Cannula 2 03/29/24 08:00 94 L Nasal Cannula 3 03/29/24 06:49 Nasal Cannula 2 03/29/24 06:43 03/29/24 06:43 03/29/24 06:43 94 L Room Air 03/29/24 05:00 Nasal Cannula 2 03/29/24 04:00 93 L Nasal Cannula 03/29/24 03:00 Nasal Cannula 2 03/29/24 01:00 Room Air 03/29/24 00:12 03/29/24 00:00 90 L Nasal Cannula 03/28/24 23:00 Room Air 03/28/24 23:00 Nasal Cannula 2 03/28/24 22:38 94 L Nasal Cannula 3 03/28/24 22:25 Nasal Cannula 2 03/28/24 22:09 98 Nasal Cannula 2 03/28/24 21:42 97 Nasal Cannula 2 03/28/24 21:26 03/28/24 20:43 85 L Room Air Intake and Output 03/28/24 03/29/24 03/29/24 23:59 07:59 15:59 Intake Total 150 / 420 270 / 420 Output Total 225 / 225 Balance -75 / 195 270 / 195 Intake: Intake, Oral Amount 150 / 420 270 / 420 Output: Output, Urine Amount 225 / 225 Other: Weight 72.847 kg 72.847 kg Patient Weight 03/29/24 23:59 Weight 72.847 kg Laboratory Results - last 24 hr 03/28/24 21:00: NT-Pro-B Natriuret Pep 1040 H, Procalcitonin 1.78, HIV 1&2 Antibody Rapid Nonreactive 03/28/24 21:07: WBC 29.6 H*, RBC 4.74, Hgb 13.9 L, Hct 42.7, MCV 90.0, MCH 29.4, MCHC 32.6, RDW 13.8, Plt Count 192, MPV 8.1, Neut % (Auto) 87.3 H, Lymph % (Au to) 6.1 L, [place] % (Auto) 5.4, Eos % (Auto) 0.6, Baso % (Auto) 0.5, Neut # (Auto) 25.9 H, Lymph # (Auto) 1.8, [place] # (Auto) 1.6 H, Eos # (Auto) 0.2, Baso # (Auto) 0.2, Total Counted 100, Neutrophils % (Manual) 88 H, Lymphocytes % (Manual) 10, Monocytes % (Manual) 2, Platelet Estimate Normal, Hypochromasia 1+, Sodium 133 L , Potassium 4.4, Chloride 101, Carbon Dioxide 26, Anion Gap 10.4, BUN 27 H, Creatinine 1.40 H, Estimated Creat Clear 44, Estimated GFR 49 L, Est GFR ( Amer) 60, Glucose 124 H, Calcium 8.4, Total Bilirubin 2.0 H, AST 34, ALT 23, Alkaline Phosphatase 57, Total Protein 6.6, Albumin 3.8, Globulin 2.8, Albumin/Globulin Ratio 1.4 03/28/24 22:19: SARS-CoV-2 (PCR) Not detected, Influenza A Untype (PCR) Not detected, Influenza Type B (PCR) Not detected 03/28/24 23:20: Lactate 1.2 03/29/24 06:28: Urine Color Yellow, Urine Appearance Clear, Urine pH 5.5, Ur Specific [place] 1.025, Urine Protein Negative, Urine Glucose (UA) Negative, Urine Ketones Negative, Urine Blood Negative, Urine Nitrate Negative, Urine Bilirubin Negative, Urine Urobilinogen 0.2, Ur Leukocyte Esterase Negative, Ur ine RBC None, Urine WBC Occasional, Ur Squamous Epith Cells Occasional, Urine Bacteria None 03/29/24 : WBC 22.0 H* D, RBC 4.40 L, Hgb 13.0 L, Hct 39.0 L, MCV 88.7, MCH 29.5, MCHC 33.3, RDW 14.0, Plt Count 197, MPV 9.0, Neut % (Auto) 94.9 H, Lymph % (Auto) 2.8 L, [place] % (Auto) 2.1, Eos % (Auto) 0.1, Baso % (Auto) 0.2, Neut # (Auto) 20.8 H, Lymph # (Auto) 0.6 L, [place] # (Auto) 0.5, Eos # (Auto) 0.0, Baso # (Auto) 0.1, Total Counted 100, Neutrophils % (Manual) 98 H, Lymphocytes % (Manual) 1 L, Monocytes % (Manual) 1 L, Platelet Estimate Normal, RBC Morphology Normal, Sodium 136, Potassium 3.7, Chloride 104, Carbon Dioxide 28, Anion Gap 7.7, BUN 26 H, Creatinine 1.20, Estimated Creat Clear 55, Estimated GFR 59, Est GFR ( Amer) 71, Glucose 231 H D, Calcium 8.6 I & O for Labs for Last 24 Hours: Intake & Output 03/26/24 03/27/24 03/28/24 03/29/24 23:59 23:59 23:59 23:59 Intake Total 420 / 420 Output Total 225 / 225 Balance 195 / 195 Weight 72.847 kg 72.847 kg Constitutional: Present no acute distress, obese, chronically ill appearing and cooperative Head: Present atraumatic and normocephalic ENT: Present normal exam Neck: Present normal inspection Respiratory: Present prolonged expiratory phase, crackles and normal respiratory effort; Absent rhonchi or wheezes Cardiac: Present Reg Rate and Rhythm GI: Present soft and normal bowel sounds; Absent distention or tenderness Extremities: Present normal inspection, full ROM and edema (Trace bilateral lower extremity); Absent tenderness Skin: Present intact; Absent erythema Neuro: Present Grossly Intact, alert, awake, oriented x 3 and moves all extremities Assessment and Plan *Assessment and plan (1) Sepsis: Status: Acute Qualifiers: Sepsis type: sepsis due to unspecified organism Sepsis acute organ dysfunction status: without acute organ dysfunction Qualified Code(s): A41.9 - Sepsis, unspecified organism Category: Medical Code(s): A41.9 - Sepsis, unspecified organism (2) Pneumonia: Status: Acute Qualifiers: Pneumonia type: due to unspecified organism Laterality: left Lung location: upper lobe of lung Qualified Code(s): J18.9 - Pneumonia, unspecified organism Category: Medical Code(s): J18.9 - Pneumonia, unspecified organism (3) Acute on chronic hypoxic respiratory failure: Status: Acute Category: Medical Code(s): J96.21 - Acute and chronic respiratory failure with hypoxia (4) JESSICA (acute kidney injury): Status: Acute Category: Medical Code(s): N17.9 - Acute kidney failure, unspecified (5) Acute exacerbation of chronic obstructive pulmonary disease: Status: Acute Category: Medical Code(s): J44.1 - Chronic obstructive pulmonary disease with (acute) exacerbation (6) Heart failure with improved ejection fraction (HFimpEF): Status: Chronic Category: Medical Code(s): I50.32 - Chronic diastolic (congestive) heart failure (7) Chronic GERD: Status: Chronic Category: Medical Code(s): K21.9 - Gastro-esophageal reflux disease without esophagitis (8) COPD (chronic obstructive pulmonary disease): Status: Chronic Category: Medical Code(s): J44.9 - Chronic obstructive pulmonary disease, unspecified (9) Cardiac pacemaker in situ: Status: Chronic Category: Medical Code(s): Z95.0 - Presence of cardiac pacemaker (10) Hypertension: Status: Chronic Qualifiers: Hypertension type: essential hypertension Qualified Code(s): I10 - Essential (primary) hypertension Category: Medical Code(s): I10 - Essential (primary) hypertension (11) Hyperlipidemia: Status: Chronic Qualifiers: Hyperlipidemia type: mixed hyperlipidemia Qualified Code(s): E78.2 - Mixed hyperlipidemia Category: Medical Code(s): E78.5 - Hyperlipidemia, unspecified Plan Case discussed with ER physician, request admission for treatment of sepsis and pneumonia with new oxygen requirement. Medicine agreed to admit for further management. Responding [employer] today. Stable on 2 L. Continues to require inpatient management. Problems addressed as follows: #Sepsis Meets Criteria for tachycardia, respiratory rate and leukocytosis Likely secondary to pneumonia Fluid bolus of 1 L; 30 mL/kg fluid administration deferred due to heart failure Lactate 1.2. Pro-[place]wey 1.78, white count 29 on admission. Improved to 22 this morning. Blood cultures obtained and pending. #Acute respiratory failure with hypoxia #Pneumonia #COPD exacerbation Continue bronchodilators Currently requiring 2 L nasal cannula to maintain oxygen saturation greater than 90%.? Was in respiratory distress on arrival but now improved Continue azithromycin 500 mg daily and ceftriaxone 2 g daily. DuoNebs every 6 hours Tylenol 650 mg as needed every 4 hours for fever pain #JESSICA Creatinine of 1.4 on admission with a baseline of 0.9; creatinine 1.2, BUN 26 this morning on labs. Repeat CBC, CMP, magnesium ordered for the morning. Potassium 3.7. #Chronic diastolic heart failure/heart failure with improved ejection fraction Appears mildly dry on exam with JESSICA Monitor fluid volume status with sepsis protocol Monitor respiratory status with fluid administration #Hypertension #HLD #CAD Reports history of 10 stents, sees cardiology at [facility]. Holding valsartan today along with spironolactone, Lasix, bisoprolol due to soft blood pressures. Continue DAPT with aspirin 81 mg daily and Plavix 75 mg daily Continue Lipitor 40 mg daily Full code Heparin 5000 units subcu every 8 hours Cardiac
[2024-03-29] MEDS: CLOPIDOGREL 75MG TAB 75 MG PO (15:08)
[2024-03-29] MEDS: ASPIRIN EC 81MG TABLET 81 MG PO (15:08)
[2024-03-29] MEDS: CEFTRIAXONE SODIUM 2 GM in 0.9 % SODIUM CHLORIDE 100 ML IV (16:34)
--- NOTE | 2024-03-29 18:11 | PC.NURSE ---
PT HAS DONE WELL THIS SHIFT. REMAINS ON 2L AND IS TOLERATING WELL WITH SATS IN THE LOW 90'S. NO COMPLAINTS THIS SHIFT. FAMILY AT BEDSIDE
[2024-03-29] MEDS: ATORVASTATIN 40MG TABLET 40 MG PO (20:40)
[2024-03-29] MEDS: AZITHROMYCIN 500 MG in 0.9 % SODIUM CHLORIDE 250 ML 250 MG IV (20:40)
[2024-03-30] VITALS (10 sets, daily range): BP systolic 106–122; BP diastolic 42–92; PULSE 71–112; RESP 18–20; TEMP 36.4–37; O2SAT 91–96; BMI 31.4
[2024-03-30] MEDS: HEPARIN SODIUM 5,000 UNIT/ML VIAL 5000 UNIT SUBCUT ×3 (05:42→22:11)
[2024-03-30] MEDS: IPRATROPIUM/ALBUTEROL 3 ML NEB IH ×4 (06:25→23:17)
[2024-03-30 07:07] LABS: Basophils % 0.1 % (0.1-2.0); Eosinophils # 0.1 K/mm3 (0.0-0.4); Eosinophils % 0.4 % (0.1-12.0); Hematocrit 38.2 % (42.0-52.0); Hemoglobin 12.7 g/dL (14.1-18.0); Lymphocytes # 0.8 K/mm3 (0.7-4.5); Lymphocytes % 2.4 % (10-50); Mean Corpuscular HGB Conc 33.2 g/dL (31.8-35.4); Mean Corpuscular Hemoglobin 29.8 pg (27.0-31.2); Mean Corpuscular Volume 89.8 fl (80-94); Mean Platelet Volume 9.2 fl (7.4-10.4); Monocytes # 0.9 K/mm3 (0.1-1.0); Monocytes % 2.9 % (1.7-9.3); Neutrophils # 29.8 K/mm3 (1.8-7.8); Neutrophils % 94.2 % (37.0-80.0); Platelet Count 187 K/mm3 (142-424); Red Blood Count 4.25 M/mm3 (4.60-6.20); Red Cell Distribution Width 13.8 % (11.5-17.5); White Blood Count 31.6 K/mm3 (4.8-10.8)
[2024-03-30 07:10] LABS: MANUAL DIFFERENTIAL MANUAL DIFFERENTIAL (MANUAL DIFF)
[2024-03-30 07:24] LABS: Albumin Level 3.5 g/dl (3.5-5.0); Chloride 103 mmol/L (98-107); Sodium 137 mmol/L (136-145)
[2024-03-30 07:25] LABS: Potassium 3.8 mmoL/L (3.5-5.1)
[2024-03-30 07:27] LABS: Alanine Aminotransferase 21 U/L (12-78); Albumin/Globulin Ratio 1.2 (1.1-1.8); Alkaline Phosphatase 81 U/L (38-126); Anion Gap 13.8 mEq/L (5-15); Aspartate Amino Transferase 30 U/L (17-59); Bilirubin,Total 0.5 mg/dl (0.2-1.3); Blood Urea Nitrogen 35 mg/dl (9-20); Calcium 8.9 mg/dl (8.4-10.2); Carbon Dioxide 24 mmol/L (22.0-30.0); Creatinine Clearance Estimated 60 mL/min (50-200); Estimated Glomerular Filt Rate 65 ml/min (>60); GFR (African American) 79 ML/MIN (>60); Glucose 152 mg/dl (74-100); Total Protein,Serum 6.5 g/dl (6.3-8.2)
[2024-03-30 08:09] LABS: Lymphocytes % 5 % (10-50); Monocytes % 3 % (2-9); Neutrophils % 92 % (42-76); Platelet Estimate Normal; RBC Morphology Normal; Total Cells Counted 100
[2024-03-30] MEDS: CLOPIDOGREL 75MG TAB 75 MG PO (09:30)
[2024-03-30] MEDS: guaiFENesin 600 MG TAB.ER.12H PO ×2 (09:30→21:18)
[2024-03-30] MEDS: ASPIRIN EC 81MG TABLET 81 MG PO (09:30)
--- NOTE | 2024-03-30 09:47 | EXP.PULM.CON ---
History of Present Illness History of present illness: Mr. Munoz is a 73-year-old male history of difficult to treat asthma on Trelegy 200 inhaler at baseline presented today with worsening respiratory distress, cough and increasing sputum production and pulmonary was called for further evaluation and management. Admits progressively worsening cough with intermittent scant productive phlegm. Admits worsening Wheezing. Denies any known sick contacts. [facility] Disclaimer: The information contained in this section may have been updated after the patient was seen, as this information can be updated by other users. Medical History Asthma exacerbation History of pacemaker SOBOE (shortness of breath on exertion) Supplemental oxygen dependent History of smoking 30 or more pack years Encounter for screening for malignant neoplasm of lung Asthma COPD (chronic obstructive pulmonary disease) Aortic insufficiency Dyspnea Cardiac pacemaker in situ Hyperlipidemia Hypertension Diastolic dysfunction Surgical History , MUD MIXER) History of hip surgery History of heart artery stent H/O hernia repair Family History , MUD MIXER) Heart attack Cancer Social History , MUD MIXER) Smoking Status: Never smoker how long ago did patient quit smokin second hand exposure: No alcohol intake: never substance use type: denies use current occupational status: retired Travel in the last 8 weeks: None household members: spouse and children housing: house marital status: current occupational exposures/hazards: No caffeine: No Review of Systems Constitutional Constitutional: Reports fatigue Eyes Eyes: Denies eye discharge, Denies dry eyes, Denies irritation and Denies itchy eyes ENT Ears, Nose, Mouth, and Throat: Denies epistaxis, Denies facial pain, Denies lip swelling and Denies throat swelling *Cardiovascular Cardiovascular: Reports dyspnea and Reports dyspnea on exertion *Respiratory Respiratory: Denies change in phlegm color, Reports chest congestion, Reports cough, Reports dyspnea, Reports dyspnea on exertion, Reports excessive phlegm production and Reports wheezing *Gastrointestinal Gastrointestinal: Denies abdominal pain, Denies belching and Denies cramping *Musculoskeletal Musculoskeletal: Reports back pain, Reports myalgias and Reports other (No small joint swelling or Pain) Psychiatric Psychiatric: Denies homicidal ideation and Denies suicidal ideation Endocrine Endocrine: Reports fatigue and Denies heat intolerance Hematologic/Lymphatic Hematologic/Lymphatic: Denies easy bleeding and Denies lymphadenopathy Allergic/Immunologic Allergic/Immunologic: Denies itchy eyes, Denies lip swelling, Denies throat swelling and Reports wheezing Pulmonology Exam Inpatient Vital signs and Labs for Last 24 Hours: Temp Pulse Resp BP Pulse Ox O2 Del Method O2 Flow Rate 98.5 F 111 H 18 116/92 H 93 L Room Air 2 03/30/24 08:00 03/30/24 08:00 03/30/24 08:00 03/30/24 08:00 03/30/24 08:00 03/30/24 08:00 03/30/24 06:46 FiO2 28 03/29/24 19:28 Laboratory Results - last 24 hr 03/29/24 : WBC 22.0 H* D, RBC 4.40 L, Hgb 13.0 L, Hct 39.0 L, MCV 88.7, MCH 29.5, MCHC 33.3, RDW 14.0, Plt Count 197, MPV 9.0, Neut % (Auto) 94.9 H, Lymph % (Auto) 2.8 L, Sequoyah % (Auto) 2.1, Eos % (Auto) 0.1, Baso % (Auto) 0.2, Neut # (Auto) 20.8 H, Lymph # (Auto) 0.6 L, Sequ[place]ah # (Auto) 0.5, Eos # (Auto) 0.0, Baso # (Auto) 0.1, Total Counted 100, Neutrophils % (Manual) 98 H, Lymphocytes % (Manual) 1 L, Monocytes % (Manual) 1 L, Platelet Estimate Normal, RBC Morphology Normal 03/30/24 06:18: WBC 31.6 H* D, RBC 4.25 L, Hgb 12.7 L, Hct 38.2 L, MCV 89.8, MCH 29.8, MCHC 33.2, RDW 13.8, Plt Count 187, MPV 9.2, Neut % (Auto) 94.2 H, Lymph % (Auto) 2.4 L, Sequoyah % (Auto) 2.9, Eos % (Auto) 0.4, Baso % (Auto) 0.1, Neut # (Auto) 29.8 H, Lymph # (Auto) 0.8, Sequoyah # (Auto) 0.9, Eos # (Auto) 0.1, Baso # (Auto) 0.0, Total Counted 100, Neutrophils % (Manual) 92 H, Lymphocytes % (Manual) 5 L, Monocytes % (Manual) 3, Platelet Estimate Normal, RBC Morphology Normal, Sodium 137, Potassium 3.8, Chloride 103, Carbon Dioxide 24, Anion Gap 13.8, BUN 35 H D, Creatinine 1.10, Estimated Creat Clear 60, Estimated GFR 65, Est GFR ( Amer) 79, Glucose 152 H D, Calcium 8.9, Magnesium 2.0, Total Bilirubin 0.5, AST 30, ALT 21, Alkaline Phosphatase 81, Total Protein 6.5, Albumin 3.5, Globulin 3.0, Albumin/Globulin Ratio 1.2 I & O for Labs for Last 24 Hours: Intake & Output 03/27/24 03/28/24 03/29/24 03/30/24 23:59 23:59 23:59 23:59 Intake Total 1095 / 1345 730 / 730 Output Total 225 / 225 Balance 870 / 1120 730 / 730 Weight 160 lb 9.6 oz 160 lb 9.6 oz 160 lb Microbiology Reports for the Last 24 Hours: Microbiology 03/29/24 18:09 Sputum - Expectorated Sputum Gram Stain - Final 03/28/24 21:20 Blood Blood Culture - Preliminary NO GROWTH AFTER 24 HOURS 03/28/24 21:20 Blood Blood Culture - Preliminary NO GROWTH AFTER 24 HOURS Constitutional: Present moderate distress Head: Present normocephalic and atraumatic ENT: Present normal exam, normal oropharynx and mucous membranes moist Neck: Present normal inspection and full ROM Respiratory: Present prolonged expiratory phase, respiratory distress, wheezes and able to speak in complete sentences Cardiac: Present S1/S2, Tachycardia and radial pulses present GI: Present soft and distention; Absent tenderness or guarding Skin: Present intact; Absent cyanosis or jaundice Neuro: Present alert, awake and oriented x 3 Extremities: Present normal inspection; Absent clubbing or cyanosis Psychiatric: Present normal affect and cooperative Meds Home Medications and Allergies Home Medications ?Medication ?Instructions ?Recorded ?Confirmed ?Type budesonide 0.25 mg/2 mL suspension 0.25 mg inhalation BID COPD 03/30/21 03/29/24 History for nebulization nitroglycerin 0.4 mg sublingual 0.4 mg sublingual Q5-15M PRN chest 08/19/23 03/29/24 Rx tablet pain #25 tabs atorvastatin 40 mg tablet 40 mg PO DAILY 08/29/23 03/29/24 History spironolactone 25 mg tablet 25 mg PO DAILY #90 tabs 09/02/23 03/29/24 Rx (Aldactone) ipratropium 0.5 mg-albuterol 3 mg 3 ml inhalation Q6RT 90 days #120 09/05/23 03/29/24 Rx (2.5 mg base)/3 mL nebulization ea soln montelukast 10 mg tablet 10 mg PO HS 09/25/23 03/29/24 History dextromethorphan-guaifenesin ER 60 1 tab PO Q12H #60 tabs 09/30/23 03/29/24 Rx mg-1,200 mg tab,extend release,12hr aspirin 81 mg tablet,delayed 81 mg PO DAILY [facility] 90 11/04/23 03/29/24 Rx release days #90 tabs fluticasone fur. 200 mcg-umeclid 1 inh inhalation DAILY 90 days #3 11/05/23 03/29/24 Rx 62.5 mcg-vilant 25 mcg ea inhalat.powder (Trelegy Ellipta) clopidogrel 75 mg tablet 75 mg PO DAILY platelet inhibitor 12/02/23 03/29/24 Rx #90 tabs pantoprazole 40 mg tablet,delayed 40 mg PO HS #30 tabs 03/23/24 03/29/24 Rx release (Protonix) furosemide 40 mg tablet 40 mg PO DAILY Edema 90 days #90 03/25/24 03/29/24 Rx tabs albuterol sulfate 90 mcg/actuation 2 inh inhalation QIDP PRN 03/29/24 03/29/24 History aerosol inhaler shortness of breath or wheezing bisoprolol fumarate 10 mg tablet 5 mg PO HS 03/29/24 03/29/24 History valsartan 40 mg tablet 40 mg PO HS 03/29/24 03/29/24 History New Prescriptions to Start Prescriptions: Allergies Allergy/AdvReac Type Severity Reaction Status Date / Time hazelnut Allergy Hives Verified 03/28/24 22:52 Results Laboratory Findings 03/30/24 06:18 03/30/24 06:18 Abnormal lab findings: Abnormal Labs 03/28/24 03/28/24 03/29/24 21:00 21:07 Unknown WBC 29.6 H* 22.0 H* D RBC 4.40 L Hgb 13.9 L 13.0 L Hct 39.0 L Neut % (Auto) 87.3 H 94.9 H Lymph % (Auto) 6.1 L 2.8 L Neut # (Auto) 25.9 H 20.8 H Lymph # (Auto) 0.6 L Sequoyah # (Auto) 1.6 H Neutrophils % (Manual) 88 H 98 H Lymphocytes % (Manual) 1 L Monocytes % (Manual) 1 L Sodium 133 L BUN 27 H 26 H Creatinine 1.40 H Estimated GFR 49 L Glucose 124 H 231 H D Total Bilirubin 2.0 H NT-Pro-B Natriuret Pep 1040 H 03/30/24 06:18 WBC 31.6 H* D RBC 4.25 L Hgb 12.7 L Hct 38.2 L Neut % (Auto) 94.2 H Lymph % (Auto) 2.4 L Neut # (Auto) 29.8 H Lymph # (Auto) Sequoyah # (Auto) Neutrophils % (Manual) 92 H Lymphocytes % (Manual) 5 L Monocytes % (Manual) Sodium BUN 35 H D Creatinine Estimated GFR Glucose 152 H D Total Bilirubin NT-Pro-B Natriuret Pep Assessment and Plan *Assessment and plan (1) Pneumonia: Status: Acute Qualifiers: Pneumonia type: due to unspecified organism Laterality: left Lung location: upper lobe of lung Qualified Code(s): J18.9 - Pneumonia, unspecified organism Category: Medical Code(s): J18.9 - Pneumonia, unspecified organism (2) Sepsis: Status: Acute Qualifiers: Sepsis type: sepsis due to unspecified organism Sepsis acute organ dysfunction status: without acute organ dysfunction Qualified Code(s): A41.9 - Sepsis, unspecified organism Category: Medical Code(s): A41.9 - Sepsis, unspecified organism (3) Acute on chronic hypoxic respiratory failure: Status: Acute Category: Medical Code(s): J96.21 - Acute and chronic respiratory failure with hypoxia Plan Mr. Munoz is a 73-year-old male history of difficult to treat asthma on Trelegy 200 inhaler at baseline presented today with worsening respiratory distress, cough and increasing sputum production and pulmonary was called for further evaluation and management. Admits progressively worsening cough with intermittent scant productive phlegm. Admits worsening Wheezing. Denies any known sick contacts. Afebrile. Hemodynamically stable. Predominant neutrophilic leukocytosis with a white count of 31.6 this morning. Chest x-ray on this admission chronic changes along with new right upper lobe airspace disease. Sputum cultures pending. COVID-19 and flu PCR panel negative. Currently receiving ceftriaxone azithromycin along with DuoNebs every 6 scheduled. On initial examination no acute respiratory distress. Oxygen comments weaned to 3 L. No significant wheezing noted on auscultation etiology of current hypoxic respiratory failure is likely from pneumonia and asthma exacerbation at this point of time. Plan: -Change antibiotics to levofloxacin pending sputum culture results urine strep Legionella antigen and nasal MRSA PCR DuoNebs every 6 hours along with Pulmicort Q12 scheduled Continue oxygen supplementation to maintain O2 saturation goal of 90% and above, continue to wean as tolerated
--- NOTE | 2024-03-30 09:50 | XR_ITS ---
PROCEDURE INFORMATION: Exam: XR Chest Exam date and time: 03/30/2024 10:00 AM Age: 73 years old Clinical indication: Shortness of breath; Additional info: Pnm TECHNIQUE: Imaging protocol: Radiologic exam of the chest. Views: 1 view. COMPARISON: CR XR CHEST AP 03/28/2024 9:20 PM FINDINGS: Tubes, catheters and devices: Left-sided pacing device. Lungs: Right upper lobe infiltrate consistent with pneumonia. Pleural spaces: Unremarkable. No pleural effusion. No pneumothorax. Heart/Mediastinum: Unremarkable. No cardiomegaly. Bones/joints: Unremarkable. IMPRESSION: Right upper lobe pneumonia with mild improved aeration when compared to the prior exam
--- NOTE | 2024-03-30 12:53 | P.PN_ITS ---
Subjective *Date: 03/30/24 *Time: 19:54 Interval history: Patient clinically feeling better today, labs do not necessarily look better with jump in white count to 31. Stable on 2 L, will wean on rounds. Ambulating independently. Denies chest pain, nausea, vomiting. Medical Exam Vital signs and Labs for Last 24 Hours: Vital Signs Temp Pulse Pulse Resp BP Pulse Ox O2 Del Method 03/30/24 11:41 97.9 F 89 18 118/70 92 L Room Air 03/30/24 10:42 Nasal Cannula 03/30/24 09:00 Nasal Cannula 03/30/24 08:00 Nasal Cannula 03/30/24 08:00 98.5 F 111 H 18 116/92 H 93 L Room Air 03/30/24 06:46 Nasal Cannula 03/30/24 06:25 84 03/30/24 06:25 77 03/30/24 06:25 96 Nasal Cannula 03/30/24 05:00 Nasal Cannula 03/30/24 04:00 97.8 F 94 H 18 114/42 L 94 L Nasal Cannula 03/30/24 03:00 Nasal Cannula 03/30/24 01:00 Nasal Cannula 03/30/24 00:27 71 03/30/24 00:27 76 03/30/24 00:00 97.5 F L 88 20 106/51 L 91 L Room Air 03/29/24 23:00 Nasal Cannula 03/29/24 21:00 Nasal Cannula 03/29/24 20:00 Nasal Cannula 03/29/24 20:00 97.9 F 109 H 20 102/56 L 92 L Room Air 03/29/24 19:29 88 L Room Air 03/29/24 19:28 Nasal Cannula 03/29/24 19:27 70 03/29/24 19:27 72 03/29/24 18:49 Nasal Cannula 03/29/24 17:00 Nasal Cannula 03/29/24 16:00 98.4 F 103 H 22 94/66 L 90 L Room Air 03/29/24 15:00 Nasal Cannula 03/29/24 13:00 Nasal Cannula O2 Flow Rate FiO2 03/30/24 11:41 03/30/24 10:42 3 03/30/24 09:00 3 03/30/24 08:00 3 03/30/24 08:00 03/30/24 06:46 2 03/30/24 06:25 03/30/24 06:25 03/30/24 06:25 3 03/30/24 05:00 2 03/30/24 04:00 03/30/24 03:00 2 03/30/24 01:00 2 03/30/24 00:27 03/30/24 00:27 03/30/24 00:00 03/29/24 23:00 2 03/29/24 21:00 2 03/29/24 20:00 2 03/29/24 20:00 03/29/24 19:29 03/29/24 19:28 2 28 03/29/24 19:27 03/29/24 19:27 03/29/24 18:49 2 03/29/24 17:00 2 03/29/24 16:00 03/29/24 15:00 2 03/29/24 13:00 2 Intake and Output 03/29/24 03/30/24 03/30/24 23:59 07:59 15:59 Intake Total 435 / 1345 250 / 730 480 / 730 Output Total 0 / 225 Balance 435 / 1120 250 / 730 480 / 730 Intake: Intake, Oral Amount 335 / 995 480 / 480 Intake, Total IV Amount 100 / 350 250 / 250 Azithromycin 500 mg In 0.9 % 250 / 250 Sodium Chloride 250 ml @ 250 mls/hr IV Q24H ON LICENSE OF [facility] Rx#:[id number] Ceftriaxone Sodium 2 gm In 0.9 100 / 100 % Sodium Chloride 100 ml @ 200 mls/hr IV 1700 ON LICENSE OF [facility] Rx#:[id number] Output: Output, Urine Amount 0 / 225 Other: Number of Unmeasured Voids 1 Weight 72.575 kg Patient Weight 03/30/24 23:59 Weight 72.575 kg Laboratory Results - last 24 hr 03/30/24 06:18: WBC 31.6 H* D, RBC 4.25 L, Hgb 12.7 L, Hct 38.2 L, MCV 89.8, MCH 29.8, MCHC 33.2, RDW 13.8, Plt Count 187, MPV 9.2, Neut % (Auto) 94.2 H, Lymph % (Auto) 2.4 L, [place] % (Auto) 2.9, Eos % (Auto) 0.4, Baso % (Auto) 0.1, Neut # (Auto) 29.8 H, Lymph # (Auto) 0.8, [place] # (Auto) 0.9, Eos # (Auto) 0.1, Baso # (Auto) 0.0, Total Counted 100, Neutrophils % (Manual) 92 H, Lymphocytes % (Manual) 5 L, Monocytes % (Manual) 3, Platelet Estimate Normal, RBC Morphology Normal, Sodium 137, Potassium 3.8, Chloride 103, Carbon Dioxide 24, Anion Gap 13.8, BUN 35 H D, Creatinine 1.10, Estimated Creat Clear 60, Estimated GFR 65, Est GFR ( Amer) 79, Glucose 152 H D, Calcium 8.9, Magnesium 2.0, Total Bilirubin 0.5, AST 30, ALT 21, Alkaline Phosphatase 81, Total Protein 6.5, Albumin 3.5, Globulin 3.0, Albumin/Globulin Ratio 1.2 I & O for Labs for Last 24 Hours: Intake & Output 03/27/24 03/28/24 03/29/24 03/30/24 23:59 23:59 23:59 23:59 Intake Total 1095 / 1345 730 / 730 Output Total 225 / 225 Balance 870 / 1120 730 / 730 Weight 72.847 kg 72.847 kg 72.575 kg Microbiology Reports for the Last 24 Hours: Microbiology 03/29/24 18:09 Sputum - Expectorated Sputum Gram Stain - Final 03/28/24 21:20 Blood Blood Culture - Preliminary NO GROWTH AFTER 24 HOURS 03/28/24 21:20 Blood Blood Culture - Preliminary NO GROWTH AFTER 24 HOURS Constitutional: Present no acute distress, obese, chronically ill appearing and cooperative Head: Present atraumatic and normocephalic ENT: Present normal exam Neck: Present normal inspection Respiratory: Present prolonged expiratory phase, crackles (Improving in right lung field) and normal respiratory effort; Absent rhonchi or wheezes Cardiac: Present Reg Rate and Rhythm GI: Present soft and normal bowel sounds; Absent distention or tenderness Extremities: Present normal inspection, full ROM and edema (Trace bilateral lower extremity); Absent tenderness Skin: Present intact; Absent erythema Neuro: Present Grossly Intact, alert, awake, oriented x 3 and moves all extremities Assessment and Plan *Assessment and plan (1) Sepsis: Status: Acute Qualifiers: Sepsis type: sepsis due to unspecified organism Sepsis acute organ dysfunction status: without acute organ dysfunction Qualified Code(s): A41.9 - Sepsis, unspecified organism Category: Medical Code(s): A41.9 - Sepsis, unspecified organism (2) Pneumonia: Status: Acute Qualifiers: Pneumonia type: due to unspecified organism Laterality: left Lung location: upper lobe of lung Qualified Code(s): J18.9 - Pneumonia, unspecified organism Category: Medical Code(s): J18.9 - Pneumonia, unspecified organism (3) Acute on chronic hypoxic respiratory failure: Status: Acute Category: Medical Code(s): J96.21 - Acute and chronic respiratory failure with hypoxia (4) JESSICA (acute kidney injury): Status: Acute Category: Medical Code(s): N17.9 - Acute kidney failure, unspecified (5) Acute exacerbation of chronic obstructive pulmonary disease: Status: Acute Category: Medical Code(s): J44.1 - Chronic obstructive pulmonary disease with (acute) exacerbation (6) Heart failure with improved ejection fraction (HFimpEF): Status: Chronic Category: Medical Code(s): I50.32 - Chronic diastolic (congestive) heart failure (7) Chronic GERD: Status: Chronic Category: Medical Code(s): K21.9 - Gastro-esophageal reflux disease without esophagitis (8) COPD (chronic obstructive pulmonary disease): Status: Chronic Category: Medical Code(s): J44.9 - Chronic obstructive pulmonary disease, unspecified (9) Cardiac pacemaker in situ: Status: Chronic Category: Medical Code(s): Z95.0 - Presence of cardiac pacemaker (10) Hypertension: Status: Chronic Qualifiers: Hypertension type: essential hypertension Qualified Code(s): I10 - Essential (primary) hypertension Category: Medical Code(s): I10 - Essential (primary) hypertension (11) Hyperlipidemia: Status: Chronic Qualifiers: Hyperlipidemia type: mixed hyperlipidemia Qualified Code(s): E78.2 - Mixed hyperlipidemia Category: Medical Code(s): E78.5 - Hyperlipidemia, unspecified Plan Case discussed with ER physician, request admission for treatment of sepsis and pneumonia with new oxygen requirement. Medicine agreed to admit for further management. Improving clinically, anticipate discharge in the next 24 hours. Continues to require inpatient management. Problems addressed as follows: #Sepsis Meets Criteria for tachycardia, respiratory rate and leukocytosis Blood cultures pending. #Acute respiratory failure with hypoxia #Pneumonia #COPD exacerbation Chest x-ray obtained, reviewed showing improvement in right upper lobe pneumonia. Transition antibiotics to levofloxacin after discussion with pulmonology. Continue DuoNebs every 6 hours and Pulmicort every 12 hours. Monitor overnight. Anticipate discharge tomorrow. Discontinue ceftriaxone and azithromycin Goal sats greater 90%, wean as tolerated. Weaned to room air after rounds Tylenol 650 mg as needed every 4 hours for fever pain #JESSICA Creatinine of 1.4 on admission with a baseline of 0.9; creatinine 1.1, BUN 35 this morning on labs. Repeat CBC, CMP, magnesium ordered for the morning. Potassium 3.8. #Chronic diastolic heart failure/heart failure with improved ejection fraction Appears mildly dry on exam with JESSICA Monitor fluid volume status with sepsis protocol Monitor respiratory status with fluid administration #Hypertension #HLD #CAD Reports history of 10 stents, sees cardiology at [facility]. Holding valsartan today along with spironolactone, Lasix, bisoprolol due to soft blood pressures. Continue DAPT with aspirin 81 mg daily and Plavix 75 mg daily Continue Lipitor 40 mg daily Full code Heparin 5000 units subcu every 8 hours Cardiac
[2024-03-30] MEDS: LACTATED RINGERS 1000ML 1,000 ML 50 ML IV (13:36)
[2024-03-30] MEDS: LEVOFLOXACIN/D5W 750 MG/150 ML 750 MG/150 ML PIGGYBACK 100 MG IV (13:36)
--- NOTE | 2024-03-30 17:26 | PC.NURSE ---
Pt alert and oriented x4. Rhonci and Wheezes auscultated upon lung auscultation, Pt O2 sat has been above 90% on RA since this afternoon. Pt does get more SOB when ambulating. Ambulating independently in room. Family at bedside most of shift. Resting comfortably in bed at this time with no complaints.
[2024-03-30] MEDS: BUDESONIDE 0.5MG/2ML NEB 0.5 MG IH (18:25)
[2024-03-30] MEDS: ATORVASTATIN 40MG TABLET 40 MG PO (21:18)
[2024-03-31] VITALS: BP 135/78; PULSE 117; RESP 18; TEMP 36.4; O2SAT 94
[2024-03-31 04:00] VITALS: BP 110/54; PULSE 109; RESP 16; TEMP 36.6; O2SAT 93; BMI 32.9
[2024-03-31 05:10] LABS: HCV Ab Non Reactive (Non Reactive)
[2024-03-31] MEDS: IPRATROPIUM/ALBUTEROL 3 ML NEB IH (06:15)
[2024-03-31] MEDS: BUDESONIDE 0.5MG/2ML NEB 0.5 MG IH (06:15)
--- NOTE | 2024-03-31 06:22 | PC.NURSE ---
Alert and oriented. No complaints from patient throughout the night. Pt has rested on and off throughout the night. 1L NC applied due to patient desat on when ambulating to restroom. Independent in the room. Wheezing noted to bilateral lungs. Call light in reach.
[2024-03-31 06:25] VITALS: PULSE 102; PULSE 96; O2SAT 92
[2024-03-31] MEDS: HEPARIN SODIUM 5,000 UNIT/ML VIAL 5000 UNIT SUBCUT (06:38)
[2024-03-31 06:49] LABS: Albumin Level 2.9 g/dl (3.5-5.0); Chloride 106 mmol/L (98-107); Potassium 3.3 mmoL/L (3.5-5.1); Sodium 140 mmol/L (136-145)
[2024-03-31 06:51] LABS: Basophils % 0.1 % (0.1-2.0); Eosinophils % 0.3 % (0.1-12.0); Hematocrit 37.6 % (42.0-52.0); Hemoglobin 12.1 g/dL (14.1-18.0); Lymphocytes # 1.2 K/mm3 (0.7-4.5); Mean Corpuscular HGB Conc 32.2 g/dL (31.8-35.4); Mean Corpuscular Hemoglobin 28.9 pg (27.0-31.2); Mean Corpuscular Volume 89.7 fl (80-94); Mean Platelet Volume 8.5 fl (7.4-10.4); Monocytes # 0.9 K/mm3 (0.1-1.0); Monocytes % 7.2 % (1.7-9.3); Neutrophils # 10.8 K/mm3 (1.8-7.8); Neutrophils % 83.3 % (37.0-80.0); Platelet Count 203 K/mm3 (142-424); Red Blood Count 4.19 M/mm3 (4.60-6.20); Red Cell Distribution Width 13.9 % (11.5-17.5)
[2024-03-31 06:52] LABS: Alanine Aminotransferase 22 U/L (12-78); Albumin/Globulin Ratio 1.1 (1.1-1.8); Alkaline Phosphatase 65 U/L (38-126); Anion Gap 9.3 mEq/L (5-15); Aspartate Amino Transferase 26 U/L (17-59); Bilirubin,Total 0.4 mg/dl (0.2-1.3); Blood Urea Nitrogen 25 mg/dl (9-20); Calcium 8.5 mg/dl (8.4-10.2); Carbon Dioxide 28 mmol/L (22.0-30.0); Creatinine Clearance Estimated 69 mL/min (50-200); Estimated Glomerular Filt Rate 82 ml/min (>60); GFR (African American) 100 ML/MIN (>60); Globulin 2.6 g/dL (1.3-3.2); Glucose 121 mg/dl (74-100); Total Protein,Serum 5.5 g/dl (6.3-8.2)
[2024-03-31 07:13] LABS: Magnesium 1.9 mg/dl (1.6-2.3)
[2024-03-31] MEDS: ASPIRIN EC 81MG TABLET 81 MG PO (07:37)
[2024-03-31] MEDS: guaiFENesin 600 MG TAB.ER.12H PO (07:38)
[2024-03-31] MEDS: CLOPIDOGREL 75MG TAB 75 MG PO (07:38)
[2024-03-31 08:00] VITALS: BP 136/70; PULSE 114; RESP 20; TEMP 36.6; O2SAT 95
--- NOTE | 2024-03-31 09:50 | EXP.PULM.PN ---
Subjective *Date: 03/31/24 *Time: 11:22 Interval history: No acute respiratory vents overnight. Patient admits continued improvement in his respiratory symptoms. Pulmonology Exam Inpatient Vital signs and Labs for Last 24 Hours: Temp Pulse Resp BP Pulse Ox O2 Del Method O2 Flow Rate 97.8 F 114 H 20 136/70 95 Nasal Cannula 1 03/31/24 08:00 03/31/24 08:00 03/31/24 08:00 03/31/24 08:00 03/31/24 08:00 03/31/24 09:36 03/31/24 09:36 FiO2 1.5 03/31/24 06:25 Laboratory Results - last 24 hr 03/28/24 21:00: Hepatitis C Antibody Non reactive 03/31/24 06:08: WBC 13.0 H D, RBC 4.19 L, Hgb 12.1 L, Hct 37.6 L, MCV 89.7, MCH 28.9, MCHC 32.2, RDW 13.9, Plt Count 203, MPV 8.5, Neut % (Auto) 83.3 H, Lymph % (Auto) 9.0 L, [place] % (Auto) 7.2, Eos % (Auto) 0.3, Baso % (Auto) 0.1, Neut # (Auto) 10.8 H, Lymph # (Auto) 1.2, [place] # (Auto) 0.9, Eos # (Auto) 0.0, Baso # (Auto) 0.0, Sodium 140, Potassium 3.3 L, Chloride 106, Carbon Dioxide 28, Anion Gap 9.3, BUN 25 H D, Creatinine 0.90, Estimated Creat Clear 69, Estimated GFR 82, Est GFR ( Amer) 100 D, Glucose 121 H D, Calcium 8.5, Magnesium 1.9, Total Bilirubin 0.4, AST 26, ALT 22, Alkaline Phosphatase 65, Total Protein 5.5 L, Albumin 2.9 L D, Globulin 2.6, Albumin/Globulin Ratio 1.1 Temp Pulse Resp BP Pulse Ox O2 Del Method O2 Flow Rate 98.5 F 111 H 18 116/92 H 93 L Room Air 2 03/30/24 08:00 03/30/24 08:00 03/30/24 08:00 03/30/24 08:00 03/30/24 08:00 03/30/24 08:00 03/30/24 06:46 FiO2 28 03/29/24 19:28 Laboratory Results - last 24 hr 03/29/24 : WBC 22.0 H* D, RBC 4.40 L, Hgb 13.0 L, Hct 39.0 L, MCV 88.7, MCH 29.5, MCHC 33.3, RDW 14.0, Plt Count 197, MPV 9.0, Neut % (Auto) 94.9 H, Lymph % (Auto) 2.8 L, [place] % (Auto) 2.1, Eos % (Auto) 0.1, Baso % (Auto) 0.2, Neut # (Auto) 20.8 H, Lymph # (Auto) 0.6 L, [place] # (Auto) 0.5, Eos # (Auto) 0.0, Baso # (Auto) 0.1, Total Counted 100, Neutrophils % (Manual) 98 H, Lymphocytes % (Manual) 1 L, Monocytes % (Manual) 1 L, Platelet Estimate Normal, RBC Morphology Normal 03/30/24 06:18: WBC 31.6 H* D, RBC 4.25 L, Hgb 12.7 L, Hct 38.2 L, MCV 89.8, MCH 29.8, MCHC 33.2, RDW 13.8, Plt Count 187, MPV 9.2, Neut % (Auto) 94.2 H, Lymph % (Auto) 2.4 L, [place] % (Auto) 2.9, Eos % (Auto) 0.4, Baso % (Auto) 0.1, Neut # (Auto) 29.8 H, Lymph # (Auto) 0.8, [place] # (Auto) 0.9, Eos # (Auto) 0.1, Baso # (Auto) 0.0, Total Counted 100, Neutrophils % (Manual) 92 H, Lymphocytes % (Manual) 5 L, Monocytes % (Manual) 3, Platelet Estimate Normal, RBC Morphology Normal, Sodium 137, Potassium 3.8, Chloride 103, Carbon Dioxide 24, Anion Gap 13.8, BUN 35 H D, Creatinine 1.10, Estimated Creat Clear 60, Estimated GFR 65, Est GFR ( Amer) 79, Glucose 152 H D, Calcium 8.9, Magnesium 2.0, Total Bilirubin 0.5, AST 30, ALT 21, Alkaline Phosphatase 81, Total Protein 6.5, Albumin 3.5, Globulin 3.0, Albumin/Globulin Ratio 1.2 I & O for Labs for Last 24 Hours: Intake & Output 03/28/24 03/29/24 03/30/24 03/31/24 23:59 23:59 23:59 23:59 Intake Total 1095 / 1345 1340 / 1640 420 / 420 Output Total 225 / 225 150 / 400 500 / 500 Balance 870 / 1120 1190 / 1240 -80 / -80 Weight 160 lb 9.6 oz 160 lb 9.6 oz 160 lb 167 lb 12.8 oz Intake & Output 03/27/24 03/28/24 03/29/24 03/30/24 23:59 23:59 23:59 23:59 Intake Total 1095 / 1345 730 / 730 Output Total 225 / 225 Balance 870 / 1120 730 / 730 Weight 160 lb 9.6 oz 160 lb 9.6 oz 160 lb Microbiology Reports for the Last 24 Hours: Microbiology 03/29/24 18:09 Sputum - Expectorated Sputum Gram Stain - Final 03/29/24 18:09 Sputum - Expectorated Sputum Sputum Culture - Preliminary 03/28/24 21:20 Blood Blood Culture - Preliminary NO GROWTH AFTER 48 HOURS 03/28/24 21:20 Blood Blood Culture - Preliminary NO GROWTH AFTER 48 HOURS Microbiology 03/29/24 18:09 Sputum - Expectorated Sputum Gram Stain - Final 03/28/24 21:20 Blood Blood Culture - Preliminary NO GROWTH AFTER 24 HOURS 03/28/24 21:20 Blood Blood Culture - Preliminary NO GROWTH AFTER 24 HOURS Constitutional: Present moderate distress Head: Present normocephalic and atraumatic ENT: Present normal exam, normal oropharynx and mucous membranes moist Neck: Present normal inspection and full ROM Respiratory: Present prolonged expiratory phase, respiratory distress, wheezes and able to speak in complete sentences Cardiac: Present S1/S2, Tachycardia and radial pulses present GI: Present soft and distention; Absent tenderness or guarding Skin: Present intact; Absent cyanosis or jaundice Neuro: Present alert, awake and oriented x 3 Extremities: Present normal inspection; Absent clubbing or cyanosis Psychiatric: Present normal affect and cooperative Assessment and Plan *Assessment and plan (1) Pneumonia: Status: Acute Qualifiers: Laterality: left Lung location: upper lobe of lung Pneumonia type: due to unspecified organism Qualified Code(s): J18.9 - Pneumonia, unspecified organism Category: Medical Code(s): J18.9 - Pneumonia, unspecified organism (2) Sepsis: Status: Acute Qualifiers: Sepsis acute organ dysfunction status: without acute organ dysfunction Sepsis type: sepsis due to unspecified organism Qualified Code(s): A41.9 - Sepsis, unspecified organism Category: Medical Code(s): A41.9 - Sepsis, unspecified organism (3) Acute on chronic hypoxic respiratory failure: Status: Acute Category: Medical Code(s): J96.21 - Acute and chronic respiratory failure with hypoxia Plan Mr. Munoz is a 73-year-old male history of difficult to treat asthma on Trelegy 200 inhaler at baseline presented today with worsening respiratory distress, cough and increasing sputum production and pulmonary was called for further evaluation and management. Admits progressively worsening cough with intermittent scant productive phlegm. Admits worsening Wheezing. Denies any known sick contacts. Afebrile. Hemodynamically stable. Predominant neutrophilic leukocytosis with a white count of 31.6 this morning. Chest x-ray on this admission chronic changes along with new right upper lobe airspace disease. Sputum cultures pending. COVID-19 and flu PCR panel negative. Currently receiving ceftriaxone azithromycin along with DuoNebs every 6 scheduled. On initial examination no acute respiratory distress. Oxygen comments weaned to 3 L. No significant wheezing noted on auscultation etiology of current hypoxic respiratory failure is likely from pneumonia and asthma exacerbation at this point of time. Interval update: No acute respiratory events overnight. Improving oxygen requirements. Nasal MRSA PCR pending. Sputum less than 10 WBC. No receiving levofloxacin. Plan: Continue levofloxacin to complete a total of 5-day course pending sputum culture results urine strep Legionella antigen and nasal MRSA PCR DuoNebs every 6 hours along with Pulmicort Q12 scheduled. Patient can be discharged on Trelegy 200 inhaler along with DuoNebs 4 times daily as needed Continue oxygen supplementation to maintain O2 saturation goal of 90% and above, continue to wean as tolerated. Thank you for involving pulmonary in this patient Will follow the patient in pulmonary clinic 5 to 7 days post discharge.
[2024-03-31 12:00] VITALS: BP 132/85; PULSE 100; RESP 19; TEMP 36.7; O2SAT 93
[2024-03-31] MEDS: LEVOFLOXACIN/D5W 750 MG/150 ML 750 MG/150 ML PIGGYBACK 100 MG IV (12:57)
--- NOTE | 2024-03-31 13:26 | P.DS_ITS ---
General Admission date:: 03/28/24 HPI HPI HPI: This is a 73-year-old male with past medical history of COPD, chronic heart failure, CAD, hypertension, hyperlipidemia who presents emergency ferment today with complaints of shortness of breath and sputum production.? States that he is been feeling poorly for the last several days.? states that he had an episode today of inability to collect his thoughts or speak clearly but was brown sient.? That is since resolved.? Denies any chest pain.? States that he has been wearing his as needed oxygen more frequently today. Emergency department workup notable for white blood cell count of 29, creatinine of 1.4.? Chest x-ray notable for left upper lobe pneumonia.? He was admitted to the hospital service. Hospital Course Hospital Course Hospital Course: Case discussed with ER physician, request admission for treatment of sepsis and pneumonia with new oxygen requirement. Medicine agreed to admit for further management. Improving clinically, anticipate discharge in the next 24 hours. Continues to require inpatient management. Problems addressed as follows: #Acute respiratory failure with hypoxia #Sepsis #Pneumonia #COPD exacerbation Met sepsis criteria with tachycardia, respiratory rate and leukocytosis Chest x-ray obtained, reviewed showing improvement in right upper lobe pneumonia. Clinically improved with DuoNeb and Pulmicort breathing treatments, broad- spectrum antibiotics, Trelegy. Weaned to room air with appropriate saturations. Discharged with Levaquin for 3 more days, Trelegy 200, DuoNebs as needed up to 4 times a day. #JESSICA Creatinine of 1.4 on admission with a baseline of 0.9; improved to 0.9 with IV fluid resuscitation #Chronic diastolic heart failure/heart failure with improved ejection fraction Resume home Lasix, spironolactone. #Hypertension #HLD #CAD Reports history of 10 stents, sees cardiology at [facility]. Continue valsartan , spironolactone, Lasix, bisoprolol Continue DAPT with aspirin 81 mg daily and Plavix 75 mg daily Continue Lipitor 40 mg daily Exam Data for Last 24 hours Vital signs and Labs for Last 24 Hours: Temp Pulse Resp BP Pulse Ox O2 Del Method O2 Flow Rate 97.8 F 114 H 20 136/70 95 Nasal Cannula 1 03/31/24 08:00 03/31/24 08:00 03/31/24 08:00 03/31/24 08:00 03/31/24 08:00 03/31/24 11:57 03/31/24 11:57 FiO2 1.5 03/31/24 06:25 Laboratory Results - last 24 hr 03/28/24 21:00: Hepatitis C Antibody Non reactive 03/31/24 06:08: WBC 13.0 H D, RBC 4.19 L, Hgb 12.1 L, Hct 37.6 L, MCV 89.7, MCH 28.9, MCHC 32.2, RDW 13.9, Plt Count 203, MPV 8.5, Neut % (Auto) 83.3 H, Lymph % (Auto) 9.0 L, [place] % (Auto) 7.2, Eos % (Auto) 0.3, Baso % (Auto) 0.1, Neut # (Auto) 10.8 H, Lymph # (Auto) 1.2, [place] # (Auto) 0.9, Eos # (Auto) 0.0, Baso # (Auto) 0.0, Sodium 140, Potassium 3.3 L, Chloride 106, Carbon Dioxide 28, Anion Gap 9.3, BUN 25 H D, Creatinine 0.90, Estimated Creat Clear 69, Estimated GFR 82, Est GFR ( Amer) 100 D, Glucose 121 H D, Calcium 8.5, Magnesium 1.9, Total Bilirubin 0.4, AST 26, ALT 22, Alkaline Phosphatase 65, Total Protein 5.5 L, Albumin 2.9 L D, Globulin 2.6, Albumin/Globulin Ratio 1.1 I & O for Last 24 hours: Intake & Output 03/28/24 03/29/24 03/30/24 03/31/24 23:59 23:59 23:59 23:59 Intake Total 1095 / 1345 1340 / 1640 570 / 570 Output Total 225 / 225 150 / 400 500 / 500 Balance 870 / 1120 1190 / 1240 70 / 70 Weight 72.847 kg 72.847 kg 72.575 kg 76.113 kg Microbiology Reports for the Last 24 Hours: Microbiology 03/30/24 10:11 Nose - Nasal MRSA Culture - Final Negative 03/29/24 18:09 Sputum - Expectorated Sputum Gram Stain - Final 03/29/24 18:09 Sputum - Expectorated Sputum Sputum Culture - Preliminary 03/28/24 21:20 Blood Blood Culture - Preliminary NO GROWTH AFTER 48 HOURS 03/28/24 21:20 Blood Blood Culture - Preliminary NO GROWTH AFTER 48 HOURS Constitutional Constitutional: no acute distress *Routine HEENT Exam Head: Present normocephalic Eye: Present EOMI and PERRL ENT: Present mucous membranes moist *Routine Neck Exam Neck: Present supple; Absent lymphadenopathy *Routine Respiratory Exam Respiratory: Present CTA bilaterally *Routine Cardiovascular Exam Cardiovascular: Present RRR *Routine Abdominal Exam Abdominal: Present soft and normoactive bowel sounds; Absent tenderness *Routine Extremities Exam Extremities: Absent cyanosis, clubbing or edema *Routine Skin Exam Skin: Present warm; Absent rash *Routine Neurological Exam Neurological: Present alert and oriented X3 Results Data Completed and Pending Labs on day of discharge: Labs from last 24 hours 03/31/24 03/28/24 06:08 21:00 WBC 13.0 H D RBC 4.19 L Hgb 12.1 L Hct 37.6 L MCV 89.7 MCH 28.9 MCHC 32.2 RDW 13.9 Plt Count 203 MPV 8.5 Neut % (Auto) 83.3 H Lymph % (Auto) 9.0 L [place] % (Auto) 7.2 Eos % (Auto) 0.3 Baso % (Auto) 0.1 Neut # (Auto) 10.8 H Lymph # (Auto) 1.2 [place] # (Auto) 0.9 Eos # (Auto) 0.0 Baso # (Auto) 0.0 Sodium 140 Potassium 3.3 L Chloride 106 Carbon Dioxide 28 Anion Gap 9.3 BUN 25 H D Creatinine 0.90 Estimated Creat Clear 69 Estimated GFR 82 Est GFR ( Amer) 100 D Glucose 121 H D Calcium 8.5 Magnesium 1.9 Total Bilirubin 0.4 AST 26 ALT 22 Alkaline Phosphatase 65 Total Protein 5.5 L Albumin 2.9 L D Globulin 2.6 Albumin/Globulin Ratio 1.1 Hepatitis C Antibody Non reactive Preliminary micro results at discharge 03/29/24 18:09 Sputum Culture - Preliminary Sputum - Expectorated Sputum 03/28/24 21:20 Blood Culture - Preliminary Blood NO GROWTH AFTER 48 HOURS 03/28/24 21:20 Blood Culture - Preliminary Blood NO GROWTH AFTER 48 HOURS DS: Diagnosis Discharge Diagnosis (1) Pneumonia: Status: Acute Code(s): J18.9 - Pneumonia, unspecified organism Qualifiers: Laterality: left Lung location: upper lobe of lung Pneumonia type: due to unspecified organism Qualified Code(s): J18.9 - Pneumonia, unspecified organism (2) Sepsis: Status: Acute Code(s): A41.9 - Sepsis, unspecified organism Qualifiers: Sepsis acute organ dysfunction status: without acute organ dysfunction Sepsis type: sepsis due to unspecified organism Qualified Code(s): A41.9 - Sepsis, unspecified organism (3) Acute on chronic hypoxic respiratory failure: Status: Acute Code(s): J96.21 - Acute and chronic respiratory failure with hypoxia Meds Home Medications and Allergies Home Medications ?Medication ?Instructions ?Recorded ?Confirmed ?Type budesonide 0.25 mg/2 mL suspension 0.25 mg inhalation BID COPD 03/30/21 04/02/24 History for nebulization nitroglycerin 0.4 mg sublingual 0.4 mg sublingual Q5-15M PRN chest 08/19/23 04/02/24 Rx tablet pain #25 tabs atorvastatin 40 mg tablet 40 mg PO DAILY 08/29/23 04/02/24 History spironolactone 25 mg tablet 25 mg PO DAILY #90 tabs 09/02/23 04/02/24 Rx (Aldactone) ipratropium 0.5 mg-albuterol 3 mg 3 ml inhalation Q6RT 90 days #120 09/05/23 04/02/24 Rx (2.5 mg base)/3 mL nebulization ea soln montelukast 10 mg tablet 10 mg PO HS 09/25/23 04/02/24 History dextromethorphan-guaifenesin ER 60 1 tab PO Q12H #60 tabs 09/30/23 04/02/24 Rx mg-1,200 mg tab,extend release,12hr aspirin 81 mg tablet,delayed 81 mg PO DAILY Heart health 90 11/04/23 04/02/24 Rx release days #90 tabs fluticasone fur. 200 mcg-umeclid 1 inh inhalation DAILY 90 days #3 11/05/23 04/02/24 Rx 62.5 mcg-vilant 25 mcg ea inhalat.powder (Trelegy Ellipta) clopidogrel 75 mg tablet 75 mg PO DAILY platelet inhibitor 12/02/23 04/02/24 Rx #90 tabs pantoprazole 40 mg tablet,delayed 40 mg PO HS #30 tabs 03/23/24 04/02/24 Rx release (Protonix) furosemide 40 mg tablet 40 mg PO DAILY Edema 90 days #90 03/25/24 04/02/24 Rx tabs albuterol sulfate 90 mcg/actuation 2 inh inhalation QIDP PRN 03/29/24 04/02/24 History aerosol inhaler shortness of breath or wheezing bisoprolol fumarate 10 mg tablet 5 mg PO HS 03/29/24 04/02/24 History valsartan 40 mg tablet 40 mg PO HS 03/29/24 04/02/24 History ipratropium 0.5 mg-albuterol 3 mg 3 ml inhalation Q6RT PRN Shortness 03/31/24 04/02/24 Rx (2.5 mg base)/3 mL nebulization Of Breath 30 days #30 mL soln levofloxacin 750 mg tablet 750 mg PO DAILY 3 days #3 tabs 03/31/24 04/02/24 Rx New Prescriptions to Start Prescriptions: ipratropium-albuterol Kendrick Jimenez levofloxacin Kendrick Jimenez Allergies Allergy/AdvReac Type Severity Reaction Status Date / Time hazelnut Allergy Hives Verified 04/02/24 08:24 Discharge Plan Disposition Patient Disposition: Home, Self-Care Condition: Fair Discharge Order Discharge Orders: Discharge Order (Routine); Ordered 03/31/24 Ordered By: Kendrick Jimenez Follow up Plan Follow up with: Gaurang Downing MD [Physician] - 04/07/24 1:00 pm Musa Martínez MD [Primary Care Provider] - 04/03/24 8:00 am Prescriptions/Medication Reconciliation: New ipratropium-albuterol 0.5 mg-3 mg(2.5 mg base)/3 mL Solution For Nebulization 3 ml inhalation Q6RT PRN (Reason: Shortness Of Breath) 30 Days Qty: 30 0RF levofloxacin 750 mg tablet 750 mg PO DAILY 3 Days Qty: 3 0RF Continued nitroglycerin 0.4 mg tablet, sublingual 0.4 mg SL Q5-15M PRN (Reason: chest pain) Qty: 25 0RF Rx Instructions: until response; do not exceed 3 doses per episode Trelegy Ellipta 200-62.5-25 mcg blister with device 1 inh inhalation DAILY 90 Days Qty: 3 3RF ipratropium-albuterol 0.5 mg-3 mg(2.5 mg base)/3 mL solution for nebulization 3 ml inhalation Q6RT 90 Days Qty: 120 0RF dextromethorphan-guaifenesin 60-1,200 mg tablet extended release 12 hr 1 tab PO Q12H Qty: 60 0RF spironolactone [Aldactone] 25 mg tablet 25 mg PO DAILY Qty: 90 3RF aspirin 81 mg tablet,delayed release (DR/EC) 81 mg PO DAILY 90 Days Qty: 90 2RF clopidogrel 75 mg tablet 75 mg PO DAILY Qty: 90 3RF pantoprazole [Protonix] 40 mg tablet,delayed release (DR/EC) 40 mg PO HS Qty: 30 11RF furosemide 40 mg tablet 40 mg PO DAILY 90 Days Qty: 90 3RF budesonide 0.25 MG/2 ML suspension for nebulization 0.25 mg IH BID montelukast 10 mg tablet 10 mg PO HS albuterol sulfate 90 mcg/actuation HFA aerosol inhaler 2 inh IH QIDP PRN (Reason: shortness of breath or wheezing) bisoprolol fumarate 10 mg tablet 5 mg PO HS valsartan 40 mg tablet 40 mg PO HS atorvastatin 40 mg tablet 40 mg PO DAILY Problem Reconciliation Problems Reviewed?: Yes Patient Discharge Instructions ACTIVITY: Continue current activity DIET: continue same diet Patient Instructions: DI for Pneumonia -- Adult, DI for Sepsis -- Adult Print Language: Croatian Providers Primary Care Provider: Musa Martínez Admit Provider: Aaron Roth Attending Provider: Aaron Roth
--- NOTE | 2024-04-01 12:58 | CARE MANAGER ---
Spoke with patient's related to hospital discharge. She states he is doing well. He has new medications and is aware of follow up appointments. Denies any questions or concerns. LUZ Conde
== END 2024-03-31 15:29 | disposition home or self-care (01) | DRG 871 ==
LOC: ER 20:52 → 2ND 22:24
PROVIDERS: Nurse Practitioner Acute Care; Nurse Practitioner Family; Admitting Provider Internal Medicine Adolescent Medicine; Emergency Provider Emergency Medicine; PCP Family Medicine; Visit Provider Internal Medicine Adolescent Medicine
DX: A41.9 Sepsis, unspecified organism (principal); J18.9 Pneumonia, unspecified organism; J96.21 Acute and chronic respiratory failure with hypoxia; N17.9 Acute kidney failure, unspecified; J44.1 Chronic obstructive pulmonary disease with (acute) exacerbation; I50.32 Chronic diastolic (congestive) heart failure; K21.9 Gastro-esophageal reflux disease without esophagitis; Z95.0 Presence of cardiac pacemaker; E78.2 Mixed hyperlipidemia; I11.0 Hypertensive heart disease with heart failure; I25.10 Atherosclerotic heart disease of native coronary artery without angina pectoris
CPT/HCPCS: 36415; 70450; 71045; 80048; 80053; 81001; 83605; 83735; 83880; 84145; 85007; 85014; 85018; 85025; 85048; 85049; 86803; 87040; 87070; 87081; 87205; 87389; 87636; 93005; 94640; 94760; 99285; J0456; J0696; J1644; J1956; J2919; J7050; J7120; J7613; J7620

== ENCOUNTER 2024-05-20 09:57 | Emergency (ER) | payer MEDICARE, SELFPAY ==
--- NOTE | 2024-05-20 11:19 | XR_ITS ---
FINAL REPORT CLINICAL HISTORY: cough/sob COMPARISON: 09/25/2023 FINDINGS: No acute pulmonary density is evident. There is no evidence of effusion or other pleural disease. The mediastinum has a normal appearance. The cardiac silhouette is unremarkable. There is a left-sided pacer which courses within the left-sided SVC. IMPRESSION: Unremarkable chest exam. Reviewed, Interpreted and Dictated by Chelsi Knowles MD Transcribed by Kimmy Pradhan Authenticated and [facility]
[2024-05-20 11:20] VITALS: BP 141/72; PULSE 68; RESP 20; TEMP 36.9; O2SAT 88; BMI 30.4
--- NOTE | 2024-05-20 11:27 | ED_ITS ---
Discharge Plan Disposition Patient Disposition: Home, Self-Care Condition: Good Prescriptions Prescriptions: New prednisone 10 mg tablet 10 mg PO DIRECTED 9 Days Qty: 21 0RF Rx Instructions: Take 4 tablets daily for 3 days, then take 2 tablets daily for 3 days, then take 1 tablet daily for 3 days, then stop. benzonatate 100 mg capsule 100 mg PO TIDP PRN (Reason: Cough) Qty: 30 0RF amoxicillin-pot clavulanate 875-125 mg Tablet 1 tab PO Q12H Qty: 20 0RF No Action nitroglycerin 0.4 mg tablet, sublingual 0.4 mg SL Q5-15M PRN (Reason: chest pain) Qty: 25 0RF Rx Instructions: until response; do not exceed 3 doses per episode Trelegy Ellipta 200-62.5-25 mcg blister with device 1 inh inhalation DAILY 90 Days Qty: 3 3RF ipratropium-albuterol 0.5 mg-3 mg(2.5 mg base)/3 mL solution for nebulization 3 ml inhalation Q6RT 90 Days Qty: 120 0RF dextromethorphan-guaifenesin 60-1,200 mg tablet extended release 12 hr 1 tab PO Q12H Qty: 60 0RF spironolactone [Aldactone] 25 mg tablet 25 mg PO DAILY Qty: 90 3RF aspirin 81 mg tablet,delayed release (DR/EC) 81 mg PO DAILY 90 Days Qty: 90 2RF clopidogrel 75 mg tablet 75 mg PO DAILY Qty: 90 3RF pantoprazole [Protonix] 40 mg tablet,delayed release (DR/EC) 40 mg PO HS Qty: 30 11RF furosemide 40 mg tablet 40 mg PO DAILY 90 Days Qty: 90 3RF valsartan 40 mg tablet 40 mg PO HS Qty: 90 2RF budesonide 0.25 MG/2 ML suspension for nebulization 0.25 mg IH BID montelukast 10 mg tablet 10 mg PO HS albuterol sulfate 90 mcg/actuation HFA aerosol inhaler 2 inh IH QIDP PRN (Reason: shortness of breath or wheezing) bisoprolol fumarate 10 mg tablet 5 mg PO HS ipratropium-albuterol 0.5 mg-3 mg(2.5 mg base)/3 mL Solution For Nebulization 3 ml inhalation Q6RT PRN (Reason: Shortness Of Breath) 30 Days Qty: 30 0RF atorvastatin 40 mg tablet 40 mg PO DAILY Referrals Follow up/Referrals: Musa Martínez MD [Primary Care Provider] - See instructions Activity Restrictions/Add. Instructions Additional Instructions/Restrictions: Drink plenty of fluids. Take tylenol or ibuprofen for pain or fever. Take the medications as directed. Follow up with your regular doctor. GO TO THE ER FOR ANY WORSENING SYMPTOMS Clinical Impressions Clinical Impression: COPD exacerbation Instructions Patient Instructions: Chronic Obstructive Pulmonary Disease, DI for Chronic Obstructive Pulmonary Disease Print Language Print Language: Turkmen Discharge ED Provider: Aaron Brar [facility] HPI General Stated complaint: soa fever cough congestion sore throat Mode of Arrival: Ambulatory Source of Information: Patient Time Seen by Provider: 05/20/24 11:25 Description of Symptoms (Recalled from Triage Doc. by RN): CONGESTION, COUGH, FEVER, SOB, WEAK HEENT Symptoms (Recalled from RN notes): Yes Resp Symptoms (Recalled from RN notes): Yes Skin Symptoms (Recalled from RN notes): No MS Symptoms (Recalled from RN notes): No Functional Status (Recalled from RN notes): WNL Related Data Home Medications ?Medication ?Instructions ?Recorded ?Confirmed budesonide 0.25 mg/2 mL suspension 0.25 mg inhalation BID COPD 03/30/21 05/13/24 for nebulization atorvastatin 40 mg tablet 40 mg PO DAILY 08/29/23 05/13/24 montelukast 10 mg tablet 10 mg PO HS 09/25/23 05/13/24 albuterol sulfate 90 mcg/actuation 2 inh inhalation QIDP PRN 03/29/24 05/13/24 aerosol inhaler shortness of breath or wheezing bisoprolol fumarate 10 mg tablet 5 mg PO HS 03/29/24 05/13/24 Previous Rx's ?Medication ?Instructions ?Recorded nitroglycerin 0.4 mg sublingual 0.4 mg sublingual Q5-15M PRN chest 08/19/23 tablet pain #25 tabs spironolactone 25 mg tablet 25 mg PO DAILY #90 tabs 09/02/23 (Aldactone) ipratropium 0.5 mg-albuterol 3 mg 3 ml inhalation Q6RT 90 days #120 09/05/23 (2.5 mg base)/3 mL nebulization ea soln dextromethorphan-guaifenesin ER 60 1 tab PO Q12H #60 tabs 09/30/23 mg-1,200 mg tab,extend release,12hr aspirin 81 mg tablet,delayed 81 mg PO DAILY Heart health 90 11/04/23 release days #90 tabs fluticasone fur. 200 mcg-umeclid 1 inh inhalation DAILY 90 days #3 11/05/23 62.5 mcg-vilant 25 mcg ea inhalat.powder (Trelegy Ellipta) clopidogrel 75 mg tablet 75 mg PO DAILY platelet inhibitor 12/02/23 #90 tabs pantoprazole 40 mg tablet,delayed 40 mg PO HS #30 tabs 03/23/24 release (Protonix) furosemide 40 mg tablet 40 mg PO DAILY Edema 90 days #90 03/25/24 tabs ipratropium 0.5 mg-albuterol 3 mg 3 ml inhalation Q6RT PRN Shortness 03/31/24 (2.5 mg base)/3 mL nebulization Of Breath 30 days #30 mL soln amoxicillin 875 mg-potassium 1 tab PO Q12H #20 tabs 05/20/24 clavulanate 125 mg tablet benzonatate 100 mg capsule 100 mg PO TIDP PRN Cough #30 caps 05/20/24 prednisone 10 mg tablet 10 mg PO DIRECTED 9 days #21 05/20/24 tabs valsartan 40 mg tablet 40 mg PO HS #90 tabs 05/20/24 Allergies Allergy/AdvReac Type Severity Reaction Status Date / Time hazelnut Allergy Hives Verified 05/13/24 13:41 Worker's Comp Is this a Worker's Comp case?: No [facility] Disclaimer: The information contained in this section may have been updated after the patient was seen, as this information can be updated by other users. Medical History JESSICA (acute kidney injury) Acute bronchitis due to human metapneumovirus Acute exacerbation of chronic obstructive pulmonary disease Acute on chronic hypoxic respiratory failure Asthma exacerbation History of pacemaker SOBOE (shortness of breath on exertion) Supplemental oxygen dependent History of smoking 30 or more pack years Encounter for screening for malignant neoplasm of lung Asthma COPD (chronic obstructive pulmonary disease) Aortic insufficiency Dyspnea Cardiac pacemaker in situ Hyperlipidemia Hypertension Diastolic dysfunction Surgical History History of hip surgery History of heart artery stent H/O hernia repair Family History Other Cancer Heart attack Social History (Updated 05/13/24 @ 13:43 by ROC Yan) Smoking Status: Never smoker how long ago did patient quit smokin second hand exposure: No alcohol intake: never substance use type: denies use current occupational status: retired Travel in the last 8 weeks: None household members: spouse and children housing: house marital status: current occupational exposures/hazards: No caffeine: No Have you lived/traveled outside [place] in past 30 days?: No Contact w/someone who lives/traveled outside US past 30 days?: No Exposure to someone with infectious disease in past 14 days?: No Do you have a fever (greater than 100.4 F or 38 C)?: No Have you tested positive for COVID-19: No Exposed to someone with COVID-19 in past 14 days?: No Do you have a sore throat?: Yes Do you have a cough?: Yes Do you have any weakness?: No Do you have any diarrhea?: No Are you experiencing any unusual bleeding?: No Do you have any muscle aches/pain?: No Do you have any abdominal pain?: No Are you experiencing loss of taste or smell?: No ROS Obtained: Yes All systems reviewed & no additional complaints except as documented Constitutional Constitutional: Reports poor appetite Eyes Eyes: Reports system reviewed and no additional complaints, except as documented ENT Ears, Nose, Mouth, and Throat: Reports as per HPI Cardiovascular Cardiovascular: Reports system reviewed and no additional complaints, except as documented and Denies chest pain Respiratory Respiratory: Denies shortness of breath, Reports chest congestion, Reports cough, Denies stridor and Denies wheezing Gastrointestinal Gastrointestingal: Reports system reviewed and no additional complaints, except as documented; Denies abdominal pain, diarrhea or vomiting Musculoskeletal Musculoskeletal: Reports system reviewed and no additional complaints, except as documented and Denies arthralgias Integumentary/Breasts Skin/Breast: Reports system reviewed and no additional complaints, except as documented and Denies rash Neurologic Neurologic: Denies paresthesias Allergic/Immunologic Allergic/Immunologic: Denies wheezing Physical Exam General General appearance: alert and in no apparent distress Eye Eye exam: Present normal appearance, PERRL and EOMI ENT ENT exam: Present mucous membranes moist and normal external ear exam Expanded ENT Exam External ear exam: Present normal external inspection TM/Canal exam: Bilateral TM: erythema and bulging Nose exam: Absent sinus tenderness Nasal speculum exam: Bilateral: normal Mouth exam: Present normal external inspection; Absent drooling Teeth exam: Present normal inspection Throat exam: Present tonsillar erythema and tonsillomegaly Neck Neck exam: Present normal inspection, full ROM and trachea midline; Absent tenderness, lymphadenopathy or thyromegaly Chest Chest inspection: Present normal inspection and symmetric chest wall rise; Absent tenderness or rash Respiratory Respiratory exam: Present normal lung sounds bilaterally; Absent respiratory distress, wheezes, stridor or accessory muscle use Cardiovascular Cardiovascular exam: Present regular rate, normal rhythm and normal heart sounds Abdominal Exam Abdominal exam: Present soft; Absent distention, tenderness, guarding, rebound or rigidity Extremities Exam Extremities exam: Present normal inspection, full ROM and normal capillary refill; Absent tenderness or calf tenderness Back Exam Back exam: Present normal inspection and full ROM; Absent tenderness Neurological Exam Neurological exam: Present alert and oriented X3 Psychiatric Psychiatric exam: Present normal affect and normal mood Skin Skin exam: Present warm, dry, intact and normal color Lymphatic Lymphatic Findings: no adenopathy Medical Decision Making Medical Records Medical records reviewed: No I reviewed the patient's medical records. Screening: Per USPSTF and CDC recommendations, given the prevalence of disease in our region, it is our hospital?s policy to screen for HIV and viral Hepatitis for all patients aged 18 and over and those with ongoing risk factors. Salty Inquiry Pt receiving controlled substance: No Vital Signs: 05/20/24 11:20 Temperature 98.4 F Temperature Source Oral Pulse Rate [Left Brachial] 68 Respiratory Rate 20 Blood Pressure [Left Arm] 141/72 H Blood Pressure Mean [Left Arm] 95 02 Sat by Pulse Oximetry 88 L Oxygen Delivery Method Room Air Lab Data Lab results reviewed: Yes I reviewed the patient's lab results. Orders (Tests/Meds): ORDERS Category Date Time Status Chest XR 2 view (NOT portable) [XR chest 2V] Stat Exams 05/20/24 11:19 Ordered Radiology Data #1: Image(s): Chest Image Reviewed: Yes I reviewed the patient's radiology image and Yes I have reviewed radiologist's interpretation Preliminary Findings: No Infiltrates Seen Accession No. : [id number] Patient Name / ID : Tammy Rosas / [id number] Exam Date : 05/20/2024 11:39:24 ( Final ) Study Comment : Sex / Age : M / 73Y Creator : Easton Knowles MD Dictator : Stripe Matcher : Regulatory Compliance Officer : Easton Knowles MD Approver2 : Report Date : 05/20/2024 12:28:48 My Comment : FINAL REPORT CLINICAL HISTORY: cough/sob COMPARISON: 09/25/2023 FINDINGS: No acute pulmonary density is evident. There is no evidence of effusion or other pleural disease. The mediastinum has a normal appearance. The cardiac silhouette is unremarkable. There is a left-sided pacer which courses within the left-sided SVC. IMPRESSION: Unremarkable chest exam. Reviewed, Interpreted and Dictated by Chelsi Knowles MD Transcribed by Kmimy Pradhan Authenticated and [facility]
[2024-05-20 11:34] LABS: UTC Influenza A Antigen Negative (Negative)
[2024-05-20 11:35] LABS: UTC Influenza B Antigen Negative (Negative)
[2024-05-20 12:11] VITALS: BP 141/72; PULSE 68; RESP 20; TEMP 36.9
[2024-05-20 12:16] LABS: Coronavirus 19, PCR Not Detected (NotDetected); Influenza A, PCR Not Detected (NotDetected); Influenza B, PCR Not Detected (NotDetected)
== END 2024-05-20 12:16 | disposition home or self-care (01) ==
PROVIDERS: Emergency Provider Nurse Practitioner Family; PCP Family Medicine
DX: J44.1 Chronic obstructive pulmonary disease with (acute) exacerbation (principal)
CPT/HCPCS: 71046; 87636; 87804; 99213; G0381

== ENCOUNTER 2024-08-31 12:20 | Outpatient (CLI) | payer MEDICARE, SELFPAY ==
--- NOTE | 2024-08-31 12:20 | CT_ITS ---
FINAL REPORT CLINICAL HISTORY: lung cancer screening former smoker quit 7 years ago smoked 4-7 cigars a day for 55 years COMPARISON: Chest dated 08/29/2023 FINDINGS: CT CHEST LOW DOSE SCREENING HISTORY: Screening exam for lung cancer. DOSE: CTDI vol: 2.90 mGy, DLP: 96.38 mGy*cm TECHNIQUE: Axial CT without IV contrast administration using low dose protocol. This study was performed with techniques to keep radiation doses as low as reasonably achievable, (ALARA). Individualized dose reduction techniques using automated exposure control or adjustment of mA and/or kV according to the patient's size were employed. No acute lung disease is present. There is chronic bronchial wall thickening with mild bronchiectasis. 3 mm right lower lobe nodule on image 47 of series 3. This is likely stable although it was obscured on the prior exam. There is no suspicious pulmonary lesion. No pleural or pericardial effusion is seen. No adenopathy or mass lesion is present. Limited images of the upper abdomen are without acute abnormality. IMPRESSION: Stable exam without evidence of suspicious pulmonary nodule. LUNG RADS CATEGORY 2 RECOMMENDATION: 12 month LDCT follow up Reviewed, Interpreted and Dictated by Chelsi Knowles MD Transcribed by Zoe Pretty Authenticated and [facility]
== END 2024-08-31 23:59 | disposition home or self-care (01) ==
LOC: RAD 12:20
PROVIDERS: PCP Family Medicine; Visit Provider Internal Medicine Pulmonary Disease
DX: F17.210 Nicotine dependence, cigarettes, uncomplicated (principal)
CPT/HCPCS: 71271

== ENCOUNTER 2024-10-19 07:42 | Outpatient (CLI) | payer MEDICARE, SELFPAY ==
--- NOTE | 2024-10-19 | CA_ITS ---
APPROVED REPORT EXAM: Comprehensive 2D, Doppler, and color-flow Echocardiogram Property Handler: Smiley Jung RT(R) Ht: 5 ft 0 in Wt: 157lbs BSA: 1.68 BP: 131/60 mmHg Indications: dyspnea, COPD, ex smoker, edema, HTN, SOB, HLD, rule out PPM induced CM, DD, CAD 2D Dimensions LA Volume 22.80 mL LA Volume Index 13.57 mL/m2 (M/F) 16-34 EF AP4 54.00 % GL Strain -17.0 % M-Mode Dimensions RVDd 3.01 cm (0.9-2.6) LA Diam 3.71 cm (1.9-4.0) LVDd 5.13 cm (3.5-5.7) LVDs 3.73 cm (3.5-5.7) IVSd 0.64 cm (0.6-1.1) PWd 0.93 cm (0.6-1.1) EF (Teich) 52.70% FS 27.30% EDV (Teich) 125.50 mL ESV (Teich) 59.30 mL LV Diastology E Decel Time 263 (160-240 msec) E/A Ratio 1.0 Mitral Valve MV E Max Fer. 94.0 (40-130 cm/s) MV A Velocity 95.0 (40-130 cm/s) E/A Ratio 0.99 MV PHT 77.0 ms Tricuspid Valve TR P. Velocity 215.00 cm/s RAP Estimate 10.00 mmHg RVSP 28.50 mmHg Left Ventricle The left ventricle is normal size. The left ventricular systolic function is normal. The left ventricular ejection fraction is within the normal range. There is increased LV wall thickness. There is normal LV segmental wall motion. Diastolic function is indeterminate. LVEF is 55%. Right Ventricle Right ventricle is mildly dilated. The right ventricular systolic function is normal. There is a device present in the right ventricle. Atria Left atrium is mildly dilated. Right atrium is mildly dilated. There is no Doppler evidence of interatrial shunt. Aortic Valve The aortic valve is mildly thickened. There is no aortic valvular stenosis. Trace aortic regurgitation. Mitral Valve The mitral valve is normal in structure. No evidence of mitral valve stenosis. Mild mitral regurgitation. Tricuspid Valve Tricuspid valve is grossly normal in structure and function. Mild tricuspid regurgitation. RVSP is 20-25 mmHg. Pulmonic Valve The pulmonary valve is normal in structure. Trace pulmonic regurgitation. Great Vessels The aortic root is normal in size. IVC is normal in size and collapses >50% with inspiration. Pericardium There is no pericardial effusion. Other Information Study Quality: Technically Difficult Conclusion Technically difficult study due to poor acoustic windows. Normal biventricular systolic function. Mild RV dilation. Mild biatrial dilation. Mild MR, mild TR. Electronically signed by : Gisella Yoon MD 10/25/2024 23:44:06
== END 2024-10-19 23:59 | disposition home or self-care (01) ==
LOC: RT 07:43
PROVIDERS: PCP Family Medicine; Visit Provider Physician Assistant
DX: I08.1 Rheumatic disorders of both mitral and tricuspid valves (principal); I11.0 Hypertensive heart disease with heart failure; I50.30 Unspecified diastolic (congestive) heart failure; I25.10 Atherosclerotic heart disease of native coronary artery without angina pectoris; I42.9 Cardiomyopathy, unspecified; E78.5 Hyperlipidemia, unspecified; Z95.0 Presence of cardiac pacemaker; J44.9 Chronic obstructive pulmonary disease, unspecified; Z87.891 Personal history of nicotine dependence
CPT/HCPCS: 93306

== ENCOUNTER 2025-02-17 09:42 | Outpatient (CLI) | payer MEDICARE, SELFPAY ==
--- OUTSIDE RECORDS SUMMARY | 2025-02-17 09:44 | XMS_ITS ---
Author Organization Unknown TREATMENT PLAN [facility] Start Date Provider Encounter for Check-up [id number] MONIKA Garza
--- OUTSIDE RECORDS SUMMARY | 2025-02-17 09:44 | XMS_ITS | Clinical Summary ---
Author Organization Healthcare Address [address] [place] [address] Care Team Providers Care Owner [employer] Name Role Phone Unavailable Primary Care Provider Unavailabl e Social History Tobacco Use Types Packs/Day Years Used Date Smoking Tobacco: Never Assessed Sex and Gender Information Value Date Recorded Sex Assigned at Not on file Legal Sex Male 4:01 PM EST Gender Identity Not on file Sexual Orientation Not on file Plan of Treatment Health Maintenance Due Date Last Done Comments [facility]-Depression Screening 1948 [facility]-Infant/Child/Adol SDOH Screenings 1950 [facility]- SDOH Screenings 1966 [facility]-Adult SDOH Screenings 1966 [facility]-DTaP,Tdap,and Td Vaccines (1 - Tdap) 12/06/1967 [facility]-Pneumococcal Vaccine: 50+ Years (1 of 1 - PCV) 1998 [facility]-Zoster Vaccines (2 of 2) 04/27/2019 03/02/2019 [facility]-RSV Vaccine: 60+ Years or (1 - 1-dose 75+ series) 12/06/2023 [id number] Vaccine ( season) 2025 02/12/2022, 08/07/2021, 01/23/2021, Additional history exists [facility]-Influenza Vaccine (#1) 2025 04/11/2022 HPV Vaccines Aged Out No longer eligi ble based on patient's age to complete this topic [facility]-HIB Vaccines Aged Out No longer e ligible based on patient's age to complete this topic [facility]-Hepatitis A Vaccines Aged Out No longer eligible based on patient's age to complete this topic [facility]-IPV Vaccines Aged Out No longer e ligible based on patient's age to complete this topic [facility]-Rotavirus Vaccines Aged Out No lo nger eligible based on patient's age to complete this topic Insurance MEDICARE
[2025-02-17] MEDS: IPRATROPIUM/ALBUTEROL 3 ML NEB IH (10:21)
== END 2025-02-17 23:59 | disposition home or self-care (01) ==
LOC: RT 09:42
PROVIDERS: PCP Family Medicine; Visit Provider Internal Medicine Pulmonary Disease
DX: J44.9 Chronic obstructive pulmonary disease, unspecified (principal); R94.2 Abnormal results of pulmonary function studies
CPT/HCPCS: 94010

== ENCOUNTER 2025-02-18 10:31 | Outpatient (CLI) | payer MEDICARE, SELFPAY ==
--- OUTSIDE RECORDS SUMMARY | 2025-02-18 10:35 | XMS_ITS | Clinical Summary ---
Author Organization Healthcare Address [address] [place] [address] Care Team Providers Care [employer] Name Role Phone Unavailable Primary Care Provider [...] or (1 - 1-dose 75+ series) 12/06/2023 [id number] Vaccine ( season) 2025 02/12/2022, 08/07/2021, 01/23/2021, [...]
[2025-02-18 10:54] LABS: Hematocrit 47.7 % (42.0-52.0); Hemoglobin 15.5 g/dL (14.1-18.0); Immature Granulocytes % 0.3 %; Mean Corpuscular HGB Conc 32.5 g/dL (31.8-35.4); Mean Corpuscular Hemoglobin 28.8 pg (27.0-31.2); Mean Corpuscular Volume 88.5 fl (80-94); Nucleated Red Blood Cells % 0 %; Platelet Count 299 K/mm3 (142-424); Red Blood Count 5.39 M/mm3 (4.60-6.20); Red Cell Distribution Width-SD 43.7 fL; White Blood Count 10.7 K/mm3 (4.8-10.8)
[2025-02-18 11:12] LABS: Alanine Aminotransferase 28 U/L (12-78); Albumin Level 4.2 g/dl (3.5-5.0); Alkaline Phosphatase 90 U/L (38-126); Anion Gap 11.9 mEq/L (5-15); Aspartate Amino Transferase 32 U/L (17-59); Bilirubin,Direct 0.2 mg/dl (0.0-0.4); Bilirubin,Indirect 0.8 mg/dL (0.0-0.9); Bilirubin,Total 1.0 mg/dl (0.2-1.3); Bilirubin,Unconjugated 0.8 mg/dL (0.0-1.1); Blood Urea Nitrogen 15 mg/dl (9-20); Calcium 8.6 mg/dl (8.4-10.2); Carbon Dioxide 29 mmol/L (22.0-30.0); Chloride 101 mmol/L (98-107); Cholesterol 172 mg/dl (140-200); Creatinine,Serum 1.20 mg/dl (0.66-1.25); Estimated Glomerular Filt Rate 59 ml/min (>60); GFR (African American) 71 ML/MIN (>60); Glucose 100 mg/dl (74-100); HDL Cholesterol 32 mg/dl (40-60); Magnesium 1.7 mg/dl (1.6-2.3); Potassium 3.9 mmoL/L (3.5-5.1); Sodium 138 mmol/L (136-145); Total Protein,Serum 6.7 g/dl (6.3-8.2); Triglycerides 161 mg/dl (30-150)
[2025-02-18 11:27] LABS: Free T4 (Free Thyroxine) 1.41 ng/dl (0.78-2.19)
[2025-02-18 11:41] LABS: Thyroid Stimulating Hormone 0.97 uIU/mL (0.465-4.68)
== END 2025-02-18 23:59 | disposition home or self-care (01) ==
LOC: LAB 10:32
PROVIDERS: PCP Family Medicine; Visit Provider Nurse Practitioner
DX: I25.10 Atherosclerotic heart disease of native coronary artery without angina pectoris (principal); I10 Essential (primary) hypertension; E78.5 Hyperlipidemia, unspecified
CPT/HCPCS: 36415; 80048; 80061; 80076; 83735; 84439; 84443; 85025

== ENCOUNTER 2025-05-10 11:33 | Outpatient (CLI) | payer MEDICARE, SELFPAY ==
[2025-05-10 12:26] LABS: Hematocrit 48.0 % (42.0-52.0); Hemoglobin 15.5 g/dL (14.1-18.0); Immature Granulocytes % 1.5 %; Mean Corpuscular HGB Conc 32.3 g/dL (31.8-35.4); Mean Corpuscular Hemoglobin 28.4 pg (27.0-31.2); Mean Corpuscular Volume 87.9 fl (80-94); Nucleated Red Blood Cells % 0 %; Platelet Count 364 K/mm3 (142-424); Red Blood Count 5.46 M/mm3 (4.60-6.20); Red Cell Distribution Width-SD 43.2 fL; White Blood Count 17.7 K/mm3 (4.8-10.8)
[2025-05-10 13:07] LABS: Alanine Aminotransferase 28 U/L (12-78); Albumin Level 4.1 g/dl (3.5-5.0); Alkaline Phosphatase 95 U/L (38-126); Anion Gap 17.5 mEq/L (5-15); Aspartate Amino Transferase 24 U/L (17-59); Bilirubin,Direct 0.2 mg/dl (0.0-0.4); Bilirubin,Indirect 0.2 mg/dL (0.0-0.9); Bilirubin,Total 0.4 mg/dl (0.2-1.3); Bilirubin,Unconjugated 0.2 mg/dL (0.0-1.1); Blood Urea Nitrogen 24 mg/dl (9-20); Calcium 8.9 mg/dl (8.4-10.2); Carbon Dioxide 26 mmol/L (22.0-30.0); Chloride 101 mmol/L (98-107); Cholesterol 167 mg/dl (140-200); Creatinine,Serum 1.10 mg/dl (0.66-1.25); Estimated Glomerular Filt Rate 65 ml/min (>60); GFR (African American) 79 ML/MIN (>60); Glucose 99 mg/dl (74-100); HDL Cholesterol 40 mg/dl (40-60); Magnesium 2.2 mg/dl (1.6-2.3); Potassium 4.5 mmoL/L (3.5-5.1); Sodium 140 mmol/L (136-145); Total Protein,Serum 6.8 g/dl (6.3-8.2); Triglycerides 145 mg/dl (30-150)
[2025-05-10 13:24] LABS: Free T4 (Free Thyroxine) 1.08 ng/dl (0.78-2.19)
[2025-05-10 13:38] LABS: Thyroid Stimulating Hormone 0.29 uIU/mL (0.465-4.68)
== END 2025-05-10 23:59 | disposition home or self-care (01) ==
LOC: LAB 11:34
PROVIDERS: PCP Family Medicine; Visit Provider Nurse Practitioner
DX: I25.10 Atherosclerotic heart disease of native coronary artery without angina pectoris (principal); E78.2 Mixed hyperlipidemia; I10 Essential (primary) hypertension
CPT/HCPCS: 36415; 80048; 80061; 80076; 83735; 84439; 84443; 85025